=== PATIENT | female | born 1995 | race African-American/Black ===

== ENCOUNTER 2017-04-24 09:41 | Emergency (ER) | payer MEDICAID ==
[~2017-04-24] VITALS: Ht 175.3 cm; Wt 100.2 kg
[2017-04-24 10:46] LABS: Urine Bacteria FEW /hpf (None Seen); Urine Blood Negative /uL (Negative); Urine Mucus FEW (None Seen); Urine Specific Gravity 1.013 (1.001-1.035); Urine WBC 1 /hpf (0 - 5)
[2017-04-24 10:53] LABS: Basophils # (auto) 0 uL; Basophils % (auto) 0.4 % (0.0-2.0); Eosinophils # (auto) 0.1 uL; Eosinophils % (auto) 1.7 % (0.0-7.0); Hematocrit 38.9 % (36.0-46.0); Hemoglobin 13.4 g/dL (12.2-16.2); Lymphocytes # (auto) 2.2 uL; Lymphocytes % (auto) 30.5 % (10.0-50.0); Mean Corpuscular Hemoglobin 31.8 pg (28.0-32.0); Mean Corpuscular Hgb Conc. 34.4 g/dL (32.0-36.0); Mean Corpuscular Volume 92.5 fL (80.0-100.0); Monocytes # (auto) 0.3 uL; Monocytes % (auto) 4.1 % (0.0-12.0); Neutrophils # (auto) 4.7 uL; Neutrophils % (auto) 63.3 % (37.0-80.0); Platelet Count (auto) 249 10^3/uL (140-450); Red Blood Cells 4.21 10^6/uL (4.0-5.20); Red Cell Distribution Width 12.1 % (11.8-14.3); White Blood Cell 7.3 10^3/uL (4.4-10.8)
[2017-04-24 11:10] LABS: Albumin 3.7 g/dL (3.4-5.0); BUN/Creatinine Ratio 9.6; Calcium 8.9 mg/dL (8.5-10.1); Potassium 4.3 mmol/L (3.5-5.1)
[2017-04-24 11:13] LABS: Bilirubin, Total 0.3 mg/dL (0.2-1.0); Total Protein 7.6 g/dL (6.4-8.2)
[2017-04-24] MEDS ORDERED: METHYLDOPA 250 MG TAB PO ONE (11:45)
[2017-04-24] MEDS ORDERED: ACETAMINOPHEN 325 MG TAB PO ONE (11:45)
[2017-04-24 14:32] VITALS: BP 111/30
== END 2017-04-24 14:55 | disposition home or self-care (01) ==
LOC: ER 09:41
DX: O16.2 Unspecified maternal hypertension, second trimester (principal); O23.42 Unspecified infection of urinary tract in pregnancy, second trimester; Z3A.15 15 weeks gestation of pregnancy
CPT/HCPCS: 36415; 76805; 80053; 81001; 82962; 84702; 85025

== ENCOUNTER 2019-11-04 19:45 | Emergency (ER) | payer MEDICAID ==
[~2019-11-04] VITALS: Ht 172.7 cm; Wt 103.4 kg
[2019-11-04 19:55] VITALS: BP 152/109
[2019-11-04 21:36] LABS: Basophils # (auto) 0.1 10 ^3/uL (0-0.2); Basophils % (auto) 0.4 % (0.0-2.0); Eosinophils # (auto) 0.1 10 ^3/uL (0-0.8); Eosinophils % (auto) 0.4 % (0.0-7.0); Hematocrit 47.6 % (36.0-46.0); Hemoglobin 15.9 g/dL (12.2-16.2); Lymphocytes # (auto) 1.2 10 ^3/uL (0.4-5.4); Lymphocytes % (auto) 9.7 % (10.0-50.0); Mean Corpuscular Hemoglobin 32.2 pg (28.0-32.0); Mean Corpuscular Hgb Conc. 33.4 g/dL (32.0-36.0); Mean Corpuscular Volume 96.3 fL (80.0-100.0); Monocytes # (auto) 0.3 10 ^3/uL (0-1.3); Monocytes % (auto) 2.2 % (0.0-12.0); Neutrophils # (auto) 11.2 10 ^3/uL (1.6-8.6); Neutrophils % (auto) 87.3 % (37.0-80.0); Nucleated Red Blood Cells % 0.1 %; Platelet Count (auto) 258 10^3/uL (140-450); Red Blood Cells 4.94 10^6/uL (4.0-5.20); Red Cell Distribution Width 12.8 % (11.8-14.3); White Blood Cell 12.8 10^3/uL (4.4-10.8)
[2019-11-04 21:57] LABS: Albumin 4.7 g/dL (3.4-5.0); BUN/Creatinine Ratio 13.4; Calcium 9.4 mg/dL (8.5-10.1); Potassium 4.7 mmol/L (3.5-5.1)
[2019-11-04 22:00] LABS: Bilirubin, Total 0.7 mg/dL (0.2-1.0); Total Protein 8.4 g/dL (6.4-8.2)
== END 2019-11-04 22:26 | disposition left against medical advice (07) ==
LOC: ER 19:45
DX: R10.9 Unspecified abdominal pain (principal); Z53.21 Procedure and treatment not carried out due to patient leaving prior to being seen by health care provider
CPT/HCPCS: 36415; 80053; 83690; 84702; 85025

== ENCOUNTER 2023-10-30 11:19 | Inpatient (IN) | payer MEDICAID ==
[2023-10-30] VITALS (23 sets, daily range): BP systolic 122–195; BP diastolic 52–123; PULSE 101–115; RESP 9–44; TEMP 98.6–99; O2SAT 99–100
[~2023-10-30] VITALS: Ht 175.3 cm; Wt 102.6 kg
[2023-10-30] MEDS: ONDANSETRON HCL 4 MG/2 ML VIAL IV ONE ×2 (12:11→15:01)
[2023-10-30] MEDS: SODIUM CHLORIDE 0.9% 1,000 ML IV ONE (12:11)
[2023-10-30] MEDS: hydrALAZINE HCL 20 MG/ML VL IV ONE ×3 (12:11→12:52)
[2023-10-30 13:37] LABS: Basophils # (auto) 0 10 ^3/uL (0-0.2); Basophils % (auto) 0.2 % (0.0-2.0); Eosinophils # (auto) 0 10 ^3/uL (0-0.8); Eosinophils % (auto) 0.2 % (0.0-7.0); Hematocrit 32.6 % (36.0-46.0); Hemoglobin 11.8 g/dL (12.2-16.2); Lymphocytes # (auto) 1.1 10 ^3/uL (0.4-5.4); Lymphocytes % (auto) 11.2 % (10.0-50.0); Mean Corpuscular Hemoglobin 33.1 pg (28.0-32.0); Mean Corpuscular Hgb Conc. 36.1 g/dL (32.0-36.0); Mean Corpuscular Volume 91.6 fL (80.0-100.0); Monocytes # (auto) 0.2 10 ^3/uL (0-1.3); Monocytes % (auto) 1.9 % (0.0-12.0); Neutrophils # (auto) 8.7 10 ^3/uL (1.6-8.6); Neutrophils % (auto) 86.5 % (37.0-80.0); Nucleated Red Blood Cells % 0.1 %; Platelet Count (auto) 253 10^3/uL (140-450); Red Blood Cells 3.55 10^6/uL (4.0-5.20); Red Cell Distribution Width 12.4 % (11.8-14.3)
[2023-10-30 13:51] LABS: Partial Thromboplastin Time 26.5 SEC (24.5-34.5); Prothrombin Time 10.6 sec (9.3-11.8)
[2023-10-30 14:02] LABS: Alanine Aminotransferase 10 U/L (7-40); Albumin 4.2 g/dL (3.2-4.8); Alkaline Phosphatase 42 U/L (46-116); Anion Gap 13 (5-15); Aspartate Aminotransferase < 8 U/L (13-40); BUN/Creatinine Ratio 10.4 (10.0-20.0); Blood Urea Nitrogen 11 mg/dL (9-23); Calcium 9.6 mg/dL (8.7-10.4); Carbon Dioxide 17 mmol/L (20-30); Chloride 104 mmol/L (98-107); Glucose 256 mg/dL (74-106); Potassium 4.6 mmol/L (3.5-5.1); Sodium 134 mmol/L (136-145)
[2023-10-30 14:03] LABS: Bilirubin, Total 0.6 mg/dL (0.2-1.0); Total Protein 7.1 g/dL (5.7-8.2)
[2023-10-30] MEDS: LABETALOL HCL 20 MG/4 ML VL IV ONE (14:49)
[2023-10-30] MEDS: LABETALOL INJECTION 250 MG in SODIUM CHL 0.9% 200 ML IV ONE (16:57)
[2023-10-30] MEDS: METOCLOPRAMIDE HCL 5MG/ml INJ 2ml VIAL IV ONE (16:58)
[2023-10-30] MEDS ORDERED: DOCUSATE SOD 100 MG CAP PO PRN (17:15)
[2023-10-30] MEDS ORDERED: DEXTROSE (50%) 50ML SYRG IV PRN (17:15)
[2023-10-30 18:10] LABS: Urine Bacteria None Seen /hpf (None Seen)
[2023-10-30 18:31] LABS: Urine Blood TRACE /uL (Negative); Urine Clarity Clear (Clear); Urine Color Light-Yellow (Yellow); Urine Protein, UAD 3+ (Negative); Urine Specific Gravity 1.021 (1.001-1.035); Urine Urobilinogen Normal (Negative); Urine WBC 1 /hpf (0 - 5); Urine pH 6.5 (5.0-9.0)
[2023-10-30 18:35] LABS: Amphetamine Screen, Urine Neg (NEGATIVE); Barbiturate Scree,Urine Neg (NEGATIVE); Cannabinoid Screen, Urine Pos (NEGATIVE); Cocaine Screen, Urine Neg (NEGATIVE); Opiate Scree,Urine Neg (NEGATIVE); Phencyclidine Screen, Urine Neg (NEGATIVE)
[2023-10-30 18:36] LABS: Creatinine, Urine 59.85 mg/dL (30.0-125.0)
[2023-10-30 18:37] LABS: Benzodiazephine Screen, Urine Neg (NEGATIVE)
[2023-10-30 18:39] LABS: Urine Protein/Creatinine Ratio 8.62
[2023-10-30 19:33] LABS: COVID19 ANTIGEN SOFIA FIA NEGATIVE (NEGATIVE)
[2023-10-30] MEDS: SODIUM CHL 0.9% IV SCH (19:40)
[2023-10-30] MEDS: LABETALOL IV SCH (19:40)
[2023-10-30] MEDS: ONDANSETRON HCL 4 MG/2 ML VIAL IV PRN (21:01)
[2023-10-30] MEDS: SODIUM CHLOR 0.9% PF (SALINE LOCK) 10ML VIAL/SYR IV SCH (21:01)
[2023-10-30] MEDS: ACCU-CHEK COMFORT CURVE STRIP VI SCH (21:53)
[2023-10-30] MEDS: InsuLIN REG 1unit/0.01ml Soln (100units/ml) SC SCH (22:01)
[2023-10-30] MEDS: dilTIAZem 25 MG/5 ML VIAL IV ONE (22:51)
[2023-10-31] VITALS (95 sets, daily range): BP systolic 90–194; BP diastolic 42–112; PULSE 95–111; RESP 10–31; TEMP 97.9–98.8; O2SAT 94–100
[2023-10-31] MEDS: NIFEdipine 10 MG CAP PO ONE (00:30)
[2023-10-31] MEDS: NIFEdipine ER 30 MG TAB PO ONE ×2 (00:33→04:22)
[2023-10-31] MEDS ORDERED: NIFE1TAB31 PO (00:42)
[2023-10-31] MEDS ORDERED: PROMETHAZINE HCL 12.5 MG RECT SUPP PR ONE (02:30)
[2023-10-31] MEDS: PROMETHAZINE-DM 5 ML ORAL SYRUP ONE (02:59)
[2023-10-31] MEDS: PROMETHAZINE HCL 6.25 MG/5 ML ORAL SYRUP PO ONE ×2 (03:01→05:15)
[2023-10-31 04:00] LABS: Basophils # (auto) 0 10 ^3/uL (0-0.2); Basophils % (auto) 0.1 % (0.0-2.0); Eosinophils # (auto) 0 10 ^3/uL (0-0.8); Hematocrit 30.1 % (36.0-46.0); Hemoglobin 10.9 g/dL (12.2-16.2); Lymphocytes # (auto) 1.2 10 ^3/uL (0.4-5.4); Lymphocytes % (auto) 9.2 % (10.0-50.0); Mean Corpuscular Hemoglobin 33.6 pg (28.0-32.0); Mean Corpuscular Hgb Conc. 36.3 g/dL (32.0-36.0); Mean Corpuscular Volume 92.6 fL (80.0-100.0); Monocytes # (auto) 0.6 10 ^3/uL (0-1.3); Monocytes % (auto) 4.3 % (0.0-12.0); Neutrophils # (auto) 11.1 10 ^3/uL (1.6-8.6); Neutrophils % (auto) 86.4 % (37.0-80.0); Platelet Count (auto) 257 10^3/uL (140-450); Red Blood Cells 3.25 10^6/uL (4.0-5.20); Red Cell Distribution Width 12.5 % (11.8-14.3); White Blood Cell 12.8 10^3/uL (4.4-10.8)
[2023-10-31 04:27] LABS: Albumin 4.1 g/dL (3.2-4.8); Alkaline Phosphatase 42 U/L (46-116); Anion Gap 14 (5-15); Aspartate Aminotransferase < 8 U/L (13-40); BUN/Creatinine Ratio 9.6 (10.0-20.0); Blood Urea Nitrogen 12 mg/dL (9-23); Calcium 9.4 mg/dL (8.7-10.4); Carbon Dioxide 20 mmol/L (20-30); Chloride 103 mmol/L (98-107); Glucose 304 mg/dL (74-106); Potassium 3.5 mmol/L (3.5-5.1); Sodium 137 mmol/L (136-145)
[2023-10-31 04:28] LABS: Bilirubin, Total 0.4 mg/dL (0.2-1.0); Total Protein 6.9 g/dL (5.7-8.2)
[2023-10-31 04:31] LABS: Alanine Aminotransferase < 9 U/L (7-40)
[2023-10-31] MEDS: hydrALAZINE HCL 20 MG/ML VL ONE (05:14)
[2023-10-31] MEDS ORDERED: PROMETHAZINE-DM 5 ML ORAL SYRUP ONE (05:18)
[2023-10-31] MEDS: hydrALAZINE HCL 20 MG/ML VL IV ONE (05:40)
[2023-10-31] MEDS: MORPHINE SULFATE INJ 2 MG/ml SYRG IV ONE (05:42)
[2023-10-31] MEDS: hydrALAZINE HCL 20 MG/ML VL IV PRN (07:06)
[2023-10-31] MEDS ORDERED: PROMETHAZINE HCL 25 MG RECT SUPP PR ONE (09:15)
[2023-10-31] MEDS: MORPHINE SULFATE INJ 2 MG/ml SYRG ONE (10:23)
[2023-10-31] MEDS: ENOXAPARIN SOD 40 MG/0.4 ML SYRINGE SC SCH (11:04)
[2023-10-31] MEDS: MAGNESIUM SULFATE 1GM/100ML 100 ML IV SCH (13:28)
[2023-10-31] MEDS: POTASSIUM CHLORIDE 20 MEQ, LIDOCAINE 1% (LOCAL ANESTH.) 2 ML in SODIUM CHL 0.9% 100 ML IV ONE (13:59)
[2023-10-31] MEDS ORDERED: DEXTROSE (50%) 50ML SYRG IV PRN (15:30)
[2023-10-31] MEDS: SODIUM CHL 0.9% IV SCH (16:00)
[2023-10-31] MEDS: LABETALOL IV SCH (16:00)
[2023-10-31] MEDS: PANTOPRAZOLE 40 MG/10 ML VIAL INJ IV ONE (16:06)
[2023-10-31] MEDS: SOD CHL 0.45% 1,000 ML IV SCH (16:06)
[2023-10-31] MEDS: ACETAMINOPHEN IV 1000 MG/100ML (10MG/ML) IV ONE (18:36)
[2023-10-31] MEDS: ACCU-CHEK COMFORT CURVE STRIP VI SCH (18:38)
[2023-10-31] MEDS: InsuLIN REG 1unit/0.01ml Soln (100units/ml) SC SCH (18:38)
[2023-10-31] MEDS: SUCRALFATE 1 GM/10 ML ORAL SUSP PO SCH (22:05)
[2023-11-01] VITALS (75 sets, daily range): BP systolic 125–186; BP diastolic 59–109; PULSE 92–125; RESP 12–32; TEMP 97.8–99; O2SAT 95–100
[2023-11-01] MEDS: METOCLOPRAMIDE HCL 5MG/ml INJ 2ml VIAL IV ONE (01:39)
[2023-11-01] MEDS: hydrALAZINE HCL 20 MG/ML VL IV PRN (02:22)
[2023-11-01 04:21] LABS: Free T3 2.36 pg/mL (2.3-4.2); Free T4 (Free Thyroxine) 1.06 ng/dL (0.89-1.76)
[2023-11-01] MEDS: ACETAMINOPHEN 325 MG TAB PO PRN (05:20)
[2023-11-01] MEDS ORDERED: ACETAMINOPHEN 325 MG TAB PO PRN (08:30)
[2023-11-01 09:00] LABS: Basophils # (auto) 0 10 ^3/uL (0-0.2); Basophils % (auto) 0.3 % (0.0-2.0); Eosinophils # (auto) 0 10 ^3/uL (0-0.8); Eosinophils % (auto) 0.1 % (0.0-7.0); Hematocrit 30.5 % (36.0-46.0); Lymphocytes # (auto) 2.1 10 ^3/uL (0.4-5.4); Lymphocytes % (auto) 15.6 % (10.0-50.0); Mean Corpuscular Hgb Conc. 35.9 g/dL (32.0-36.0); Monocytes # (auto) 0.5 10 ^3/uL (0-1.3); Monocytes % (auto) 3.7 % (0.0-12.0); Neutrophils # (auto) 10.9 10 ^3/uL (1.6-8.6); Neutrophils % (auto) 80.3 % (37.0-80.0); Platelet Count (auto) 288 10^3/uL (140-450); Red Blood Cells 3.32 10^6/uL (4.0-5.20); Red Cell Distribution Width 12.4 % (11.8-14.3); White Blood Cell 13.6 10^3/uL (4.4-10.8)
[2023-11-01] MEDS ORDERED: CLINIMIX PER PHARMACY 0 ML IV SCH (09:15)
[2023-11-01 09:29] LABS: Alanine Aminotransferase 14 U/L (7-40); Albumin 3.7 g/dL (3.2-4.8); Alkaline Phosphatase 41 U/L (46-116); Anion Gap 11 (5-15); Aspartate Aminotransferase 9 U/L (13-40); BUN/Creatinine Ratio 10.9 (10.0-20.0); Blood Urea Nitrogen 14 mg/dL (9-23); Calcium 8.9 mg/dL (8.7-10.4); Carbon Dioxide 19 mmol/L (20-30); Chloride 103 mmol/L (98-107); Glucose 215 mg/dL (74-106); LDL Cholesterol 159 mg/dL (< 100); Magnesium 1.9 mg/dL (1.6-2.6); Sodium 133 mmol/L (136-145); Triglycerides 361 mg/dL (< 150)
[2023-11-01 09:30] LABS: Bilirubin, Direct 0.1 mg/dL (<0.3); Bilirubin, Total 0.5 mg/dL (0.2-1.0); Cholesterol 263 mg/dL (< 200); HDL Cholesterol 44 mg/dL (40-59); Total Protein 6.3 g/dL (5.7-8.2)
[2023-11-01] MEDS: PANTOPRAZOLE 40 MG/10 ML VIAL INJ IV SCH (10:10)
[2023-11-01] MEDS: ACETAMINOPHEN IV 1000 MG/100ML (10MG/ML) IV PRN (10:20)
[2023-11-01] MEDS ORDERED: DEXTROSE (50%) 50ML SYRG IV SCH (10:45)
[2023-11-01] MEDS: POTASSIUM CHLORIDE 40 MEQ, LIDOCAINE 1% (LOCAL ANESTH.) 4 ML in SODIUM CHL 0.9% 250 ML IV ONE (11:46)
[2023-11-01] MEDS: InsuLIN REG 1unit/0.01ml Soln (100units/ml) SC SCH (11:53)
[2023-11-01] MEDS: ACCU-CHEK COMFORT CURVE STRIP VI SCH (11:54)
[2023-11-01] MEDS: METOCLOPRAMIDE HCL 5MG/ml INJ 2ml VIAL IV PRN (12:43)
[2023-11-01] MEDS: MAGNESIUM SULFATE 1GM/100ML 100 ML IV ONE (13:02)
[2023-11-01] MEDS: POTASSIUM CHL 20MEQ/100ML 100 ML IV ONE (16:00)
[2023-11-01 20:33] LABS: Protein, Urine 530.6 mg/dL (0.0-11.9)
[2023-11-01 20:48] LABS: 24 Hr. Total Protein, Urine 6101.9 mg/24 Hr (<149.1)
[2023-11-01] MEDS: METOCLOPRAMIDE HCL 5MG/ml INJ 2ml VIAL ONE (21:37)
[2023-11-01 22:02] LABS: Alanine Aminotransferase 14 U/L (7-40); Albumin 3.5 g/dL (3.2-4.8); Alkaline Phosphatase 37 U/L (46-116); Anion Gap 7 (5-15); Aspartate Aminotransferase 12 U/L (13-40); BUN/Creatinine Ratio 10.9 (10.0-20.0); Bilirubin, Total 0.6 mg/dL (0.2-1.0); Blood Urea Nitrogen 13 mg/dL (9-23); Calcium 8.5 mg/dL (8.7-10.4); Carbon Dioxide 20 mmol/L (20-30); Chloride 107 mmol/L (98-107); Glucose 161 mg/dL (74-106); Magnesium 1.9 mg/dL (1.6-2.6); Potassium 3.6 mmol/L (3.5-5.1); Sodium 134 mmol/L (136-145)
[2023-11-01 22:03] LABS: Total Protein 5.8 g/dL (5.7-8.2)
[2023-11-01] MEDS: AMINO ACID INFUSION IN D10W 1,000 ML IV SCH (22:32)
[2023-11-02] VITALS (8 sets, daily range): BP systolic 150–179; BP diastolic 82–108; PULSE 92–104; RESP 14–26; O2SAT 97–100
[2023-11-02] MEDS ORDERED: LABETALOL IV SCH
[2023-11-02] MEDS ORDERED: SODIUM CHL 0.9% IV SCH
[2023-11-02] MEDS: hydrALAZINE HCL 20 MG/ML VL IV ONE (00:51)
[2023-11-02 08:07] LABS: Complement C3 138 mg/dL (82-167)
[2023-11-02 16:06] LABS: Anti-Centromere B Antibody <0.2 AI (0.0-0.9); Anti-Jo-1 Antibody <0.2 AI (0.0-0.9); Anti-dsDNA Antibody <1 IU/mL (0-9); Antichromatin Antibody <0.2 AI (0.0-0.9); Antiscleroderma-70 Antibody <0.2 AI (0.0-0.9); RNP Antibody <0.2 AI (0.0-0.9); Sjogren's Anti-SS-A Antibody <0.2 AI (0.0-0.9); Sjogren's Anti-SS-B Antibody <0.2 AI (0.0-0.9); Smith Antibody <0.2 AI (0.0-0.9)
[2023-11-03 17:06] LABS: Antiglomerular BM Antibody <0.2 units (0.0-0.9); Antimyeloperoxidase (MPO) Ab <0.2 units (0.0-0.9); Antiproteinase 3 (PR-3) Ab <0.2 units (0.0-0.9)
[2023-11-04 12:06] LABS: Cytoplasmic (C-ANCA) <1:20 titer (Neg:<1:20); Perinuclear (P-ANCA) <1:20 titer (Neg:<1:20)
[2023-11-04 17:06] LABS: Dilute Prothrombin Time(dPT) 32.5 sec (0.0-47.6); PTT-LA 38.5 sec (0.0-43.5); Thrombin Time 16.5 sec (0.0-23.0); dPT Confirm Ratio 1.19 Ratio (0.00-1.34); dRVVT 36.2 sec (0.0-47.0)
[2023-11-04 18:06] LABS: Lupus Interpretation Comment: (.)
[2023-11-06 10:06] LABS: Anticardiolipin IgG Antibody <9 GPL U/mL (0-14)
== END 2023-11-02 02:11 | disposition short-term general hospital (02) | DRG 566 ==
LOC: ER 11:19 → TELE 17:19 → ICU WEST 18:50
PROVIDERS: ADMIT Internal Medicine; ATTEND Internal Medicine
DX: O26.832 Pregnancy related renal disease, second trimester (principal); N17.0 Acute kidney failure with tubular necrosis; O11.2 Pre-existing hypertension with pre-eclampsia, second trimester; O99.282 Endocrine, nutritional and metabolic diseases complicating pregnancy, second trimester; O21.9 Vomiting of pregnancy, unspecified; O24.419 Gestational diabetes mellitus in pregnancy, unspecified control; O99.012 Anemia complicating pregnancy, second trimester; O99.212 Obesity complicating pregnancy, second trimester; O34.82 Maternal care for other abnormalities of pelvic organs, second trimester; I16.1 Hypertensive emergency; D64.9 Anemia, unspecified; Z3A.18 18 weeks gestation of pregnancy; Z20.822 Contact with and (suspected) exposure to COVID-19; N83.292 Other ovarian cyst, left side; E87.6 Hypokalemia; Z87.891 Personal history of nicotine dependence
CPT/HCPCS: 36415; 76805; 80053; 80061; 80076; 80307; 81001; 82384; 82570; 82962; 83036; 83516; 83520; 83735; 83835; 84100; 84156; 84439; 84443; 84481; 84550; 84585; 84702; 85025; 85610; 85613; 85670; 85705; 85730; 85732; 86160; 86225; 86235; 86256; 86703; 86901; 87081; 87426; 93306; 93976; 96365; 96375; 96376; 99291; 99292; G0378; J0131; J2001; J2405; J2470; J3480

== ENCOUNTER 2023-11-28 23:18 | Observation (INO) | payer MEDICAID ==
[~2023-11-28] VITALS: Ht 175.3 cm; Wt 99.8 kg
[~2023-11-28 23:18] MED LIST: NIFE1TAB31 PO
[2023-11-28] MEDS ORDERED: LIDOCAINE 2%HCL (LOCAL ANESTH.) INJ 20ML MDV IJ PRN (23:45)
[2023-11-28] MEDS ORDERED: WITCH HAZEL-GLYCERIN PAD TOP PRN (23:45)
[2023-11-28] MEDS ORDERED: LABETALOL HCL 200 MG TAB PO PRN (23:45)
[2023-11-28] MEDS ORDERED: SODIUM CHLORIDE 0.9% 1,000 ML IV SCH (23:45)
[2023-11-28] MEDS ORDERED: DERMOPLAST 60ML BOTTLE TOP PRN (23:45)
[2023-11-28] MEDS ORDERED: PHISODERM TOP SOLN 240ML BTL TOP PRN (23:45)
[2023-11-28] MEDS ORDERED: NIFEdipine 10 MG CAP PO PRN ×2 (23:45)
[2023-11-28] MEDS ORDERED: BUTORPHANOL TARTRATE 2 MG/1 ML VIAL IV PRN ×2 (23:45)
[2023-11-28] MEDS ORDERED: hydrALAZINE HCL 20 MG/ML VL IV PRN ×2 (23:45)
[2023-11-28] MEDS ORDERED: ONDANSETRON HCL 4 MG/2 ML VIAL ONE (23:56)
[2023-11-29] MEDS ORDERED: LABETALOL HCL 20 MG/4 ML VL IV ONE
[2023-11-29] MEDS ORDERED: ONDANSETRON HCL 4 MG/2 ML VIAL IV PRN (00:15)
[2023-11-29] MEDS: InsuLIN REG 1unit/0.01ml Soln (100units/ml) SC SCH (00:23)
[2023-11-29] MEDS: LABETALOL HCL 20 MG/4 ML VL IV ONE ×2 (00:28→01:27)
[2023-11-29 01:03] LABS: Basophils # (auto) 0 10 ^3/uL (0-0.2); Basophils % (auto) 0.1 % (0.0-2.0); Eosinophils # (auto) 0 10 ^3/uL (0-0.8); Hematocrit 33.2 % (36.0-46.0); Hemoglobin 11.2 g/dL (12.2-16.2); Lymphocytes # (auto) 1.4 10 ^3/uL (0.4-5.4); Lymphocytes % (auto) 10.9 % (10.0-50.0); Mean Corpuscular Hemoglobin 32.6 pg (28.0-32.0); Mean Corpuscular Hgb Conc. 33.9 g/dL (32.0-36.0); Mean Corpuscular Volume 96.4 fL (80.0-100.0); Monocytes # (auto) 0.5 10 ^3/uL (0-1.3); Neutrophils # (auto) 10.9 10 ^3/uL (1.6-8.6); Nucleated Red Blood Cells % 0.1 %; Platelet Count (auto) 293 10^3/uL (140-450); Red Blood Cells 3.44 10^6/uL (4.0-5.20); Red Cell Distribution Width 12.9 % (11.8-14.3); White Blood Cell 12.8 10^3/uL (4.4-10.8)
[2023-11-29 01:11] LABS: Albumin 4.4 g/dL (3.2-4.8); Alkaline Phosphatase 58 U/L (46-116); Anion Gap 19 (5-15); Aspartate Aminotransferase < 8 U/L (13-40); BUN/Creatinine Ratio 8.4 (10.0-20.0); Bilirubin, Total 0.6 mg/dL (0.2-1.0); Blood Urea Nitrogen 10 mg/dL (9-23); Calcium 10.1 mg/dL (8.7-10.4); Carbon Dioxide 15 mmol/L (20-31); Chloride 103 mmol/L (98-107); Glucose 241 mg/dL (74-106); Potassium 3.7 mmol/L (3.5-5.1); Sodium 137 mmol/L (136-145); Total Protein 7.5 g/dL (5.7-8.2)
[2023-11-29 01:16] LABS: INR 1.02 (0.9-1.15); Partial Thromboplastin Time 26.8 SEC (24.5-34.5); Prothrombin Time 10.8 sec (9.3-11.8)
[2023-11-29] MEDS: ONDANSETRON HCL 4 MG/2 ML VIAL IV PRN (01:17)
[2023-11-29 01:19] LABS: Alanine Aminotransferase < 9 U/L (7-40)
[2023-11-29] MEDS: LACTATED RINGER'S 1,000 ML IV SCH (01:22)
[2023-11-29] MEDS: ACCU-CHEK COMFORT CURVE STRIP VI SCH (01:25)
[2023-11-29] MEDS ORDERED: hydrALAZINE HCL 20 MG/ML VL IV PRN (01:45)
[2023-11-29] MEDS ORDERED: hydrALAZINE HCL 20 MG/ML VL IV ONE (01:45)
--- NOTE | 2023-11-29 03:12 | DVH ---
Examination: US CLINICAL INDICATION: contractions COMPARISON: None. TECHNIQUE: Transabdominal second trimester OB ultrasound was performed. FINDINGS: Real-time ultrasound examination of pelvis shows normal single intra-uterine . Placenta is fundal in location. No evidence of placental abruption. cardiac activity and movements are we ll appreciated. Fetus is in vertex position. The various parameters are as follows: BPD-5.2 cm corresponding to 21 weeks 6 days. HC-18.52 cm corresponding to 20 weeks 6 days. AC-14.81 cm corresponding to 20 weeks 1 day. FL-3.34 cm corresponding to 20 weeks 3 days. weight - 349g. STEFFI: 04/11/2024. heart rate: 153 b/min. ADONIS-13.5 cm. Average GA: 20 weeks 6 days one week 5 days. average growth percent: 13.7%. Internal os is closed. Cervical length is adequate and measures 3.3 cm. IMPRESSION: Single live intra-uterine . The approximate gestational age is around 20 weeks 6 days. Electronically Signed 11/29/2023 03:04 Zenia Wade
--- NOTE | 2023-11-29 14:08 | DVHDS2 ---
Physician Discharge Progress N Final Diagnosis: chronic htn uncontrolled,non compliancy,pre gest dm,morbid obesity,hx of iufd,previouc cs Operations or Procedures: Operations or Procedures nst,sono,labs Other Interventions Other Interventions due to high risk nature of this presentation after antihypertensive treatment didnt work decision was made to transfer pt to er to be further eval and be transferred to either icu or higher level of care Condition on Discharge: Higher Level of Care Disposition: Inpatient Rehab Facility Discharge Instructions: Diet: Consistent carbohydrate Activity: No Restrictions, As Tolerated Medications: na Follow Up Care: Specialist: to er Discharge Statement: "Patient was advised to return to the ER or call 911 if any headaches, dizziness, shortness of breath, chest pain, abdominal pain, bleeding, fevers, or worsening of medical condition. Patient was counseled about treatment plan, medications, possible side effects, patientverbalized understanding. All questions were answered to the best of my ability. This discharge took greater then 30 minutes in planning, reviewing documentation, counseling the patient, and discussing with other team members." ARMEN SERRA DO Nov 29, 2023 14:08
[2023-11-30 08:06] LABS: RPR Non Reactive (Non Reactive)
--- NOTE | 2023-12-14 10:09 | ECG ---
[facility] Test Date: 2023-11-28 Test Time: 23:23:06 Pat Name: AMARJIT FISHMAN Department: Room: Gender: F Education Administrative Assistant: BESSY : 1995 Requested By: ARMEN SERRA Order Number: [id number] Reading MD: Jolly Huang Measurements Intervals [place] Rate: 113 P: 43 MA: 138 QRS: 40 QRSD: 78 T: 80 QT: 362 QTc: 496 Interpretive Statements Sinus tachycardia Electronically Signed On 12-14-2023 16:19:05 PDT by Jolly Huang Please click the below link to view image of tracing.
== END 2023-11-29 00:37 | disposition home or self-care (01) ==
LOC: LDRP 23:18 → UNDOADMIN 23:27
PROVIDERS: ADMIT Obstetrics & Gynecology; ATTEND Obstetrics & Gynecology
DX: O13.2 Gestational [pregnancy-induced] hypertension without significant proteinuria, second trimester (principal); O24.419 Gestational diabetes mellitus in pregnancy, unspecified control; O99.212 Obesity complicating pregnancy, second trimester; E66.01 Morbid (severe) obesity due to excess calories; Z3A.22 22 weeks gestation of pregnancy; Z68.32 Body mass index [BMI] 32.0-32.9, adult; Z79.899 Other long term (current) drug therapy
CPT/HCPCS: 36415; 59025; 76805; 80053; 81002; 82962; 85025; 85610; 85730; 86592; 86803; 86850; 86900; 86901; 96372; 96374; G0378; J1815; J2405; 93005; 96366; 96375

== ENCOUNTER 2023-11-29 01:06 | Inpatient (IN) | payer MEDICAID ==
[~2023-11-29] VITALS: Ht 175.3 cm; Wt 100.0 kg
[2023-11-29 02:00] VITALS: PULSE 110; RESP 17; O2SAT 100
[2023-11-29] MEDS ORDERED: ESMOLOL HCL-NS 10MG/ML 250 ML IV SCH (02:00)
[2023-11-29] MEDS: LABETALOL HCL 20 MG/4 ML VL IV ONE (03:07)
[2023-11-29] MEDS: LABETALOL INJECTION 250 MG in SODIUM CHL 0.9% 200 ML IV ONE (03:08)
[2023-11-29] MEDS: LABETALOL HCL 5 MG/ML ML 20ML VIAL IV ONE ×2 (03:08)
[2023-11-29] MEDS: METOCLOPRAMIDE HCL 5MG/ml INJ 2ml VIAL IV PRN (07:07)
[2023-11-29] MEDS: hydrALAZINE HCL 20 MG/ML VL IV PRN (07:07)
[2023-11-29 07:25] VITALS: O2SAT 100
[2023-11-29 08:43] LABS: Basophils # (auto) 0 10 ^3/uL (0-0.2); Basophils % (auto) 0.4 % (0.0-2.0); Eosinophils # (auto) 0 10 ^3/uL (0-0.8); Eosinophils % (auto) 0.1 % (0.0-7.0); Hematocrit 30.3 % (36.0-46.0); Hemoglobin 10.7 g/dL (12.2-16.2); Lymphocytes # (auto) 1.4 10 ^3/uL (0.4-5.4); Lymphocytes % (auto) 11.6 % (10.0-50.0); Mean Corpuscular Hemoglobin 32.7 pg (28.0-32.0); Mean Corpuscular Hgb Conc. 35.4 g/dL (32.0-36.0); Mean Corpuscular Volume 92.4 fL (80.0-100.0); Monocytes # (auto) 0.6 10 ^3/uL (0-1.3); Monocytes % (auto) 4.6 % (0.0-12.0); Neutrophils # (auto) 10.1 10 ^3/uL (1.6-8.6); Neutrophils % (auto) 83.3 % (37.0-80.0); Platelet Count (auto) 277 10^3/uL (140-450); Red Blood Cells 3.28 10^6/uL (4.0-5.20); Red Cell Distribution Width 12.3 % (11.8-14.3); White Blood Cell 12.1 10^3/uL (4.4-10.8)
[2023-11-29] MEDS: NIFEdipine ER 30 MG TAB PO SCH (08:47)
[2023-11-29 09:02] LABS: Alkaline Phosphatase 51 U/L (46-116); Anion Gap 11 (5-15); Aspartate Aminotransferase 9 U/L (13-40); BUN/Creatinine Ratio 10.2 (10.0-20.0); Bilirubin, Total 0.4 mg/dL (0.2-1.0); Blood Alcohol < 3.0 mg/dL (<10); Blood Urea Nitrogen 13 mg/dL (9-23); Calcium 9.6 mg/dL (8.7-10.4); Carbon Dioxide 21 mmol/L (20-31); Chloride 106 mmol/L (98-107); Glucose 281 mg/dL (74-106); Potassium 3.7 mmol/L (3.5-5.1); Sodium 138 mmol/L (136-145); Total Protein 6.7 g/dL (5.7-8.2)
[2023-11-29 09:03] LABS: Albumin 3.9 g/dL (3.2-4.8)
[2023-11-29 09:07] LABS: Alanine Aminotransferase < 9 U/L (7-40)
[2023-11-29] MEDS: ONDANSETRON HCL 4 MG/2 ML VIAL IV ONE (09:53)
[2023-11-29] MEDS: hydrALAZINE HCL 20 MG/ML VL IV ONE (11:22)
[2023-11-29 11:48] VITALS: BP 173/89; PULSE 109; RESP 16; TEMP 98.9; O2SAT 99
== END 2023-11-29 11:56 | disposition short-term general hospital (02) | DRG 566 ==
LOC: ER 01:06 → TELE 05:13
PROVIDERS: ADMIT Emergency Medicine; ATTEND Internal Medicine
DX: O16.2 Unspecified maternal hypertension, second trimester (principal); I16.1 Hypertensive emergency; O24.419 Gestational diabetes mellitus in pregnancy, unspecified control; O99.212 Obesity complicating pregnancy, second trimester; O34.211 Maternal care for low transverse scar from previous cesarean delivery; Z91.199 Patient's noncompliance with other medical treatment and regimen due to unspecified reason; Z3A.21 21 weeks gestation of pregnancy
CPT/HCPCS: 36415; 80053; 80320; 83605; 83880; 84484; 85025; 96365; 96375; 99291; G0378; J2405

== ENCOUNTER 2024-05-18 15:30 | Inpatient (IN) | payer MEDICAID ==
[~2024-05-18] VITALS: Ht 177.8 cm; Wt 99.6 kg
[2024-05-18] MEDS: NITROGLYCERIN 0.4 MG SL TAB SL ONE (15:53)
--- NOTE | 2024-05-18 16:05 | ED.PDOC ---
HPI Comments 28-year-old female presents with a chief complaint of chest pain x onset this morning with associated nausea, vomiting, and SOB. Patient states that her chest pain is localized to her left chest wall, nonradiating, and rates her pain a 10/10. Patient mentions that she could not take her HTN or DM medications this morning due to the vomiting. Patient has high blood pressure in triage at 233/104 and 211/117. Patient endorses smoking marijuana with last session being last night. PMHx: HTN, DM, Asthma PSHx: SHx: Marijuana use, Alcohol use HPI: Poor Historian. REVIEW OF SYSTEMS: CONSTITUTIONAL: Denies acute: fever, diaphoresis, chills, generalized weakness. HEAD: Denies acute: headache, photophobia Eyes: Denies acute: Double vision, vision loss, eye pain, eye discharge. EARS: Denies acute: tinnitus, hearing loss, ear discharge, ear pain, THROAT: Denies acute: sore throat, swelling, difficulty swallowing , pain with swallowing, change in voice. NECK: Denies acute: neck pain, neck swelling, stiff neck. HEART: Denies acute : palpitations, LUNGS: Denies acute: SOB, wheezing, cough, hemoptysis ABDOMEN: Denies acute: abdominal pain, diarrhea, melena , hematemesis, hematochezia SKIN: Denies acute: rash, redness, lesions, itchiness. EXTREMITIES: Denies acute: calf pain, numbness, tingling, weakness, denies pain in extremity. Denies acute: Low back pain. Neuro: Denies acute: focal neurological deficit, motor or sensory focal neurological deficit, tremors, seizure like activity, confusion, dizziness, change in mental status, loss of bowel or bladder function, cauda equina like symptoms. : Denies acute: dysuria, hematuria, flank pain, increase in urinary frequency. PSYCH: Denies acute: hallucination, suicidal ideation, homicidal ideation. FEMALE: Denies acute: abnormal vaginal bleeding, foul odor, unusual discharge. PHYSICAL EXAM: General: Nfgs-[id number]-[id number] acute distress, awake and alert. Head: normocephalic, atraumatic. Neck: supple, trachea is midline, no swelling. Throat: Normal phonation. Eyes:, no erythema, no purulent discharge, no proptosis, no icterus. Heart: regular tachycardic, no significant murmur appreciated. Lungs: no apparent respiratory distress, Able to speak in full sentences. No wheezing, no rhonchi, no crackles. No stridors Clear to auscultation bilaterally. Abdomen: non tender to palpation, non distended, soft, no guarding, no rebound, + bowel sounds. Obese. Neuro: Awake, Alert, oriented to name, self, situation, follows commands GCS=15. Speech is normal. Skin: no petechia, no purpura, no cyanosis, non-pale, not jaundice. Lower extremities: --no - Pitting edema no deformity, no focal swelling, no calf TTP. Makes eye contact. moves all four extremities. Face: no apparent facial droop. Ambulating in the ED independently. ED COURSE: Chief Complaint: Chest Pain Time Seen by MD: 15:52 Primary Care Provider: ASHLEIGH Menard Notes: Nurses Notes, Medications, Allergies Allergies: Coded Allergies: NO KNOWN ALLERGIES (Unverified , 04/24/17) Home Meds Reported Medications Nifedipine (Nifedipine Er) 30 Mg Tab, 1 TAB PO DAILY for HTN, #30 TAB 3 Refills 10/31/23 Information Source: Patient Mode of Arrival: Ambulatory Severity: Moderate Past Medical History PAST MEDICAL HISTORY: Asthma, DM, HTN Surgical History: MIXOLOGIST History: Denies all MIXOLOGIST Hx Family History Family History: No family hx of DM, No family hx of Heart jefferson, No family hx of HTN Social History Smoker: Non-Smoker Alcohol: Denies ETOH Use Drugs: Marijuana Lives In: Home Was a procedure done? Was a procedure done?: No CP Differential Dx Differential Diagnosis: N/A Differential Diagnosis: Other (DDX include renal disease, thyroid disease, electrolyte abnormality, increased salt intake, medications non-compliance, undiagnosed HTN, Hypertensive crisis, hypertensive urgency., drug toxicity.) Differential Diagnosis: Other (Ddx include but not limitied to gastritis, musculoskeletal pain, radiculopathy, atypical chest pain, dissection, aneurysm, ACS, unstable angina, hiatal hernia, GERD, anxiety, costochondritis, PE, pneumothroax, neoplasm, cardiac ischemia, drug abuse, anemia.) X-Ray, Labs, Meds, VS Vital Signs Date Time Temp Pulse Resp B/P (MAP) Pulse Ox O2 Delivery O2 Flow Rate FiO2 05/18/24 23:45 130 10 172/82 (112) 96 05/18/24 23:30 130 20 170/93 (118) 98 05/18/24 23:15 126 21 158/88 (111) 98 05/18/24 23:00 128 16 99 05/18/24 23:00 129 158/88 05/18/24 22:45 125 14 160/87 (111) 99 05/18/24 22:30 122 16 201/108 (139) 97 05/18/24 22:00 120 15 154/79 (104) 98 05/18/24 21:45 120 13 154/79 (104) 98 05/18/24 21:30 123 16 165/64 (97) 98 05/18/24 21:15 122 16 147/67 (93) 98 05/18/24 21:00 120 14 134/73 (93) 98 05/18/24 20:45 122 14 141/78 (99) 98 05/18/24 20:30 121 16 192/101 (131) 98 05/18/24 20:15 120 21 149/74 (99) 98 05/18/24 20:00 119 05/18/24 20:00 118 16 164/84 (110) 100 05/18/24 19:45 117 13 154/77 (102) 99 05/18/24 19:30 111 14 99 Room Air* 0 21 05/18/24 19:30 98.0 111 14 175/95 (121) 99 98.0 05/18/24 18:38 108 05/18/24 18:20 100 222/135 05/18/24 18:16 93 222/135 05/18/24 18:15 98.1 99 12 222/135 (164) 96 98.1 05/18/24 17:35 90 232/127 05/18/24 17:24 232/127 05/18/24 17:20 98.2 90 16 232/127 (162) 98 98.2 05/18/24 17:20 90 16 98 Room Air* 0 21 05/18/24 16:34 80 05/18/24 15:53 211/117 05/18/24 15:38 88 05/18/24 15:32 97.0 98 16 211/117 (148) 100 97.0 Lab Test 05/18/24 23:37 05/18/24 23:00 05/18/24 22:53 05/18/24 21:00 Range/Units Blood Gas Specimen Type Arterial Blood Gas Sample Site Right radial Blood Gas Patient Temperature 37.0 Arterial Blood Date Drawn [id number] Arterial Blood pH 7.388 7.350-7.450 Arterial Blood Partial Pressure CO2 29.3 L 32.0-45.0 mmHg Arterial Blood Partial Pressure O2 94.7 83.0-108.0 mmHg Arterial Blood HCO3 17.3 L 21.0-28.0 mmol/L Arterial Blood Oxygen Saturation 96.9 94.0-98.0 % Arterial Blood Base Excess -6.3 L -2.0-3.0 mmol/L Arterial Blood Oxyhemoglobin 95.6 94.0-98.0 % Arterial Blood Carboxyhemoglobin 0.6 0.5-1.5 % Arterial Blood Methemoglobin 0.7 0.0-1.5 % Gaudencio Test Yes Blood Gas Total Hemoglobin 14.60 12.0-16.0 g/dL Blood Gas Modality Room air FiO2 % 21.0 Lactic Acid Level 2.6 *H 0.4-2.0 mmol/L POC Glucose 334 H 70-106 mg/dl Troponin I High Sensitivity 5 </=34 ng/L Beta HCG, Quantitative 0.8 L 1.5-4.2 mIU/mL Test 05/18/24 19:05 05/18/24 16:26 05/18/24 15:54 05/18/24 15:47 Range/Units Lactic Acid Level 2.6 *H 2.6 *H 0.4-2.0 mmol/L Troponin I High Sensitivity 4 3 L </=34 ng/L Urine Color Light-yellow Yellow Urine Clarity Clear Clear Urine pH 7.5 5.0-9.0 Urine Specific [place] 1.017 1.001-1.035 Urine Protein 3+ H Negative Urine Ketones 1+ H Negative Urine Blood 1+ H Negative /uL Urine Nitrite Negative Negative Urine Bilirubin Negative Negative Urine Urobilinogen Normal Negative mg/dL Urine Leukocyte Esterase Negative Negative /uL Urine RBC 4 0 - 4 /hpf Urine Microscopic WBC 2 0-5 /HPF Urine Squamous Epithelial Cells Few <5 /hpf Urine Bacteria None seen None Seen /hpf Urine Glucose 4+ H Normal mg/dL Urine Test Negative Negative Urine Opiates Screen Neg NEGATIVE Urine Fentanyl Screen Neg NEGATIVE Urine Barbiturates Screen Neg NEGATIVE Urine Phencyclidine Screen Neg NEGATIVE Urine Amphetamines Screen Neg NEGATIVE Urine Benzodiazepines Screen Neg NEGATIVE Urine Cocaine Screen Neg NEGATIVE Urine Cannabinoids Screen Pos NEGATIVE POC Glucose 312 H 70-106 mg/dl White Blood Count 8.7 4.4-10.8 10^3/uL Red Blood Count 4.69 4.0-5.20 10^6/uL Hemoglobin 14.8 12.2-16.2 g/dL Hematocrit 42.7 36.0-46.0 % Mean Corpuscular Volume 91.2 80.0-100.0 fL Mean Corpuscular Hemoglobin 31.6 28.0-32.0 pg Mean Corpuscular Hemoglobin Concent 34.6 32.0-36.0 g/dL Red Cell Distribution Width 12.8 11.8-14.3 % Platelet Count 295 140-450 10^3/uL Mean Platelet Volume 9.5 6.9-10.8 fL Neutrophils (%) (Auto) 79.7 37.0-80.0 % Lymphocytes (%) (Auto) 16.7 10.0-50.0 % Monocytes (%) (Auto) 2.7 0.0-12.0 % Eosinophils (%) (Auto) 0.4 0.0-7.0 % Basophils (%) (Auto) 0.5 0.0-2.0 % Neutrophils # (Auto) 6.9 1.6-8.6 10 ^3/uL Lymphocytes # (Auto) 1.5 0.4-5.4 10 ^3/uL Monocytes # (Auto) 0.2 0-1.3 10 ^3/uL Eosinophils # (Auto) 0 0-0.8 10 ^3/uL Basophils # (Auto) 0 0-0.2 10 ^3/uL Nucleated Red Blood Cells 0.0 % D-Dimer, Quantitative 0.56 H 0.0-0.49 mg/L FEU Sodium Level 137 136-145 mmol/L Potassium Level 5.1 3.5-5.1 mmol/L Chloride Level 104 98-107 mmol/L Carbon Dioxide Level 19 L 20-31 mmol/L Anion Gap 14 5-15 Blood Urea Nitrogen 17 9-23 mg/dL Creatinine 1.41 H 0.550-1.02 mg/dL Glomerular Filtration Rate Calc 52 >90 mL/min BUN/Creatinine Ratio 12.1 10.0-20.0 Serum Glucose 300 H 74-106 mg/dL Hemoglobin A1c 6.6 H <5.7 % A1C Calcium Level 9.8 8.7-10.4 mg/dL Magnesium Level 1.6 1.6-2.6 mg/dL Total Bilirubin 0.8 0.2-1.0 mg/dL Aspartate Amino Transferase (AST) 22 13-40 U/L Alanine Aminotransferase (ALT) 19 7-40 U/L Alkaline Phosphatase 90 46-116 U/L Total Protein 6.8 5.7-8.2 g/dL Albumin 4.1 3.2-4.8 g/dL Lipase 32 12-53 U/L Beta-Hydroxybutyric Acid 1.003 H < 0.4 mmol/L Plasma/Serum Blood Alcohol < 3.0 <10 mg/dL Current Medications Medications (Trade) Dose Ordered Sig/Lucie Route Start Time Stop Time Status Last Admin Diagnostic Test (Pha) (Accu-Chek Comfort Curve T) 1 strip ONCE ONCE 05/18/24 23:30 05/18/24 23:41 DC 05/18/24 23:50 PATIENT: WILVER FISHMANT: [id number]: [id number] : 1995 LOC: ER ROOM / BED: / AGE / SEX: 28 / F ADM STATUS: REG ER SERVICE 1542 ORDERING PHYSICIAN: LASHONDA VARGAS DO PROCEDURE(s): CXRP - CHEST PORTABLE REASON: cp/sob ORDER NUMBER(s): [id number], ACCESSION NUMBER(s): [id number] INDICATION: cp/sob TECHNIQUE: Frontal view of the chest. COMPARISON: None FINDINGS: . The heart and mediastinal contours are grossly unremarkable. There is no evidence of pleural disease. The lungs are clear. The bony structures of the chest are intact without fracture. IMPRESSION: 1. No evidence of acute disease. ATED BY: BRODY HUFF MD DICTATED DATE/TIME: 05/18/241856 SIGNED BY: BRODY HUFF MD SIGNED DATE/TIME: 05/18/241856 PATIENT: AMARJIT FISHMAN ACCT: [id number] UNIT: [id number] : 1995 LOC: ER ROOM / BED: / AGE / SEX: 28 / F ADM STATUS: REG ER SERVICE 33 ORDERING PHYSICIAN: LASHONDA VARGAS DO PROCEDURE(s): HWOCT - HEAD WITHOUT CONTRAST REASON: HTN ORDER NUMBER(s): [id number], ACCESSION NUMBER(s): [id number] CLINICAL HISTORY: HTN TECHNIQUE: Helical imaging carried out from skull base to vertex without intravenous contrast. This exam was performed according to our departmental dose optimization program. Up-to-date CT equipment and radiation dose reduction techniques are utilized as appropriate. CTDIVol: 69.01 mGy DLP: 1221.61 mGy-cm WID: COMPARISON: None FINDINGS: The ventricles and subarachnoid spaces are normal in size and configuration. There is no midline shift or mass effect. The holden white matter interfaces are maintained. The basal cisterns are patent. There is no evidence of acute intracranial hemorrhage or extra-axial fluid collection. The mastoid air cells and visualized paranasal sinuses are well-aerated. IMPRESSION: No acute intracranial abnormality. ATED BY: IZABELLA MAYS MD DICTATED DATE/TIME: 05/18/241911 SIGNED BY: IZABELLA MAYS MD SIGNED DATE/TIME: 05/18/241911 PATIENT: AMARJIT FISHMAN ACCT: [id number] UNIT: [id number] : 1995 LOC: ER ROOM / BED: / AGE / SEX: 28 / F ADM STATUS: REG ER SERVICE 33 ORDERING PHYSICIAN: LASHONDA VARGAS DO PROCEDURE(s): ABPL - CT AB PEL WO CON-NO ORAL OR IV REASON: n/v ORDER NUMBER(s): [id number], ACCESSION NUMBER(s): [id number] CLINICAL HISTORY: n/v TECHNIQUE: CT of the abdomen and pelvis was performed without intravenous contrast. This exam was performed according to our departmental dose optimization program. Up-to-date CT equipment and radiation dose reduction techniques are utilized as appropriate. CTDI: 21.82 DLP: 1222.31 WID: COMPARISON: None FINDINGS: Lower Thorax: Trace pericardial fluid. Otherwise unremarkable lower chest. Liver and Biliary system: Mild hepatomegaly measuring 18 cm craniocaudal. Otherwise unremarkable. Spleen: Mild splenomegaly. Adrenal Glands and Kidneys: Unremarkable. Pancreas and Retroperitoneum: Unremarkable. Aorta and Major Vessels: Aortoiliac vessels are normal in caliber with mild calcified atherosclerotic plaque. Bowel, Mesentery and Peritoneal space: Normal caliber small and large bowel. There is mild circumferential wall thickening throughout the large bowel. There is submucosal fatty deposition in the cecum and ascending and transverse colon. There is no free intraperitoneal air or loculated fluid collection. Pelvis: Small cystic lesions in both ovaries likely follicular cysts in a patie nt this age. The uterus and ovaries are otherwise grossly unremarkable. There is no pelvic lymphadenopathy. Urinary is mildly distended. Abdominal wall and Osseous Structures: No destructive osseous lesion. IMPRESSION: 1. Circumferential wall thickening throughout the large bowel which could be infectious or inflammatory colitis. 2. Submucosal fatty deposition in the proximal colon which may be incidental or related to prior inflammatory bowel disease. 3. Mild hepatosplenomegaly. 4. Mild calcified atherosclerotic plaque within the aortoiliac vessels which is greater than expected for patient age. ATED BY: IZABELLA MAYS MD DICTATED DATE/TIME: 05/18/241950 SIGNED BY: IZABELLA MAYS MD SIGNED DATE/TIME: 05/18/241950 [place] [address] Ph: [phone] DIAGNOSTIC IMAGING Diagnostic Imaging Report : [id number] Signed PATIENT: AMARJIT FISHMAN ACCT: [id number] UNIT: [id number] : 1995 LOC: ER ROOM / BED: / AGE / SEX: 28 / F ADM STATUS: REG ER SERVICE 47 ORDERING PHYSICIAN: LASHONDA VARGAS DO PROCEDURE(s): CTACH - CT ANGIO CHEST CONTRAST REASON: cp/sob/tachy ORDER NUMBER(s): [id number], ACCESSION NUMBER(s): [id number] Procedure: CT CT ANGIO CHEST CONTRAST Reason for study/Clinical History: cp/sob/tachy Comparison Study: None available at time of dictation. Exam Date: 05/18/2024 10:04 PM Radiation Dose Information: CT Dose: CTDI volume is 29.2 mGy. Dose-length product is 2107.27 mGy*cm Contrast: Type of contrast: Opaque 350 Contrast inject: 100 mL Contrast wasted:0 TECHNIQUE: After the uneventful administration of intravenous contrast intravenously, CT imaging was performed through the chest. Coronal and sagittal reformations were performed by the technologist. FINDINGS: Lower Neck: Visualized portions of the thyroid gland are unremarkable. Suboptimal opacification of the pulmonary artery to exclude pulmonary emboli. Opacification required is 266 Hounsfield units. Opacification achieved 175 Hounsfield units Aorta and Vasculature: Normal caliber of thoracic aorta. Lymph Nodes: No enlarged intrathoracic lymph nodes. Mediastinum: Heart size is normal. There is no pericardial effusion. The esophagus is unremarkable. Lungs: No focal consolidation, pleural effusion or significant pneumothorax. No suspicious pulmonary nodule or mass. Musculoskeletal: No acute osseous abnormality. Upper abdomen: Limited portions of the upper abdomen are unremarkable. IMPRESSION: 1. Inadequate opacification of pulmonary artery to exclude pulmonary emboli. 2. No infiltrates or effusions. 3. All CT scans at this medical facility are performed using dose modulation techniques as appropriate to a performed exam including the following: Automated exposure control was utilized; adjustment of the MA and/or KV according to patient size; and use of iterative reconstruction technique. HS:Y ATED BY: ERIK ROSEN Jr., DO DICTATED DATE/TIME: 05/18/242240 SIGNED BY: ERIK ROSEN Jr., SIGNED DATE/TIME: 05/18/242240 CC: Time of 1ST Reevaluation: 16:22 Reevaluation 1ST: Unchanged Time of 2ND Reevaluation: 20:48 Reevaluation 2ND: Improved Patient Education/Counseling: Diagnosis, Treatment Family Education/Counseling: No Family Present Comments Patient presented with the above HPI.---cardiac and GI---workup was initiated. patient was found with the above mentioned diagnosis. the following medications were ordered: please refer to order lists of meds and tests obtained by myself Dr. Vargas. Patient ED course and VS have been stabilized. Patient has been reassessed in the ED and remained in a stable condition. Pertinent incidental findings were discussed with the patient and/or family. Patient/family voices understanding and is agreeable with plan. Patient has been observed in the ED adequate length of time to insure improvement/stability. Escalation of care considered: Consideration of escalation to observation or admission Patient was ADMITTED to the medicine team for further evaluation and treatment of their presentation. EKG shows T-wave inversions in lead I and aVL. Patient was given multiple boluses of labetalol, nitroglycerin sublingual, Patient was started on nicardipine drip to improve her blood pressure. All the reports of any imaging studies that were ordered by myself were reviewed by myself. Given that the patient was tachycardic and has slight elevation of D-dimer and presented with chest pain and shortness of breath. CT angiogram of the chest was obtained as mentioned above in the chart. Patient had elevated blood sugar. Patient was given fluid boluses at least 2 L and insulin 5 units IV were ordered. CT scan of the abdomen and pelvis suggested colitis. Antibiotics initiated along with fluids. WBC was normal. Departure 1 Departure Time of Disposition: 18:03 Impression: Primary Impression: Hypertensive crisis Additional Impressions: Colitis Tachycardia Hepatosplenomegaly Uncontrolled diabetes mellitus Hyperglycemia Disposition: ADMITTED INPATIENT Admit to: ICU Condition: Critical Discharged With: Self Critical Care Note Critical Care Time?: Yes (55 min-critical care time only) Heart Score Heart Score: Heart Score Response (Comments) Value History Slightly Suspicious [address]-Deviation 2 Age <45 0 Risk Factors 1 or 2 risk factors 1 Troponin Normal limit 0 Total 3 I personally scribed for LASHONDA VARGAS DO ([email or web address]) on 05/18/24 at 16:05. Electronically submitted by Darrick Miller ([email or web address]). I personally scribed for LASHONDA VARGAS DO ([email or web address]) on 05/18/24 at 19:20. Electronically submitted by Darrick Miller ([email or web address]). I personally scribed for LASHONDA VARGAS DO ([email or web address]) on 05/18/24 at 19:22. Electronically submitted by Darrick Miller ([email or web address]). I personally scribed for LASHONDA VARGAS DO ([email or web address]) on 05/18/24 at 20:10. Electronically submitted by Darrick Miller ([email or web address]). LASHONDA VARGAS DO May 18, 2024 16:05
[2024-05-18 16:41] LABS: Basophils # (auto) 0 10 ^3/uL (0-0.2); Basophils % (auto) 0.5 % (0.0-2.0); Eosinophils # (auto) 0 10 ^3/uL (0-0.8); Eosinophils % (auto) 0.4 % (0.0-7.0); Hematocrit 42.7 % (36.0-46.0); Hemoglobin 14.8 g/dL (12.2-16.2); Lymphocytes # (auto) 1.5 10 ^3/uL (0.4-5.4); Lymphocytes % (auto) 16.7 % (10.0-50.0); Mean Corpuscular Hemoglobin 31.6 pg (28.0-32.0); Mean Corpuscular Hgb Conc. 34.6 g/dL (32.0-36.0); Mean Corpuscular Volume 91.2 fL (80.0-100.0); Monocytes # (auto) 0.2 10 ^3/uL (0-1.3); Monocytes % (auto) 2.7 % (0.0-12.0); Neutrophils # (auto) 6.9 10 ^3/uL (1.6-8.6); Neutrophils % (auto) 79.7 % (37.0-80.0); Platelet Count (auto) 295 10^3/uL (140-450); Red Blood Cells 4.69 10^6/uL (4.0-5.20); Red Cell Distribution Width 12.8 % (11.8-14.3); White Blood Cell 8.7 10^3/uL (4.4-10.8)
[2024-05-18 16:50] LABS: Urine Bacteria None Seen /hpf (None Seen)
[2024-05-18] MEDS: ONDANSETRON HCL 4 MG/2 ML VIAL IV ONE (17:00)
[2024-05-18 17:04] LABS: Lactic Acid w/Reflex 2.6 mmol/L (0.4-2.0)
[2024-05-18 17:11] LABS: Urine Blood 1+ /uL (Negative); Urine Clarity Clear (Clear); Urine Color Light-Yellow (Yellow); Urine Protein, UAD 3+ (Negative); Urine Specific Gravity 1.017 (1.001-1.035); Urine Squamous Epithelial Cell FEW /hpf (<5); Urine Urobilinogen Normal (Negative); Urine WBC 2 /HPF (0-5); Urine pH 7.5 (5.0-9.0)
[2024-05-18 17:13] LABS: Amphetamine Screen, Urine Neg (NEGATIVE); Barbiturate Scree,Urine Neg (NEGATIVE); Benzodiazephine Screen, Urine Neg (NEGATIVE); Cannabinoid Screen, Urine Pos (NEGATIVE); Cocaine Screen, Urine Neg (NEGATIVE); Opiate Scree,Urine Neg (NEGATIVE); Phencyclidine Screen, Urine Neg (NEGATIVE)
[2024-05-18 17:20] VITALS: PULSE 90; RESP 16; O2SAT 98
[2024-05-18 17:28] LABS: Alanine Aminotransferase 19 U/L (7-40); Albumin 4.1 g/dL (3.2-4.8); Alkaline Phosphatase 90 U/L (46-116); Anion Gap 14 (5-15); Aspartate Aminotransferase 22 U/L (13-40); BUN/Creatinine Ratio 12.1 (10.0-20.0); Blood Urea Nitrogen 17 mg/dL (9-23); Calcium 9.8 mg/dL (8.7-10.4); Chloride 104 mmol/L (98-107); Potassium 5.1 mmol/L (3.5-5.1); Sodium 137 mmol/L (136-145); Total Protein 6.8 g/dL (5.7-8.2)
[2024-05-18 17:29] LABS: Bilirubin, Total 0.8 mg/dL (0.2-1.0)
[2024-05-18] MEDS: ASPirin-EC 325mg tab PO ONE (17:34)
[2024-05-18 17:35] LABS: Carbon Dioxide 19 mmol/L (20-31); Glucose 300 mg/dL (74-106)
[2024-05-18] MEDS: LABETALOL HCL 20 MG/4 ML VL IV ONE (17:35)
[2024-05-18] MEDS: SODIUM CHLORIDE 0.9% 1,000 ML IV ONE ×2 (17:35→21:53)
[2024-05-18 17:46] LABS: Lipase 32 U/L (12-53)
--- NOTE | 2024-05-18 19:00 | DVH ---
INDICATION: cp/sob TECHNIQUE: Frontal view of the chest. COMPARISON: None FINDINGS: . The heart and mediastinal contours are grossly unremarkable. There is no evidence of pleural disea se. The lungs are clear. The bony structures of the chest are intact without fracture. IMPRESSION: 1. No evidence of acute disease.
--- NOTE | 2024-05-18 19:15 | DVH ---
CLINICAL HISTORY: HTN TECHNIQUE: Helical imaging carried out from skull base to vertex without intravenous contrast. This e xam was performed according to our departmental dose optimization program. Up-to-date CT equipment an d radiation dose reduction techniques are utilized as appropriate. CTDIVol: 69.01 mGy DLP: 1221.61 mGy-cm WID: COMPARISON: None FINDINGS: The ventricles and subarachnoid spaces are normal in size and configuration. There is no midline yeison ft or mass effect. The holden white matter interfaces are maintained. The basal cisterns are patent. Th ere is no evidence of acute intracranial hemorrhage or extra-axial fluid collection. The mastoid air cells and visualized paranasal sinuses are well-aerated. IMPRESSION: No acute intracranial abnormality.
[2024-05-18 19:30] VITALS: PULSE 111; RESP 14; O2SAT 99
--- NOTE | 2024-05-18 19:36 | ECG ---
[facility] Test Date: 2024-05-18 Test Time: 18:38:35 Pat Name: AMARJIT FISHMAN Department: ED Room: Gender: F Ultrasound Applications Specialist: MARY : 1995 Requested By: LUDMILA HUBER Order Number: [id number] Reading MD: Measurements Intervals [place] Rate: 108 P: 42 WI: 157 QRS: 88 QRSD: 86 T: -12 QT: 367 QTc: 492 Interpretive Statements Sinus tachycardia Borderline T abnormalities, inferior leads Borderline prolonged QT interval Please click the below link to view image of tracing.
--- NOTE | 2024-05-18 19:36 | ECG ---
[facility] Test Date: 2024-05-18 Test Time: 16:34:44 Pat Name: AMARJIT FISHMAN Department: ED Room: Gender: F Health Insurance Specialist: MARY : 1995 Requested By: LUDMILA HUBER Order Number: [id number] Reading MD: Measurements Intervals [place] Rate: 80 P: 38 DC: 142 QRS: 34 QRSD: 89 T: 117 QT: 444 QTc: 513 Interpretive Statements Sinus arrhythmia Abnormal T, consider ischemia, lateral leads Prolonged QT interval Please click the below link to view image of tracing.
--- NOTE | 2024-05-18 19:53 | DVH ---
CLINICAL HISTORY: n/v TECHNIQUE: CT of the abdomen and pelvis was performed without intravenous contrast. This exam was per formed according to our departmental dose optimization program. Up-to-date CT equipment and radiation dose reduction techniques are utilized as appropriate. CTDI: 21.82 DLP: 1222.31 WID: COMPARISON: None FINDINGS: Lower Thorax: Trace pericardial fluid. Otherwise unremarkable lower chest. Liver and Biliary system: Mild hepatomegaly measuring 18 cm craniocaudal. Otherwise unremarkable. Spleen: Mild splenomegaly. Adrenal Glands and Kidneys: Unremarkable. Pancreas and Retroperitoneum: Unremarkable. Aorta and Major Vessels: Aortoiliac vessels are normal in caliber with mild calcified atherosclerotic plaque. Bowel, Mesentery and Peritoneal space: Normal caliber small and large bowel. There is mild circumfere ntial wall thickening throughout the large bowel. There is submucosal fatty deposition in the cecum a nd ascending and transverse colon. There is no free intraperitoneal air or loculated fluid collection . Pelvis: Small cystic lesions in both ovaries likely follicular cysts in a patient this age. The uteru s and ovaries are otherwise grossly unremarkable. There is no pelvic lymphadenopathy. Urinary is mild ly distended. Abdominal wall and Osseous Structures: No destructive osseous lesion. IMPRESSION: 1. Circumferential wall thickening throughout the large bowel which could be infectious or inflammato ry colitis. 2. Submucosal fatty deposition in the proximal colon which may be incidental or related to prior infl ammatory bowel disease. 3. Mild hepatosplenomegaly. 4. Mild calcified atherosclerotic plaque within the aortoiliac vessels which is greater than expected for patient age.
[2024-05-18] MEDS: IOHEXOL 350 MG/ML 100ML IJ ONE (21:04)
[2024-05-18] MEDS: CIPROFLOXACIN 400MG/200ML 200 ML IV ONE (21:35)
--- NOTE | 2024-05-18 22:44 | DVH ---
Procedure: CT CT ANGIO CHEST CONTRAST Reason for study/Clinical History: cp/sob/tachy Comparison Study: None available at time of dictation. Exam Date: 05/18/2024 10:04 PM Radiation Dose Information: CT Dose: CTDI volume is 29.2 mGy. Dose-length product is 2107.27 mGy*cm Contrast: Type of contrast: Opaque 350 Contrast inject: 100 mL Contrast wasted:0 TECHNIQUE: After the uneventful administration of intravenous contrast intravenously, CT imaging was performed through the chest. Coronal and sagittal reformations were performed by the technologist. FINDINGS: Lower Neck: Visualized portions of the thyroid gland are unremarkable. Suboptimal opacification of th e pulmonary artery to exclude pulmonary emboli. Opacification required is 266 Hounsfield units. Opaci fication achieved 175 Hounsfield units Aorta and Vasculature: Normal caliber of thoracic aorta. Lymph Nodes: No enlarged intrathoracic lymph nodes. Mediastinum: Heart size is normal. There is no pericardial effusion. The esophagus is unremarkable. Lungs: No focal consolidation, pleural effusion or significant pneumothorax. No suspicious pulmonary nodule or mass. Musculoskeletal: No acute osseous abnormality. Upper abdomen: Limited portions of the upper abdomen are unremarkable. IMPRESSION: 1. Inadequate opacification of pulmonary artery to exclude pulmonary emboli. 2. No infiltrates or effusions. 3. All CT scans at this medical facility are performed using dose modulation techniques as appropriate to a performed exam including the following: Automated exposure control was utilized; adjustment of t he MA and/or KV according to patient size; and use of iterative reconstruction technique. HS:Y
[2024-05-18] MEDS: InsuLIN REG 1unit/0.01ml Soln (100units/ml) IV ONE (23:08)
--- NOTE | 2024-05-18 23:36 | DVHHPRES ---
History of Present Illness Resident Creating Document: AMA VILLANUEVA RESIDENT Reason for Visit: Nausea and vomiting since morning History of Present Illness Patient is a 28-year-old female who recently had a baby about in February 10, 2024. Per patient patient's boyfriend patient had preeclampsia during . Patient has been fine until this morning when she started complaining of chest pain associated nausea, vomiting, and SOB. Chest pain was central with no radiation and rated 10/10 thus prompting her visit. In the ED, Her blood pressure measured 233/104 and 211/117. Patient was unable to take her medications this morning because of the persistent nausea and vomiting. Also patient did mentioned that she smokes marijuana regularly. Her last smoke was the night prior. At the time of my visit with the patient, she was not in any pain patient said chest pain is resolved and no nausea no vomiting. PMHx: HTN, DM, Asthma PSHx: Obstetric history: Recurrence History of IUGR and IUFD SHx: Marijuana use, Alcohol use Family history: Noncontributory Medical education: Nifedipine Review of Systems Allergies: Coded Allergies: NO KNOWN ALLERGIES (Unverified , 04/24/17) Medications Current Medications Medications Dose Ordered Sig/Lucie Route Start Time Stop Time Status Last Admin Dose Admin Nicardipine HCl 250 ml @ 50 mls/hr Q5H IV 05/18/24 18:15 05/18/24 23:00 150 MLS/HR Exam Vital Signs Vital Signs Date Time Temp Pulse Resp B/P (MAP) Pulse Ox O2 Delivery O2 Flow Rate FiO2 05/18/24 23:00 128 16 99 05/18/24 19:30 Room Air* 0 21 05/18/24 19:30 98.0 98.0 Exam General Appearance: Alert, Oriented X3, Cooperative, No acute distress, face looks swollen, eyes look puffy HEENT: Atraumatic, PERRLA, EOMI, Mucous membrane moist/pink Respiratory: Clear to auscultation, Normal air movement Cardiovascular: Regular rate, Normal S1, Normal S2, No murmurs, no chest wall tenderness Abdominal: distention, no tenderness, bowel sounds present, Extremities: No clubbing, No cyanosis, No edema, Normal pulses, No tenderness/swelling Skin: No rashes, No breakdown, No significant lesion Neuro: Normal gait, Normal speech, Strength at 5/5 X4 ext, Normal tone, Sensation intact, Cranial nerves 3-12 NL, Reflexes 2+ Psych/Mental Status: Mental status NL, Mood NL Labs/Xrays Labs Test 05/18/24 23:00 05/18/24 22:53 05/18/24 21:00 05/18/24 16:26 Range/Units POC Glucose 334 H 70-106 mg/dl Troponin I High Sensitivity 5 </=34 ng/L Urine Color Light-yellow Yellow Urine Clarity Clear Clear Urine pH 7.5 5.0-9.0 Urine Specific [place] 1.017 1.001-1.035 Urine Protein 3+ H Negative Urine Ketones 1+ H Negative Urine Blood 1+ H Negative /uL Urine Nitrite Negative Negative Urine Bilirubin Negative Negative Urine Urobilinogen Normal Negative mg/dL Urine Leukocyte Esterase Negative Negative /uL Urine RBC 4 0 - 4 /hpf Urine Microscopic WBC 2 0-5 /HPF Urine Squamous Epithelial Cells Few <5 /hpf Urine Bacteria None seen None Seen /hpf Urine Glucose 4+ H Normal mg/dL Urine Test Negative Negative Urine Opiates Screen Neg NEGATIVE Urine Fentanyl Screen Neg NEGATIVE Urine Barbiturates Screen Neg NEGATIVE Urine Phencyclidine Screen Neg NEGATIVE Urine Amphetamines Screen Neg NEGATIVE Urine Benzodiazepines Screen Neg NEGATIVE Urine Cocaine Screen Neg NEGATIVE Urine Cannabinoids Screen Pos NEGATIVE Test 05/18/24 15:47 Range/Units White Blood Count 8.7 4.4-10.8 10^3/uL Red Blood Count 4.69 4.0-5.20 10^6/uL Hemoglobin 14.8 12.2-16.2 g/dL Hematocrit 42.7 36.0-46.0 % Mean Corpuscular Volume 91.2 80.0-100.0 fL Mean Corpuscular Hemoglobin 31.6 28.0-32.0 pg Mean Corpuscular Hemoglobin Concent 34.6 32.0-36.0 g/dL Red Cell Distribution Width 12.8 11.8-14.3 % Platelet Count 295 140-450 10^3/uL Mean Platelet Volume 9.5 6.9-10.8 fL Neutrophils (%) (Auto) 79.7 37.0-80.0 % Lymphocytes (%) (Auto) 16.7 10.0-50.0 % Monocytes (%) (Auto) 2.7 0.0-12.0 % Eosinophils (%) (Auto) 0.4 0.0-7.0 % Basophils (%) (Auto) 0.5 0.0-2.0 % Neutrophils # (Auto) 6.9 1.6-8.6 10 ^3/uL Lymphocytes # (Auto) 1.5 0.4-5.4 10 ^3/uL Monocytes # (Auto) 0.2 0-1.3 10 ^3/uL Eosinophils # (Auto) 0 0-0.8 10 ^3/uL Basophils # (Auto) 0 0-0.2 10 ^3/uL Nucleated Red Blood Cells 0.0 % D-Dimer, Quantitative 0.56 H 0.0-0.49 mg/L FEU Sodium Level 137 136-145 mmol/L Potassium Level 5.1 3.5-5.1 mmol/L Chloride Level 104 98-107 mmol/L Carbon Dioxide Level 19 L 20-31 mmol/L Anion Gap 14 5-15 Blood Urea Nitrogen 17 9-23 mg/dL Creatinine 1.41 H 0.550-1.02 mg/dL Glomerular Filtration Rate Calc 52 >90 mL/min BUN/Creatinine Ratio 12.1 10.0-20.0 Serum Glucose 300 H 74-106 mg/dL Calcium Level 9.8 8.7-10.4 mg/dL Total Bilirubin 0.8 0.2-1.0 mg/dL Aspartate Amino Transferase (AST) 22 13-40 U/L Alanine Aminotransferase (ALT) 19 7-40 U/L Alkaline Phosphatase 90 46-116 U/L Total Protein 6.8 5.7-8.2 g/dL Albumin 4.1 3.2-4.8 g/dL Lipase 32 12-53 U/L Beta-Hydroxybutyric Acid 1.003 H < 0.4 mmol/L Assessment/Plan Assessment/Plan ASSESSMENT Marijuana hyperemesis syndrome Hypertensive emergency Uncontrolled diabetes Obesity grade 1, BMI : 31.5 SIENNA due VMN CKD Leukocytosis History of IUGR and IUFD due to noncompliance with her other pregnancies. SHORT CERVIX- Consider Vaginal progesterone for CX length 20-25 mm for risk reduction of . Adnexal Cyst: Left. 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 Can Plan discussed with: Patient, Spouse My Orders Orders - AMA VILLANUEVA RESIDENT Procedure Category Date Status Time Admit ADMIT 05/18/24 Verified 23:28 Code Status CODE 05/18/24 Verified 23:28 Vital Signs ADELIA 05/18/24 Verified 23:28 Review Orders With [facility] 05/18/24 Verified Adm. 23:28 Npo (Nothing By DIET 05/19/24 Verified Mouth) Diet Breakfast Notify Md Of Changes [facility] 05/18/24 Verified From Base 23:28 Advance Directive ADELIA 05/18/24 Verified 23:28 Patient Condition ORDERS 05/18/24 Verified 23:28 Allergies ADELIA 05/18/24 Verified 23:28 Ondansetron Hcl PHA 05/18/24 Verified (Zofran) 23:30 Drug Screen LAB 05/18/24 Verified 23:28 Hemoglobin A1c LAB 05/18/24 Verified 23:28 Notify Md Of Changes [facility] 05/18/24 Verified From Base 23:28 Beta Hcg, Quantitative LAB 05/18/24 Verified 23:28 Glucose Blood PHA 05/18/24 Verified (Accu-Chek Comfort 23:30 Mild Insulin Ss Achs PHA 05/18/24 Verified 23:30 Dextrose 50% Syringe PHA 05/18/24 Verified 23:30 Date of Service: May 18, 2024 Billing Provider: RUTH CAN MD Common Visit Codes: [id number] INP/OBS CARE (HIGH) AMA VILLANUEVA RESIDENT May 18, 2024 23:36 RUTH CAN MD May 20, 2024 09:05
[2024-05-18] MEDS: InsuLIN REG 1unit/0.01ml Soln (100units/ml) SC ONE (23:49)
[2024-05-18 23:50] LABS: Base Excess -6.3 mmol/L (-2.0-3.0)
[2024-05-18] MEDS: ACCU-CHEK COMFORT CURVE STRIP VI ONE (23:50)
[2024-05-18] MEDS: DEXTROSE (50%) 50ML SYRG IV ONE (23:50)
[2024-05-18 23:51] LABS: Lactic Acid w/Reflex 2.6 mmol/L (0.4-2.0)
[2024-05-18 23:52] LABS: Blood Alcohol < 3.0 mg/dL (<10); Magnesium 1.6 mg/dL (1.6-2.6)
[2024-05-19] VITALS (13 sets, daily range): BP systolic 140–171; BP diastolic 56–85; PULSE 111–136; RESP 16–20; TEMP 98–98.2; O2SAT 96–98
[2024-05-19] MEDS ORDERED: DEXTROSE (50%) 50ML SYRG IV PRN
[2024-05-19] MEDS: ACCU-CHEK COMFORT CURVE STRIP VI SCH
[2024-05-19] MEDS: InsuLIN REG 1unit/0.01ml Soln (100units/ml) SC SCH
[2024-05-19] MEDS: metroNIDAZOLE 500MG/100ML 100 ML IV ONE
[2024-05-19] MEDS: ONDANSETRON HCL 4 MG/2 ML VIAL IV PRN (00:02)
[2024-05-19] MEDS: cefTRIAXone 1GM/50ML D5W 50 ML IV ONE (00:58)
[2024-05-19] MEDS: PANTOPRAZOLE 40 MG/10 ML VIAL INJ IV ONE (00:59)
[2024-05-19] MEDS: LACTATED RINGER'S 1,000 ML IV SCH ×2 (04:51→10:03)
[2024-05-19 05:25] LABS: Basophils # (auto) 0.1 10 ^3/uL (0-0.2); Basophils % (auto) 0.8 % (0.0-2.0); Eosinophils # (auto) 0 10 ^3/uL (0-0.8); Hematocrit 40.3 % (36.0-46.0); Hemoglobin 13.7 g/dL (12.2-16.2); Lymphocytes # (auto) 1.5 10 ^3/uL (0.4-5.4); Lymphocytes % (auto) 11.7 % (10.0-50.0); Mean Corpuscular Hemoglobin 31.2 pg (28.0-32.0); Mean Corpuscular Hgb Conc. 33.9 g/dL (32.0-36.0); Mean Corpuscular Volume 92.1 fL (80.0-100.0); Monocytes # (auto) 0.6 10 ^3/uL (0-1.3); Monocytes % (auto) 4.7 % (0.0-12.0); Neutrophils # (auto) 10.6 10 ^3/uL (1.6-8.6); Neutrophils % (auto) 82.8 % (37.0-80.0); Platelet Count (auto) 281 10^3/uL (140-450); Red Blood Cells 4.38 10^6/uL (4.0-5.20); Red Cell Distribution Width 13.4 % (11.8-14.3); White Blood Cell 12.8 10^3/uL (4.4-10.8)
[2024-05-19] MEDS: metroNIDAZOLE 500MG/100ML 100 ML IV SCH (05:41)
[2024-05-19 05:42] LABS: Alanine Aminotransferase 14 U/L (7-40); Albumin 3.9 g/dL (3.2-4.8); Alkaline Phosphatase 77 U/L (46-116); Anion Gap 9 (5-15); BUN/Creatinine Ratio 10.6 (10.0-20.0); Bilirubin, Total 0.6 mg/dL (0.2-1.0); Blood Urea Nitrogen 18 mg/dL (9-23); Carbon Dioxide 21 mmol/L (20-31); Chloride 104 mmol/L (98-107); Potassium 4.2 mmol/L (3.5-5.1); Total Protein 6.3 g/dL (5.7-8.2)
[2024-05-19 05:54] LABS: Aspartate Aminotransferase 11 U/L (13-40); Calcium 8.5 mg/dL (8.7-10.4); Glucose 370 mg/dL (74-106); Sodium 134 mmol/L (136-145)
[2024-05-19] MEDS: LACTATED RINGER'S 500 ML IV ONE ×2 (06:15)
[2024-05-19] MEDS ORDERED: VANCOMYCIN PER PHARMACY 0 MG IV SCH (06:15)
[2024-05-19] MEDS: MAGNESIUM SULFATE 1GM/100ML 100 ML IV ONE (06:52)
[2024-05-19] MEDS: INSULIN LANTUS (GLARGINE) 1 /0.01ml (100units/ml) SC SCH (06:53)
[2024-05-19] MEDS: LABETALOL HCL 200 MG TAB PO SCH (07:39)
[2024-05-19] MEDS: cefTRIAXone 1GM/50ML D5W 50 ML IV SCH (09:28)
--- NOTE | 2024-05-19 09:39 | DVH ---
Procedure: US PELVIC 05/19/2024 08:34 AM Indication: possible sepsis Comparison: None Technique: Real-time grayscale and color images were obtained utilizing transabdominal probe. FINDINGS: UTERUS: Anteverted, measuring 9 cm in length. Homogeneous myometrium without a discrete lesion. ENDOMETRIAL STRIPE: 0.3 cm in thickness. Homogenous echotexture. No fluid in the endometrial canal. CERVIX: Few subcentimeter simple Nabothian cysts are seen. RIGH OVARY: Not identified. LEFT OVARY: Not identified. CUL-DE-SAC: No significant fluid noted. OTHER: None. IMPRESSION: 1. No sonographic evidence for an acute intrapelvic process.
[2024-05-19] MEDS: VANCOMYCIN 1GM/250mL NS or D5W KIT IV SCH (10:03)
[2024-05-19] MEDS: MULTIPLE VITAMINS W/ MINERALS TAB PO SCH (10:08)
[2024-05-19] MEDS: PANTOPRAZOLE 40 MG/10 ML VIAL INJ IV SCH (10:08)
[2024-05-19] MEDS: ASPirin 81 mg TAB PO SCH (10:09)
[2024-05-19] MEDS: NIFEdipine ER 30 MG TAB PO SCH (10:18)
[2024-05-19] MEDS ORDERED: LABETALOL HCL 20 MG/4 ML VL IV PRN (10:30)
[2024-05-19 11:15] LABS: COVID19 ANTIGEN SOFIA FIA NEGATIVE (NEGATIVE); Rapid Influenza A Negative (Negative); Rapid Influenza B Negative (Negative)
--- NOTE | 2024-05-19 15:40 | DVHDSRES ---
Discharge Summary Date of Admission Resident Creating Document: ESTEE SMITH RESIDENT May 18, 2024 at 23:49 Date of Discharge: May 19, 2024 Admitting Diagnosis hypertensive emergency Labs/Diagnostic Data: Laboratory Results Test 05/19/24 12:10 05/19/24 10:05 05/19/24 05:03 05/19/24 01:06 POC Glucose 178 mg/dl (70-106) Influenza Type A Antigen Negative (Negative) Influenza Type B Antigen Negative (Negative) SARS-CoV-2 Antigen (Rapid) Negative (NEGATIVE) White Blood Count 12.8 10^3/uL (4.4-10.8) Red Blood Count 4.38 10^6/uL (4.0-5.20) Hemoglobin 13.7 g/dL (12.2-16.2) Hematocrit 40.3 % (36.0-46.0) Mean Corpuscular Volume 92.1 fL (80.0-100.0) Mean Corpuscular Hemoglobin 31.2 pg (28.0-32.0) Mean Corpuscular Hemoglobin Concent 33.9 g/dL (32.0-36.0) Red Cell Distribution Width 13.4 % (11.8-14.3) Platelet Count 281 10^3/uL (140-450) Mean Platelet Volume 9.0 fL (6.9-10.8) Neutrophils (%) (Auto) 82.8 % (37.0-80.0) Lymphocytes (%) (Auto) 11.7 % (10.0-50.0) Monocytes (%) (Auto) 4.7 % (0.0-12.0) Eosinophils (%) (Auto) 0.0 % (0.0-7.0) Basophils (%) (Auto) 0.8 % (0.0-2.0) Neutrophils # (Auto) 10.6 10 ^3/uL (1.6-8.6) Lymphocytes # (Auto) 1.5 10 ^3/uL (0.4-5.4) Monocytes # (Auto) 0.6 10 ^3/uL (0-1.3) Eosinophils # (Auto) 0 10 ^3/uL (0-0.8) Basophils # (Auto) 0.1 10 ^3/uL (0-0.2) Nucleated Red Blood Cells 0.0 % Sodium Level 134 mmol/L (136-145) Potassium Level 4.2 mmol/L (3.5-5.1) Chloride Level 104 mmol/L (98-107) Carbon Dioxide Level 21 mmol/L (20-31) Anion Gap 9 (5-15) Blood Urea Nitrogen 18 mg/dL (9-23) Creatinine 1.70 mg/dL (0.550-1.02) Glomerular Filtration Rate Calc 42 mL/min (>90) BUN/Creatinine Ratio 10.6 (10.0-20.0) Serum Glucose 370 mg/dL (74-106) Calcium Level 8.5 mg/dL (8.7-10.4) Total Bilirubin 0.6 mg/dL (0.2-1.0) Aspartate Amino Transferase (AST) 11 U/L (13-40) Alanine Aminotransferase (ALT) 14 U/L (7-40) Alkaline Phosphatase 77 U/L (46-116) Total Protein 6.3 g/dL (5.7-8.2) Albumin 3.9 g/dL (3.2-4.8) Lactic Acid Level 2.8 mmol/L (0.4-2.0) Test 05/18/24 23:37 05/18/24 21:00 05/18/24 16:26 05/18/24 15:47 Blood Gas Specimen Type Arterial Blood Gas Sample Site Right radial Blood Gas Patient Temperature 37.0 Arterial Blood Date Drawn [id number] Arterial Blood pH 7.388 (7.350-7.450) Arterial Blood Partial Pressure CO2 29.3 mmHg (32.0-45.0) Arterial Blood Partial Pressure O2 94.7 mmHg (83.0-108.0) Arterial Blood HCO3 17.3 mmol/L (21.0-28.0) Arterial Blood Oxygen Saturation 96.9 % (94.0-98.0) Arterial Blood Base Excess -6.3 mmol/L (-2.0-3.0) Arterial Blood Oxyhemoglobin 95.6 % (94.0-98.0) Arterial Blood Carboxyhemoglobin 0.6 % (0.5-1.5) Arterial Blood Methemoglobin 0.7 % (0.0-1.5) Gaudencio Test Yes Blood Gas Total Hemoglobin 14.60 g/dL (12.0-16.0) Blood Gas Modality Room air FiO2 % 21.0 Troponin I High Sensitivity 5 ng/L (</=34) Beta HCG, Quantitative 0.8 mIU/mL (1.5-4.2) Urine Color Light-yellow (Yellow) Urine Clarity Clear (Clear) Urine pH 7.5 (5.0-9.0) Urine Specific [place] 1.017 (1.001-1.035) Urine Protein 3+ (Negative) Urine Ketones 1+ (Negative) Urine Blood 1+ /uL (Negative) Urine Nitrite Negative (Negative) Urine Bilirubin Negative (Negative) Urine Urobilinogen Normal mg/dL (Negative) Urine Leukocyte Esterase Negative /uL (Negative) Urine RBC 4 /hpf (0 - 4) Urine Microscopic WBC 2 /HPF (0-5) Urine Squamous Epithelial Cells Few /hpf (<5) Urine Bacteria None seen /hpf (None Seen) Urine Glucose 4+ mg/dL (Normal) Urine Test Negative (Negative) Urine Opiates Screen Neg (NEGATIVE) Urine Fentanyl Screen Neg (NEGATIVE) Urine Barbiturates Screen Neg (NEGATIVE) Urine Phencyclidine Screen Neg (NEGATIVE) Urine Amphetamines Screen Neg (NEGATIVE) Urine Benzodiazepines Screen Neg (NEGATIVE) Urine Cocaine Screen Neg (NEGATIVE) Urine Cannabinoids Screen Pos (NEGATIVE) D-Dimer, Quantitative 0.56 mg/L FEU (0.0-0.49) Hemoglobin A1c 6.6 % A1C (<5.7) Magnesium Level 1.6 mg/dL (1.6-2.6) Lipase 32 U/L (12-53) Beta-Hydroxybutyric Acid 1.003 mmol/L (< 0.4) Plasma/Serum Blood Alcohol < 3.0 mg/dL (<10) Other Laboratory Tests 05/19/24 05:03 Brief Hx & Hospital Course: The patient is a 28-year-old female with PMHx of HTN, DM, and asthma, also patient stated recent in jan 2024 who presented with severe nausea, vomiting, and chest pain radiating to her abdomen, rated 10/10. Initial BP in the ED was 233/104 and 211/117. Labs were significant for hyperglycemia (POC Glu 370), SIENNA (Cr 1.70), leukocytosis, and lactic acidosis (2.62.8). Imaging showed mild hepatosplenomegaly and circumferential colonic wall thickening, possibly infectious or inflammatory colitis. She was started on a Nicardipine drip for blood pressure control and later transitioned to oral labetalol and nifedipine. Ceftriaxone, vancomycin and metronidazole was started for leukocytosis. Workup for sepsis was initiated but not completed. Patient left against medical advice (AMA) on 05/19/24. Counseling was provided regarding medical risks, including complications from uncontrolled hypertension, sepsis, and diabetes. The patient was alert, oriented, and demonstrated decision-making capacity. She acknowledged the risks but chose to leave. General Appearance: Alert, Oriented X3, Cooperative, No acute distress, face looks swollen, eyes look puffy HEENT: Atraumatic, PERRLA, EOMI, Mucous membrane moist/pink Respiratory: Clear to auscultation, Normal air movement Cardiovascular: Regular rate, Normal S1, Normal S2, No murmurs, no chest wall tenderness Abdominal: distention, no tenderness, bowel sounds present, Extremities: No clubbing, No cyanosis, No edema, Normal pulses, No tenderness/swelling Skin: No rashes, No breakdown, No significant lesion Neuro: Normal gait, Normal speech, Strength at 5/5 X4 ext, Normal tone, Sensation intact, Cranial nerves 3-12 NL, Reflexes 2+ Psych/Mental Status: Mental status NL, Mood NL Case discussed with Dr Ferrari Operations or Procedures CLINICAL HISTORY: n/v TECHNIQUE: CT of the abdomen and pelvis was performed without intravenous contrast. This exam was performed according to our departmental dose optimization program. Up-to-date CT equipment and radiation dose reduction techniques are utilized as appropriate. CTDI: 21.82 DLP: 1222.31 WID: COMPARISON: None FINDINGS: Lower Thorax: Trace pericardial fluid. Otherwise unremarkable lower chest. Liver and Biliary system: Mild hepatomegaly measuring 18 cm craniocaudal. Otherwise unremarkable. Spleen: Mild splenomegaly. Adrenal Glands and Kidneys: Unremarkable. Pancreas and Retroperitoneum: Unremarkable. Aorta and Major Vessels: Aortoiliac vessels are normal in caliber with mild calcified atherosclerotic plaque. Bowel, Mesentery and Peritoneal space: Normal caliber small and large bowel. There is mild circumferential wall thickening throughout the large bowel. There is submucosal fatty deposition in the cecum and ascending and transverse colon. There is no free intraperitoneal air or loculated fluid collection. Pelvis: Small cystic lesions in both ovaries likely follicular cysts in a patient this age. The uterus and ovaries are otherwise grossly unremarkable. There is no pelvic lymphadenopathy. Urinary is mildly distended. Abdominal wall and Osseous Structures: No destructive osseous lesion. IMPRESSION: 1. Circumferential wall thickening throughout the large bowel which could be infectious or inflammatory colitis. 2. Submucosal fatty deposition in the proximal colon which may be incidental or related to prior inflammatory bowel disease. 3. Mild hepatosplenomegaly. 4. Mild calcified atherosclerotic plaque within the aortoiliac vessels which is greater than expected for patient age. CLINICAL HISTORY: HTN TECHNIQUE: Helical imaging carried out from skull base to vertex without intravenous contrast. This exam was performed according to our departmental dose optimization program. Up-to-date CT equipment and radiation dose reduction techniques are utilized as appropriate. CTDIVol: 69.01 mGy DLP: 1221.61 mGy-cm WID: COMPARISON: None FINDINGS: The ventricles and subarachnoid spaces are normal in size and configuration. There is no midline shift or mass effect. The holden white matter interfaces are maintained. The basal cisterns are patent. There is no evidence of acute intracranial hemorrhage or extra-axial fluid collection. The mastoid air cells and visualized paranasal sinuses are well-aerated. IMPRESSION: No acute intracranial abnormality Procedure: CT CT ANGIO CHEST CONTRAST Reason for study/Clinical History: cp/sob/tachy Comparison Study: None available at time of dictation. Exam Date: 05/18/2024 10:04 PM Radiation Dose Information: CT Dose: CTDI volume is 29.2 mGy. Dose-length product is 2107.27 mGy*cm Contrast: Type of contrast: Opaque 350 Contrast inject: 100 mL Contrast wasted:0 TECHNIQUE: After the uneventful administration of intravenous contrast intravenously, CT imaging was performed through the chest. Coronal and sagittal reformations were performed by the technologist. FINDINGS: Lower Neck: Visualized portions of the thyroid gland are unremarkable. Suboptimal opacification of the pulmonary artery to exclude pulmonary emboli. Opacification required is 266 Hounsfield units. Opacification achieved 175 Hounsfield units Aorta and Vasculature: Normal caliber of thoracic aorta. Lymph Nodes: No enlarged intrathoracic lymph nodes. Mediastinum: Heart size is normal. There is no pericardial effusion. The esophagus is unremarkable. Lungs: No focal consolidation, pleural effusion or significant pneumothorax. No suspicious pulmonary nodule or mass. Musculoskeletal: No acute osseous abnormality. Upper abdomen: Limited portions of the upper abdomen are unremarkable. IMPRESSION: 1. Inadequate opacification of pulmonary artery to exclude pulmonary emboli. 2. No infiltrates or effusions. Procedure: US PELVIC 05/19/2024 08:34 AM Indication: possible sepsis Comparison: None Technique: Real-time grayscale and color images were obtained utilizing transabdominal probe. FINDINGS: UTERUS: Anteverted, measuring 9 cm in length. Homogeneous myometrium without a discrete lesion. ENDOMETRIAL STRIPE: 0.3 cm in thickness. Homogenous echotexture. No fluid in the endometrial canal. CERVIX: Few subcentimeter simple Nabothian cysts are seen. RIGH OVARY: Not identified. LEFT OVARY: Not identified. CUL-DE-SAC: No significant fluid noted. OTHER: None. IMPRESSION: 1. No sonographic evidence for an acute intrapelvic process. Condition at Discharge: Poor Final Diagnosis/Problems List Possible sepsis due to colitis Marijuana hyperemesis syndrome Hypertensive emergency Uncontrolled diabetes Obesity grade 1, BMI : 31.5 SIENNA due VMN CKD Leukocytosis History of IUGR and IUFD due to noncompliance with her other pregnancies. SHORT CERVIX- Consider Vaginal progesterone for CX length 20-25 mm for risk reduction of . Adnexal Cyst: Left. 5cm simple adnexal cyst (-suspected persistent corpus luteal cyst.) Discharge Disposition: AMA Discharge Statement: "Patient was advised to return to the ER or call 911 if any headaches, dizziness, shortness of breath, chest pain, abdominal pain, bleeding, fevers, or worsening of medical condition. Patient was counseled about treatment plan, medications, possible side effects, patientverbalized understanding. All questions were answered to the best of my ability. This discharge took greater then 30 minutes in planning, reviewing documentation, counseling the patient, and discussing with other team members." ASSESSMENT ASSESSMENT Assessment Date of Service: May 19, 2024 Billing Provider: SARAH FERRARI MD Common Visit Codes: [id number] DISCH DAY >30min ESTEE SMITH RESIDENT May 19, 2024 15:40 SARAH FERRARI MD May 19, 2024 22:39
--- NOTE | 2024-05-21 11:07 | ECG ---
[facility] Test Date: 2024-05-18 Test Time: 15:38:40 Pat Name: AMARJIT FISHMAN Department: ER Room: [address] [place] [id number] Gender: F Ham Clerk: LOUIE : 1995 Requested By: LUDMILA HUBER Order Number: [id number] Reading MD: Measurements Intervals Matthews Rate: 88 P: 39 SD: 147 QRS: 59 QRSD: 91 T: 85 QT: 418 QTc: 506 Interpretive Statements Sinus rhythm Probable left atrial enlargement Borderline T wave abnormalities Prolonged QT interval Please click the below link to view image of tracing.
== END 2024-05-19 14:55 | disposition left against medical advice (07) | DRG 720 ==
LOC: ER 15:30 → UNDOADMIN 23:28 → OVERFLOW 23:28
PROVIDERS: ATTEND Emergency Medicine
DX: A41.9 Sepsis, unspecified organism (principal); N17.0 Acute kidney failure with tubular necrosis; E11.22 Type 2 diabetes mellitus with diabetic chronic kidney disease; J45.909 Unspecified asthma, uncomplicated; I16.1 Hypertensive emergency; Z53.29 Procedure and treatment not carried out because of patient's decision for other reasons; Z20.822 Contact with and (suspected) exposure to COVID-19; R16.2 Hepatomegaly with splenomegaly, not elsewhere classified; E66.811 Obesity, class 1; I12.9 Hypertensive chronic kidney disease with stage 1 through stage 4 chronic kidney disease, or unspecified chronic kidney disease; N18.9 Chronic kidney disease, unspecified; F12.90 Cannabis use, unspecified, uncomplicated; Z98.891 History of uterine scar from previous surgery; Z68.31 Body mass index [BMI] 31.0-31.9, adult; A09 Infectious gastroenteritis and colitis, unspecified
CPT/HCPCS: 36415; 36600; 70450; 71045; 71275; 74176; 76856; 80053; 80307; 80320; 81001; 81025; 82010; 82805; 82962; 83036; 83605; 83690; 83735; 84484; 84702; 85025; 85379; 87040; 87426; 87804; 93005; 96361; 96365; 99291; G0378; J1815; J2405; J2470; J3490

== ENCOUNTER 2024-07-03 16:23 | Inpatient (IN) | payer MEDICAID ==
[~2024-07-03] VITALS: Ht 175.3 cm; Wt 96.3 kg
--- NOTE | 2024-07-03 16:51 | ED.PDOC ---
GI ASSESSMENT HPI Comments 29 y/o F, BIBA, with PMHx of HTN and DM presents to the ED for CC of nausea/vomiting. EMS reports, patient is coming from [facility], where she complains of nausea/vomiting with associated RUQ abdominal pain onset, today (07/03/24). Upon arrival to scene, EMS relays that patient was diaphoretic, lethargic, and hypertensive. In route to the ED, patient's blood sugar read at 336 on glucometer and blood pressure read at 172/117mmHg; patient was given 4mg Zofran ODT. Patient comments, that she is unsure if she is currently . Patient denies fever, melena, or diarrhea. No other symptoms or modifying factors present at this time. Time Seen by MD: 16:40 Primary Care Provider: JOSH Menard Notes: Nurses Notes, Lodge Officer Notes, Medications, Allergies Allergies: Coded Allergies: NO KNOWN ALLERGIES (Unverified , 04/24/17) Home Meds Reported Medications Nifedipine (Nifedipine Er) 30 Mg Tab, 1 TAB PO DAILY for HTN, #30 TAB 3 Refills 10/31/23 Information Source: Patient, Emergency Med Personnel Mode of Arrival: EMS Timing: Days Duration: Since onset Prehospital treatment: Other (ZOFRAN) Quality: None Vomitus: Watery Stool: Normal Severity: Moderate Recent: None Recent Hx of: Diabetes Pain Location: RUQ Modifying Factors: Nothing Associated sign and symptoms: Nausea, Vomiting, Abdominal Pain Past Medical History PAST MEDICAL HISTORY: Asthma, DM, HTN Surgical History: DIRECTOR CONSTRUCTION SERVICES History: Denies all DIRECTOR CONSTRUCTION SERVICES Hx Family History Family History: No family hx of DM, No family hx of Heart jefferson, No family hx of HTN Social History Smoker: Non-Smoker Alcohol: Denies ETOH Use Drugs: Marijuana Lives In: Home Constitutional: denies: chills, diaphoresis, fatigue, fever, malaise, sweats, weakness, others EENTM: denies: blurred vision, double vision, ear bleeding, ear discharge, ear drainage, ear pain, ear ringing, eye pain, eye redness, hearing loss, mouth pain, mouth swelling, nasal discharge, nose bleeding, nose congestion, nose pain, photophobia, tearing, throat pain, throat swelling, voice changes, others Respiratory: denies: cough, hemoptysis, orthopnea, SOB at rest, shortness of breath, SOB with excertion, stridor, wheezing, others Cardiovascular: denies: chest pain, dizzy spells, diaphoresis, Dyspnea on exertion, edema, irregular heart beat, left arm pain, lightheadedness, pal pitations, PND, syncope, others Gastrointestinal: reports: abdominal pain, nausea, vomiting; denies: abdomen distended, blood streaked bowels, constipated, diarrhea, dysphagia, difficulty swallowing, hematemesis, melena, poor appetite, poor fluid intake, rectal bleeding, rectal pain, others Genitourinary: denies: abnormal vagina bleeding, burning, dyspareunia, dysuria, flank pain, frequency, hematuria, incontinence, pain, , vagina discharge, urgency, others Neurological: denies: dizziness, fainting, headache, left sided numbness, left sided weakness, numbness, paresthesia, pre-existing deficit, right sided numbness, right sided weakness, seizure, speech problems, tingling, tremors, weakness, others Musculoskeletal: denies: back pain, gout, joint pain, joint swelling, muscle pain, muscle stiffness, neck pain, others Integumetry: denies: bruises, change in color, change in hair/nails, dryness, laceration, lesions, lumps, rash, wounds, others Allergic/Immunocompromised: denies: Difficulty Healing, Frequent Infections, Hives, Itching, others Hematologic/Lymphatic: denies: anemia, blood clots, easy bleeding, easy bruising, swollen glands, others Endocrine: denies: excessive hunger, excessive sweating, excessive thirst, excessive urination, flushing, intolerance to cold, intolerance to heat, unexplained weight gain, unexplained weight loss, others Psychiatric: denies: anxiety, bipolar disorder, depression, hopeless, panic disorder, schizophrenia, sleepless, suicidal, others All Other Systems: Reviewed and Negative Physical Exam General Appearance: Moderate Distress HEENT: Pale Conjuntivae (L), Pale Conjuntivae (R), Pharynx Normal, TMs Normal Neck: Full Range of Motion, Non-Tender, Normal, Normal Inspection Respiratory: Chest Non-Tender, Lungs Clear, No Accessory Muscle Use, No Respiratory Distress, Normal Breath Sounds Cardiovascular: No Edema, No JVD, No Murmur, No Gallop, Normal Peripheral Pulses, Regular Rate/Rhythm Breast Exam: Deferred Gastrointestinal: No Organomegaly, Non Tender, No Pulsatile Mass, Normal Bowel Sounds, Soft Genitalia: Deferred Pelvic: Deferred Rectal: Deferred Extremities: No calf tenderness, Normal capillary refill, No pedal edema Musculoskeletal : Apperance: Normal Neurologic: motion picture projectionist II-XII nml as Tested, Motor Weakness, Normal Affect, Normal Mood, No Sensory Deficits Cerebellar Function: Normal Reflexes: Normal Skin: Dry, Normal Color, Warm Lymphatic: No Adenopathy Was a procedure done? Was a procedure done?: No GI differential Dx Differential Diagnosis: Cholangitis, Cholecystitis, Drug toxicity, X-Ray, Labs, Meds, VS Vital Signs Date Time Temp Pulse Resp B/P (MAP) Pulse Ox O2 Delivery O2 Flow Rate FiO2 07/03/24 16:45 98.3 101 22 177/102 (127) 100 98.3 Lab Test 07/03/24 17:11 Range/Units White Blood Count 8.7 4.4-10.8 10^3/uL Red Blood Count 4.71 4.0-5.20 10^6/uL Hemoglobin 14.9 12.2-16.2 g/dL Hematocrit 43.4 36.0-46.0 % Mean Corpuscular Volume 92.2 80.0-100.0 fL Mean Corpuscular Hemoglobin 31.7 28.0-32.0 pg Mean Corpuscular Hemoglobin Concent 34.4 32.0-36.0 g/dL Red Cell Distribution Width 12.8 11.8-14.3 % Platelet Count 330 140-450 10^3/uL Mean Platelet Volume 8.9 6.9-10.8 fL Neutrophils (%) (Auto) 85.7 H 37.0-80.0 % Lymphocytes (%) (Auto) 11.8 10.0-50.0 % Monocytes (%) (Auto) 1.5 0.0-12.0 % Eosinophils (%) (Auto) 0.5 0.0-7.0 % Basophils (%) (Auto) 0.5 0.0-2.0 % Neutrophils # (Auto) 7.5 1.6-8.6 10 ^3/uL Lymphocytes # (Auto) 1.0 0.4-5.4 10 ^3/uL Monocytes # (Auto) 0.1 0-1.3 10 ^3/uL Eosinophils # (Auto) 0 0-0.8 10 ^3/uL Basophils # (Auto) 0 0-0.2 10 ^3/uL Nucleated Red Blood Cells 0.1 % Sodium Level 136 136-145 mmol/L Potassium Level 4.4 3.5-5.1 mmol/L Chloride Level 106 98-107 mmol/L Carbon Dioxide Level 19 L 20-31 mmol/L Anion Gap 11 5-15 Blood Urea Nitrogen 14 9-23 mg/dL Creatinine 1.42 H 0.550-1.02 mg/dL Glomerular Filtration Rate Calc 52 >90 mL/min BUN/Creatinine Ratio 9.9 L 10.0-20.0 Serum Glucose 307 H 74-106 mg/dL Calcium Level 9.3 8.7-10.4 mg/dL Beta-Hydroxybutyric Acid 0.940 H < 0.4 mmol/L The CBC and chemistry panel are within normal limits except for hyperglycemia at 307 The creatinine is 1.42 The beta hydroxybutyric acid is also elevated At this time, the patient will be admitted The patient has not put out any urine at this time Images Reviewed?: Images reviewed and evaluated by me Time of 1ST Reevaluation: 17:20 Reevaluation 1ST: Unchanged Patient Education/Counseling: Diagnosis, Treatment, Prognosis Family Education/Counseling: No Family Present Departure 1 Departure Time of Disposition: 20:19 Impression: Primary Impression: Acute vomiting Additional Impression: Uncontrolled diabetes mellitus Qualified Codes: E13.65 - Other specified diabetes mellitus with hyperglycemia Disposition: ADMITTED INPATIENT Admit to: Med Surg Condition: Fair Critical Care Note Critical Care Time?: No Stability Stability form required: Yes Unstable for transfer: ED Physician Assesment (Clinical assesment) Heart Score Heart Score: Heart Score Response (Comments) Value History N/A 0 EKG N/A 0 Age N/A 0 Risk Factors N/A 0 Troponin N/A 0 Total 0 I personally scribed for RAMAKRISHNA ABBOTT MD ([email or web address]) on 07/03/24 at 16:51. Electronically submitted by Violeta Morales ([email or web address]). RAMAKRISHNA ABBOTT MD July 03, 2024 16:51
[2024-07-03 17:29] LABS: Basophils # (auto) 0 10 ^3/uL (0-0.2); Basophils % (auto) 0.5 % (0.0-2.0); Eosinophils # (auto) 0 10 ^3/uL (0-0.8); Eosinophils % (auto) 0.5 % (0.0-7.0); Hematocrit 43.4 % (36.0-46.0); Hemoglobin 14.9 g/dL (12.2-16.2); Lymphocytes % (auto) 11.8 % (10.0-50.0); Mean Corpuscular Hemoglobin 31.7 pg (28.0-32.0); Mean Corpuscular Hgb Conc. 34.4 g/dL (32.0-36.0); Mean Corpuscular Volume 92.2 fL (80.0-100.0); Monocytes # (auto) 0.1 10 ^3/uL (0-1.3); Monocytes % (auto) 1.5 % (0.0-12.0); Neutrophils # (auto) 7.5 10 ^3/uL (1.6-8.6); Neutrophils % (auto) 85.7 % (37.0-80.0); Nucleated Red Blood Cells % 0.1 %; Platelet Count (auto) 330 10^3/uL (140-450); Red Blood Cells 4.71 10^6/uL (4.0-5.20); Red Cell Distribution Width 12.8 % (11.8-14.3); White Blood Cell 8.7 10^3/uL (4.4-10.8)
[2024-07-03 17:34] LABS: Chloride 106 mmol/L (98-107); Potassium 4.4 mmol/L (3.5-5.1)
[2024-07-03 17:35] LABS: Anion Gap 11 (5-15); Calcium 9.3 mg/dL (8.7-10.4)
[2024-07-03 17:40] LABS: BUN/Creatinine Ratio 9.9 (10.0-20.0); Blood Urea Nitrogen 14 mg/dL (9-23)
[2024-07-03 17:57] LABS: Carbon Dioxide 19 mmol/L (20-31); Glucose 307 mg/dL (74-106); Sodium 136 mmol/L (136-145)
--- NOTE | 2024-07-03 21:43 | DVHHP2 ---
History of Present Illness History of Present Illness Patient is 29 years old female with past medical history of hypertension, diabetes mellitus type 2 came with a complaint of intractable nausea and vomiting. As per patient she has been having intractable nausea and vomiting since morning so many times, watery, food content no blood. Patient also endorsed right upper abdominal pain, gradual onset, burning in nature, 7/10, intermittent, no radiation. Patient also endorsed feeling diaphoretic and lethargy. Patient also endorsed she was feeling some short of breath in the morning and occasionally. Arrival blood pressure was 172/117 blood sugar 336.. Patient denied any fever, acute burning pain dysuria, acute chest pain or dysarthria acute joint pain or swelling or rash or sick contact. Lab workup revealed serum creatinine 1.43, GFR 52, beta hydroxybutyrate 0.940. USG- Cholelithiasis/sludge without other sonographic evidence to suggest cholecystitis at this time. Past Medical History hypertension, diabetes mellitus type 2 ,History of IUGR and IUFD due to noncompliance with her other pregnancies. SHORT CERVIX- Consider Vaginal progesterone for CX length 20-25 mm for risk reduction of . Adnexal Cyst: Left. 5cm simple adnexal cyst (-suspected persistent corpus luteal cyst.) Past Surgical History x2 Family History Mom has hypertension Past Social History Lives with mom, denies smoking or alcoholism, use marijuana Review of Systems Review of Systems Allergy- NKDA Patient was seen today at the bedside Cardiovascular- deny acute chest pain or shortness of breath or cough or palpitation Respiratory denies cough or wheezing Musculoskeletal-denies acute joint swelling or tenderness or redness Neurological- denies acute dysarthria, dysphagia, change in vision Psychiatry- denies depression or SI or HI Skin- denies acute rash or purpura Allergies: Coded Allergies: NO KNOWN ALLERGIES (Unverified , 04/24/17) Exam Vital Signs Vital Signs Date Time Temp Pulse Resp B/P (MAP) Pulse Ox O2 Delivery O2 Flow Rate FiO2 07/03/24 16:45 98.3 101 22 177/102 (127) 100 98.3 Exam General examination- , alert, convert HEENT- PEERLA, no acute nasal discharge Cardiovascular- S1-S2 audible, rate and rhythm regular, no murmur Respiratory- CTAB, no wheeze or rhonchi Gastrointestinal-upper abdominal tenderness++, bowel sound+. Nondistended Musculoskeletal-no acute joint swelling or tenderness or redness Lower extremity- no leg edema Neurological- cranial nerves intact, no acute dysarthria or dysphagia Psychiatry- denies depression or SI or HI Skin- no acute rash or purpura Labs/Xrays Labs Test 07/03/24 17:11 Range/Units White Blood Count 8.7 4.4-10.8 10^3/uL Red Blood Count 4.71 4.0-5.20 10^6/uL Hemoglobin 14.9 12.2-16.2 g/dL Hematocrit 43.4 36.0-46.0 % Mean Corpuscular Volume 92.2 80.0-100.0 fL Mean Corpuscular Hemoglobin 31.7 28.0-32.0 pg Mean Corpuscular Hemoglobin Concent 34.4 32.0-36.0 g/dL Red Cell Distribution Width 12.8 11.8-14.3 % Platelet Count 330 140-450 10^3/uL Mean Platelet Volume 8.9 6.9-10.8 fL Neutrophils (%) (Auto) 85.7 H 37.0-80.0 % Lymphocytes (%) (Auto) 11.8 10.0-50.0 % Monocytes (%) (Auto) 1.5 0.0-12.0 % Eosinophils (%) (Auto) 0.5 0.0-7.0 % Basophils (%) (Auto) 0.5 0.0-2.0 % Neutrophils # (Auto) 7.5 1.6-8.6 10 ^3/uL Lymphocytes # (Auto) 1.0 0.4-5.4 10 ^3/uL Monocytes # (Auto) 0.1 0-1.3 10 ^3/uL Eosinophils # (Auto) 0 0-0.8 10 ^3/uL Basophils # (Auto) 0 0-0.2 10 ^3/uL Nucleated Red Blood Cells 0.1 % Sodium Level 136 136-145 mmol/L Potassium Level 4.4 3.5-5.1 mmol/L Chloride Level 106 98-107 mmol/L Carbon Dioxide Level 19 L 20-31 mmol/L Anion Gap 11 5-15 Blood Urea Nitrogen 14 9-23 mg/dL Creatinine 1.42 H 0.550-1.02 mg/dL Glomerular Filtration Rate Calc 52 >90 mL/min BUN/Creatinine Ratio 9.9 L 10.0-20.0 Serum Glucose 307 H 74-106 mg/dL Calcium Level 9.3 8.7-10.4 mg/dL Beta-Hydroxybutyric Acid 0.940 H < 0.4 mmol/L Assessment/Plan Assessment/Plan Assessment and plan Intractable nausea and vomiting likely due to acute gastroenteritis Rule out acute cholecystitis/acute pancreatitis/gastritis Suspected acute cholecystitis Uncontrolled diabetes mellitus type 2 Hypertensive emergency SIENNA likely due to VMN Suspected CKD stage 3 Obesity Substance abuse marijuana History of IUGR and IUFD due to noncompliance with her other pregnancies. SHORT CERVIX- Consider Vaginal progesterone for CX length 20-25 mm for risk reduction of . Adnexal Cyst: Left. 5cm simple adnexal cyst (-suspected persistent corpus luteal cyst.) serum creatinine 1.43, GFR 52, beta hydroxybutyrate 0.940. USG- Cholelithiasis/ sludge without other sonographic evidence to suggest cholecystitis at this time. Plan Ordered IV fluid Patient was given labetalol and hydralazine Ordered ceftriaxone Ordered Pantoprazole Pending UDS Pending urine analysis Pending urine test Ordered surgery consult for suspected cholecystitis Goals of care, Code status ; discussed with >15 minutes PUD prophylaxis: Pantoprazole DVT prophylaxis: Lovenox Plan discussed with Dr. Ayala , nursing staff, Total time spent on patient evaluation, chart review, assessment and plan, discussion discussion >35 minutes Plan discussed with: Patient, Other (mother , RN) My Orders Orders - SARA RUIZ RESIDENT Procedure Category Date Status Time Admit ADMIT 07/03/24 Transmitted 21:37 Code Status CODE 07/03/24 Transmitted 21:37 Sodium Chloride Lock PHA 07/03/24 Transmitted (Saline Lock Ns) 22:00 0.9% Ns 1000 Ml PHA 07/03/24 Transmitted 21:45 Ondansetron Hcl PHA 07/03/24 Transmitted (Zofran) 21:45 Enoxaparin Sodium PHA 07/04/24 Transmitted (Lovenox) 10:00 Complete Blood Count LAB 07/04/24 Verified 04:00 Comprehensive LAB 07/04/24 Verified Metabolic Panel 04:00 Clear Liq Diet DIET 07/04/24 Transmitted Breakfast Nitroglycerin PHA 07/03/24 Transmitted Sublingual (Ntrostat 21:45 Morphine Sulfate PHA 07/03/24 Transmitted Injection 21:45 Oxygen By Nasal RT 07/03/24 Transmitted Cannula 21:37 Stat Ekg For Chest [facility] 07/03/24 Transmitted Pain 21:37 Notify Md Of Changes [facility] 07/03/24 Transmitted From Base 21:37 [employer] For [facility] 07/03/24 Transmitted 24 Hours 21:37 Emergency Dysrhythmia [facility] 07/03/24 Transmitted Protocol 21:37 Rhythm Strips Once [facility] 07/03/24 Transmitted Every Shift 21:37 Date of Service: July 03, 2024 Billing Provider: RUTH AYALA MD Common Visit Codes: 74431-SQSSPGJ INP/OBS CARE (HIGH) Secondary Visit Codes: 26769-[id number] CARE PLAN 30 MINUTES SARA RUIZ RESIDENT July 03, 2024 21:43
[2024-07-03] MEDS ORDERED: NITROGLYCERIN 0.4 MG SL TAB SL PRN (21:45)
[2024-07-03] MEDS ORDERED: MORPHINE SULFATE INJ 2 MG/ml SYRG IV PRN (21:45)
[2024-07-03] MEDS: cefTRIAXone 1GM/50ML D5W 50 ML IV ONE (22:00)
[2024-07-03] MEDS: ACCU-CHEK COMFORT CURVE STRIP VI SCH (22:00)
[2024-07-03] MEDS ORDERED: DEXTROSE (50%) 50ML SYRG IV PRN (22:00)
[2024-07-03] MEDS: InsuLIN REG 1unit/0.01ml Soln (100units/ml) IV ONE (22:32)
[2024-07-03] MEDS: PANTOPRAZOLE 40 MG/10 ML VIAL INJ IV ONE ×2 (22:32→22:45)
[2024-07-03] MEDS: SODIUM CHLORIDE 0.9% 1,000 ML IV SCH (22:33)
[2024-07-03] MEDS: SODIUM CHLOR 0.9% PF (SALINE LOCK) 10ML VIAL/SYR IV SCH (22:33)
[2024-07-03] MEDS: cefTRIAXone 2GM/50ML D5W 50 ML IV ONE (22:34)
[2024-07-03] MEDS: SODIUM CHLORIDE 0.9% 1,000 ML IV ONE (22:44)
[2024-07-03] MEDS: PROCHLORPERAZINE EDISYLATE 5 MG/ML 2ML VIAL IV ONE (22:45)
[2024-07-03] MEDS: InsuLIN REG 1unit/0.01ml Soln (100units/ml) SC SCH (22:47)
[2024-07-03 23:04] LABS: Alanine Aminotransferase 17 U/L (7-40); Albumin 4.5 g/dL (3.2-4.8); Alkaline Phosphatase 104 U/L (46-116); Anion Gap 10 (5-15); Aspartate Aminotransferase 14 U/L (13-40); BUN/Creatinine Ratio 10.9 (10.0-20.0); Blood Urea Nitrogen 16 mg/dL (9-23); Calcium 10.1 mg/dL (8.7-10.4); Carbon Dioxide 24 mmol/L (20-31); Chloride 103 mmol/L (98-107); Magnesium 1.7 mg/dL (1.6-2.6); Potassium 4.5 mmol/L (3.5-5.1); Sodium 137 mmol/L (136-145); Total Protein 7.6 g/dL (5.7-8.2)
[2024-07-03 23:05] LABS: Bilirubin, Total 0.7 mg/dL (0.2-1.0)
[2024-07-03 23:09] LABS: Glucose 293 mg/dL (74-106)
[2024-07-03 23:10] LABS: Blood Alcohol < 3.0 mg/dL (<10)
[2024-07-04] VITALS (75 sets, daily range): BP systolic 105–247; BP diastolic 56–148; PULSE 86–118; RESP 6–31; TEMP 97.4–98.9; O2SAT 95–100
--- NOTE | 2024-07-04 00:11 | DVH ---
RIGHT UPPER QUADRANT ABDOMINAL ULTRASOUND CLINICAL HISTORY: abdominal pain COMPARISON: None TECHNIQUE: Grayscale and color Doppler ultrasound imaging of the right upper quadrant is performed. FINDINGS: Pancreas: Visualized portions appear grossly unremarkable. Liver: No discrete hepatic lesions as visualized. The portal vein appears patent. Gallbladder: Dependent gallstones and sludge. No gallbladder wall thickening. No sonographic deluna's sign elicited. Common bile duct: Nondilated. Right Kidney: Measures 11.2 cm in length. No hydronephrosis. Right upper quadrant Inferior vena cava: Visualized portions are grossly patent. IMPRESSION: Cholelithiasis/sludge without other sonographic evidence to suggest cholecystitis at this time. If t here is persistent clinical concern, HIDA scan may be considered to further evaluate.
[2024-07-04 01:58] LABS: Rapid Influenza A Negative (Negative); Rapid Influenza B Negative (Negative)
[2024-07-04 01:59] LABS: COVID19 ANTIGEN SOFIA FIA NEGATIVE (NEGATIVE)
[2024-07-04] MEDS: hydrALAZINE HCL 20 MG/ML VL IV ONE (02:17)
[2024-07-04] MEDS: LABETALOL HCL 20 MG/4 ML VL IV ONE ×6 (02:19→11:15)
[2024-07-04] MEDS: InsuLIN REG 1unit/0.01ml Soln (100units/ml) SC SCH (05:59)
[2024-07-04] MEDS: ONDANSETRON HCL 4 MG/2 ML VIAL IV PRN (08:19)
[2024-07-04 09:21] LABS: Basophils # (auto) 0 10 ^3/uL (0-0.2); Basophils % (auto) 0.2 % (0.0-2.0); Eosinophils # (auto) 0 10 ^3/uL (0-0.8); Eosinophils % (auto) 0.1 % (0.0-7.0); Hematocrit 42.9 % (36.0-46.0); Hemoglobin 14.9 g/dL (12.2-16.2); Lymphocytes # (auto) 1.5 10 ^3/uL (0.4-5.4); Lymphocytes % (auto) 16.1 % (10.0-50.0); Mean Corpuscular Hemoglobin 32.4 pg (28.0-32.0); Mean Corpuscular Hgb Conc. 34.8 g/dL (32.0-36.0); Mean Corpuscular Volume 92.9 fL (80.0-100.0); Monocytes # (auto) 0.6 10 ^3/uL (0-1.3); Monocytes % (auto) 6.6 % (0.0-12.0); Neutrophils # (auto) 7.1 10 ^3/uL (1.6-8.6); Nucleated Red Blood Cells % 0.1 %; Platelet Count (auto) 344 10^3/uL (140-450); Red Blood Cells 4.61 10^6/uL (4.0-5.20); Red Cell Distribution Width 12.9 % (11.8-14.3); White Blood Cell 9.3 10^3/uL (4.4-10.8)
[2024-07-04 09:27] LABS: Alanine Aminotransferase 16 U/L (7-40); Albumin 4.1 g/dL (3.2-4.8); Alkaline Phosphatase 97 U/L (46-116); Anion Gap 10 (5-15); BUN/Creatinine Ratio 11.3 (10.0-20.0); Blood Urea Nitrogen 18 mg/dL (9-23); Calcium 9.9 mg/dL (8.7-10.4); Carbon Dioxide 23 mmol/L (20-31); Chloride 105 mmol/L (98-107); Magnesium 1.8 mg/dL (1.6-2.6); Potassium 3.9 mmol/L (3.5-5.1); Sodium 138 mmol/L (136-145)
[2024-07-04 09:28] LABS: Bilirubin, Total 0.7 mg/dL (0.2-1.0)
[2024-07-04 09:33] LABS: Glucose 211 mg/dL (74-106)
[2024-07-04 09:34] LABS: Aspartate Aminotransferase 11 U/L (13-40)
[2024-07-04] MEDS: PANTOPRAZOLE 40 MG/10 ML VIAL INJ IV SCH (10:13)
[2024-07-04] MEDS: NIFEdipine ER 30 MG TAB PO ONE ×2 (10:13→13:46)
[2024-07-04] MEDS: ENOXAPARIN SOD 40 MG/0.4 ML SYRINGE SC SCH (10:13)
[2024-07-04] MEDS: NICARDIPINE HCL IN SODIUM CHLO 200 ML IV SCH (11:24)
[2024-07-04 12:34] LABS: Prothrombin Time 10.6 sec (9.3-11.8)
[2024-07-04] MEDS: hydroCHLOROthiazide 25 MG TAB PO ONE (13:47)
[2024-07-04] MEDS: VALSARTAN 80 MG TAB PO ONE (13:47)
--- NOTE | 2024-07-04 14:33 | DVHCONRES ---
Date Seen: July 04, 2024 Resident Creating Document: LASHONDA CAMACHO RESIDENT History of Present Illness Ms Rosas is a 29-year-old female with PMHx hypertension, type 2 diabetes mellitus since 2018 short cervix and left ovarian cyst, preeclampsia, marijuana use dependence who presented to the ER with a chief complaint of intractable nausea and vomiting for a day. Patient reports that she has been experiencing intractable nausea and vomiting for the past 1 day after she took her morning medications including antihypertensives, unable to keep any liquid or solid food down,. On arrival to the ER, patient was tachycardic and hypotensive, blood pressure reaching up to 240/142 mmHg patient was given IV labetalol pushes which did not decrease her blood pressure and she was started on nicardipine drip. Patient has a admitted to ICU. Reports compliance to antihypertensive regimen, she takes nifedipine, lisinopril, labetalol at home. Renal duplex 10/31/2023 showed right kidney unremarkable. Left kidney duplex was not performed as the patient refused. Nephrology consulted for renal clearance for PICC line consult PMH:hypertension, type 2 diabetes mellitus since 2018 short cervix and left ovarian cyst, preeclampsia, marijuana use dependence PSH: section Home medications: Nifedipine, lisinopril, labetalol, metformin Social history: Lives with family, denies smoking but uses marijuana. Patient seen and examined in the ICU. BP 150/90 mmHg on nicardipine drip. Family History: Patient reports no known family medical history. Allergies: Coded Allergies: NO KNOWN ALLERGIES (Unverified , 04/24/17) Home Meds Reported Medications Nifedipine (Nifedipine Er) 30 Mg Tab, 1 TAB PO DAILY for HTN, #30 TAB 3 Refills 10/31/23 Current Medications Current Medications Medications (Trade) Dose Ordered Sig/Lucie Route PRN Reason Start Time Stop Time Status Last Admin Sodium Chloride (Saline Lock Ns) 10 ml Q8HR IV 07/03/24 22:00 07/04/24 14:02 Sodium Chloride 1,000 ml @ 120 mls/hr Q8H20M IV 07/03/24 21:45 07/04/24 09:12 DC Ondansetron HCl (Zofran) 4 mg Q4HP PRN IV NAUSEA / VOMITING 07/03/24 21:45 07/04/24 08:19 Enoxaparin Sodium (Lovenox) 40 mg DAILY SC 07/04/24 10:00 07/04/24 10:13 Nitroglycerin (Ntrostat Sublingual) 0.4 mg Q5MINP PRN SL FOR CHEST PAIN 07/03/24 21:45 Morphine Sulfate 2 mg Q30M PRN IV FOR CHEST PAIN 07/03/24 21:45 Pantoprazole Sodium (Protonix) 40 mg DAILY IV 07/04/24 10:00 07/04/24 10:13 Diagnostic Test (Pha) (Accu-Chek Comfort Curve T) 1 strip ACHS 07/03/24 22:00 07/04/24 11:24 Insulin Human Regular (InsuLIN R) HS SC 07/03/24 22:00 07/03/24 22:47 Insulin Human Regular (InsuLIN R) AC SC 07/04/24 07:00 07/04/24 11:27 Dextrose 50 ml UD PRN IV Blood Sugar LESS THAN 60 07/03/24 22:00 Nicardipine/ Sodium Chloride 200 ml @ 50 mls/hr Q4H IV 07/04/24 10:30 07/04/24 11:24 Valsartan (Diovan) 80 mg DAILY PO 07/05/24 10:00 Nifedipine (Procardia Xl (Time-Release)) 90 mg DAILY PO 07/05/24 10:00 Hydrochlorothiazide (hydroCHLOROthiazide TABLET) 25 mg DAILY PO 07/05/24 10:00 Review of Systems Eyes: No Pain, No Vision change, No Conjunctivae inflammation, No Eyelid inflammation, No Other, No Redness ENT: No Ear pain, No Ear discharge, No Nose pain, No Nose discharge, No Nose congestion, No Mouth pain, No Mouth swelling, No Throat pain, No Throat swelling, No Other Cardiovascular: No Chest Pain, No Palpitations, No Orthopnea, No PND, No Edema, No Lt Headedness, No Other Respiratory: No Cough, No Dry, No Shortness of breath, No SOB with exertion, No Wheezing, No Hemoptysis, No Pleuritic Pain, No Sputum, No Other Gastrointestinal: Reports nausea and vomiting,, No Abdominal Pain, No Diarrhea, No Constipation, No Melena, No Hematochezia, No Other Genitourinary: No Dysuria, No Frequency, No Incontinence, No Hematuria, No Ret ention, No Other Musculoskeletal: No other, No neck pain, No shoulder pain, No arm pain, No back pain, No hand pain, No leg pain, No foot pain Skin: No Rash, No Lesions, No Jaundice, No Bruising, No Other Vital Signs Vital Signs Date Time Temp Pulse Resp B/P (MAP) Pulse Ox O2 Delivery O2 Flow Rate FiO2 07/04/24 13:47 157/88 07/04/24 13:15 110 22 99 07/04/24 12:00 Room Air* 0 21 07/04/24 12:00 98.9 98.9 Physical Exam Patient lying comfortably in ICU, no acute distress General: Obese,, afebrile, palor, mucosae are moist Cardiovascular: Regular S1 and S2. No murmurs, gallops or rubs. No JVD elevation. Mild 1+ pedal edema Respiratory: Normal B/L air entry on room air. Clear lung sounds on auscultation Abdomen: Soft, nontender, nondistended, normoactive bowel sounds, no rebound tenderness, no organomegaly, no masses Genitourinary: Deferred MSK/skin: Mobilizes 4 limbs. Skin is dry and warm Neurological: No motor, no sensitive deficits, normal speech. Pupils are isocoric and reactive. Psych/Mental Status: A/Ox3 Labs/Diagnostic Data Labs Test 07/04/24 11:25 07/04/24 08:29 07/04/24 01:16 07/03/24 21:54 Range/Units POC Glucose 195 H 70-106 mg/dl White Blood Count 9.3 4.4-10.8 10^3/uL Red Blood Count 4.61 4.0-5.20 10^6/uL Hemoglobin 14.9 12.2-16.2 g/dL Hematocrit 42.9 36.0-46.0 % Mean Corpuscular Volume 92.9 80.0-100.0 fL Mean Corpuscular Hemoglobin 32.4 H 28.0-32.0 pg Mean Corpuscular Hemoglobin Concent 34.8 32.0-36.0 g/dL Red Cell Distribution Width 12.9 11.8-14.3 % Platelet Count 344 140-450 10^3/uL Mean Platelet Volume 9.1 6.9-10.8 fL Neutrophils (%) (Auto) 77.0 37.0-80.0 % Lymphocytes (%) (Auto) 16.1 10.0-50.0 % Monocytes (%) (Auto) 6.6 0.0-12.0 % Eosinophils (%) (Auto) 0.1 0.0-7.0 % Basophils (%) (Auto) 0.2 0.0-2.0 % Neutrophils # (Auto) 7.1 1.6-8.6 10 ^3/uL Lymphocytes # (Auto) 1.5 0.4-5.4 10 ^3/uL Monocytes # (Auto) 0.6 0-1.3 10 ^3/uL Eosinophils # (Auto) 0 0-0.8 10 ^3/uL Basophils # (Auto) 0 0-0.2 10 ^3/uL Nucleated Red Blood Cells 0.1 % Prothrombin Time 10.6 9.3-11.8 sec Prothrombin Time INR 1.00 0.9-1.15 Sodium Level 138 136-145 mmol/L Potassium Level 3.9 3.5-5.1 mmol/L Chloride Level 105 98-107 mmol/L Carbon Dioxide Level 23 20-31 mmol/L Anion Gap 10 5-15 Blood Urea Nitrogen 18 9-23 mg/dL Creatinine 1.60 H 0.550-1.02 mg/dL Glomerular Filtration Rate Calc 45 >90 mL/min BUN/Creatinine Ratio 11.3 10.0-20.0 Serum Glucose 211 H 74-106 mg/dL Hemoglobin A1c 5.6 <5.7 % A1C Calcium Level 9.9 8.7-10.4 mg/dL Magnesium Level 1.8 1.6-2.6 mg/dL Total Bilirubin 0.7 0.2-1.0 mg/dL Aspartate Amino Transferase (AST) 11 L 13-40 U/L Alanine Aminotransferase (ALT) 16 7-40 U/L Alkaline Phosphatase 97 46-116 U/L Total Protein 7.0 5.7-8.2 g/dL Albumin 4.1 3.2-4.8 g/dL Beta HCG, Quantitative 0.6 L 1.5-4.2 mIU/mL Influenza Type A Antigen Negative Negative Influenza Type B Antigen Negative Negative SARS-CoV-2 Antigen (Rapid) Negative NEGATIVE Lactic Acid Level 1.9 0.4-2.0 mmol/L Plasma/Serum Blood Alcohol < 3.0 <10 mg/dL Test 07/03/24 17:11 Range/Units Beta-Hydroxybutyric Acid 0.940 H < 0.4 mmol/L Assessment Acute kidney injury secondary to hypertensive emergency superimposed on CKD CKD stage 3 Hypertensive emergency Diabetes mellitus type 2 since 2018 Intractable nausea and vomiting Cholelithiasis but no acute cholecystitis Plan: Given the blood pressure now 150 mmHg systolic, no acute need for PICC line at this time. Continue with workup for secondary causes of hypertension Consider discontinuing nicardipine drip 5 milligrams/hour and continuing p.o. antihypertensive medications Started valsartan 80 mg daily, nifedipine 90 mg daily, hydrochlorothiazide 25 mg daily Clonidine 0.2 mg q.6 p.r.n. for systolic blood pressure more than 160 mmHg Follow up with a UA and urine electrolytes Plan discussed with patient, mother at bedside in which all questions have been answered Case discussed with Dr. Rouse Addendum Patient seen and examined, plan discussed with resident. Agree with above, we will follow closely Duplex ultrasound showing elevated right renal artery velocity---recommend vascular surgery consult Close monitoring of renal function after BP med initiation Secondary causes of hypertension workup ordered BP appears to be well controlled for the past few hours she does not need a PICC line and IV drips Discussed with hospitalist RN, patient and her bedside and resident, Plan discussed with: Patient, Other (mom) LASHONDA CAMACHO RESIDENT July 04, 2024 14:33 EVON ROUSE MD July 04, 2024 18:28
--- NOTE | 2024-07-04 17:01 | DVH ---
Procedure: LA NM HIDA SCAN Exam Date: 07/04/2024 02:43 PM Clinical History: RUQ Pain , Cholelithiasis Comparison Study: Ultrasound abdomen from today Nuclear Medicine Hepatobiliary Scan. Technique: Following the intravenous administration of 5.5 mCi of technetium 99m labeled Choletec multiple plana r abdominal planar images were obtained in anterior projection in 1 minute intervals for 40 minutes . Right lateral images were obtained at 50 minutes after injection. Findings: The liver appears grossly normal in size. There is no abnormal persistence of the cardiac or blood po ol activity. Gallbladder is visualized at approximately 32 minutes. Small bowel is visualized almost immediately. Impression: 1. Patent cystic duct.
--- NOTE | 2024-07-04 17:30 | DVH ---
INDICATION: HTN TECHNIQUE: Multiple real-time sonographic images of the kidneys and bladder were obtained. Duplex Doppler evaluation including color Doppler and spectral/pulsed waveform analysis of the bilate ral renal arteries was performed. COMPARISON: US RENAL ARTERY LMTD on DOS: 10/31/23 FINDINGS: The right kidney measures 11.3 cm in length. Increased echogenicity. The left kidney measures 11.4 cm in length. Increased echogenicity. Aorta peak systolic velocity, 103 cm/s Right renal artery peak systolic velocity, 268 cm/s (< 180 cm/s = normal). Left renal artery peak systolic velocity 161 cm/s (< 180 cm/s = normal). Right RAR : 2.6 (< 3.5, normal) Left RAR 1.6 (< 3.5, normal) Right RI: 0.82 (< 0.75, normal) Left RI: 0.78 (< 0.75, normal) IMPRESSION: Increased echogenicity of bilateral kidneys may represent chronic medical renal disease. Elevated velocities in the right renal artery may represent underlying right renal artery stenosis. *Jo Ann Gan Techniques in Noninvasive Vascular Diagnosis 2002
--- NOTE | 2024-07-04 18:07 | DVH ---
CHEST RADIOGRAPH Indication: htn Technique: Single frontal view of the chest was obtained Comparison: XY CHEST PORTABLE on DOS: 05/18/24 FINDINGS: Lines and Tubes: None Lungs: No focal consolidation. Pleura: No effusion. No pneumothorax. Cardiomediastinal contours: Unremarkable Bones: No acute osseous abnormality. IMPRESSION: 1. No acute cardiopulmonary disease.
--- NOTE | 2024-07-04 20:28 | DVHPNRES ---
Progress Note Date Seen: July 04, 2024 Resident Creating Document: BERNADINEJacqueNALDOFRANCISCOEZEQUIEL RESIDENT Medical Necessity Reason Pt with a Central, PICC or Fol: No Subjective Review of Systems Patient is a 29-year-old female with a past medical history of hypertension, type 2 diabetes mellitus presented to the ED with a chief complaint of nausea and vomiting since the morning of the day of presentation. Patient reported she was apparently well until 1 day prior to presentation and in the morning started to have nausea and multiple episodes of vomiting and was unable to keep anything down. Patient reported no blood in the vomitus. Patient then also started to have epigastric and right upper abdominal pain which was gradually worsening and intermittent, nonradiating. Patient then came to the hospital for further evaluation. Patient had elevated blood pressure on arrival to the hospital at 172/117 mmHg. Past medical history: Hypertension, type 2 diabetes mellitus Past surgical history: x2 Gynecological history: A2, 1 live child, last in 2023 with delivery in January 2024 but the child in 4 days, 1 intrauterine demise at 21 weeks in 2021, short cervix, preeclampsia Social history: Patient drinks alcohol occasionally and smokes marijuana, denies smoking tobacco and any other drug use Family history: Mother has hypertension Home medications: Nifedipine 30 mg, labetalol 300 mg, lisinopril 10 mg daily Review of systems Patient seen and examined at the bedside In the morning after sign-out from the night team patient had elevated blood pressure ranging above 230/120 mmHg following which patient was given labetalol a total of 160 mg with the patient's blood pressure was still elevated following which she was shifted to the ICU and started on a nicardipine drip. After blood pressure control patient's nausea vomiting improved Patient will be in the ICU for further care Objective vital signs Vital Sign Date Time Temp Pulse Resp B/P (MAP) Pulse Ox O2 Delivery O2 Flow Rate FiO2 07/04/24 18:30 109 16 128/77 (94) 98 07/04/24 18:00 Room Air* 0 21 07/04/24 16:05 98.2 98.2 Total Intake and Output 07/03/24 07/03/24 07/04/24 15:00 23:00 07:00 Intake Total 100 ml Balance 100 ml medications Current Medications Medications Dose Ordered Sig/Lucie Route Start Time Stop Time Status Last Admin Dose Admin Sodium Chloride 10 ml Q8HR IV 07/03/24 22:00 07/04/24 14:02 10 ML Ondansetron HCl 4 mg Q4HP PRN IV 07/03/24 21:45 07/04/24 08:19 4 MG Enoxaparin Sodium 40 mg DAILY SC 07/04/24 10:00 07/04/24 10:13 40 MG Nitroglycerin 0.4 mg Q5MINP PRN SL 07/03/24 21:45 Morphine Sulfate 2 mg Q30M PRN IV 07/03/24 21:45 Pantoprazole Sodium 40 mg DAILY IV 07/04/24 10:00 07/04/24 10:13 40 MG Diagnostic Test (Pha) 1 strip ACHS 07/03/24 22:00 07/04/24 17:17 1 STRIP Insulin Human Regular HS SC 07/03/24 22:00 07/03/24 22:47 6 UNITS Insulin Human Regular AC SC 07/04/24 07:00 07/04/24 11:27 3 UNITS Dextrose 50 ml UD PRN IV 07/03/24 22:00 Nicardipine/ Sodium Chloride 200 ml @ 50 mls/hr Q4H IV 07/04/24 10:30 07/04/24 11:24 50 MLS/HR Valsartan 80 mg DAILY PO 07/05/24 10:00 Nifedipine 90 mg DAILY PO 07/05/24 10:00 Hydrochlorothiazide 25 mg DAILY PO 07/05/24 10:00 Clonidine HCl 0.2 mg Q6H PRN PO 07/04/24 15:45 Examination Constitutional: Patient is alert and oriented to time, place and person Gen - no pallor, no icterus, no cyanosis, no clubbing, no LAD, no edema . Skin - Patients skin is warm and dry. HEENT - normocephalic, atraumatic, dry mucous membranes. Neck - full ROM, no LAD, no JVD Pulmonary - B/L equal breath sounds. no crackles , no wheezing, no stridor. cardiovascular - regular S1,S2 heard. no murmurs heard. peripheral pulses normal radial 2+, pedal 2+. capillary refill normal <2 secs. GI - soft, nontender abdomen. no hepatospleenomegaly. Bowel sounds normoactive Neurological - Patient is A/O X 3 . Bilateral upper extremity strength 5/5, bilateral lower extremity strength 5/5, no facial droop, normal speech, no tremor, no sensory deficiets. laboratory and microbiology Laboratory Tests 07/04/24 08:29 Test 07/04/24 08:29 Range/Units Serum Glucose 211 H 74-106 mg/dL Problem List/Assessment/Plan Problem List/Assessment/Plan Hypertensive emergency Resistant hypertension likely secondary to ?Renal artery stenosis - elevated velocities in the right renal artery on the renal artery Doppler - plasma renin and aldosterone pending - a.m. cortisol and thyroid hormone levels pending - echocardiogram pending - on nicardipine drip - valsartan 80 mg, nifedipine 90 mg, hydrochlorothiazide 25 mg SIENNA on CKD likely due to hypertensive emergency Dehydration - blood pressure control - given IV fluids Type 2 diabetes mellitus with hyperglycemia - moderate insulin sliding scale a.c. HS Intractable nausea and vomiting Abdominal pain Cholelithiasis but no cholecystitis - gallbladder ultrasound shows cholelithiasis/sludge without sonographic evidence of cholecystitis - NM HIDA scan shows patent cystic duct PUD prophylaxis: Protonix DVT prophylaxis: Enoxaparin Goals of care discussed with the patient for over 27 minutes. . Full code Critical care time excluding procedures: 81 minutes Plan discussed with Dr. Tai Plan discussed with: Patient, Other (RN ( Chan )) My Orders My Orders Orders - BLAISE DILLON RESIDENT Procedure Category Date Status Time Transfer Orders XFER 07/04/24 Transmitted 10:03 Nicardipine Hcl In PHA 07/04/24 In Process Sodium Chlo (Cardene 10:30 *Dr. [facility] CONS 07/04/24 Transmitted -[place] 11:13 * Picc Line Consult CONS 07/04/24 Transmitted 11:13 Renin Activity And LAB 07/04/24 In Process Aldosterone 14:13 Cortisol Am LAB 07/05/24 Verified 07:00 Thyroid Stimulating LAB 07/05/24 Verified Hormone 04:00 Parathyroid Hormone LAB 07/05/24 Verified Intact 04:00 Renal Artery Lmtd US 07/04/24 Resulted 14:13 Cardiac DIET 07/05/24 Transmitted Diet-2gna,Lofat,Lochol Breakfast Lactated Ringer's PHA 07/04/24 In Process 19:00 Date of Service: July 04, 2024 Billing Provider: PIPPA TAI MD Common Visit Codes: [id number] INP/OBS CARE(HIGH) BLAISE DILLON RESIDENT July 04, 2024 20:28 PIPPA TAI MD July 10, 2024 09:05
[2024-07-04] MEDS ORDERED: ENALAPRILAT 1.25 MG/ML-1ML VIAL IV PRN (20:30)
[2024-07-04] MEDS: LACTATED RINGER'S 1,000 ML IV ONE (20:32)
[2024-07-05] VITALS (50 sets, daily range): BP systolic 126–161; BP diastolic 73–104; PULSE 80–114; RESP 10–28; TEMP 98.2–98.7; O2SAT 94–99
[2024-07-05 03:46] LABS: Anion Gap 10 (5-15); Carbon Dioxide 23 mmol/L (20-31); Chloride 105 mmol/L (98-107); Sodium 138 mmol/L (136-145)
[2024-07-05 03:48] LABS: Basophils # (auto) 0 10 ^3/uL (0-0.2); Basophils % (auto) 0.6 % (0.0-2.0); Eosinophils # (auto) 0.1 10 ^3/uL (0-0.8); Eosinophils % (auto) 1.7 % (0.0-7.0); Hematocrit 36.4 % (36.0-46.0); Hemoglobin 12.9 g/dL (12.2-16.2); Lymphocytes # (auto) 3.2 10 ^3/uL (0.4-5.4); Lymphocytes % (auto) 38.8 % (10.0-50.0); Mean Corpuscular Hemoglobin 32.8 pg (28.0-32.0); Mean Corpuscular Hgb Conc. 35.5 g/dL (32.0-36.0); Mean Corpuscular Volume 92.4 fL (80.0-100.0); Monocytes # (auto) 0.5 10 ^3/uL (0-1.3); Monocytes % (auto) 6.3 % (0.0-12.0); Neutrophils # (auto) 4.3 10 ^3/uL (1.6-8.6); Neutrophils % (auto) 52.6 % (37.0-80.0); Nucleated Red Blood Cells % 0.1 %; Platelet Count (auto) 271 10^3/uL (140-450); Red Blood Cells 3.94 10^6/uL (4.0-5.20); Red Cell Distribution Width 12.7 % (11.8-14.3); White Blood Cell 8.1 10^3/uL (4.4-10.8)
[2024-07-05 03:52] LABS: BUN/Creatinine Ratio 10.6 (10.0-20.0); Blood Urea Nitrogen 21 mg/dL (9-23)
[2024-07-05 04:17] LABS: Cholesterol 308 mg/dL (< 200); Glucose 172 mg/dL (74-106); HDL Cholesterol 38 mg/dL (40-59); LDL Cholesterol 210 mg/dL (< 100); Potassium 3.4 mmol/L (3.5-5.1); Triglycerides 296 mg/dL (< 150)
[2024-07-05] MEDS: POTASSIUM CHL 20MEQ/50ML 100 ML IV ONE (05:45)
[2024-07-05] MEDS: cloNIDine HCL 0.1 MG TAB PO PRN ×2 (07:02→14:00)
[2024-07-05 07:05] LABS: Urine Bacteria FEW /hpf (None Seen); Urine Blood 1+ /uL (Negative); Urine Clarity Turbid (Clear); Urine Color Light-Orange (Yellow); Urine Protein, UAD 3+ (Negative); Urine Specific Gravity 1.022 (1.001-1.035); Urine Squamous Epithelial Cell FEW /hpf (<5); Urine Urobilinogen Normal (Negative); Urine WBC 4 /HPF (0-5)
[2024-07-05] MEDS: POTASSIUM CHL 20 Meq TABLET PO ONE (08:51)
[2024-07-05] MEDS: LACTATED RINGER'S 500 ML IV ONE (09:06)
[2024-07-05 09:37] LABS: Amphetamine Screen, Urine Neg (NEGATIVE); Barbiturate Scree,Urine Neg (NEGATIVE); Benzodiazephine Screen, Urine Neg (NEGATIVE); Cannabinoid Screen, Urine Pos (NEGATIVE); Cocaine Screen, Urine Neg (NEGATIVE); Opiate Scree,Urine Neg (NEGATIVE); Phencyclidine Screen, Urine Neg (NEGATIVE)
[2024-07-05] MEDS ORDERED: hydroCHLOROthiazide 25 MG TAB PO SCH (10:00)
[2024-07-05] MEDS: VALSARTAN 80 MG TAB PO SCH (10:10)
[2024-07-05] MEDS: hydroCHLOROthiazide 25 MG TAB PO SCH (10:11)
[2024-07-05] MEDS: NIFEdipine ER 30 MG TAB PO SCH (10:12)
[2024-07-05 14:48] LABS: Creatinine, Urine 174.97 mg/dL (30.0-125.0); Protein, Urine 1125.1 mg/dL (1-14)
--- NOTE | 2024-07-05 16:02 | DVHINCON2 ---
Date of service: July 05, 2024 Family History: Patient reports no known family medical history. Allergies: Coded Allergies: NO KNOWN ALLERGIES (Unverified , 04/24/17) Home Meds Reported Medications Nifedipine (Nifedipine Er) 30 Mg Tab, 1 TAB PO DAILY for HTN, #30 TAB 3 Refills 10/31/23 Current Medications Current Medications Medications (Trade) Dose Ordered Sig/Lucie Route PRN Reason Start Time Stop Time Status Last Admin Valsartan (Diovan) 80 mg DAILY PO 07/05/24 10:00 07/05/24 10:10 Nifedipine (Procardia Xl (Time-Release)) 90 mg DAILY PO 07/05/24 10:00 07/05/24 10:12 Hydrochlorothiazide (hydroCHLOROthiazide TABLET) 25 mg DAILY PO 07/05/24 10:00 07/05/24 08:45 DC Enalaprilat (Vasotec Injection) 2.5 mg Q6HP PRN IV SBP>170 07/04/24 20:30 Hydrochlorothiazide (hydroCHLOROthiazide TABLET) 12.5 mg DAILY PO 07/05/24 10:00 07/05/24 10:11 Clonidine HCl (Catapres Tablet) 0.1 mg Q6H PRN PO systolic bp > 160 07/05/24 09:00 07/05/24 14:00 Vital Signs Vital Signs Date Time Temp Pulse Resp B/P (MAP) Pulse Ox O2 Delivery O2 Flow Rate FiO2 07/05/24 14:00 89 20 160/91 (114) 98 07/05/24 14:00 Room Air* 0 21 07/05/24 12:00 98.2 98.2 Labs/Diagnostic Data Labs Test 07/05/24 12:02 07/05/24 09:20 07/05/24 07:52 07/05/24 06:45 Range/Units POC Glucose 179 H 70-106 mg/dl Urine Opiates Screen Neg NEGATIVE Urine Fentanyl Screen Neg NEGATIVE Urine Barbiturates Screen Neg NEGATIVE Urine Phencyclidine Screen Neg NEGATIVE Urine Amphetamines Screen Neg NEGATIVE Urine Benzodiazepines Screen Neg NEGATIVE Urine Cocaine Screen Neg NEGATIVE Urine Cannabinoids Screen Pos NEGATIVE Cortisol AM Sample 12.24 5.27-22.45 ug/dL Urine Color Light-orange Yellow Urine Clarity Turbid H Clear Urine pH 6.0 5.0-9.0 Urine Specific [place] 1.022 1.001-1.035 Urine Protein 3+ H Negative Urine Ketones Negative Negative Urine Blood 1+ H Negative /uL Urine Nitrite Negative Negative Urine Bilirubin Negative Negative Urine Urobilinogen Normal Negative mg/dL Urine Leukocyte Esterase Negative Negative /uL Urine RBC 2 0 - 4 /hpf Urine Microscopic WBC 4 0-5 /HPF Urine Squamous Epithelial Cells Few <5 /hpf Urine Bacteria Few H None Seen /hpf Urine Creatinine 174.97 H 30.0-125.0 mg/dL Urine Sodium 87 40-220 mmol/L Urine Potassium 44 12-62 mmol/L Urine Glucose 1+ H Normal mg/dL Urine Total Protein 1125.1 H 1-14 mg/dL Urine Test Negative Negative Test 07/05/24 03:09 07/04/24 16:55 07/04/24 16:54 07/04/24 08:29 Range/Units White Blood Count 8.1 4.4-10.8 10^3/uL Red Blood Count 3.94 L 4.0-5.20 10^6/uL Hemoglobin 12.9 12.2-16.2 g/dL Hematocrit 36.4 # 36.0-46.0 % Mean Corpuscular Volume 92.4 80.0-100.0 fL Mean Corpuscular Hemoglobin 32.8 H 28.0-32.0 pg Mean Corpuscular Hemoglobin Concent 35.5 32.0-36.0 g/dL Red Cell Distribution Width 12.7 11.8-14.3 % Platelet Count 271 140-450 10^3/uL Mean Platelet Volume 8.6 6.9-10.8 fL Neutrophils (%) (Auto) 52.6 37.0-80.0 % Lymphocytes (%) (Auto) 38.8 10.0-50.0 % Monocytes (%) (Auto) 6.3 0.0-12.0 % Eosinophils (%) (Auto) 1.7 0.0-7.0 % Basophils (%) (Auto) 0.6 0.0-2.0 % Neutrophils # (Auto) 4.3 1.6-8.6 10 ^3/uL Lymphocytes # (Auto) 3.2 0.4-5.4 10 ^3/uL Monocytes # (Auto) 0.5 0-1.3 10 ^3/uL Eosinophils # (Auto) 0.1 0-0.8 10 ^3/uL Basophils # (Auto) 0 0-0.2 10 ^3/uL Nucleated Red Blood Cells 0.1 % Sodium Level 138 136-145 mmol/L Potassium Level 3.4 L 3.5-5.1 mmol/L Chloride Level 105 98-107 mmol/L Carbon Dioxide Level 23 20-31 mmol/L Anion Gap 10 5-15 Blood Urea Nitrogen 21 9-23 mg/dL Creatinine 1.98 H 0.550-1.02 mg/dL Glomerular Filtration Rate Calc 35 >90 mL/min BUN/Creatinine Ratio 10.6 10.0-20.0 Serum Glucose 172 H 74-106 mg/dL Calcium Level 9.0 8.7-10.4 mg/dL Triglycerides Level 296 H < 150 mg/dL Cholesterol Level 308 H < 200 mg/dL LDL Cholesterol 210 H < 100 mg/dL HDL Cholesterol 38 L 40-59 mg/dL Thyroid Stimulating Hormone (TSH) 0.93 0.55-4.78 uIU/mL Parathyroid Hormone (Intact) 146.2 H 18.4-80.1 pg/mL Prothrombin Time 10.6 9.3-11.8 sec Prothrombin Time INR 1.00 0.9-1.15 Hemoglobin A1c 5.6 <5.7 % A1C Magnesium Level 1.8 1.6-2.6 mg/dL Total Bilirubin 0.7 0.2-1.0 mg/dL Aspartate Amino Transferase (AST) 11 L 13-40 U/L Alanine Aminotransferase (ALT) 16 7-40 U/L Alkaline Phosphatase 97 46-116 U/L Total Protein 7.0 5.7-8.2 g/dL Albumin 4.1 3.2-4.8 g/dL Beta HCG, Quantitative 0.6 L 1.5-4.2 mIU/mL Test 07/04/24 01:16 07/03/24 21:54 07/03/24 17:11 Range/Units Influenza Type A Antigen Negative Negative Influenza Type B Antigen Negative Negative SARS-CoV-2 Antigen (Rapid) Negative NEGATIVE Lactic Acid Level 1.9 0.4-2.0 mmol/L Plasma/Serum Blood Alcohol < 3.0 <10 mg/dL Beta-Hydroxybutyric Acid 0.940 H < 0.4 mmol/L Assessment [id number] RESOLVING BILIARY COLIC AFEBRILE VSS ABD SOFT NON TENDER CONSIDER ELECTIVE GB SURGERY BASED ON ONGOING EVAL Plan discussed with: Patient SHARON FLOOD MD July 05, 2024 16:02
--- NOTE | 2024-07-05 17:33 | DVHPN2 ---
Progress Note Date Seen: July 05, 2024 Resident Creating Document: LASHONDA CAMACHO RESIDENT Medical Necessity Reason Pt with a Central, PICC or Fol: No Subjective Review of Systems Ms Rosas is a 29-year-old female with PMHx hypertension, type 2 diabetes mellitus since 2017 short cervix and left ovarian cyst, preeclampsia, marijuana use dependence who presented to the ER with a chief complaint of intractable nausea and vomiting for a day. Patient reports that she has been experiencing intractable nausea and vomiting for the past 1 day after she took her morning medications including antihypertensives, unable to keep any liquid or solid food down,. On arrival to the ER, patient was tachycardic and hypotensive, blood pressure reaching up to 240/142 mmHg patient was given IV labetalol pushes which did not decrease her blood pressure and she was started on nicardipine drip. Patient has a admitted to ICU. Reports compliance to antihypertensive regimen, she takes nifedipine, lisinopril, labetalol at home. Renal duplex 10/31/2023 showed right kidney unremarkable. Left kidney duplex was not performed as the patient refused. Nephrology consulted for renal clearance for PICC line consult PMH:hypertension, type 2 diabetes mellitus since 2018 short cervix and left ovarian cyst, preeclampsia, marijuana use dependence PSH: section Home medications: Nifedipine, lisinopril, labetalol, metformin Social history: Lives with family, denies smoking but uses marijuana. 07/04-Patient seen and examined in the ICU. BP 150/90 mmHg on nicardipine drip. 07/05-patient seen and examined at bedside. Blood pressure 130 x 80 mmHg, nicardipine drip discontinued. Urine output 400 cc overnight. BUN/creatinine trending down. Renal Duplex shows increased echogenicity and increased velocity. Vascular surgeon consulted. Metanephrines and renin/aldosterone pending Overnight patient received 1 L LR given the patient has diarrhea Objective vital signs Vital Sign Date Time Temp Pulse Resp B/P (MAP) Pulse Ox O2 Delivery O2 Flow Rate FiO2 07/05/24 16:00 94 07/05/24 16:00 19 98 Room Air* 0 21 07/05/24 16:00 98.2 141/95 (110) 98.2 Total Intake and Output 07/04/24 07/04/24 07/05/24 15:00 23:00 07:00 Intake Total 75 ml 1020 ml 1148 ml Output Total 400 ml Balance 75 ml 1020 ml 748 ml medications Current Medications Medications Dose Ordered Sig/Lucie Route Start Time Stop Time Status Last Admin Dose Admin Sodium Chloride 10 ml Q8HR IV 07/03/24 22:00 07/05/24 13:59 10 ML Ondansetron HCl 4 mg Q4HP PRN IV 07/03/24 21:45 07/04/24 08:19 4 MG Enoxaparin Sodium 40 mg DAILY SC 07/04/24 10:00 07/05/24 10:12 40 MG Pantoprazole Sodium 40 mg DAILY IV 07/04/24 10:00 07/05/24 10:09 40 MG Diagnostic Test (Pha) 1 strip ACHS 07/03/24 22:00 07/05/24 12:01 1 STRIP Insulin Human Regular HS SC 07/03/24 22:00 07/03/24 22:47 6 UNITS Insulin Human Regular AC SC 07/04/24 07:00 07/05/24 12:05 3 UNITS Dextrose 50 ml UD PRN IV 07/03/24 22:00 Nicardipine/ Sodium Chloride 200 ml @ 50 mls/hr Q4H IV 07/04/24 10:30 07/04/24 11:24 50 MLS/HR Valsartan 80 mg DAILY PO 07/05/24 10:00 07/05/24 10:10 80 MG Nifedipine 90 mg DAILY PO 07/05/24 10:00 07/05/24 10:12 90 MG Enalaprilat 2.5 mg Q6HP PRN IV 07/04/24 20:30 Hydrochlorothiazide 12.5 mg DAILY PO 07/05/24 10:00 07/05/24 10:11 12.5 MG Clonidine HCl 0.1 mg Q6H PRN PO 07/05/24 09:00 07/05/24 14:00 0.1 MG Examination Patient lying comfortably in ICU, no acute distress General: Obese,, afebrile, palor, mucosae are moist Cardiovascular: Regular S1 and S2. No murmurs, gallops or rubs. No JVD elevation. Mild 1+ pedal edema Respiratory: Normal B/L air entry on room air. Clear lung sounds on auscultation Abdomen: Soft, nontender, nondistended, normoactive bowel sounds, no rebound tenderness, no organomegaly, no masses Genitourinary: Deferred MSK/skin: Mobilizes 4 limbs. Skin is dry and warm Neurological: No motor, no sensitive deficits, normal speech. Pupils are isocoric and reactive. Psych/Mental Status: A/Ox3 laboratory and microbiology Laboratory Tests 07/05/24 03:09 Test 07/05/24 03:09 Range/Units Serum Glucose 172 H 74-106 mg/dL Labs and/or images reviewed: Labs reviewed by me, Image(s) reviewed by me Problem List/Assessment/Plan Problem List/Assessment/Plan Acute kidney injury secondary to hypertensive emergency superimposed on CKD CKD stage 3 Hypertensive emergency Diabetes mellitus type 2 since 2018 Intractable nausea and vomiting Cholelithiasis but no acute cholecystitis Hypokalemia Hyperlipidemia Secondary hyperparathyroidism Cannabis dependence Plan: BUN/creatinine worse , blood pressure now controlled, discontinued nicardipine drip. continue p.o. antihypertensive regimen. Vascular surgeon consultation pending given renal duplex showing increased velocities in the right Consider discontinuing nicardipine drip 5 milligrams/hour and continuing p.o. antihypertensive medications Started valsartan 80 mg daily, nifedipine 90 mg daily, hydrochlorothiazide 12.5 mg daily Clonidine 0.1mg q.6 p.r.n. for systolic blood pressure more than 160 mmHg Follow up with metanephrines and renin/aldosterone levels, echocardiogram pending, cortisol WNL Plan discussed with patient, mother at bedside in which all questions have been answered Case discussed with Dr. Rouse Addendum Patient seen and examined, plan discussed with resident. Agree with above, we will follow closely Plan discussed with: Patient My Orders My Orders Orders - LASHONDA CAMACHO RESIDENT Procedure Category Date Status Time Vitamin D, 25-Hydroxy LAB 07/06/24 Verified 04:00 Dietary Evaluation Review Comments: 1) CCHO 60gm + renal specific 70gm protein + cardiac diet 2) Refer to [facility] on discharge 3. Continue current in POC Expected Outcomes/Goals: labs & blood glucose values to improve Fu 3-5 days LASHONDA CAMACHO July 05, 2024 17:33 EVON ROUSE MD July 05, 2024 20:17
--- NOTE | 2024-07-05 18:41 | DVHPNRES ---
Progress Note Date Seen: July 05, 2024 Resident Creating Document: SANTANAFRANCISCOEZEQUIEL RESIDENT Medical Necessity Reason Pt with a Central, PICC or Fol: No Subjective Review of Systems Patient is a 29-year-old female with a past medical history of hypertension, type 2 diabetes mellitus presented to the ED with a chief complaint of nausea and vomiting since the morning of the day of presentation. Patient reported she was apparently well until 1 day prior to presentation and in the morning started to have nausea and multiple episodes of vomiting and was unable to keep anything down. Patient reported no blood in the vomitus. Patient then also started to have epigastric and right upper abdominal pain which was gradually worsening and intermittent, nonradiating. Patient then came to the hospital for further evaluation. Patient had elevated blood pressure on arrival to the hospital at 172/117 mmHg. Past medical history: Hypertension, type 2 diabetes mellitus Past surgical history: x2 Gynecological history: A2, 1 live child, last in 2023 with delivery in January 2024 but the child in 4 days, 1 intrauterine demise at 21 weeks in 2021, short cervix, preeclampsia Social history: Patient drinks alcohol occasionally and smokes marijuana, denies smoking tobacco and any other drug use Family history: Mother has hypertension Home medications: Nifedipine 30 mg, labetalol 300 mg, lisinopril 10 mg daily Review of systems Patient seen and examined at the bedside Blood pressure within normal limits Patient denied of any nausea or vomiting, tolerating diet well No abdominal pain, chest pain, shortness of breath, headache, blurred vision , weakness of any limbs Objective vital signs Vital Sign Date Time Temp Pulse Resp B/P (MAP) Pulse Ox O2 Delivery O2 Flow Rate FiO2 07/05/24 18:00 96 07/05/24 18:00 18 126/88 (101) 98 07/05/24 18:00 Room Air* 0 21 07/05/24 16:00 98.2 98.2 Total Intake and Output 07/04/24 07/04/24 07/05/24 15:00 23:00 07:00 Intake Total 75 ml 1020 ml 1148 ml Output Total 400 ml Balance 75 ml 1020 ml 748 ml medications Current Medications Medications Dose Ordered Sig/Lucie Route Start Time Stop Time Status Last Admin Dose Admin Sodium Chloride 10 ml Q8HR IV 07/03/24 22:00 07/05/24 13:59 10 ML Ondansetron HCl 4 mg Q4HP PRN IV 07/03/24 21:45 07/04/24 08:19 4 MG Enoxaparin Sodium 40 mg DAILY SC 07/04/24 10:00 07/05/24 10:12 40 MG Pantoprazole Sodium 40 mg DAILY IV 07/04/24 10:00 07/05/24 10:09 40 MG Diagnostic Test (Pha) 1 strip ACHS 07/03/24 22:00 07/05/24 17:29 1 STRIP Insulin Human Regular HS SC 07/03/24 22:00 07/03/24 22:47 6 UNITS Insulin Human Regular AC SC 07/04/24 07:00 07/05/24 17:29 3 UNITS Dextrose 50 ml UD PRN IV 07/03/24 22:00 Nicardipine/ Sodium Chloride 200 ml @ 50 mls/hr Q4H IV 07/04/24 10:30 07/04/24 11:24 50 MLS/HR Valsartan 80 mg DAILY PO 07/05/24 10:00 07/05/24 10:10 80 MG Nifedipine 90 mg DAILY PO 07/05/24 10:00 07/05/24 10:12 90 MG Enalaprilat 2.5 mg Q6HP PRN IV 07/04/24 20:30 Hydrochlorothiazide 12.5 mg DAILY PO 07/05/24 10:00 07/05/24 10:11 12.5 MG Clonidine HCl 0.1 mg Q6H PRN PO 07/05/24 09:00 07/05/24 14:00 0.1 MG Examination Constitutional: Patient is alert and oriented to time, place and person Gen - no pallor, no icterus, no cyanosis, no clubbing, no LAD, no edema . Skin - Patients skin is warm and dry. HEENT - normocephalic, atraumatic, dry mucous membranes. Neck - full ROM, no LAD, no JVD Pulmonary - B/L equal breath sounds. no crackles , no wheezing, no stridor. cardiovascular - regular S1,S2 heard. no murmurs heard. peripheral pulses normal radial 2+, pedal 2+. capillary refill normal <2 secs. GI - soft, nontender abdomen. no hepatospleenomegaly. Bowel sounds normoactive Neurological - Patient is A/O X 3 . Bilateral upper extremity strength 5/5, bilateral lower extremity strength 5/5, no facial droop, normal speech, no tremor, no sensory deficiets. laboratory and microbiology Laboratory Tests 07/05/24 03:09 Test 07/05/24 03:09 Range/Units Serum Glucose 172 H 74-106 mg/dL Problem List/Assessment/Plan Problem List/Assessment/Plan Hypertensive emergency Resistant hypertension likely secondary to ?Renal artery stenosis - elevated velocities in the right renal artery on the renal artery Doppler - plasma renin and aldosterone pending - a.m. cortisol normal and TSH normal - echocardiogram pending - plasma metanephrines pending - urine 24 hour metanephrine pending - valsartan 80 mg, nifedipine 90 mg, hydrochlorothiazide 25 mg SIENNA on CKD likely due to hypertensive emergency CKD with stage III Secondary hyperparathyroidism likely due to CKD Dehydration - blood pressure control - nephrology on board Type 2 diabetes mellitus with hyperglycemia - moderate insulin sliding scale a.c. HS Intractable nausea and vomiting Abdominal pain Cholelithiasis but no cholecystitis - gallbladder ultrasound shows cholelithiasis/sludge without sonographic evidence of cholecystitis - NM HIDA scan shows patent cystic duct PUD prophylaxis: Protonix DVT prophylaxis: Enoxaparin Goals of care discussed with the patient for over 23 minutes. . Full code Time spent: 49 minutes Plan discussed with Dr. Tai Plan discussed with: Patient, Other (RN (IDA)) My Orders My Orders Orders - BLAISE DILLON RESIDENT Procedure Category Date Status Time Cardiac DIET 07/05/24 Transmitted Diet-2gna,Lofat,Lochol Breakfast Enalaprilat Injection PHA 07/04/24 In Process (Vasotec Injection 20:30 Bladder Scan ORDERS 07/04/24 Transmitted 20:17 Transfer Orders XFER 07/05/24 Transmitted 08:24 Metanephrines Frac Qn LAB 07/05/24 Logged 24hr Ur 10:22 Dietary Evaluation Review Comments: 1) CCHO 60gm + renal specific 70gm protein + cardiac diet 2) Refer to Prosthetics Lab Technician on discharge 3. Continue current in POC Expected Outcomes/Goals: labs & blood glucose values to improve Fu 3-5 days Date of Service: July 05, 2024 Billing Provider: PIPPA TAI MD Common Visit Codes: [id number] CARE 30-74 MIN BLAISE DILLON RESIDENT July 05, 2024 18:41 PIPPA TAI MD July 10, 2024 09:15
--- NOTE | 2024-07-05 22:52 | DVHINCON2 ---
DATE OF CONSULTATION: 07/05/2024 HISTORY OF PRESENT ILLNESS: This patient is 29 years old, coming in with right upper quadrant pain, now feeling resolved. She is on a diet, tolerating it well. She has a history of hypertension, diabetes. She had nausea and vomiting. No fever or chills. PAST MEDICAL HISTORY: Hypertension, diabetes. PAST SURGICAL HISTORY: Adnexal cyst, x 2. PHYSICAL EXAMINATION: VITAL SIGNS: Afebrile, stable signs. HEENT: With no evidence of pallor, cyanosis or jaundice. NECK: Supple, nontender. No thyromegaly. No lymphadenopathy. CHEST AND LUNGS: Clear. HEART: Within normal limits. ABDOMEN: Soft, nontender. No rebound. EXTREMITIES: Unremarkable. NEUROLOGIC: Intact. CLINICAL IMPRESSION: Resolving biliary colic. At this point, does not have acute cholecystitis. HIDA scan is negative. PLAN: Resolve her medical issues and consider surgery as indicated based upon ongoing evaluation as an outpatient. Magnus Carrillo MD RG/HEM TID: [id number] RECEIPT: [id number] cc: Conchis Greer MD
[2024-07-06] VITALS (25 sets, daily range): BP systolic 122–163; BP diastolic 72–112; PULSE 84–100; RESP 12–27; TEMP 97.5–99.2; O2SAT 95–100
--- NOTE | 2024-07-06 00:03 | DVHSR ---
APPROVED REPORT EXAM: Two-dimensional and M-mode echocardiogram with Doppler and color Doppler. Blood Pressure: 161/104 mmHg INDICATION Hypertension RISK FACTORS Height: 5'9", Weight: 212 DIMENSIONS LVDd4.1 (3.8-5.7cm)LA (2D)4.3 (1.9-4.0cm)Aortic Root2.7 (2.0-3.7cm) LVDs2.6 (2.5-4.0cm)LA (MM) (1.9-4.0cm)Aortic Cusp Exc2.1 (1.5-2.0cm) EF (%) 65.0 (55-70%)Rt. Atrium3.9 (1.9-4.0cm)Asc. Aorta3.0 cm IVSd1.7 (0.7-1.1cm)RV (D)2.8 (1.8-2.4cm) PWd1.9 (0.7-1.1cm) Mitral Valve MitralMitral Stenosis E wave0.76m/sMV Mean GR.mmHg A wave0.96m/sMV Peak GR.mmHg E/A ratio0.82D MVAcm2 DECEL [id number] 1/2 Timems Aortic Valve Aortic ValveAortic Stenosis V10.94m/Margo Mean GR.4mmHg V21.32m/Margo Peak GR.7mmHg LVOT Diameter2.1 (1.8-2.4cm)Doppler AVA2.47cm2 Pulmonic Valve V21.01m/s Conclusion There is severe concentric left ventricular hypertrophy Left ventricular systolic function is preserved Ejection fraction is estimated at 60% Transmitral inflow velocity pattern is consistent with impaired LV relaxation suggesting diastolic dy sfunction There is no significant valvular pathology There is no pericardial effusion
[2024-07-06 03:35] LABS: Hematocrit 36.3 % (36.0-46.0); Hemoglobin 12.6 g/dL (12.2-16.2); Mean Corpuscular Hemoglobin 32.1 pg (28.0-32.0); Mean Corpuscular Hgb Conc. 34.6 g/dL (32.0-36.0); Mean Corpuscular Volume 92.9 fL (80.0-100.0); Platelet Count (auto) 263 10^3/uL (140-450); Red Blood Cells 3.91 10^6/uL (4.0-5.20); Red Cell Distribution Width 12.5 % (11.8-14.3); White Blood Cell 6.1 10^3/uL (4.4-10.8)
[2024-07-06 03:50] LABS: Band Neutrophils % (manual) 0; Basophils % (manual) 0 (0.0-2.0); Blast Cells 0; Metamyelocytes % 0; Myelocytes % 0; Promyelocytes % 0; Reactive Lymphocytes 0
[2024-07-06 03:57] LABS: Albumin 3.4 g/dL (3.2-4.8); Alkaline Phosphatase 71 U/L (46-116); Anion Gap 8 (5-15); BUN/Creatinine Ratio 10.6 (10.0-20.0); Blood Urea Nitrogen 20 mg/dL (9-23); Carbon Dioxide 24 mmol/L (20-31); Chloride 105 mmol/L (98-107); Potassium 3.8 mmol/L (3.5-5.1); Sodium 137 mmol/L (136-145)
[2024-07-06 03:58] LABS: Bilirubin, Total 0.7 mg/dL (0.2-1.0)
[2024-07-06 04:19] LABS: Alanine Aminotransferase < 9 U/L (7-40); Aspartate Aminotransferase < 8 U/L (13-40); Calcium 8.2 mg/dL (8.7-10.4); Glucose 135 mg/dL (74-106); Total Protein 5.6 g/dL (5.7-8.2)
[2024-07-06 04:52] LABS: Eosinophils % (manual) 2 (0-7); Lymphocytes % (manual) 72 (10.0-50.0); Monocytes % (manual) 6 (0-12); Platelet Estimate Adequate; Tear Drop Cells FEW
[2024-07-06] MEDS ORDERED: ATOR40TA52 PO (13:44)
[2024-07-06] MEDS ORDERED: VALS1TAB57 PO ×2 (13:44→14:04)
[2024-07-06] MEDS ORDERED: NIFE1TAB31 PO (13:44)
[2024-07-06] MEDS ORDERED: ERGO1CAP23 PO (13:44)
[2024-07-06] MEDS ORDERED: HYDR25TA5 PO ×2 (13:44→14:04)
[2024-07-06] MEDS ORDERED: CLON0.1T PO (13:44)
--- NOTE | 2024-07-06 16:09 | DVHPN2 ---
Progress Note Date Seen: July 06, 2024 Resident Creating Document: LASHONDA CAMACHO RESIDENT Medical Necessity Reason Pt with a Central, PICC or Fol: No Subjective Review of Systems Ms Rosas is a 29-year-old female with PMHx hypertension, type 2 diabetes mellitus since 2017 short cervix and left ovarian cyst, preeclampsia, marijuana use dependence who presented to the ER with a chief complaint of intractable nausea and vomiting for a day. Patient reports that she has been experiencing intractable nausea and vomiting for the past 1 day after she took her morning medications including antihypertensives, unable to keep any liquid or solid food down,. On arrival to the ER, patient was tachycardic and hypotensive, blood pressure reaching up to 240/142 mmHg patient was given IV labetalol pushes which did not decrease her blood pressure and she was started on nicardipine drip. Patient has a admitted to ICU. Reports compliance to antihypertensive regimen, she takes nifedipine, lisinopril, labetalol at home. Renal duplex 10/31/2023 showed right kidney unremarkable. Left kidney duplex was not performed as the patient refused. Nephrology consulted for renal clearance for PICC line consult PMH:hypertension, type 2 diabetes mellitus since 2018 short cervix and left ovarian cyst, preeclampsia, marijuana use dependence PSH: section Home medications: Nifedipine, lisinopril, labetalol, metformin Social history: Lives with family, denies smoking but uses marijuana. 07/04-Patient seen and examined in the ICU. BP 150/90 mmHg on nicardipine drip. 07/05-patient seen and examined at bedside. Blood pressure 130 x 80 mmHg, nicardipine drip discontinued. Urine output 400 cc overnight. BUN/creatinine trending down. Renal Duplex shows increased echogenicity and increased velocity. Vascular surgeon consulted. Metanephrines and renin/aldosterone pending Overnight patient received 1 L LR given the patient has diarrhea 07/06 patient seen and examined at the bedside. Reports no acute complaint. Urine output 11 50 cc. BUN/creatinine trending down. Objective vital signs Vital Sign Date Time Temp Pulse Resp B/P (MAP) Pulse Ox O2 Delivery O2 Flow Rate FiO2 07/06/24 14:00 18 Room Air* 0 21 07/06/24 12:04 97.5 84 163/109 (127) 100 97.5 Total Intake and Output 07/05/24 07/05/24 07/06/24 15:00 23:00 07:00 Intake Total 720 ml 350 ml Output Total 500 ml 650 ml Balance 220 ml -300 ml Examination Patient lying comfortably in ICU, no acute distress General: Obese,, afebrile, palor, mucosae are moist Cardiovascular: Regular S1 and S2. No murmurs, gallops or rubs. No JVD elevation. Mild 1+ pedal edema Respiratory: Normal B/L air entry on room air. Clear lung sounds on auscultation Abdomen: Soft, nontender, nondistended, normoactive bowel sounds, no rebound tenderness, no organomegaly, no masses Genitourinary: Deferred MSK/skin: Mobilizes 4 limbs. Skin is dry and warm Neurological: No motor, no sensitive deficits, normal speech. Pupils are isocoric and reactive. Psych/Mental Status: A/Ox3 laboratory and microbiology Laboratory Tests 07/06/24 03:00 Test 07/06/24 03:00 Range/Units Serum Glucose 135 H 74-106 mg/dL Labs and/or images reviewed: Labs reviewed by me, Image(s) reviewed by me Problem List/Assessment/Plan Problem List/Assessment/Plan Acute kidney injury secondary to hypertensive emergency superimposed on CKD CKD stage 3 Hypertensive emergency Diabetes mellitus type 2 since 2018 Intractable nausea and vomiting Cholelithiasis but no acute cholecystitis Hypokalemia Hyperlipidemia Secondary hyperparathyroidism Cannabis dependence Plan: BUN/creatinine trending down, blood pressure now controlled, no acute nephrological indication at this time. Discontinued nicardipine drip. continue p.o. antihypertensive regimen. Vascular surgeon consultation pending given renal duplex showing increased velocities in the right Started valsartan 80 mg daily, nifedipine 90 mg daily, hydrochlorothiazide 25 mg daily Clonidine 0.2 mg q.6 p.r.n. for systolic blood pressure more than 160 mmHg Follow up with metanephrines and renin/aldosterone levels, echocardiogram pending, cortisol WNL Consider supplementing vitamin-D and starting lipid lowering therapy Plan discussed with patient, mother at bedside in which all questions have been answered Case discussed with Dr. Rouse Addendum Patient seen and examined, plan discussed with resident. Agree with above, Plan discussed with: Patient Dietary Evaluation Review Comments: 1) CCHO 60gm + renal specific 70gm protein + cardiac diet 2) Refer to Manufacturing Automation Engineer on discharge 3. Continue current in POC Expected Outcomes/Goals: labs & blood glucose values to improve Fu 3-5 days LASHONDA CAMACHO July 06, 2024 16:09 EVON ROUSE MD July 06, 2024 21:05
--- NOTE | 2024-07-06 18:09 | DVHDSRES ---
Discharge Summary Date of Admission Resident Creating Document: BLAISE DILLON RESIDENT July 03, 2024 at 21:37 Date of Discharge: July 06, 2024 Admitting Diagnosis Intractable nausea and vomiting likely due to acute gastroenteritis Rule out acute cholecystitis/acute pancreatitis/gastritis Suspected acute cholecystitis Uncontrolled diabetes mellitus type 2 Hypertensive emergency SIENNA likely due to VMN Suspected CKD stage 3 Obesity Substance abuse marijuana History of IUGR and IUFD due to noncompliance with her other pregnancies. SHORT CERVIX- Consider Vaginal progesterone for CX length 20-25 mm for risk reduction of . Adnexal Cyst: Left. 5cm simple adnexal cyst (-suspected persistent corpus luteal cyst.) Wounds: none Labs/Diagnostic Data: Laboratory Results Test 07/06/24 11:27 07/06/24 03:00 07/05/24 09:20 07/05/24 07:52 POC Glucose 118 mg/dl (70-106) White Blood Count 6.1 10^3/uL (4.4-10.8) Red Blood Count 3.91 10^6/uL (4.0-5.20) Hemoglobin 12.6 g/dL (12.2-16.2) Hematocrit 36.3 % (36.0-46.0) Mean Corpuscular Volume 92.9 fL (80.0-100.0) Mean Corpuscular Hemoglobin 32.1 pg (28.0-32.0) Mean Corpuscular Hemoglobin Concent 34.6 g/dL (32.0-36.0) Red Cell Distribution Width 12.5 % (11.8-14.3) Platelet Count 263 10^3/uL (140-450) Mean Platelet Volume 8.6 fL (6.9-10.8) Neutrophils (%) (Auto) % (37.0-80.0) Lymphocytes (%) (Auto) % (10.0-50.0) Monocytes (%) (Auto) % (0.0-12.0) Basophils (%) (Auto) % (0.0-2.0) Neutrophils # (Auto) 10 ^3/uL (1.6-8.6) Lymphocytes # (Auto) 10 ^3/uL (0.4-5.4) Monocytes # (Auto) 10 ^3/uL (0-1.3) Differential Total Cells Counted 100.0 (100) Neutrophils % (Manual) 20 (37.0-80.0) Band Neutrophils % (Manual) 0 Lymphocytes % (Manual) 72 (10.0-50.0) Monocytes % (Manual) 6 (0-12) Eosinophils % (Manual) 2 (0-7) Basophils % (Manual) 0 (0.0-2.0) Metamyelocytes % (manual) 0 Myelocytes % (Manual) 0 Promyelocytes % (Manual) 0 Blast Cells % (Manual) 0 Reactive Lymphocytes 0 Platelet Estimate Adequate Tear Drop Cells Few Sodium Level 137 mmol/L (136-145) Potassium Level 3.8 mmol/L (3.5-5.1) Chloride Level 105 mmol/L (98-107) Carbon Dioxide Level 24 mmol/L (20-31) Anion Gap 8 (5-15) Blood Urea Nitrogen 20 mg/dL (9-23) Creatinine 1.88 mg/dL (0.550-1.02) Glomerular Filtration Rate Calc 37 mL/min (>90) BUN/Creatinine Ratio 10.6 (10.0-20.0) Serum Glucose 135 mg/dL (74-106) Calcium Level 8.2 mg/dL (8.7-10.4) Total Bilirubin 0.7 mg/dL (0.2-1.0) Aspartate Amino Transferase (AST) < 8 U/L (13-40) Alanine Aminotransferase (ALT) < 9 U/L (7-40) Alkaline Phosphatase 71 U/L (46-116) Total Protein 5.6 g/dL (5.7-8.2) Albumin 3.4 g/dL (3.2-4.8) Vitamin D 25-Hydroxy 10.4 ng/mL (30.0-100) Urine Opiates Screen Neg (NEGATIVE) Urine Fentanyl Screen Neg (NEGATIVE) Urine Barbiturates Screen Neg (NEGATIVE) Urine Phencyclidine Screen Neg (NEGATIVE) Urine Amphetamines Screen Neg (NEGATIVE) Urine Benzodiazepines Screen Neg (NEGATIVE) Urine Cocaine Screen Neg (NEGATIVE) Urine Cannabinoids Screen Pos (NEGATIVE) Cortisol AM Sample 12.24 ug/dL (5.27-22.45) Test 07/05/24 06:45 07/05/24 03:09 07/04/24 16:55 07/04/24 16:54 Urine Color Light-orange (Yellow) Urine Clarity Turbid (Clear) Urine pH 6.0 (5.0-9.0) Urine Specific [place] 1.022 (1.001-1.035) Urine Protein 3+ (Negative) Urine Ketones Negative (Negative) Urine Blood 1+ /uL (Negative) Urine Nitrite Negative (Negative) Urine Bilirubin Negative (Negative) Urine Urobilinogen Normal mg/dL (Negative) Urine Leukocyte Esterase Negative /uL (Negative) Urine RBC 2 /hpf (0 - 4) Urine Microscopic WBC 4 /HPF (0-5) Urine Squamous Epithelial Cells Few /hpf (<5) Urine Bacteria Few /hpf (None Seen) Urine Creatinine 174.97 mg/dL (30.0-125.0) Urine Sodium 87 mmol/L (40-220) Urine Potassium 44 mmol/L (12-62) Urine Glucose 1+ mg/dL (Normal) Urine Total Protein 1125.1 mg/dL (1-14) Urine Test Negative (Negative) Eosinophils (%) (Auto) 1.7 % (0.0-7.0) Eosinophils # (Auto) 0.1 10 ^3/uL (0-0.8) Basophils # (Auto) 0 10 ^3/uL (0-0.2) Nucleated Red Blood Cells 0.1 % Triglycerides Level 296 mg/dL (< 150) Cholesterol Level 308 mg/dL (< 200) LDL Cholesterol 210 mg/dL (< 100) HDL Cholesterol 38 mg/dL (40-59) Thyroid Stimulating Hormone (TSH) 0.93 uIU/mL (0.55-4.78) Parathyroid Hormone (Intact) 146.2 pg/mL (18.4-80.1) Test 07/04/24 08:29 07/04/24 01:16 07/03/24 21:54 07/03/24 17:11 Prothrombin Time 10.6 sec (9.3-11.8) Prothrombin Time INR 1.00 (0.9-1.15) Hemoglobin A1c 5.6 % A1C (<5.7) Magnesium Level 1.8 mg/dL (1.6-2.6) Beta HCG, Quantitative 0.6 mIU/mL (1.5-4.2) Influenza Type A Antigen Negative (Negative) Influenza Type B Antigen Negative (Negative) SARS-CoV-2 Antigen (Rapid) Negative (NEGATIVE) Lactic Acid Level 1.9 mmol/L (0.4-2.0) Plasma/Serum Blood Alcohol < 3.0 mg/dL (<10) Beta-Hydroxybutyric Acid 0.940 mmol/L (< 0.4) Other Laboratory Tests 07/06/24 03:00 Brief Hx & Hospital Course: HPI Patient is a 29-year-old female with a past medical history of hypertension, type 2 diabetes mellitus presented to the ED with a chief complaint of nausea and vomiting since the morning of the day of presentation. Patient reported she was apparently well until 1 day prior to presentation and in the morning started to have nausea and multiple episodes of vomiting and was unable to keep anything down. Patient reported no blood in the vomitus. Patient then also started to have epigastric and right upper abdominal pain which was gradually worsening and intermittent, nonradiating. Patient then came to the hospital for further evaluation. Patient had elevated blood pressure on arrival to the hospital at 172/117 mmHg. Past medical history: Hypertension, type 2 diabetes mellitus Past surgical history: x2 Gynecological history: A2, 1 live child, last in 2023 with delivery in January 2024 but the child in 4 days, 1 intrauterine demise at 21 weeks in 2021, short cervix, preeclampsia Social history: Patient drinks alcohol occasionally and smokes marijuana, denies smoking tobacco and any other drug use Family history: Mother has hypertension Home medications: Nifedipine 30 mg, labetalol 300 mg, lisinopril 10 mg daily Hospital course Patient admitted to the hospital with a chief complaint of upper abdominal pain and multiple episodes of intractable nausea and vomiting due to which she was not able to keep anything down. On admission patient was seen to have elevated blood pressure following which she was given medication but in the morning after the admission with the patient was on the floor was elevated above 230/130 mmHg and she was given multiple pushes of labetalol with a total of 160 mg given but her blood pressures did not come down following which she was shifted to the ICU and started on a nicardipine drip. Patient's blood pressure was controlled. Renal artery duplex was done which showed velocities in the right renal artery which may represent underlying right renal artery stenosis. Serum TSH was normal. Patient had elevated total cholesterol, elevated triglycerides, LDL, elevated total protein in the urine and had SIENNA on CKD likely due to uncontrolled hypertension. Serum PTH was elevated likely secondary to the CKD. Renin to aldosterone ratio is pending and plasma metanephrine are pending. Patient in the hospital was started on valsartan, nifedipine and hydrochlorothiazide with the adequate control of blood pressure. Patient was sent home in stable condition Discharge plan - Follow up in the discharge clinic on the schedule appointment on 07/10/2024 - advised to monitor blood pressure 3 times in a day and record and bring the recordings on the follow up visit - medications: Valsartan 80 mg daily, nifedipine 90 mg daily, hydrochlorothiazide 25 mg daily, atorvastatin 40 mg at night, clonidine 0.1 mg PRN if SBP greater than 160 - patient will need further follow up in the Nephrology outpatient clinic for workup and management of CKD Consults/Reason for consult Nephrology consultation Operations or Procedures Renal artery duplex FINDINGS: The right kidney measures 11.3 cm in length. Increased echogenicity. The left kidney measures 11.4 cm in length. Increased echogenicity. Aorta peak systolic velocity, 103 cm/s Right renal artery peak systolic velocity, 268 cm/s (< 180 cm/s = normal). Left renal artery peak systolic velocity 161 cm/s (< 180 cm/s = normal). Right RAR : 2.6 (< 3.5, normal) Left RAR 1.6 (< 3.5, normal) Right RI: 0.82 (< 0.75, normal) Left RI: 0.78 (< 0.75, normal) IMPRESSION: Increased echogenicity of bilateral kidneys may represent chronic medical renal disease. Elevated velocities in the right renal artery may represent underlying right renal artery stenosis. Condition at Discharge: Good Final Diagnosis/Problems List Hypertensive emergency Resistant hypertension likely secondary to Renal artery stenosis SIENNA on CKD likely due to VMN ( hypertensive emergency ) CKD with stage III Secondary hyperparathyroidism likely due to CKD Dehydration Type 2 diabetes mellitus with hyperglycemia Intractable nausea and vomiting likely due to acute gastroenteritis Abdominal pain, acute pancreatitis/gastritis ruled out Cholelithiasis but no cholecystitis Hypertensive emergency Resistant hypertension likely secondary to Renal artery stenosis SIENNA on CKD likely due to hypertensive emergency CKD with stage III Secondary hyperparathyroidism likely due to CKD Dehydration Type 2 diabetes mellitus with hyperglycemia Intractable nausea and vomiting Abdominal pain Cholelithiasis but no cholecystitis Discharge Disposition: Home Discharge Instruct/Medications Diet: Cardiac 2g Na,low cholest Activity: No Restrictions, As Tolerated Follow Up/Referral: Follow up in the discharge clinic in one week Follow up with the PCP in one week Medications: as per EMR Discharge Statement: "Patient was advised to return to the ER or call 911 if any headaches, dizziness, shortness of breath, chest pain, abdominal pain, bleeding, fevers, or worsening of medical condition. Patient was counseled about treatment plan, medications, possible side effects, patientverbalized understanding. All questions were answered to the best of my ability. This discharge took greater then 30 minutes in planning, reviewing documentation, counseling the patient, and discussing with other team members." ASSESSMENT ASSESSMENT Assessment Hypertensive emergency Resistant hypertension likely secondary to Renal artery stenosis SIENNA on CKD likely due to hypertensive emergency CKD with stage III Secondary hyperparathyroidism likely due to CKD Dehydration Type 2 diabetes mellitus with hyperglycemia Intractable nausea and vomiting Abdominal pain Cholelithiasis but no cholecystitis Date of Service: July 06, 2024 Billing Provider: PIPPA TAI MD Common Visit Codes: [id number] DISCH DAY >30min BLAISE DILLON RESIDENT July 06, 2024 18:09 PIPPA TAI MD July 10, 2024 12:40
[2024-07-10 20:07] LABS: Renin Activity 1.4 ng/mL/hr (.)
== END 2024-07-06 14:17 | disposition home or self-care (01) | DRG 249 ==
LOC: ER 16:23 → EDBD 16:23 → OVERFLOW 21:37 → ICU WEST 21:39 → TELE-CENTR 23:37 → ICU WEST 07-04 10:56
PROVIDERS: ADMIT Student in an Organized Health Care Education/Training Program; ATTEND Student in an Organized Health Care Education/Training Program
DX: K52.9 Noninfective gastroenteritis and colitis, unspecified (principal); N17.0 Acute kidney failure with tubular necrosis; E11.22 Type 2 diabetes mellitus with diabetic chronic kidney disease; K80.20 Calculus of gallbladder without cholecystitis without obstruction; E11.65 Type 2 diabetes mellitus with hyperglycemia; I16.1 Hypertensive emergency; F12.10 Cannabis abuse, uncomplicated; E66.9 Obesity, unspecified; Z20.822 Contact with and (suspected) exposure to COVID-19; I10 Essential (primary) hypertension; Z68.31 Body mass index [BMI] 31.0-31.9, adult; I1A.0 Resistant hypertension; J45.909 Unspecified asthma, uncomplicated; E86.0 Dehydration; I12.9 Hypertensive chronic kidney disease with stage 1 through stage 4 chronic kidney disease, or unspecified chronic kidney disease; N18.9 Chronic kidney disease, unspecified; Z91.199 Patient's noncompliance with other medical treatment and regimen due to unspecified reason
CPT/HCPCS: 36415; 71045; 76705; 78226; 80048; 80053; 80061; 80307; 80320; 81001; 81025; 82010; 82088; 82306; 82533; 82570; 82962; 83036; 83605; 83735; 83835; 83970; 84133; 84156; 84244; 84300; 84443; 84702; 85007; 85025; 85027; 85610; 87081; 87426; 87804; 93306; 93976; 96361; 96374; 96375; G0378; J1815; J2405; J2470

== ENCOUNTER 2024-08-30 14:46 | Inpatient (IN) | payer MEDICAID ==
[~2024-08-30] VITALS: Ht 177.8 cm; Wt 94.0 kg
[~2024-08-30 14:46] MED LIST changes: +ATOR40TA52 PO; +CLON0.1T PO; +ERGO1CAP23 PO; +HYDR25TA5 PO; +VALS1TAB57 PO
--- NOTE | 2024-08-30 14:59 | ED.PDOC ---
GI ASSESSMENT HPI Comments HPI: This is a 29 year old female ROSAA presenting to the ED with chief complaint of abdominal pain. Patient reports that she has been experiencing diffuse 6/10 abdominal pain since yesterday with associated nausea and vomiting. Patient relays that she had been started on Ozempic yesterday and after her injection, she started to experience her symptoms. Patient states she vomited about 4 times and has been unable to take her BP medication today due to this. Patient denies any diarrhea, chest pain, SOB, dizziness, fever, or chills. Patient states she is not sure if she is . Initial Vitals BP: 201/141 HR: 140 RR: 16 O2 Sat: 100% Temp: 98.5F Past Medical history: HTN, DM, HLD, Asthma, Renal Artery Stenosis, CKD stage 3, Hyperparathyroidism Past Surgical history: Medications: Clonidine, Nifedipine, Hydrochlorothiazide, Valsartan, Atorvastatin Social History: Denies smoking, ETOH, and drug use. Allergies: NKDA REVIEW OF SYSTEMS: CONSTITUTIONAL: Denies acute: fever, diaphoresis, chills, generalized weakness. HEAD: Denies acute: headache, photophobia Eyes: Denies acute: Double vision, vision loss, eye pain, eye discharge. EARS: Denies acute: tinnitus, hearing loss, ear discharge, ear pain, THROAT: Denies acute: sore throat, swelling, difficulty swallowing , pain with swallowing, change in voice. NECK: Denies acute: neck pain, neck swelling, stiff neck. HEART: Denies acute : chest pain, palpitations, LUNGS: Denies acute: SOB, wheezing, cough, hemoptysis ABDOMEN: Denies acute: diarrhea, melena , hematemesis, hematochezia SKIN: Denies acute: rash, redness, lesions, itchiness. EXTREMITIES: Denies acute: calf pain, numbness, tingling, weakness, denies pain in extremity. Denies acute: Low back pain. Neuro: Denies acute: focal neurological deficit, motor or sensory focal neurological deficit, tremors, seizure like activity, confusion, dizziness, change in mental status, loss of bowel or bladder function, cauda equina like symptoms. : Denies acute: dysuria, hematuria, flank pain, increase in urinary frequency. PSYCH: Denies acute: hallucination, suicidal ideation, homicidal ideation. FEMALE: Denies acute: abnormal vaginal bleeding, foul odor, unusual discharge. PHYSICAL EXAM: General: -----mild---acute distress, awake and alert. Head: normocephalic, atraumatic. Neck: supple, trachea is midline, no swelling. Throat: Normal phonation. Eyes:, no erythema, no purulent discharge, no proptosis, no icterus. Heart: regular rate, regular rhythm, no significant murmur appreciated. Lungs: no apparent respiratory distress, Able to speak in full sentences. No wheezing, no rhonchi, no crackles. No stridors Clear to auscultation bilaterally. Abdomen: Nonspecific generalized tender to palpation, non distended, soft, no guarding, no rebound, + bowel sounds. Neuro: Awake, Alert, oriented to name, self, situation, follows commands GCS=15. Speech is normal. Skin: no petechia, no purpura, no cyanosis, non-pale, not jaundice. Lower extremities: --no - Pitting edema no deformity, no focal swelling, no calf TTP. Makes eye contact. moves all four extremities. Face: no apparent facial droop. ED COURSE: DISCLAIMER: This medical document was created using an electronic medical record system with voice recognition software and computerized dictation system. Although this document has been carefully reviewed, there might still be some phonetic and typographical errors. Occasional wrong-word or "sound-alike" substitutions may have occurred due to the inherent limitations of voice recognition software. These areas are purely typographical due to imperfections of the software programs and do not reflect any compromise in the patient's medical care. Please read the chart carefully and recognize, using context, where these substitutions have occurred. Time Seen by MD: 14:53 Primary Care Provider: ANGIE Reviewed Notes: Medications, Allergies Allergies: Coded Allergies: NO KNOWN ALLERGIES (Unverified , 04/24/17) Home Meds Active Scripts Valsartan (Valsartan) 80 Mg Tab, 80 MG PO DAILY for 28 Days, #28 TAB Prov:BLAISE DILLON RESIDENT 07/06/24 Hctz (Hydrochlorothiazide) 25 Mg Tab, 25 MG PO DAILY for 28 Days, #28 TAB [facility] Ergocalciferol (VITAMIN D 06064 UNIT) 50,000 [place], [address] UNIT PO QWEEKLY for 56 Days, #8 CAP 0 Refills Prov:BLAISE BOWDEN [facility] 07/06/24 Atorvastatin Calcium (ATORVASTATIN CALCIUM) 40 Mg Tab, 40 MG PO HS for 28 Days, #28 TAB 0 [facility]24 Nifedipine (Nifedipine Er) 30 Mg Tab, 90 MG PO DAILY for 28 Days, #84 TAB [facility]24 Clonidine Hydrochloride (Clonidine Hcl) 0.1 Mg Tab, 0.1 MG PO Q8HP PRN for 10 Days, #30 TAB For SBP more than 160 mmhg [facility]24 Information Source: Patient, Emergency Med Personnel Mode of Arrival: EMS Was a procedure done? Was a procedure done?: No X-Ray, Labs, Meds, VS Vital Signs Date Time Temp Pulse Resp B/P (MAP) Pulse Ox O2 Delivery O2 Flow Rate FiO2 08/30/24 20:35 137/65 08/30/24 20:30 145/104 08/30/24 20:29 119 193/119 08/30/24 20:25 161/104 08/30/24 20:20 185/122 08/30/24 20:15 195/126 08/30/24 19:42 98.1 112 18 188/106 (133) 97 98.1 08/30/24 19:42 112 18 97 Room Air* 0 21 08/30/24 19:33 124 221/129 08/30/24 18:14 203/118 08/30/24 17:53 98.8 142 18 203/118 (146) 100 98.8 08/30/24 17:53 142 18 100 Room Air* 0 21 08/30/24 15:49 98.5 140 16 201/141 (161) 100 98.5 Lab Test 08/30/24 20:43 08/30/24 18:56 08/30/24 17:15 08/30/24 15:24 Range/Units Troponin I High Sensitivity 41 *H 37 *H 27 </=34 ng/L Plasma/Serum Blood Alcohol < 3.0 <10 mg/dL Lactic Acid Level 1.7 2.4 *H 0.4-2.0 mmol/L Thyroid Stimulating Hormone (TSH) 1.22 0.55-4.78 uIU/mL Urine Color Yellow Yellow Urine Clarity Turbid H Clear Urine pH 6.0 5.0-9.0 Urine Specific [place] 1.031 1.001-1.035 Urine Protein 3+ H Negative Urine Ketones 1+ H Negative Urine Blood 2+ H Negative /uL Urine Nitrite Negative Negative Urine Bilirubin Negative Negative Urine Urobilinogen Normal Negative mg/dL Urine Leukocyte Esterase Negative Negative /uL Urine RBC 1 0 - 4 /hpf Urine Microscopic WBC 6 H 0-5 /HPF Urine Squamous Epithelial Cells Few <5 /hpf Urine Bacteria None seen None Seen /hpf Urine Hyaline Casts Mod 0 - 2 /lpf Urine Granular Casts Few 0 /lpf Urine Mucus Few None Seen Urine Creatinine 262.91 H 30.0-125.0 mg/dL Urine Protein/Creatinine Ratio 6.80 Urine Sodium 35 L 40-220 mmol/L Urine Glucose 1+ H Normal mg/dL Urine Total Protein 1786.6 H 1-14 mg/dL Urine Test Negative Negative Urine Opiates Screen Neg NEGATIVE Urine Fentanyl Screen Neg NEGATIVE Urine Barbiturates Screen Neg NEGATIVE Urine Phencyclidine Screen Neg NEGATIVE Urine Amphetamines Screen Neg NEGATIVE Urine Benzodiazepines Screen Neg NEGATIVE Urine Cocaine Screen Neg NEGATIVE Urine Cannabinoids Screen Pos NEGATIVE White Blood Count 15.2 H 4.4-10.8 10^3/uL Red Blood Count 5.01 4.0-5.20 10^6/uL Hemoglobin 15.9 12.2-16.2 g/dL Hematocrit 45.6 36.0-46.0 % Mean Corpuscular Volume 91.0 80.0-100.0 fL Mean Corpuscular Hemoglobin 31.7 28.0-32.0 pg Mean Corpuscular Hemoglobin Concent 34.9 32.0-36.0 g/dL Red Cell Distribution Width 12.8 11.8-14.3 % Platelet Count 334 140-450 10^3/uL Mean Platelet Volume 9.0 6.9-10.8 fL Neutrophils (%) (Auto) 82.1 H 37.0-80.0 % Lymphocytes (%) (Auto) 12.8 10.0-50.0 % Monocytes (%) (Auto) 4.4 0.0-12.0 % Eosinophils (%) (Auto) 0.1 0.0-7.0 % Basophils (%) (Auto) 0.6 0.0-2.0 % Neutrophils # (Auto) 12.5 H 1.6-8.6 10 ^3/uL Lymphocytes # (Auto) 1.9 0.4-5.4 10 ^3/uL Monocytes # (Auto) 0.7 0-1.3 10 ^3/uL Eosinophils # (Auto) 0 0-0.8 10 ^3/uL Basophils # (Auto) 0.1 0-0.2 10 ^3/uL Nucleated Red Blood Cells 0.1 % Sodium Level 142 136-145 mmol/L Potassium Level 3.8 3.5-5.1 mmol/L Chloride Level 105 98-107 mmol/L Carbon Dioxide Level 19 L 20-31 mmol/L Anion Gap 18 H 5-15 Blood Urea Nitrogen 33 H 9-23 mg/dL Creatinine 2.18 H 0.550-1.02 mg/dL Glomerular Filtration Rate Calc 31 >90 mL/min BUN/Creatinine Ratio 15.1 10.0-20.0 Serum Glucose 212 H 74-106 mg/dL Calcium Level 9.7 8.7-10.4 mg/dL Magnesium Level Pending Total Bilirubin 0.9 0.2-1.0 mg/dL Aspartate Amino Transferase (AST) 17 13-40 U/L Alanine Aminotransferase (ALT) 16 7-40 U/L Alkaline Phosphatase 111 46-116 U/L B-Type Natriuretic Peptide 138.34 0-100 pg/mL Total Protein 7.4 5.7-8.2 g/dL Albumin 4.6 3.2-4.8 g/dL Lipase 50 12-53 U/L Beta HCG, Quantitative Pending Parathyroid Hormone (Intact) 196.2 H 18.4-80.1 pg/mL Current Medications Medications (Trade) Dose Ordered Sig/Lucie Route Start Time Stop Time Status Last Admin Sodium Chloride 1,000 ml @ 1,000 mls/hr Q1H ONCE IV 08/30/24 15:00 08/30/24 15:59 DC 08/30/24 18:01 Hydralazine HCl (Apresoline Injection) 5 mg ONCE ONCE IV 08/30/24 17:30 08/30/24 18:05 DC 08/30/24 18:14 Piperacillin Sod/ Tazobactam Sod 100 ml @ 100 mls/hr ONCE ONCE IV 08/30/24 17:30 08/30/24 18:29 DC 08/30/24 18:14 Ondansetron HCl (Zofran) 8 mg ONCE ONCE IV 08/30/24 18:00 08/30/24 18:01 DC 08/30/24 18:00 Sodium Chloride 1,000 ml @ 1,000 mls/hr Q1H ONCE IV 08/30/24 19:15 08/30/24 20:14 DC 08/30/24 19:15 Labetalol HCl (Labetalol HCl) 5 mg ONCE ONCE IV 08/30/24 19:15 08/30/24 19:16 DC 08/30/24 19:33 Nicardipine/ Sodium Chloride 200 ml @ 50 mls/hr Q4H IV 08/30/24 20:15 08/30/24 20:15 Labetalol HCl (Labetalol HCl) 5 mg ONCE ONCE IV 08/30/24 20:00 08/30/24 20:01 DC 08/30/24 20:29 Time of 1ST Reevaluation: 15:53 Reevaluation 1ST: Unchanged Time of 2ND Reevaluation: 16:25 Reevaluation 2ND: Improved (Patient no longer complaining of abdominal pain at this time, self-resolved. Patient has yet to provide urine sample and CT is pending due to urine preg pending.) Patient Education/Counseling: Diagnosis, Treatment Family Education/Counseling: No Family Present Departure 1 Departure Time of Disposition: 19:19 Impression: Primary Impression: Abdominal pain Additional Impressions: Nausea and vomiting Hypertensive crisis Elevated troponin Chronic kidney disease Adverse effects of medication Disposition: ADMITTED INPATIENT Admit to: Tele Condition: Guarded Discharged With: Self Critical Care Note Critical Care Time?: No I personally scribed for LASHONDA VARGAS DO ([email or web address]) on 08/30/24 at 14:59. Electronically submitted by David Siddiqui ([email or web address]). I personally scribed for LASHONDA VARGAS DO ([email or web address]) on 08/30/24 at 17:37. Electronically submitted by David Siddiqui ([email or web address]). I personally scribed for LASHONDA VARGAS DO ([email or web address]) on 08/30/24 at 17:38. Electronically submitted by David Siddiqui ([email or web address]). I personally scribed for LASHONDA VARGAS DO ([email or web address]) on 08/30/24 at 19:21. Electronically submitted by David Siddiqui ([email or web address]). LASHONDA VARGAS DO Aug 30, 2024 14:59
[2024-08-30 15:32] LABS: Hematocrit 45.6 % (36.0-46.0); Hemoglobin 15.9 g/dL (12.2-16.2); Mean Corpuscular Hemoglobin 31.7 pg (28.0-32.0); Mean Corpuscular Volume 91.0 fL (80.0-100.0); Nucleated Red Blood Cells % 0.1 %
[2024-08-30 15:50] LABS: Alanine Aminotransferase 16 U/L (7-40); Albumin 4.6 g/dL (3.2-4.8); Alkaline Phosphatase 111 U/L (46-116); Anion Gap 18 (5-15); BUN/Creatinine Ratio 15.1 (10.0-20.0); Calcium 9.7 mg/dL (8.7-10.4); Chloride 105 mmol/L (98-107); Lipase 50 U/L (12-53); Potassium 3.8 mmol/L (3.5-5.1); Sodium 142 mmol/L (136-145); Total Protein 7.4 g/dL (5.7-8.2)
[2024-08-30 15:51] LABS: Bilirubin, Total 0.9 mg/dL (0.2-1.0); Blood Urea Nitrogen 33 mg/dL (9-23); Carbon Dioxide 19 mmol/L (20-31); Glucose 212 mg/dL (74-106)
[2024-08-30 15:56] LABS: Lactic Acid w/Reflex 2.4 mmol/L (0.4-2.0)
[2024-08-30 17:51] LABS: Urine Protein, UAD 3+ (Negative)
[2024-08-30 17:53] VITALS: PULSE 142; RESP 18; O2SAT 100
[2024-08-30] MEDS: ONDANSETRON HCL 4 MG/2 ML VIAL IV ONE (18:00)
[2024-08-30] MEDS: SODIUM CHLORIDE 0.9% 1,000 ML IV ONE ×2 (18:01→19:15)
[2024-08-30] MEDS: PIPERACILLIN-TAZOB 3.375GM 100 ML IV ONE (18:14)
[2024-08-30] MEDS: hydrALAZINE HCL 20 MG/ML VL IV ONE (18:14)
--- NOTE | 2024-08-30 18:43 | DVH ---
CHEST RADIOGRAPH Indication: HTN Technique: Single frontal view of the chest was obtained Comparison: XY CHEST XRAY 1 VIEW on DOS: 07/04/24, XY CHEST PORTABLE on DOS: 05/18/24 FINDINGS: Lines and Tubes: None Lungs: Poor inspiratory effort Pleura: No effusion. No pneumothorax. Cardiomediastinal contours: Unremarkable Bones: No acute osseous abnormality. IMPRESSION: 1. Poor inspiratory effort.
--- NOTE | 2024-08-30 19:07 | DVH ---
Exam: CT CT AB PEL WO CON-NO ORAL OR IV History: ABD PAIN N/V Comparison Study: CT CT AB PEL WO CON-NO ORAL OR IV on DOS: 05/18/24 TECHNIQUE: Multidetector CT of the abdomen and pelvis was performed from lung bases to pubic symphysi s. Imaging was performed without IV contrast. Axial, coronal, and sagittal multiplanar reformats were obtained from the axial data set by the technologist. RADIATION DOSE: DLP 1248.52 mGy.cm; CTDI vol 22.15 mGy. Findings: Lungs: The lung bases are clear. Heart: No cardiomegaly or pericardial effusion. Liver: Unremarkable. Gallbladder: Unremarkable. Spleen: Unremarkable Pancreas: Unremarkable Adrenals: Unremarkable Kidneys: Unremarkable GI tract: Submucosal fat deposition of the colon. : Unremarkable. Vasculature: Mild aortoiliac atherosclerosis. Lymphadenopathy: Absent Peritoneum: No ascites Musculoskeletal: Unremarkable Soft tissues: Unremarkable Impression: 1. No acute abdominopelvic abnormalities. 2. Submucosal fat deposition of the colon. Correlate for inflammatory bowel disease.
[2024-08-30] MEDS: LABETALOL HCL 20 MG/4 ML VL IV ONE ×2 (19:33→20:29)
[2024-08-30 19:42] VITALS: PULSE 112; RESP 18; O2SAT 97
[2024-08-30] MEDS: NICARDIPINE HCL IN SODIUM CHLO 200 ML IV SCH (20:15)
--- NOTE | 2024-08-30 21:40 | DVHHP2 ---
History of Present Illness History of Present Illness Patient is 29 years old female with past medical history of hypertension, diabetes mellitus type 2, hyperlipidemia, asthma, renal artery stenosis, CKD stage 3, secondary hyperparathyroidism came with a complaint of abdominal pain. patient started having abdominal pain yesterday, gradual onset, 9/10, crampy in nature, intermittent, no aggravating or relieving factor. Pain was associated with nausea and vomiting x4, no blood. Patient reported she started Ozempic yesterday and after that he started having this abdominal pain and nausea and vomiting. Patient smokes marijuana and as per patient last marijuana she smoked was 2 days before. Patient denied any diarrhea, fever, acute joint redness or swelling, chest pain no shortness a breath. Initial lab workup revealed WBC 15.2, neutrophil 82.1%, serum creatinine 2.18, BUN 33, anion gap 18, GFR 31, lactic acid 0.4, troponin I 37, BNP 138, lipase 50, urinalysis negative for UTI, Urine test negative, urinary creatinine 262, urinary sodium 35, urinary protein creatinine ratio 6.80. CT abdomen and pelvis revealed- Submucosal fat deposition of the colon. Correlate for inflammatory bowel disease. Patient was recently discharged from [facility] in June, after she came with the same complaint likely due to acute gastroenteritis and acute cholecystitis or pancreatitis was ruled out. patient was also treated for acute hypertensive emergency with labetalol followed by nicardipine. Patient was found to have right renal artery stenosis. Past Medical History hypertension, diabetes mellitus type 2, hyperlipidemia, asthma, renal artery stenosis, CKD stage 3, secondary hyperparathyroidism Gynecological history: A2, 1 live child, last in 2023 with delivery in January 2024 but the child in 4 days, 1 intrauterine demise at 21 weeks in 2021, short cervix, preeclampsia Past Surgical History Family History Mom has hypertension Past Social History Social history: Patient drinks alcohol occasionally and smokes marijuana, denies smoking tobacco and any other drug use Review of Systems Review of Systems Allergy- NKDA- Patient was seen today at the bedside. Cardiovascular- deny acute chest pain or shortness of breath or cough or palpitation Respiratory denies cough or short of breath or wheezing Gastrointestinal- denies any rectal bleeding, Musculoskeletal-denies acute joint swelling or tenderness or redness Neurological- denies acute dysarthria, dysphagia, change in vision Psychiatry- denies depression or SI or HI Skin- denies acute rash or purpura Allergies: Coded Allergies: NO KNOWN ALLERGIES (Unverified , 04/24/17) Medications Current Medications Medications Dose Ordered Sig/Lucie Route Start Time Stop Time Status Last Admin Dose Admin Nicardipine/ Sodium Chloride 200 ml @ 50 mls/hr Q4H IV 08/30/24 20:15 08/30/24 20:15 50 MLS/HR Sodium Chloride 10 ml Q8HR IV 08/30/24 22:00 UNV Enoxaparin Sodium 40 mg DAILY SC 08/31/24 10:00 UNV Nitroglycerin 0.4 mg Q5MINP PRN SL 08/30/24 21:45 UNV Exam Vital Signs Vital Signs Date Time Temp Pulse Resp B/P (MAP) Pulse Ox O2 Delivery O2 Flow Rate FiO2 08/30/24 20:29 119 193/119 08/30/24 19:42 98.1 18 97 98.1 08/30/24 19:42 Room Air* 0 21 Exam General examination- alert, oriented, conversant HEENT- PEERLA, no acute nasal discharge Cardiovascular- S1-S2 audible, rate and rhythm regular, no murmur Respiratory- CTAB, no wheeze or rhonchi Gastrointestinal-mild mid abdominal tenderness+, bowel sound+. Nondistended Musculoskeletal-no acute joint swelling or tenderness or redness Lower extremity- no leg edema Neurological- cranial nerves intact, no acute dysarthria or dysphagia Psychiatry- denies depression or SI or HI Skin- no acute rash or purpura Labs/Xrays Labs Test 08/30/24 20:43 08/30/24 18:56 08/30/24 17:15 08/30/24 15:24 Range/Units Lactic Acid Level 1.7 0.4-2.0 mmol/L Urine Color Yellow Yellow Urine Clarity Turbid H Clear Urine pH 6.0 5.0-9.0 Urine Specific [place] 1.031 1.001-1.035 Urine Protein 3+ H Negative Urine Ketones 1+ H Negative Urine Blood 2+ H Negative /uL Urine Nitrite Negative Negative Urine Bilirubin Negative Negative Urine Urobilinogen Normal Negative mg/dL Urine Leukocyte Esterase Negative Negative /uL Urine RBC 1 0 - 4 /hpf Urine Microscopic WBC 6 H 0-5 /HPF Urine Squamous Epithelial Cells Few <5 /hpf Urine Bacteria None seen None Seen /hpf Urine Hyaline Casts Mod 0 - 2 /lpf Urine Granular Casts Few 0 /lpf Urine Mucus Few None Seen Urine Glucose 1+ H Normal mg/dL Urine Test Negative Negative White Blood Count 15.2 H 4.4-10.8 10^3/uL Red Blood Count 5.01 4.0-5.20 10^6/uL Hemoglobin 15.9 12.2-16.2 g/dL Hematocrit 45.6 36.0-46.0 % Mean Corpuscular Volume 91.0 80.0-100.0 fL Mean Corpuscular Hemoglobin 31.7 28.0-32.0 pg Mean Corpuscular Hemoglobin Concent 34.9 32.0-36.0 g/dL Red Cell Distribution Width 12.8 11.8-14.3 % Platelet Count 334 140-450 10^3/uL Mean Platelet Volume 9.0 6.9-10.8 fL Neutrophils (%) (Auto) 82.1 H 37.0-80.0 % Lymphocytes (%) (Auto) 12.8 10.0-50.0 % Monocytes (%) (Auto) 4.4 0.0-12.0 % Eosinophils (%) (Auto) 0.1 0.0-7.0 % Basophils (%) (Auto) 0.6 0.0-2.0 % Neutrophils # (Auto) 12.5 H 1.6-8.6 10 ^3/uL Lymphocytes # (Auto) 1.9 0.4-5.4 10 ^3/uL Monocytes # (Auto) 0.7 0-1.3 10 ^3/uL Eosinophils # (Auto) 0 0-0.8 10 ^3/uL Basophils # (Auto) 0.1 0-0.2 10 ^3/uL Nucleated Red Blood Cells 0.1 % Sodium Level 142 136-145 mmol/L Potassium Level 3.8 3.5-5.1 mmol/L Chloride Level 105 98-107 mmol/L Carbon Dioxide Level 19 L 20-31 mmol/L Anion Gap 18 H 5-15 Blood Urea Nitrogen 33 H 9-23 mg/dL Creatinine 2.18 H 0.550-1.02 mg/dL Glomerular Filtration Rate Calc 31 >90 mL/min BUN/Creatinine Ratio 15.1 10.0-20.0 Serum Glucose 212 H 74-106 mg/dL Calcium Level 9.7 8.7-10.4 mg/dL Total Bilirubin 0.9 0.2-1.0 mg/dL Aspartate Amino Transferase (AST) 17 13-40 U/L Alanine Aminotransferase (ALT) 16 7-40 U/L Alkaline Phosphatase 111 46-116 U/L Total Protein 7.4 5.7-8.2 g/dL Albumin 4.6 3.2-4.8 g/dL Lipase 50 12-53 U/L SEPSIS Sepsis Screen Date sepsis recognized/suspect: Aug 30, 2024 Time Sepsis recognized/suspect: 1945 Recent Procedure: No On Antibiotic Therapy: No Respiratory Rate >20: No Heart Rate >90: Yes Temp<36 C (96.8 F) or >38.3 C: No SBP <90 or MAP <65 mmHG: Yes New Acute Mental Status Change: No Is the patient on CPAP, BIPAP,: No Physician Orders [employer] (08/30/24 ) Chest Portable (08/30/24 14:51) Electrocardigram (08/30/24 14:51) Ct Ab Pel Wo Con-No Oral Or Iv (08/30/24 14:51) Troponin-I Hs (08/30/24 18:34) Nicardipine Hcl In Sodium Chlo (Cardene (08/30/24 20:15) Admit (08/30/24 21:34) Code Status (08/30/24 21:34) Sodium Chloride Lock (Saline Lock Ns) (08/30/24 22:00) Enoxaparin Sodium (Lovenox) (08/31/24 10:00) Complete Blood Count (08/31/24 04:00) Comprehensive Metabolic Panel (08/31/24 04:00) Clear Liq Diet (08/31/24 Breakfast) Nitroglycerin Sublingual (Ntrostat Subli (08/30/24 21:45) Notify Of Changes From Base (08/30/24 21:34) Docking Pilot For 24 Hours (08/30/24 21:34) B-Type Natriuretic Peptide (08/30/24 21:36) Thyroid Stimulating Hormone (08/30/24 21:36) Parathyroid Hormone Intact (08/30/24 21:36) Drug Screen (08/30/24 21:36) Vital Signs Date Time Temp Pulse Resp B/P (MAP) Pulse Ox O2 Delivery O2 Flow Rate FiO2 08/30/24 20:29 119 193/119 08/30/24 20:25 161/104 08/30/24 20:20 185/122 08/30/24 20:15 195/126 08/30/24 19:42 98.1 112 18 188/106 (133) 97 98.1 08/30/24 19:42 112 18 97 Room Air* 0 21 08/30/24 19:33 124 221/129 08/30/24 18:14 203/118 08/30/24 17:53 98.8 142 18 203/118 (146) 100 98.8 08/30/24 17:53 142 18 100 Room Air* 0 21 08/30/24 15:49 98.5 140 16 201/141 (161) 100 98.5 Laboratory Tests Test 08/30/24 15:24 08/30/24 18:56 Lactic Acid Level 2.4 mmol/L (0.4-2.0) *H 1.7 mmol/L (0.4-2.0) White Blood Count 15.2 10^3/uL (4.4-10.8) H Medications Medications Dose Ordered Sig/Lucie Route Start Time Stop Time Status Last Admin Dose Admin Hydralazine HCl 5 mg ONCE ONCE IV 08/30/24 17:30 08/30/24 18:05 DC 08/30/24 18:14 5 MG Labetalol HCl 5 mg ONCE ONCE IV 08/30/24 19:15 08/30/24 19:16 DC 08/30/24 19:33 5 MG Labetalol HCl 5 mg ONCE ONCE IV 08/30/24 20:00 08/30/24 20:01 DC 08/30/24 20:29 5 MG Nicardipine/ Sodium Chloride 200 ml @ 50 mls/hr Q4H IV 08/30/24 20:15 08/30/24 20:15 50 MLS/HR Ondansetron HCl 8 mg ONCE ONCE IV 08/30/24 18:00 08/30/24 18:01 DC 08/30/24 18:00 8 MG Piperacillin Sod/ Tazobactam Sod 100 ml @ 100 mls/hr ONCE ONCE IV 08/30/24 17:30 08/30/24 18:29 DC 08/30/24 18:14 100 MLS/HR Sodium Chloride 1,000 ml @ 1,000 mls/hr Q1H ONCE IV 08/30/24 15:00 08/30/24 15:59 DC 08/30/24 18:01 1,000 MLS/HR Sodium Chloride 1,000 ml @ 1,000 mls/hr Q1H ONCE IV 08/30/24 19:15 08/30/24 20:14 DC 08/30/24 19:15 1,000 MLS/HR Assessment/Plan Assessment/Plan Assessment and plan # intractable abdominal pain and nausea vomiting likely due to acute gastroenteritis/rule out acute inflammatory bowel disease -lipase WNL -CT abdomen and pelvis revealed-Submucosal fat deposition of the colon. Correlate for inflammatory bowel disease. --continue ceftriaxone 1 g IV daily -continue metronidazole 500 mg IV q.8h -continue IV normal saline 125 mL/hour # suspected acute gastroenteritis/inflammatory bowel disease --lipase WNL -CT abdomen and pelvis revealed-Submucosal fat deposition of the colon. Correlate for inflammatory bowel disease. --continue ceftriaxone 1 g IV daily -continue metronidazole 500 mg IV q.8h -continue IV normal saline 125 mL/hour -pending GI consult # hypertensive emergency -status post IV labetalol and IV nicardipine -resumed home medication nifedipine 90 mg p.o. daily - hydrochlorothiazide 25 mg p.o. daily -valsartan 80 mg p.o. daily -monitor blood pressure # SIENNA likely due to VMN -serum creatinine 2.18 -FeNa- .6% -avoid dehydration and nephrotoxic drugs -continue IV normal saline as prescribed -monitor renal function test #NSTEMI likely demand lead ischemia -Echo 2D on 07/05/2024 LVEF 60%, LVH -monitor vitals -continue current conservative management # metabolic acidosis likely due to CKD stage 3 -continue IV normal saline as prescribed # Lactic acidosis -lactic acid 2.4 -continue IV normal saline as prescribed # Diabetes mellitus type 2 with hyperglycemia -insulin sliding scale PRN -monitor blood sugar level # Right renal artery stenosis -monitor blood pressure, renal function # secondary hyperparathyroidism -follow up outpatient with primary care physician # substance abuse -UDS positive for marijuana -patient was counseled about the effect of substance abuse on health Diet - clear liquid diet Goals of care, Code status Full code ; discussed with >15 minutes PUD prophylaxis: Pantoprazole DVT prophylaxis: Patient ambulating Plan discussed with Dr. Ayala , nursing staff, Total time spent on patient evaluation, chart review, assessment and plan, discu ssion discussion >35 minutes Plan discussed with: Patient, Other (RN) My Orders Orders - SARA RUIZ Procedure Category Date Status Time Admit ADMIT 08/30/24 Transmitted 21:34 Code Status CODE 08/30/24 Transmitted 21:34 Sodium Chloride Lock PHA 08/30/24 Logged (Saline Lock Ns) 22:00 Enoxaparin Sodium PHA 08/31/24 Logged (Lovenox) 10:00 Complete Blood Count LAB 08/31/24 Verified 04:00 Comprehensive LAB 08/31/24 Verified Metabolic Panel 04:00 Clear Liq Diet DIET 08/31/24 Transmitted Breakfast Nitroglycerin PHA 08/30/24 Logged Sublingual (Ntrostat 21:45 Notify Of Changes [facility] 08/30/24 In Process From Base 21:34 Docking Pilot For [facility] 08/30/24 In Process 24 Hours 21:34 B-Type Natriuretic LAB 08/30/24 Logged Peptide 21:36 Thyroid Stimulating LAB 08/30/24 Logged Hormone 21:36 Parathyroid Hormone LAB 08/30/24 Logged Intact 21:36 Drug Screen LAB 08/30/24 Logged 21:36 Date of Service: Aug 30, 2024 Billing Provider: RUTH AYALA MD Common Visit Codes: [id number] INP/OBS CARE (HIGH) Secondary Visit Codes: [id number] CARE PLAN 30 MINUTES SARA RUIZ Aug 30, 2024 21:40
[2024-08-30] MEDS ORDERED: ERGOCALCIFEROL 50,000 UNIT(1.25MG) CAP PO SCH (21:45)
[2024-08-30] MEDS ORDERED: NITROGLYCERIN 0.4 MG SL TAB SL PRN (21:45)
[2024-08-30] MEDS ORDERED: ONDANSETRON HCL 4 MG/2 ML VIAL IV PRN (21:45)
[2024-08-30] MEDS: PANTOPRAZOLE 40 MG/10 ML VIAL INJ IV ONE (22:00)
[2024-08-30] MEDS: SODIUM CHLOR 0.9% PF (SALINE LOCK) 10ML VIAL/SYR IV SCH (22:00)
[2024-08-30] MEDS: ATORVASTATIN 20 MG TAB PO SCH (22:01)
[2024-08-30 22:09] LABS: Amphetamine Screen, Urine Neg (NEGATIVE); Barbiturate Scree,Urine Neg (NEGATIVE); Benzodiazephine Screen, Urine Neg (NEGATIVE); Cannabinoid Screen, Urine Pos (NEGATIVE); Cocaine Screen, Urine Neg (NEGATIVE); Opiate Scree,Urine Neg (NEGATIVE); Phencyclidine Screen, Urine Neg (NEGATIVE)
[2024-08-30 22:16] LABS: Protein, Urine 1786.6 mg/dL (1-14)
[2024-08-30] MEDS: LORazepam 2MG/ML-1ML VIAL IV ONE (22:25)
[2024-08-30] MEDS: cefTRIAXone 1GM/50ML D5W 50 ML IV ONE (23:15)
[2024-08-30] MEDS: SODIUM CHLORIDE 0.9% 1,000 ML IV SCH (23:15)
[2024-08-30] MEDS: MAGNESIUM SULFATE 1GM/100ML 100 ML IV ONE (23:15)
--- NOTE | 2024-08-31 04:23 | ECG ---
[facility] Test Date: 2024-08-30 Test Time: 17:35:24 Pat Name: AMARJIT FISHMAN Department: ED Room: [address] [place] [address] Gender: F [employer]st: idalia : 1995 Requested By: LASHONDA VARGAS Order Number: [id number] Reading MD: Clay Clinton Measurements Intervals [place] Rate: 164 P: 225 TX: 56 QRS: 67 QRSD: 82 T: 72 QT: 330 QTc: 545 Interpretive Statements Sinus or ectopic atrial tachycardia Minimal ST depression, lateral leads Prolonged QT interval Electronically Signed On 09-03-2024 18:31:38 PDT by Clay Clinton Please click the below link to view image of tracing.
[2024-08-31 07:32] LABS: Hematocrit 39.6 % (36.0-46.0); Hemoglobin 13.5 g/dL (12.2-16.2); Mean Corpuscular Hemoglobin 31.6 pg (28.0-32.0); Mean Corpuscular Volume 92.7 fL (80.0-100.0); Nucleated Red Blood Cells % 0.1 %
[2024-08-31 07:34] LABS: Alanine Aminotransferase 10 U/L (7-40); Albumin 3.9 g/dL (3.2-4.8); Alkaline Phosphatase 87 U/L (46-116); Anion Gap 12 (5-15); BUN/Creatinine Ratio 10.7 (10.0-20.0); Bilirubin, Total 0.5 mg/dL (0.2-1.0); Carbon Dioxide 24 mmol/L (20-31); Chloride 104 mmol/L (98-107); Magnesium 2.1 mg/dL (1.6-2.6); Sodium 140 mmol/L (136-145); Total Protein 6.5 g/dL (5.7-8.2)
[2024-08-31 07:36] LABS: Blood Urea Nitrogen 29 mg/dL (9-23); Calcium 8.6 mg/dL (8.7-10.4); Glucose 161 mg/dL (74-106); Potassium 3.4 mmol/L (3.5-5.1)
[2024-08-31 08:47] VITALS: PULSE 120; RESP 15; O2SAT 100
[2024-08-31] MEDS: PANTOPRAZOLE 40 MG/10 ML VIAL INJ IV SCH (09:10)
[2024-08-31] MEDS: hydroCHLOROthiazide 25 MG TAB PO SCH (09:10)
[2024-08-31] MEDS: ENOXAPARIN SOD 40 MG/0.4 ML SYRINGE SC SCH (09:11)
[2024-08-31] MEDS: cefTRIAXone 1GM/50ML D5W 50 ML IV SCH (09:12)
[2024-08-31] MEDS: POTASSIUM CHL 20 Meq TABLET PO ONE (09:24)
[2024-08-31] MEDS: METOPROLOL TARTRATE 25 MG TAB PO SCH (09:25)
--- NOTE | 2024-08-31 09:49 | DVHPNRES ---
Progress Note Date Seen: Aug 31, 2024 Resident Creating Document: ESTEE SINGH RESIDENT Medical Necessity Reason Pt with a Central, PICC or Fol: No Subjective Review of Systems Patient is 29 years old female with past medical history of hypertension, diabetes mellitus type 2, hyperlipidemia, asthma, renal artery stenosis, CKD stage 3, secondary hyperparathyroidism came with a complaint of abdominal pain. patient started having abdominal pain yesterday, gradual onset, 9/10, crampy in nature, intermittent, no aggravating or relieving factor. Pain was associated with nausea and vomiting x4, no blood. Patient reported she started Ozempic yesterday and after that he started having this abdominal pain and nausea and vomiting. Patient smokes marijuana and as per patient last marijuana she smoked was 2 days before. Patient denied any diarrhea, fever, acute joint redness or swelling, chest pain no shortness a breath. Initial lab workup revealed WBC 15.2, neutrophil 82.1%, serum creatinine 2.18, BUN 33, anion gap 18, GFR 31, lactic acid 0.4, troponin I 37, BNP 138, lipase 50, urinalysis negative for UTI, Urine test negative, urinary creatinine 262, urinary sodium 35, urinary protein creatinine ratio 6.80. CT abdomen and pelvis revealed- Submucosal fat deposition of the colon. Correlate for inflammatory bowel disease. Patient was recently discharged from [facility] in June, after she came with the same complaint likely due to acute gastroenteritis and acute cholecystitis or pancreatitis was ruled out. patient was also treated for acute hypertensive emergency with labetalol followed by nicardipine. Patient was found to have right renal artery stenosis. Past Medical History hypertension, diabetes mellitus type 2, hyperlipidemia, asthma, renal artery stenosis, CKD stage 3, secondary hyperparathyroidism Gynecological history: A2, 1 live child, last in 2023 with delivery in January 2024 but the child in 4 days, 1 intrauterine demise at 21 weeks in 2021, short cervix, preeclampsia Past Surgical History Family History Mom has hypertension Past Social History Social history: She lives with mother. Patient drinks alcohol occasionally and smokes marijuana, denies smoking tobacco and any other drug use. Review of systems: The patient was seen and examined at the bedside. Overnight events were reviewed. Mild improvement in her abdominal pain. No new complaints reported. The patient denies any chest pain, shortness of breath, fever or any other complaints today. Rest of the ROS is negative Patient reports: Feels better Objective vital signs Vital Sign Date Time Temp Pulse Resp B/P (MAP) Pulse Ox O2 Delivery O2 Flow Rate FiO2 08/31/24 09:25 120 151/95 08/31/24 08:47 15 100 Room Air* 0 21 08/31/24 08:47 99.0 99.0 medications Current Medications Medications Dose Ordered Sig/Lucie Route Start Time Stop Time Status Last Admin Dose Admin Sodium Chloride 10 ml Q8HR IV 08/30/24 22:00 08/31/24 06:02 10 ML Enoxaparin Sodium 40 mg DAILY SC 08/31/24 10:00 08/31/24 09:11 40 MG Nitroglycerin 0.4 mg Q5MINP PRN SL 08/30/24 21:45 Ondansetron HCl 4 mg Q6HPRN PRN IV 08/30/24 21:45 Pantoprazole Sodium 40 mg DAILY IV 08/31/24 10:00 08/31/24 09:10 40 MG Ergocalciferol 50,000 unit QWEEKLY PO 08/30/24 21:45 Hold Atorvastatin Calcium 40 mg HS PO 08/30/24 22:00 08/30/24 22:01 40 MG Ceftriaxone Sodium 50 ml @ 100 mls/hr DAILY@09 IV 08/31/24 09:00 08/31/24 09:12 100 MLS/HR Metronidazole 100 ml @ 100 mls/hr Q8HR IV 08/31/24 06:00 08/31/24 06:25 100 MLS/HR Sodium Chloride 1,000 ml @ 125 mls/hr Q8H IV 08/30/24 23:15 08/31/24 09:12 125 MLS/HR Hydrochlorothiazide 25 mg DAILY PO 08/31/24 10:00 08/31/24 09:10 25 MG Nifedipine 90 mg DAILY PO 08/31/24 10:00 08/31/24 09:11 90 MG Metoprolol Tartrate 25 mg BID PO 08/31/24 10:00 08/31/24 09:25 25 MG Examination Pt is lying on bed General Appearance: Alert, Oriented X3, Cooperative, Mild distress HEENT: Atraumatic, Mucous membranes moist/pink Respiratory: Clear to auscultation, Normal air movement, No added sounds Cardiovascular: Rate regular and tachycardic, Normal S1, Normal S2, No murmurs Abdominal/ : Active bowel sounds, Soft, no distention, no tenderness Extremities: No edema, Normal pulses, No tenderness/swelling Skin: No Significant rash, except past surgical scars Neuro: Normal speech, sensorimotor deficits none Psych/Mental Status: Mental status NL, Mood NL Nurse was there as business information manager during examination laboratory and microbiology Laboratory Tests 08/31/24 06:52 Test 08/31/24 06:52 Range/Units Serum Glucose 161 H 74-106 mg/dL Labs and/or images reviewed: Labs reviewed by me, Image(s) reviewed by me Problem List/Assessment/Plan Problem List/Assessment/Plan # Intractable abdominal pain, nausea & vomiting likely due to Ozempic induced/ cannabinoid hyperemesis # rule out acute pancreatitis # R/o acute gastroenteritis/inflammatory bowel disease # ? sepsis/SIRS likely from above # Lactic acidosis likely from above - lipase mildly elevated - CT abdomen and pelvis revealed-Submucosal fat deposition of the colon. Correlate for inflammatory bowel disease. - Empiric antibiotics ceftriaxone 1 g IV daily and metronidazole 500 mg IV q.8h - continue IV normal saline 125 mL/hour - pending GI consult - IVF # Hypertensive emergency # uncontrolled HTN # Nstemi Type 2 likely due to above # Chronic Hypertensive heart disease likely HFpEF not in exacerbation -status post IV labetalol and IV nicardipine in ED but discontinued -resumed home medication nifedipine 90 mg p.o. daily -hydrochlorothiazide 25 mg p.o. daily -valsartan 80 mg p.o. daily -monitor blood pressure -Echo 2D on 07/05/2024 LVEF 60%, LVH -started on IV labetalol 10 mg p.r.n. and metoprolol tartrate 25 mg p.o. b.i.d. # SIENNA likely due to VMN on CKD stage 3 likely due to above # Hx of Right renal artery stenosis -monitor lab -FeNa- .6% -avoid dehydration and nephrotoxic drugs -continue IV normal saline as prescribed -She follows up regularly with # Hypokalemia - Repleting - Monitor lab # Diabetes mellitus type 2 with hyperglycemia with HbA1c 6.2 -insulin sliding scale PRN -monitor blood sugar level # Secondary hyperparathyroidism likely from CKD -follow up outpatient with primary care physician # Marijuana abuse disorder/ dependence -UDS positive for marijuana -patient was counseled about the effect of substance abuse on health for 17 minutes Diet - clear liquid diet PUD prophylaxis: Pantoprazole DVT prophylaxis: Patient ambulating Goals of care, Code status Full code ; discussed with 27 minutes Case discussed with Dr. Handley, patient and nurse Plan discussed with: Patient, Other (RN) ESTEE SINGH RESIDENT Aug 31, 2024 09:49 TALA EDMONDS Aug 31, 2024 14:54 PATRICIA HANDLEY MD Sep 01, 2024 14:04
[2024-08-31] MEDS ORDERED: VALSARTAN 80 MG TAB PO SCH (10:00)
[2024-08-31 12:26] VITALS: TEMP 98.1
--- NOTE | 2024-08-31 13:35 | DVHINCON2 ---
GI Consult Consult Note GI consult note Date of Consultation: 08/31/2024 Chief Complaint: IBD Referring Physician: Dr. Greer H&P: 29-year-old with past medical history of hypertension, diabetes, hyperlipidemia, asthma, renal artery stenosis, CKD, secondary hyperparathyroidism admitted for abdominal pain. Patient is seen in ER bed nine. Complaining of abdominal pain which started yesterday, intermittent and cramping in nature. Patient has nausea and vomiting, denies hematemesis. Patient 1st dosage of Ozempic was yesterday and that is seemed to trigger her symptoms. Although patient's admits to having similar symptoms on and off for the past six months. Last bowel movement yesterday, denies melena or red blood in stool. No EGD or colonoscopy in past Past Medical History: hypertension, diabetes mellitus type 2, hyperlipidemia, asthma, renal artery stenosis, CKD stage 3, secondary hyperparathyroidism Gynecological history: A2, 1 live child, last in 2023 with delivery in January 2024 but the child in 4 days, 1 intrauterine demise at 21 weeks in 2021, short cervix, preeclampsia Past Surgical History: Social History: drinks alcohol occasionally and smokes marijuana, denies smoking tobacco and any other drug use Family History: Noncontributory Review of Systems: Constitutional: no fever, chill, weight loss HEENT: no eye pain, no hearing loss, no oral lesion, no scleral icterus Heart: no chest pain, no chest pressure Lung: no cough, no dyspnea with exertion Abdomen: see HPI Physical exam: General: NAD, AAOX3 Chest: lung sims clear to auscultation Heart: RRR, no murmur Abdomen: non-distended, mild upper abdominal tenderness to palpation, +BS Labs: Labs Test 08/31/24 06:52 08/30/24 23:40 08/30/24 20:43 08/30/24 18:56 Range/Units White Blood Count 12.0 H 4.4-10.8 10^3/uL Red Blood Count 4.28 4.0-5.20 10^6/uL Hemoglobin 13.5 # 12.2-16.2 g/dL Hematocrit 39.6 # 36.0-46.0 % Mean Corpuscular Volume 92.7 80.0-100.0 fL Mean Corpuscular Hemoglobin 31.6 28.0-32.0 pg Mean Corpuscular Hemoglobin Concent 34.1 32.0-36.0 g/dL Red Cell Distribution Width 12.8 11.8-14.3 % Platelet Count 293 140-450 10^3/uL Mean Platelet Volume 9.1 6.9-10.8 fL Neutrophils (%) (Auto) 65.0 37.0-80.0 % Lymphocytes (%) (Auto) 25.7 10.0-50.0 % Monocytes (%) (Auto) 7.9 0.0-12.0 % Eosinophils (%) (Auto) 0.8 0.0-7.0 % Basophils (%) (Auto) 0.6 0.0-2.0 % Neutrophils # (Auto) 7.8 1.6-8.6 10 ^3/uL Lymphocytes # (Auto) 3.1 0.4-5.4 10 ^3/uL Monocytes # (Auto) 1.0 0-1.3 10 ^3/uL Eosinophils # (Auto) 0.1 0-0.8 10 ^3/uL Basophils # (Auto) 0.1 0-0.2 10 ^3/uL Nucleated Red Blood Cells 0.1 % Sodium Level 140 136-145 mmol/L Potassium Level 3.4 L 3.5-5.1 mmol/L Chloride Level 104 98-107 mmol/L Carbon Dioxide Level 24 20-31 mmol/L Anion Gap 12 5-15 Blood Urea Nitrogen 29 H 9-23 mg/dL Creatinine 2.70 H 0.550-1.02 mg/dL Glomerular Filtration Rate Calc 24 >90 mL/min BUN/Creatinine Ratio 10.7 10.0-20.0 Serum Glucose 161 H 74-106 mg/dL Hemoglobin A1c 6.2 H <5.7 % A1C Calcium Level 8.6 L 8.7-10.4 mg/dL Magnesium Level 2.1 1.6-2.6 mg/dL Total Bilirubin 0.5 0.2-1.0 mg/dL Aspartate Amino Transferase (AST) 13 13-40 U/L Alanine Aminotransferase (ALT) 10 7-40 U/L Alkaline Phosphatase 87 46-116 U/L Total Protein 6.5 5.7-8.2 g/dL Albumin 3.9 3.2-4.8 g/dL Lipase 76 H 12-53 U/L Erythrocyte Sedimentation Rate 11 0-20 mm/hr Troponin I High Sensitivity 41 *H </=34 ng/L C-Reactive Protein High Sensitivity 0.34 <1.0 mg/dL Plasma/Serum Blood Alcohol < 3.0 <10 mg/dL Lactic Acid Level 1.7 0.4-2.0 mmol/L Thyroid Stimulating Hormone (TSH) 1.22 0.55-4.78 uIU/mL Test 08/30/24 17:15 08/30/24 15:24 Range/Units Urine Color Yellow Yellow Urine Clarity Turbid H Clear Urine pH 6.0 5.0-9.0 Urine Specific [place] 1.031 1.001-1.035 Urine Protein 3+ H Negative Urine Ketones 1+ H Negative Urine Blood 2+ H Negative /uL Urine Nitrite Negative Negative Urine Bilirubin Negative Negative Urine Urobilinogen Normal Negative mg/dL Urine Leukocyte Esterase Negative Negative /uL Urine RBC 1 0 - 4 /hpf Urine Microscopic WBC 6 H 0-5 /HPF Urine Squamous Epithelial Cells Few <5 /hpf Urine Bacteria None seen None Seen /hpf Urine Hyaline Casts Mod 0 - 2 /lpf Urine Granular Casts Few 0 /lpf Urine Mucus Few None Seen Urine Creatinine 262.91 H 30.0-125.0 mg/dL Urine Protein/Creatinine Ratio 6.80 Urine Sodium 35 L 40-220 mmol/L Urine Glucose 1+ H Normal mg/dL Urine Total Protein 1786.6 H 1-14 mg/dL Urine Test Negative Negative Urine Opiates Screen Neg NEGATIVE Urine Fentanyl Screen Neg NEGATIVE Urine Barbiturates Screen Neg NEGATIVE Urine Phencyclidine Screen Neg NEGATIVE Urine Amphetamines Screen Neg NEGATIVE Urine Benzodiazepines Screen Neg NEGATIVE Urine Cocaine Screen Neg NEGATIVE Urine Cannabinoids Screen Pos NEGATIVE B-Type Natriuretic Peptide 138.34 0-100 pg/mL Beta HCG, Quantitative 1.0 L 1.5-4.2 mIU/mL Parathyroid Hormone (Intact) 196.2 H 18.4-80.1 pg/mL Imaging: CT abdomen pelvis Impression: 1. No acute abdominopelvic abnormalities. 2. Submucosal fat deposition of the colon. Correlate for inflammatory bowel disease. Assessment: Abdominal pain Possible IBD Marijuana use NSTEMI Plan: Discussed with Dr. Carrillo IBD panel pending Monitor labs Protonix and Zofran Outpatient GI follow-up recommended for possible plan for elective colonoscopy We will continue to follow patient Thank you for this consult Date of Service: Aug 31, 2024 Billing Provider: CHRIS MEYER Common Visit Codes: CONSULT ONLY Consultation Codes: [id number] CONSULT <60MIN CHRIS MEYER Aug 31, 2024 13:35
[2024-08-31] MEDS: LABETALOL HCL 20 MG/4 ML VL IV PRN (13:56)
[2024-08-31 16:00] VITALS: BP 157/95; PULSE 99; RESP 12; O2SAT 99
--- NOTE | 2024-08-31 17:16 | DVHDSRES ---
Discharge Summary Date of Admission Resident Creating Document: ESTEE SINGH Aug 30, 2024 at 21:34 Date of Discharge: Aug 31, 2024 Admitting Diagnosis Hypertensive emergency Cannabinoid hyperemesis Ozempic side effect Labs/Diagnostic Data: Laboratory Results Test 08/31/24 06:52 08/30/24 23:40 08/30/24 20:43 08/30/24 18:56 White Blood Count 12.0 10^3/uL (4.4-10.8) Red Blood Count 4.28 10^6/uL (4.0-5.20) Hemoglobin 13.5 g/dL (12.2-16.2) Hematocrit 39.6 % (36.0-46.0) Mean Corpuscular Volume 92.7 fL (80.0-100.0) Mean Corpuscular Hemoglobin 31.6 pg (28.0-32.0) Mean Corpuscular Hemoglobin Concent 34.1 g/dL (32.0-36.0) Red Cell Distribution Width 12.8 % (11.8-14.3) Platelet Count 293 10^3/uL (140-450) Mean Platelet Volume 9.1 fL (6.9-10.8) Neutrophils (%) (Auto) 65.0 % (37.0-80.0) Lymphocytes (%) (Auto) 25.7 % (10.0-50.0) Monocytes (%) (Auto) 7.9 % (0.0-12.0) Eosinophils (%) (Auto) 0.8 % (0.0-7.0) Basophils (%) (Auto) 0.6 % (0.0-2.0) Neutrophils # (Auto) 7.8 10 ^3/uL (1.6-8.6) Lymphocytes # (Auto) 3.1 10 ^3/uL (0.4-5.4) Monocytes # (Auto) 1.0 10 ^3/uL (0-1.3) Eosinophils # (Auto) 0.1 10 ^3/uL (0-0.8) Basophils # (Auto) 0.1 10 ^3/uL (0-0.2) Nucleated Red Blood Cells 0.1 % Sodium Level 140 mmol/L (136-145) Potassium Level 3.4 mmol/L (3.5-5.1) Chloride Level 104 mmol/L (98-107) Carbon Dioxide Level 24 mmol/L (20-31) Anion Gap 12 (5-15) Blood Urea Nitrogen 29 mg/dL (9-23) Creatinine 2.70 mg/dL (0.550-1.02) Glomerular Filtration Rate Calc 24 mL/min (>90) BUN/Creatinine Ratio 10.7 (10.0-20.0) Serum Glucose 161 mg/dL (74-106) Hemoglobin A1c 6.2 % A1C (<5.7) Calcium Level 8.6 mg/dL (8.7-10.4) Magnesium Level 2.1 mg/dL (1.6-2.6) Total Bilirubin 0.5 mg/dL (0.2-1.0) Aspartate Amino Transferase (AST) 13 U/L (13-40) Alanine Aminotransferase (ALT) 10 U/L (7-40) Alkaline Phosphatase 87 U/L (46-116) Total Protein 6.5 g/dL (5.7-8.2) Albumin 3.9 g/dL (3.2-4.8) Lipase 76 U/L (12-53) Erythrocyte Sedimentation Rate 11 mm/hr (0-20) Troponin I High Sensitivity 41 ng/L (</=34) C-Reactive Protein High Sensitivity 0.34 mg/dL (<1.0) Plasma/Serum Blood Alcohol < 3.0 mg/dL (<10) Lactic Acid Level 1.7 mmol/L (0.4-2.0) Thyroid Stimulating Hormone (TSH) 1.22 uIU/mL (0.55-4.78) Test 08/30/24 17:15 08/30/24 15:24 Urine Color Yellow (Yellow) Urine Clarity Turbid (Clear) Urine pH 6.0 (5.0-9.0) Urine Specific [place] 1.031 (1.001-1.035) Urine Protein 3+ (Negative) Urine Ketones 1+ (Negative) Urine Blood 2+ /uL (Negative) Urine Nitrite Negative (Negative) Urine Bilirubin Negative (Negative) Urine Urobilinogen Normal mg/dL (Negative) Urine Leukocyte Esterase Negative /uL (Negative) Urine RBC 1 /hpf (0 - 4) Urine Microscopic WBC 6 /HPF (0-5) Urine Squamous Epithelial Cells Few /hpf (<5) Urine Bacteria None seen /hpf (None Seen) Urine Hyaline Casts Mod /lpf (0 - 2) Urine Granular Casts Few /lpf (0) Urine Mucus Few (None Seen) Urine Creatinine 262.91 mg/dL (30.0-125.0) Urine Protein/Creatinine Ratio 6.80 Urine Sodium 35 mmol/L (40-220) Urine Glucose 1+ mg/dL (Normal) Urine Total Protein 1786.6 mg/dL (1-14) Urine Test Negative (Negative) Urine Opiates Screen Neg (NEGATIVE) Urine Fentanyl Screen Neg (NEGATIVE) Urine Barbiturates Screen Neg (NEGATIVE) Urine Phencyclidine Screen Neg (NEGATIVE) Urine Amphetamines Screen Neg (NEGATIVE) Urine Benzodiazepines Screen Neg (NEGATIVE) Urine Cocaine Screen Neg (NEGATIVE) Urine Cannabinoids Screen Pos (NEGATIVE) B-Type Natriuretic Peptide 138.34 pg/mL (0-100) Beta HCG, Quantitative 1.0 mIU/mL (1.5-4.2) Parathyroid Hormone (Intact) 196.2 pg/mL (18.4-80.1) Other Laboratory Tests 08/31/24 06:52 Brief Hx & Hospital Course: Patient is 29 years old female with past medical history of hypertension, diabetes mellitus type 2, hyperlipidemia, asthma, renal artery stenosis, CKD stage 3, secondary hyperparathyroidism came with a complaint of abdominal pain. patient started having abdominal pain yesterday, gradual onset, 9/10, crampy in nature, intermittent, no aggravating or relieving factor. Pain was associated with nausea and vomiting x4, no blood. Patient reported she started Ozempic yesterday and after that he started having this abdominal pain and nausea and vomiting. Patient smokes marijuana and as per patient last marijuana she smoked was 2 days before. Patient denied any diarrhea, fever, acute joint redness or swelling, chest pain no shortness a breath. Initial lab workup revealed WBC 15.2, neutrophil 82.1%, serum creatinine 2.18, BUN 33, anion gap 18, GFR 31, lactic acid 0.4, troponin I 37, BNP 138, lipase 50, urinalysis negative for UTI, Urine test negative, urinary creatinine 262, urinary sodium 35, urinary protein creatinine ratio 6.80. CT abdomen and pelvis revealed- Submucosal fat deposition of the colon. Correlate for inflammatory bowel disease. Patient was recently discharged from [facility] in June, after she came with the same complaint likely due to acute gastroenteritis and acute cholecystitis or pancreatitis was ruled out. patient was also treated for acute hypertensive emergency with labetalol followed by nicardipine. Patient was found to have right renal artery stenosis. Past Medical History hypertension, diabetes mellitus type 2, hyperlipidemia, asthma, renal artery stenosis, CKD stage 3, secondary hyperparathyroidism Gynecological history: A2, 1 live child, last in 2023 with delivery in January 2024 but the child in 4 days, 1 intrauterine demise at 21 weeks in 2021, short cervix, preeclampsia Past Surgical History Family History Mom has hypertension Past Social History Social history: She lives with mother. Patient drinks alcohol occasionally and smokes marijuana, denies smoking tobacco and any other drug use. The patient was treated with ceftriaxone 1 g IV daily and metronidazole 500 mg IV Q 8 hours, IV fluid normal saline was continued 125 mL/hour. For her hypertensive emergency she was treated with IV labetalol and IV nicardipine. Her home medication hydrochlorothiazide, valsartan was resumed. We started nifedipine 90 mg per oral daily as. She was monitored in telemetry. We continued IV normal saline to treat her SIENNA likely due BUN on CKD stage 3. Because of her marijuana use disorder/dependence she was counseled about the effective abuse on her health. We are still managing blood pressure, however, the patient left against medical advice after explaining the risks of leaving against medical advice. She understood the consequences and wanted to leave anyway. Physical exam was not done because the patient left AMA. Operations or Procedures CXR: 1. Poor inspiratory effort. CT scan of the abdomen and pelvis 1. No acute abdominopelvic abnormalities. 2. Submucosal fat deposition of the colon. Correlate for inflammatory bowel disease. Condition at Discharge: Undetermined Final Diagnosis/Problems List # Intractable abdominal pain, nausea & vomiting likely due to Ozempic induced/ cannabinoid hyperemesis # rule out acute pancreatitis # R/o acute gastroenteritis/inflammatory bowel disease # ? sepsis/SIRS likely from above# Hypertensive emergency# SIENNA likely due to VMN on CKD stage 3 likely due to above # Hx of Right renal artery stenosis # Hypokalemia # uncontrolled HTN # Nstemi Type 2 likely due to above # Chronic Hypertensive heart disease likely HFpEF not in exacerbation # Lactic acidosis likely from above Discharge Disposition: AMA Discharge Instruct/Medications Diet: Consistent carbohydrate, Cardiac 2g Na,low cholest Scheduled Atorvastatin Calcium (Atorvastatin Calcium), 40 MG PO HS Ergocalciferol (Vitamin D 23810 Unit), 50,000 UNIT PO QWEEKLY Hctz (Hydrochlorothiazide), 25 MG PO DAILY Nifedipine (Nifedipine Er), 90 MG PO DAILY Valsartan (Valsartan), 80 MG PO DAILY Scheduled PRN Clonidine Hydrochloride (Clonidine Hcl), 0.1 MG PO Q8HP PRN Discharge Statement: "Patient was advised to return to the ER or call 911 if any headaches, dizziness, shortness of breath, chest pain, abdominal pain, bleeding, fevers, or worsening of medical condition. Patient was counseled about treatment plan, medications, possible side effects, patientverbalized understanding. All questions were answered to the best of my ability. This discharge took greater then 30 minutes in planning, reviewing documentation, counseling the patient, and discussing with other team members." ASSESSMENT ASSESSMENT Assessment Date of Service: Aug 31, 2024 Billing Provider: PATRICIA GARCÍA MD Common Visit Codes: [id number] DISCH DAY >30min ESTEE SINGH Aug 31, 2024 17:16 PATRICIA GARCÍA MD Sep 01, 2024 14:05
== END 2024-08-31 16:45 | disposition left against medical advice (07) | DRG 720 ==
LOC: EDBD 14:46 → ER 14:46 → OVERFLOW 21:34
PROVIDERS: ADMIT Internal Medicine; ATTEND Internal Medicine
DX: A41.9 Sepsis, unspecified organism (principal); N17.0 Acute kidney failure with tubular necrosis; I21.A1 Myocardial infarction type 2; K85.90 Acute pancreatitis without necrosis or infection, unspecified; I13.0 Hypertensive heart and chronic kidney disease with heart failure and stage 1 through stage 4 chronic kidney disease, or unspecified chronic kidney disease; N25.81 Secondary hyperparathyroidism of renal origin; E87.20 Acidosis, unspecified; E11.22 Type 2 diabetes mellitus with diabetic chronic kidney disease; K52.9 Noninfective gastroenteritis and colitis, unspecified; I50.32 Chronic diastolic (congestive) heart failure; N18.30 Chronic kidney disease, stage 3 unspecified; E11.65 Type 2 diabetes mellitus with hyperglycemia; I16.1 Hypertensive emergency; E78.5 Hyperlipidemia, unspecified; I70.1 Atherosclerosis of renal artery; J45.909 Unspecified asthma, uncomplicated; E87.6 Hypokalemia; Z79.899 Other long term (current) drug therapy; Z82.49 Family history of ischemic heart disease and other diseases of the circulatory system; Z87.891 Personal history of nicotine dependence; Z98.891 History of uterine scar from previous surgery; Z53.29 Procedure and treatment not carried out because of patient's decision for other reasons
CPT/HCPCS: 36415; 71045; 74176; 80053; 80307; 80320; 81001; 81025; 82570; 83036; 83605; 83690; 83735; 83880; 83970; 84156; 84300; 84443; 84484; 84702; 85025; 85652; 86141; 86256; 86671; 93005; 96365; 96375; 99291; G0378; J2405; J2470; J2543; J3490

== ENCOUNTER 2024-10-09 10:55 | Inpatient (IN) | payer MEDICAID ==
[~2024-10-09] VITALS: Ht 177.8 cm; Wt 95.2 kg
[2024-10-09 03:25] VITALS: PULSE 125; RESP 22; O2SAT 93
--- NOTE | 2024-10-09 11:59 | ED.PDOC ---
History of Present Illness HPI Comments 29-year-old female brought by paramedics because of nausea vomiting chest pain started 3 hours ago. Patient does use marijuana on a daily basis. Heart rate 113 on arrival. History of hypertension. Denies any other symptoms. Chief Complaint: Chest Pain Time Seen by MD: 11:03 Primary Care Provider: kar Menard Notes: Nurses Notes, Medications, Allergies Allergies: Coded Allergies: NO KNOWN ALLERGIES (Unverified , 04/24/17) Home Meds Active Scripts Valsartan (Valsartan) 80 Mg Tab, 80 MG PO DAILY for 28 Days, #28 TAB Prov:BLAISE BOWDEN [facility] 07/06/24 Hctz (Hydrochlorothiazide) 25 Mg Tab, 25 MG PO DAILY for 28 Days, #28 TAB Prov:BLAISE BOWDEN [facility] 07/06/24 Ergocalciferol (VITAMIN D 73274 UNIT) 50,000 [place], [address] UNIT PO QWEEKLY for 56 Days, #8 CAP 0 Refills Prov:BLAISE BOWDEN [facility] 07/06/24 Atorvastatin Calcium (ATORVASTATIN CALCIUM) 40 Mg Tab, 40 MG PO HS for 28 Days, #28 TAB 0 [facility] Nifedipine (Nifedipine Er) 30 Mg Tab, 90 MG PO DAILY for 28 Days, #84 TAB Prov:BLAISE BOWDEN [facility] 07/06/24 Clonidine Hydrochloride (Clonidine Hcl) 0.1 Mg Tab, 0.1 MG PO Q8HP PRN for 10 Days, #30 TAB For SBP more than 160 mmhg [facility] 07/06/24 Information Source: Patient, Emergency Med Personnel Mode of Arrival: EMS Severity: Moderate Timing: Days Duration: Since onset Past Medical History PAST MEDICAL HISTORY: Asthma, DM, HTN Surgical History: RESIDENT CARE MANAGER History: Denies all RESIDENT CARE MANAGER Hx Family History Family History: No family hx of DM, No family hx of Heart jeffesron, No family hx of HTN Social History Smoker: Non-Smoker Alcohol: Denies ETOH Use Drugs: Marijuana Lives In: Home Constitutional: denies: chills, diaphoresis, fatigue, fever, malaise, sweats, w eakness, others EENTM: denies: blurred vision, double vision, ear bleeding, ear discharge, ear drainage, ear pain, ear ringing, eye pain, eye redness, hearing loss, mouth pain, mouth swelling, nasal discharge, nose bleeding, nose congestion, nose pain, photophobia, tearing, throat pain, throat swelling, voice changes, others Respiratory: denies: cough, hemoptysis, orthopnea, SOB at rest, shortness of breath, SOB with excertion, stridor, wheezing, others Cardiovascular: reports: chest pain; denies: dizzy spells, diaphoresis, Dyspnea on exertion, edema, irregular heart beat, left arm pain, lightheadedness, palpitations, PND, syncope, others Gastrointestinal: reports: nausea, vomiting; denies: abdomen distended, abdominal pain, blood streaked bowels, constipated, diarrhea, dysphagia, difficulty swallowing, hematemesis, melena, poor appetite, poor fluid intake, rectal bleeding, rectal pain, others Genitourinary: denies: abnormal vagina bleeding, burning, dyspareunia, dysuria, flank pain, frequency, hematuria, incontinence, pain, , vagina discharge, urgency, others Neurological: denies: dizziness, fainting, headache, left sided numbness, left sided weakness, numbness, paresthesia, pre-existing deficit, right sided numbness, right sided weakness, seizure, speech problems, tingling, tremors, weakness, others Musculoskeletal: denies: back pain, gout, joint pain, joint swelling, muscle pain, muscle stiffness, neck pain, others Integumetry: denies: bruises, change in color, change in hair/nails, dryness, laceration, lesions, lumps, rash, wounds, others Allergic/Immunocompromised: denies: Difficulty Healing, Frequent Infections, Hives, Itching, others Hematologic/Lymphatic: denies: anemia, blood clots, easy bleeding, easy bruising, swollen glands, others Endocrine: denies: excessive hunger, excessive sweating, excessive thirst, excessive urination, flushing, intolerance to cold, intolerance to heat, unexplained weight gain, unexplained weight loss, others Psychiatric: denies: anxiety, bipolar disorder, depression, hopeless, panic disorder, schizophrenia, sleepless, suicidal, others Physical Exam General Appearance: Moderate Distress HEENT: Normal ENT Inspection, Pharynx Normal, TMs Normal Neck: Full Range of Motion, Non-Tender, Normal, Normal Inspection Respiratory: Chest Non-Tender, Lungs Clear, No Accessory Muscle Use, No Respiratory Distress, Normal Breath Sounds Cardiovascular: No Edema, No JVD, No Murmur, No Gallop, Normal Peripheral Pulses, Regular Rate/Rhythm (Clinical assessment) Breast Exam: Deferred Gastrointestinal: No Organomegaly, Non Tender, No Pulsatile Mass, Normal Bowel Sounds, Soft Genitalia: Deferred Pelvic: Deferred Rectal: Deferred Extremities: No calf tenderness, Normal capillary refill, Normal inspection, Normal range of motion, Non-tender, No pedal edema Musculoskeletal : Apperance: Normal Neurologic: Alert, school counsellor II-XII nml as Tested, No Motor Deficits, Normal Affect, Normal Mood, No Sensory Deficits Cerebellar Function: Normal Reflexes: Normal Skin: Dry, Normal Color, Warm Peripheral Pulses: 3+ Radial (R), 3+ Radial (L) Lymphatic: No Adenopathy Was a procedure done? Was a procedure done?: No EKG EKG : Pulse Rate (adult): 113 Cardiac Rhythm: ST Differential Dx Considerations may include: Marijuana use Electrolyte imbalance X-Ray, Labs, Meds, VS Vital Signs Date Time Temp Pulse Resp B/P (MAP) Pulse Ox O2 Delivery O2 Flow Rate FiO2 10/09/24 10:59 113 10/09/24 10:56 98.0 108 24 204/130 99 98.0 Lab Test 10/09/24 11:09 Range/Units Troponin I High Sensitivity 4 </=34 ng/L Patient alert. Complaining of chest pain. Vitals stable. Answering all questions. Heart rate within normal limits on clinical examination. Saturation pristine. Blood pressure elevated. Continues to smoke marijuana. Was given labetalol. Was given Ativan. Counseled patient on effects of use of marijuana. Explained to the patient. Continue monitoring. Time of 1ST Reevaluation: 11:57 Reevaluation 1ST: Unchanged Patient Education/Counseling: Diagnosis, Treatment, Prognosis, Need For Follow Up Family Education/Counseling: No Family Present SEPSIS Sepsis Screen Date sepsis recognized/suspect: Oct 09, 2024 Time Sepsis recognized/suspect: 105 Recent Procedure: No On Antibiotic Therapy: No Respiratory Rate >20: No Heart Rate >90: No Temp<36 C (96.8 F) or >38.3 C: No SBP <90 or MAP <65 mmHG: No New Acute Mental Status Change: No Is the patient on CPAP, BIPAP,: No Physician Orders Electrocardigram (10/09/24 10:57) Electrocardigram (10/09/24 11:57) Electrocardigram (10/09/24 13:57) Troponin-I Hs (10/09/24 11:57) Troponin-I Hs (10/09/24 13:57) Complete Blood Count (10/09/24 11:59) Urinalysis (10/09/24 11:59) Basic Metabolic Panel (10/09/24 11:59) 1 Liter Bolus Of 0.9% Ns (10/09/24 12:00) 0.9% Ns 30mls/Kg (10/09/24 12:00) Labetalol Hcl (Labetalol Hcl) (10/09/24 12:00) Lorazepam 2mg/Ml Inj (Ativan Inj) (10/09/24 12:00) Vital Signs Date Time Temp Pulse Resp B/P (MAP) Pulse Ox O2 Delivery O2 Flow Rate FiO2 10/09/24 10:59 113 10/09/24 10:56 98.0 108 24 204/130 99 98.0 Departure 1 Departure Time of Disposition: 11:58 Impression: Primary Impression: Hypertensive emergency Additional Impression: Chest pain of unknown etiology Disposition: ADMITTED INPATIENT Admit to: Med Surg Condition: Guarded Critical Care Note Critical Care Time?: Yes (90 min-critical care time only) Stability Stability form required: No Heart Score Heart Score: Heart Score Response (Comments) Value History Slightly Suspicious 0 EKG Normal 0 Age <45 0 Risk Factors >3 or Hx ASHD 2 Troponin Normal limit 0 Total 2 MICAELA DONAHUE MD Oct 09, 2024 11:59
[2024-10-09] MEDS: SODIUM CHLORIDE 0.9% 1,000 ML IV ONE ×2 (12:00)
[2024-10-09] MEDS: LABETALOL HCL 20 MG/4 ML VL IV ONE (12:00)
[2024-10-09 12:09] LABS: Hematocrit 37.7 % (36.0-46.0); Hemoglobin 13.1 g/dL (12.2-16.2); Mean Corpuscular Hemoglobin 32.0 pg (28.0-32.0); Mean Corpuscular Volume 92.2 fL (80.0-100.0); Nucleated Red Blood Cells % 0.1 %
[2024-10-09 12:18] LABS: Chloride 106 mmol/L (98-107); Potassium 4.9 mmol/L (3.5-5.1); Sodium 140 mmol/L (136-145)
[2024-10-09 12:19] LABS: Anion Gap 14 (5-15); Calcium 9.7 mg/dL (8.7-10.4)
[2024-10-09 12:20] LABS: Carbon Dioxide 20 mmol/L (20-31)
[2024-10-09 12:24] LABS: BUN/Creatinine Ratio 10.1 (10.0-20.0); Blood Urea Nitrogen 18 mg/dL (9-23); Glucose 262 mg/dL (74-106)
[2024-10-09] MEDS: LORazepam 2MG/ML-1ML VIAL IV ONE (12:58)
[2024-10-09] MEDS ORDERED: DEXTROSE (50%) 50ML SYRG IV PRN (15:45)
[2024-10-09] MEDS ORDERED: ACETAMINOPHEN 325 MG TAB PO PRN (15:45)
[2024-10-09] MEDS ORDERED: HYDROcodone-ACET 5/325MG TAB PO PRN (15:45)
[2024-10-09] MEDS ORDERED: DOCUSATE SOD 100 MG CAP PO PRN (15:45)
--- NOTE | 2024-10-09 16:21 | DVHHP2 ---
History of Present Illness Reason for Visit: Chest pain of unknown etiology History of Present Illness The patient is a 29-year-old female with past medical history of asthma, DM, hypertension, hyperlipidemia chronic kidney disease stage III presented to [facility] ED with complaint of chest pain. Patient reports she has been experiencing left-sided chest pain, rating 7/10 numeric scale, intermittent, nonradiating, associated with abdominal pain, nausea, vomiting, generalized weakness, getting worse that prompted this visit. Patient was seen and evaluated in the ED, laboratory data shows WBC 6.9, platelets 357, sodium 140, potassium 4.9, BUN 18, creatinine 1.78, GFR 39, glucose 262, anion gap 14, calcium 9.7, troponin 4, blood pressure 204/130 trending down to 118/80, heart rate 113 trending down to 92, temperature 98.0 F, O2 saturation 98% on room air. Chest x-ray/abdomen/pelvis CT results pending. Patient was given labetalol 10 mg IV x1, please see medication orders section in the computer. On my assessment, patient denies chest pain at this moment, no headache, no dizziness, no diaphoresis, no shortness of breaths, no abdominal pain, nausea or vomiting at this moment, no fever, no chills. Patient was admitted for further evaluation and medical management. Past Medical History hypertension, diabetes mellitus type 2, hyperlipidemia, asthma, renal artery stenosis, CKD stage 3, secondary hyperparathyroidism Gynecological history: A2, 1 live child, last in 2023 with siddiqui in January 2024 but the child in 4 days, 1 intrauterine demise at 21 weeks in 2021, short cervix, preeclampsia Past Surgical History section Family History Mom has hypertension Past Social History Social history: Patient drinks alcohol occasionally and smokes marijuana, denies smoking tobacco and any other drug use Review of Systems Constitutional: Yes: Weakness; No: Fever, Chills, Sweats, Malaise, Other Eyes: No: Pain, Vision change, Conjunctivae inflammation, Eyelid inflammation, Other, Redness ENT: No: Ear pain, Ear discharge, Nose pain, Nose discharge, Nose congestion, Mouth pain, Mouth swelling, Throat pain, Throat swelling, Other Respiratory: No: Cough, Dry, Shortness of breath, SOB with excertion, Wheezing, Hemoptysis, Pleuritic Pain, Sputum, Wheezing, Other Cardiovascular: Chest Pain; No: Palpitations, Orthopnea, Paroxysmal Noc. Dyspnea, Edema, Lt Headedness, Other Gastrointestinal: Nausea, Vomiting, Abdominal Pain; No: Diarrhea, Constipation, Melena, Hematochezia, Other Genitourinary: No Dysuria, No Frequency, No Incontinence, No Hematuria, No Retention, No Other Musculoskeletal: No: other, neck pain, shoulder pain, arm pain, back pain, hand pain, leg pain, foot pain Skin: No: Rash, Lesions, Jaundice, Bruising, Other Neurological: No: Weakness, Numbness, Incoordination, Change in speech, Confusion, Seizures, Other Allergies: Coded Allergies: NO KNOWN ALLERGIES (Unverified , 04/24/17) Medications Current Medications Medications Dose Ordered Sig/Lucie Route Start Time Stop Time Status Last Admin Dose Admin Atorvastatin Calcium 40 mg HS PO 10/09/24 22:00 UNV Clonidine HCl 0.1 mg Q4HP PRN PO 10/09/24 15:45 UNV Lorazepam 0.5 mg Q8HP PRN IV 10/09/24 15:45 UNV Hydrochlorothiazide 25 mg DAILY PO 10/10/24 10:00 UNV Metoprolol Tartrate 12.5 mg BID PO 10/09/24 22:00 UNV Diagnostic Test (Pha) 1 strip IQ4HR 10/09/24 16:00 UNV Insulin Human Regular IQ4HR SC 10/09/24 16:00 UNV Dextrose 50 ml UD PRN IV 10/09/24 15:45 UNV Sodium Chloride 10 ml Q8HR IV 10/09/24 22:00 UNV Acetaminophen/ Hydrocodone Bitart 1 tab Q4HP PRN PO 10/09/24 15:45 UNV Ondansetron HCl 4 mg Q4HP PRN IV 10/09/24 15:45 UNV Docusate Sodium 100 mg BIDPRN PRN PO 10/09/24 15:45 UNV Acetaminophen 650 mg Q6HP PRN PO 10/09/24 15:45 UNV Exam Vital Signs Vital Signs Date Time Temp Pulse Resp B/P (MAP) Pulse Ox O2 Delivery O2 Flow Rate FiO2 10/09/24 12:46 91 18 98 Room Air 10/09/24 12:46 117/80 (92) 10/09/24 10:56 98.0 98.0 General Appearance: Alert, Cooperative, No acute distress HEENT: Atraumatic, PERRLA, EOMI, Mucous membr. moist/pink Respiratory: Normal air movement Cardiovascular: Regular rate, Normal S1, Normal S2, No murmurs Abdominal: Normal bowel sounds, Soft, No tenderness, No hepatospenomegaly, No masses Extremities: No clubbing, No cyanosis, No edema, Normal pulses, No tenderness/swelling Skin: No rashes, No breakdown, No significant lesion Neuro: Normal speech, Normal tone, Sensation intact, Cranial nerves 3-12 NL, Reflexes 2+, Other (Generalized weakness) Psych/Mental Status: Mental status NL, Mood NL Labs/Xrays Labs Test 10/09/24 12:12 10/09/24 11:09 Range/Units Troponin I High Sensitivity 4 </=34 ng/L White Blood Count 6.9 4.4-10.8 10^3/uL Red Blood Count 4.09 4.0-5.20 10^6/uL Hemoglobin 13.1 12.2-16.2 g/dL Hematocrit 37.7 36.0-46.0 % Mean Corpuscular Volume 92.2 80.0-100.0 fL Mean Corpuscular Hemoglobin 32.0 28.0-32.0 pg Mean Corpuscular Hemoglobin Concent 34.7 32.0-36.0 g/dL Red Cell Distribution Width 13.0 11.8-14.3 % Platelet Count 357 140-450 10^3/uL Mean Platelet Volume 8.8 6.9-10.8 fL Neutrophils (%) (Auto) 64.6 37.0-80.0 % Lymphocytes (%) (Auto) 29.3 10.0-50.0 % Monocytes (%) (Auto) 4.3 0.0-12.0 % Eosinophils (%) (Auto) 1.2 0.0-7.0 % Basophils (%) (Auto) 0.6 0.0-2.0 % Neutrophils # (Auto) 4.4 1.6-8.6 10 ^3/uL Lymphocytes # (Auto) 2.0 0.4-5.4 10 ^3/uL Monocytes # (Auto) 0.3 0-1.3 10 ^3/uL Eosinophils # (Auto) 0.1 0-0.8 10 ^3/uL Basophils # (Auto) 0 0-0.2 10 ^3/uL Nucleated Red Blood Cells 0.1 % Sodium Level 140 136-145 mmol/L Potassium Level 4.9 3.5-5.1 mmol/L Chloride Level 106 98-107 mmol/L Carbon Dioxide Level 20 20-31 mmol/L Anion Gap 14 5-15 Blood Urea Nitrogen 18 9-23 mg/dL Creatinine 1.78 H 0.550-1.02 mg/dL Glomerular Filtration Rate Calc 39 >90 mL/min BUN/Creatinine Ratio 10.1 10.0-20.0 Serum Glucose 262 H 74-106 mg/dL Calcium Level 9.7 8.7-10.4 mg/dL SEPSIS Sepsis Screen Date sepsis recognized/suspect: Oct 09, 2024 Time Sepsis recognized/suspect: 1055 Recent Procedure: No On Antibiotic Therapy: No Respiratory Rate >20: No Heart Rate >90: No Temp<36 C (96.8 F) or >38.3 C: No SBP <90 or MAP <65 mmHG: No New Acute Mental Status Change: No Is the patient on CPAP, BIPAP,: No Physician Orders Electrocardigram (10/09/24 10:57) Electrocardigram (10/09/24 11:57) Electrocardigram (10/09/24 13:57) Urinalysis (10/09/24 11:59) Sodium Chloride 0.9% (10/09/24 12:00) Consistent Carb(Ccho)Diabetes (10/09/24 Dinner) Atorvastatin (Lipitor) (10/09/24 22:00) Clonidine Hcl Tablet (Catapres Tablet) (10/09/24 15:45) Lorazepam 2mg/Ml Inj (Ativan Inj) (10/09/24 15:45) Hydrochlorothiazide Tablet (Hydrochlorot (10/10/24 10:00) Metoprolol Tartrate Tablet (Lopressor Ta (10/09/24 22:00) Glucose Blood (Accu-Chek Comfort Curve T (10/09/24 16:00) Insulin R (Human) (Insulin R) (10/09/24 16:00) Dextrose 50% Syringe (10/09/24 15:45) Allergies (10/09/24 15:41) Code Status (10/09/24 15:41) Sodium Chloride Lock (Saline Lock Ns) (10/09/24 22:00) Oxygen Per Hour (10/09/24 15:41) Hydrocodone-Acet 5/325mg Tab (Moffat 5/32 (10/09/24 15:45) Ondansetron Hcl (Zofran) (10/09/24 15:45) Docusate Sodium Capsule (Colace Capsule) (10/09/24 15:45) Complete Blood Count (10/10/24 04:00) Comprehensive Metabolic Panel (10/10/24 04:00) Condition: Serious (10/09/24 15:41) Acetaminophen Tablet (Tylenol Tablet) (10/09/24 15:45) Bedrest With Bathroom Privileg (10/09/24 15:41) Sequential Compression Device (10/09/24 ) Admit (10/09/24 16:16) Nitroglycerin Sublingual (Ntrostat Subli (10/09/24 16:30) Morphine Sulfate Injection (10/09/24 16:30) Stat Ekg For Chest Pain (10/09/24 16:16) Notify Md Of Changes From Base (10/09/24 16:16) Litigation Support Analyst For 24 Hours (10/09/24 16:16) Emergency Dysrhythmia Protocol (10/09/24 16:16) Rhythm Strips Once Every Shift (10/09/24 16:16) Oxygen By Nasal Cannula (10/09/24 16:16) Vital Signs Date Time Temp Pulse Resp B/P (MAP) Pulse Ox O2 Delivery O2 Flow Rate FiO2 10/09/24 12:46 91 18 98 Room Air 10/09/24 12:46 91 18 117/80 (92) 98 10/09/24 12:00 113 10/09/24 10:59 113 10/09/24 10:56 98.0 108 24 204/130 99 98.0 Laboratory Tests Test 10/09/24 11:09 White Blood Count 6.9 10^3/uL (4.4-10.8) Medications Medications Dose Ordered Sig/Lucie Route Start Time Stop Time Status Last Admin Dose Admin Lorazepam 1 mg ONCE ONCE IV 10/09/24 12:00 10/09/24 12:01 DC 10/09/24 12:58 1 MG Sodium Chloride 1,000 ml @ 1,000 mls/hr Q1H ONCE IV 10/09/24 12:00 10/09/24 12:59 DC 10/09/24 12:00 1,000 MLS/HR Assessment/Plan Assessment/Plan Chest pain of unknown etiology Hypertensive emergency Acute on chronic renal failure Abdominal pain Intractable nausea and vomiting Generalized weakness Diabetes mellitus with hyperglycemia Plan 1. Admit to telemetry unit 2. Breathing treatment 3. Pain control management 4. Management of fluids and electrolytes 5. Consultation for hospitalist 6. Diagnostic tests abdomen/pelvis CT 7. DVT prophylaxis on SCDs 8. Repeat labs CBC, CMP in a.m. 9. Continue with current medical management 10. Treatment plan discussed with patient and RN. Patient verbalized understanding. Plan discussed with: Patient, Other (RN) My Orders Orders - RUBEN DOCKERY DNP Procedure Category Date Status Time Consistent DIET 10/09/24 Transmitted Carb(Ccho)Diabetes Dinner Atorvastatin (Lipitor) PHA 10/09/24 Logged 22:00 Clonidine Hcl Tablet PHA 10/09/24 Logged (Catapres Tablet) 15:45 Lorazepam 2mg/Ml Inj PHA 10/09/24 Logged (Ativan Inj) 15:45 Hydrochlorothiazide PHA 10/10/24 Logged Tablet (Hydrochlorot 10:00 Metoprolol Tartrate PHA 10/09/24 Logged Tablet (Lopressor Ta 22:00 Glucose Blood PHA 10/09/24 Logged (Accu-Chek Comfort 16:00 Insulin R (Human) PHA 10/09/24 Logged (Insulin R) 16:00 Dextrose 50% Syringe PHA 10/09/24 Logged 15:45 Allergies ADELIA 10/09/24 In Process 15:41 Code Status CODE 10/09/24 Transmitted 15:41 Sodium Chloride Lock PHA 10/09/24 Logged (Saline Lock Ns) 22:00 Oxygen Per Hour RT 10/09/24 Transmitted 15:41 Hydrocodone-Acet PHA 10/09/24 Logged 5/325mg Tab (Moffat 15:45 Ondansetron Hcl PHA 10/09/24 Logged (Zofran) 15:45 Docusate Sodium PHA 10/09/24 Logged Capsule (Colace 15:45 Complete Blood Count LAB 10/10/24 Verified 04:00 Comprehensive LAB 10/10/24 Verified Metabolic Panel 04:00 Condition: Serious ADELIA 10/09/24 In Process 15:41 Acetaminophen Tablet PHA 10/09/24 Logged (Tylenol Tablet) 15:45 Bedrest With Bathroom [facility] 10/09/24 In Process Privileg 15:41 Sequential [facility] 10/09/24 In Process Compression Device Admit ADMIT 10/09/24 Transmitted 16:16 Nitroglycerin [facility] 10/09/24 Transmitted Sublingual (Ntrostat 16:30 Morphine Sulfate [facility] 10/09/24 Transmitted Injection 16:30 Stat Ekg For Chest [facility] 10/09/24 Transmitted Pain 16:16 Notify Md Of Changes [facility] 10/09/24 Transmitted From Base 16:16 Litigation Support Analyst For [facility] 10/09/24 Transmitted 24 Hours 16:16 Emergency Dysrhythmia [facility] 10/09/24 Transmitted Protocol 16:16 Rhythm Strips Once [facility] 10/09/24 Transmitted Every Shift 16:16 Oxygen By Nasal 10/09/24 Transmitted Cannula 16:16 Problem List: (1) Chest pain of unknown etiology (2) Hypertensive emergency (3) Acute on chronic renal failure (4) Abdominal pain (5) Intractable nausea and vomiting (6) Generalized weakness (7) Diabetes mellitus with hyperglycemia Date of Service: Oct 09, 2024 Billing Provider: RUBEN DOCKERY DNP Common Visit Codes: [id number] INP/OBS CARE (HIGH) RUBEN DOCKERY DNP Oct 09, 2024 16:21
[2024-10-09] MEDS ORDERED: NITROGLYCERIN 0.4 MG SL TAB SL PRN (16:30)
[2024-10-09 17:04] VITALS: BP 174/113; PULSE 125; RESP 22; TEMP 98.7; O2SAT 93
[2024-10-09 17:36] VITALS: BP 204/119; PULSE 75; TEMP 97.8; O2SAT 100
[2024-10-09] MEDS: ACCU-CHEK COMFORT CURVE STRIP VI SCH (17:56)
[2024-10-09] MEDS: InsuLIN REG 1unit/0.01ml Soln (100units/ml) SC SCH (17:56)
--- NOTE | 2024-10-09 18:04 | DVH ---
CHEST RADIOGRAPH Indication: Chest pain Technique: XY CHEST TWO VIEWS ROUTINE Comparison: None FINDINGS: The cardiac silhouette is unremarkable. The lungs demonstrate perihilar airspace opacities, right-gre [id number]. The pulmonary vasculature is prominent. There is no pleural effusion. There is no pne umothorax. IMPRESSION: As above
--- NOTE | 2024-10-09 18:40 | DVH ---
Exam: CT CT AB PEL WO CON-NO ORAL OR IV History: Acute abdominal pain Comparison Study: CT CT AB PEL WO CON-NO ORAL OR IV on DOS: 08/30/24, US ABDOMEN LIMITED on DOS: , US PELVIC on DOS: 05/19/24 TECHNIQUE: Multidetector CT of the abdomen and pelvis without IV contrast. Axial, coronal and sagitta l multiplanar reformats were obtained from the axial data set by the technologist. Radiation Dose Information: CT Dose: CTDI volume is 12.96 mGy. Dose-length product is 3.92 mGy*cm FINDINGS: The lung bases are clear. Partially visualized heart is unremarkable. Liver, spleen, gallbladder, pancreas and right adrenal gland are unremarkable. 1.1 cm left adrenal no dule measuring up to 19 Hounsfield units ; unchanged from 05/18/2024 Kidneys, ureters and urinary bladder unremarkable. Uterus and adnexa unremarkable. Small hiatal stomach is lining appended and fluid-filled. Small bowel loops unremarkable. Appendix i s unremarkable. Wall thickening of the ascending colon with minimal wall thickening of the transverse colon, descending colon and sigmoid. No evidence of intraperitoneal free air or free fluid. No evidence of aortic aneurysm. [id number] atherosclerotic calcification of the aorta and bila teral iliacs. Subcentimeter para-aortic lymph nodes are noted. The soft tissues are unremarkable. No evidence of acute osseous abnormalities. IMPRESSION: Mild pancolitis.
--- NOTE | 2024-10-09 18:59 | ECG ---
[facility] Test Date: 2024-10-09 Test Time: 10:59:23 Pat Name: AMARJIT FISHMAN Department: [facility] ED Patient ID: [facility]-[id number] Room: [address] [place] [address] A Gender: F Fitness Plan Coordinator: LOUIE : 1995 Requested By: MICAELA DONAHUE Order Number: [id number] Reading MD: Clay Clinton Measurements Intervals [place] Rate: 113 P: 58 NH: 147 QRS: 74 QRSD: 88 T: 71 QT: 372 QTc: 510 Interpretive Statements Sinus tachycardia Borderline low voltage, extremity leads Abnormal Q suggests anterior infarct Prolonged QT interval Baseline wander in lead(s) V1,V2 Electronically Signed On 10-09-2024 23:00:30 PDT by Clay Clinton Please click the below link to view image of tracing.
[2024-10-09 21:33] VITALS: BP 230/134; PULSE 124; RESP 20; TEMP 98.2
[2024-10-09] MEDS: METOPROLOL TARTRATE 25 MG TAB PO SCH (21:46)
[2024-10-09] MEDS: ATORVASTATIN 20 MG TAB PO SCH (21:47)
[2024-10-09] MEDS: SODIUM CHLOR 0.9% PF (SALINE LOCK) 10ML VIAL/SYR IV SCH (22:25)
[2024-10-09] MEDS: LORazepam 2MG/ML-1ML VIAL IV PRN (22:26)
[2024-10-10] VITALS (51 sets, daily range): BP systolic 120–225; BP diastolic 66–135; PULSE 101–132; RESP 11–46; TEMP 98.4–99; O2SAT 93–100
[2024-10-10] MEDS: dilTIAZem 25 MG/5 ML VIAL IV ONE ×2 (00:06→01:57)
[2024-10-10] MEDS: MORPHINE SULFATE INJ 2 MG/ml SYRG IV PRN (00:40)
[2024-10-10] MEDS: ONDANSETRON HCL 4 MG/2 ML VIAL IV PRN (00:48)
[2024-10-10] MEDS ORDERED: SEMA4INJ SC (03:51)
[2024-10-10] MEDS: METOPROLOL TARTRATE 1MG/1ML-5ML VIAL IV ONE (04:55)
[2024-10-10 05:09] LABS: Hematocrit 38.9 % (36.0-46.0); Hemoglobin 13.8 g/dL (12.2-16.2); Mean Corpuscular Hemoglobin 32.3 pg (28.0-32.0); Mean Corpuscular Volume 90.6 fL (80.0-100.0); Nucleated Red Blood Cells % 0.0 %
[2024-10-10 05:25] LABS: Alanine Aminotransferase 13 U/L (7-40); Albumin 4.7 g/dL (3.2-4.8); Alkaline Phosphatase 102 U/L (46-116); Anion Gap 11 (5-15); BUN/Creatinine Ratio 8.9 (10.0-20.0); Blood Urea Nitrogen 17 mg/dL (9-23); Calcium 9.4 mg/dL (8.7-10.4); Carbon Dioxide 25 mmol/L (20-31); Chloride 106 mmol/L (98-107); Glucose 102 mg/dL (74-106); Potassium 4.0 mmol/L (3.5-5.1); Sodium 142 mmol/L (136-145); Total Protein 7.7 g/dL (5.7-8.2)
[2024-10-10 05:26] LABS: Bilirubin, Total 0.6 mg/dL (0.2-1.0)
[2024-10-10] MEDS: hydroCHLOROthiazide 25 MG TAB PO SCH (08:11)
--- NOTE | 2024-10-10 13:20 | DVHPN2 ---
Subjective Denies any symptoms Reviewed: Care Plan, H&P, Labs, Medications Changes from previous H/P or p: No Changes General: Per HPI Eyes: No Pain, No Vision change, No Conjunctivae inflammation, No Eyelid inflammation, No Other, No Redness ENT: No Ear pain, No Ear discharge, No Nose pain, No Nose discharge, No Nose congestion, No Mouth pain, No Mouth swelling, No Throat pain, No Throat swelling, No Other Cardiovascular: Chest Pain; No Palpitations, No Orthopnea, No Paroxysmal Noc. Dyspnea, No Edema, No Lt Headedness, No Other Respiratory: No Cough, No Dry, No Shortness of breath, No SOB with excertion, No Wheezing, No Hemoptysis, No Pleuritic Pain, No Sputum, No Other Gastrointestinal: Nausea, Vomiting, Abdominal Pain; No Diarrhea, No Constipation, No Melena, No Hematochezia, No Other Genitourinary: No Dysuria, No Frequency, No Incontinence, No Hematuria, No Retention, No Other Musculoskeletal: No other, No neck pain, No shoulder pain, No arm pain, No back pain, No hand pain, No leg pain, No foot pain Skin: No Rash, No Lesions, No Jaundice, No Bruising, No Other Objective Vitals Vital Signs Date Time Temp Pulse Resp B/P (MAP) Pulse Ox O2 Delivery O2 Flow Rate FiO2 10/10/24 13:00 108 21 142/67 (92) 99 10/10/24 11:35 Room Air* 0 21 10/10/24 08:00 99.0 99.0 Intake/Output Intake and Output 10/10/24 07:00 Intake Total 152.666 ml Output Total 120 ml Balance 32.666 ml Intake Oral 80 ml IV Total 72.666 ml Output Urine Total 120 ml General Appearance: Alert, Oriented X3, Cooperative, No acute distress HEENT: Atraumatic, PERRLA Lungs: Clear to auscultation, Normal air movement Cardiovascular: Normal S1, Normal S2 Abdomen: Normal bowel sounds, Soft, No tenderness, No hepatospenomegaly Back: Flank Tenderness, Midline Tenderness Skin: Cyanosis, Intact Psych/Mental Status: Mental status NL, Mood NL Medications Current Medications Medications Dose Ordered Sig/Lucie Route Start Time Stop Time Status Last Admin Dose Admin Atorvastatin Calcium 40 mg HS PO 10/09/24 22:00 10/09/24 21:47 40 MG Clonidine HCl 0.1 mg Q4HP PRN PO 10/09/24 15:45 10/10/24 09:51 0.1 MG Lorazepam 0.5 mg Q8HP PRN IV 10/09/24 15:45 10/10/24 06:51 0.5 MG Hydrochlorothiazide 25 mg DAILY PO 10/10/24 10:00 10/10/24 08:11 25 MG Diagnostic Test (Pha) 1 strip IQ4HR 10/09/24 16:00 10/10/24 12:23 1 STRIP Insulin Human Regular IQ4HR SC 10/09/24 16:00 10/10/24 08:19 3 UNITS Dextrose 50 ml UD PRN IV 10/09/24 15:45 Sodium Chloride 10 ml Q8HR IV 10/09/24 22:00 10/10/24 13:10 10 ML Acetaminophen/ Hydrocodone Bitart 1 tab Q4HP PRN PO 10/09/24 15:45 Ondansetron HCl 4 mg Q4HP PRN IV 10/09/24 15:45 10/10/24 00:48 4 MG Docusate Sodium 100 mg BIDPRN PRN PO 10/09/24 15:45 Acetaminophen 650 mg Q6HP PRN PO 10/09/24 15:45 Nitroglycerin 0.4 mg Q5MINP PRN SL 10/09/24 16:30 Morphine Sulfate 2 mg Q30M PRN IV 10/09/24 16:30 10/10/24 00:40 2 MG Metoprolol Tartrate 25 mg BID PO 10/10/24 22:00 Laboratory Results Laboratory Tests 10/10/24 04:49 Chemistry Test 10/10/24 04:49 Albumin 4.7 g/dL (3.2-4.8) Calcium Level 9.4 mg/dL (8.7-10.4) Total Protein 7.7 g/dL (5.7-8.2) LFT Test 10/10/24 04:49 Alanine Aminotransferase (ALT) 13 U/L (7-40) Alkaline Phosphatase 102 U/L (46-116) Aspartate Amino Transferase (AST) 16 U/L (13-40) Total Bilirubin 0.6 mg/dL (0.2-1.0) Microbiology Microbiology Date/Time Source Procedure Growth Status 10/10/24 03:37 Nose MRSA Screen - Final Complete Labs and/or images reviewed: Labs reviewed by me, Image(s) reviewed by me Assessment/Plan Assessment/Plan Impression: -Hypertensive Crisis -Obesity -Pancytopenia -CKD stage 3b -Obesity -Pancolitis Plan: -Renal artery ultrasound -Check Renin, angiotensin -Increase Metoprolol Tartrate -Transfer to Telemetry Plan discussed with: Patient, Other (RN) My Orders Orders - RADHA PROCTOR NP Procedure Category Date Status Time Metoprolol Tartrate PHA 10/10/24 In Process Tablet (Lopressor Ta 22:00 Drug Screen LAB 10/10/24 Logged 11:52 Transfer Orders XFER 10/10/24 Transmitted 11:52 Renin Activity And LAB 10/10/24 Logged Aldosterone 11:54 Renal Artery Lmtd US 10/10/24 Logged 11:54 Date of Service: Oct 10, 2024 Billing Provider: RADHA PROCTOR NP Common Visit Codes: [id number] INP/OBS CARE(HIGH) RADHA PROCTOR NP Oct 10, 2024 13:20
[2024-10-10] MEDS ORDERED: DEXTROSE (50%) 50ML SYRG IV PRN (14:30)
--- NOTE | 2024-10-10 15:31 | DVH ---
ULTRASOUND RENAL CLINICAL INDICATION: HTN TECHNIQUE: Real-time sonographic, duplex, and color Doppler images of the kidneys were obtained. FINDINGS: Resistive indices are within normal limits velocities within normal limits. Right kidney m easures 12 cm. Left kidney measures 11 cm. Echogenic bilateral kidneys IMPRESSION: Bilateral medical renal disease
[2024-10-10] MEDS: ACCU-CHEK COMFORT CURVE STRIP VI SCH (17:00)
[2024-10-10] MEDS: InsuLIN REG 1unit/0.01ml Soln (100units/ml) SC SCH (17:00)
[2024-10-10 18:04] LABS: Urine Protein, UAD 3+ (Negative)
[2024-10-10 18:13] LABS: Cannabinoid Screen, Urine Pos (NEGATIVE); Opiate Scree,Urine Neg (NEGATIVE)
[2024-10-10 18:14] LABS: Barbiturate Scree,Urine Neg (NEGATIVE)
[2024-10-10 18:15] LABS: Amphetamine Screen, Urine Neg (NEGATIVE); Benzodiazephine Screen, Urine Neg (NEGATIVE); Cocaine Screen, Urine Neg (NEGATIVE); Phencyclidine Screen, Urine Neg (NEGATIVE)
[2024-10-10 18:55] LABS: Protein, Urine 627.1 mg/dL (1-14)
[2024-10-10] MEDS: METOPROLOL TARTRATE 25 MG TAB PO SCH (21:59)
[2024-10-11] VITALS (8 sets, daily range): BP systolic 130–175; BP diastolic 89–119; PULSE 91–98; RESP 15–20; TEMP 97.6–98.6; O2SAT 98–100
--- NOTE | 2024-10-11 10:01 | DVHINCON2 ---
Date of service: Oct 11, 2024 Reason for Consultation SIENNA History of Present Illness 29-year-old female past medical history of chronic hypertension, obesity, history of stillbirth who has had multiple hospitalizations over the last year for uncontrolled high blood pressure. Patient has a questionable history of preeclampsia during her last . She presents to the hospital now complaining of nausea and vomiting was found to have a systolic blood pressure that was greater than 200 initially transferred to the ICU for IV drip and convert to p.o.. Per patient during a prior hospitalization in June she had a renal artery ultrasound which showed elevated velocities in the right renal artery with a possible questionable concern of stenosis. She has not followed up for this. Past Surgical History Allergies: Coded Allergies: NO KNOWN ALLERGIES (Unverified , 04/24/17) Home Meds Active Scripts Valsartan (Valsartan) 80 Mg Tab, 80 MG PO DAILY for 28 Days, #28 TAB Prov:BLAISE DILLON 07/06/24 Hctz (Hydrochlorothiazide) 25 Mg Tab, 25 MG PO DAILY for 28 Days, #28 TAB Prov:BLAISE DILLON 07/06/24 Ergocalciferol (VITAMIN D 52551 UNIT) 50,000 [place], [address] UNIT PO QWEEKLY for 56 Days, #8 CAP 0 Refills Prov:BLAISE DILLON 07/06/24 Atorvastatin Calcium (ATORVASTATIN CALCIUM) 40 Mg Tab, 40 MG PO HS for 28 Days, #28 TAB 0 Refills Prov:BLAISE DILLON 07/06/24 Nifedipine (Nifedipine Er) 30 Mg Tab, 90 MG PO DAILY for 28 Days, #84 TAB Prov:BLAISE DILLON 07/06/24 Clonidine Hydrochloride (Clonidine Hcl) 0.1 Mg Tab, 0.1 MG PO Q8HP PRN for 10 Days, #30 TAB For SBP more than 160 mmhg Prov:BLAISE DILLON 07/06/24 Reported Medications Semaglutide (Ozempic) 4 Mg/3 Ml Inj, 1 MG SC QWEEKLY 10/10/24 Current Medications Current Medications Medications (Trade) Dose Ordered Sig/Lucie Route PRN Reason Start Time Stop Time Status Last Admin Metoprolol Tartrate (Lopressor Tablet) 25 mg BID PO 10/10/24 22:00 10/11/24 15:25 DC 10/11/24 08:42 Amlodipine Besylate (Norvasc Tablet) 10 mg DAILY PO 10/11/24 14:30 10/11/24 15:37 Metoprolol Tartrate (Lopressor Tablet) 50 mg BID PO 10/11/24 22:00 Hydralazine HCl (Apresoline Injection) 10 mg Q6HP PRN IV SBP>150 10/11/24 16:00 Family History: Diabetes mellitus (DM) G8 BROTHER FH: HTN (hypertension) G8 MOTHER Social History marijuana Review of Systems Weakness and uncontrolled blood pressure H&P Exam Vital Signs/I&O Vital Sign Date Time Temp Pulse Resp B/P (MAP) Pulse Ox O2 Delivery O2 Flow Rate FiO2 10/11/24 18:13 152/117 10/11/24 17:00 97.6 98 15 98 97.6 10/11/24 08:00 Room Air* 0 21 Intake and Output 10/10/24 10/11/24 19:00 07:00 Intake Total 815 ml 300 ml Output Total 600 ml Balance 215 ml 300 ml Intake Oral 800 ml 300 ml IV Total 15 ml Output Urine Total 600 ml Physical Exam Young female Not in overt distress Irritable and frustrated Regular rate and rhythm No abdominal bruits Abdomen is soft No pitting edema Labs/Diagnostic Data Labs/Diagnostic Data Laboratory Tests Test 10/11/24 16:30 10/11/24 15:22 10/11/24 11:03 10/11/24 06:38 Range/Units POC Glucose 149 H 105 137 H 70-106 mg/dl Test 10/10/24 22:02 10/10/24 17:51 10/10/24 17:44 10/10/24 13:23 Range/Units POC Glucose 119 H 119 H 70-106 mg/dl Urine Color Light-yellow Yellow Urine Clarity Clear Clear Urine pH 6.0 5.0-9.0 Urine Specific [place] 1.018 1.001-1.035 Urine Protein 3+ H Negative Urine Ketones Negative Negative Urine Blood 1+ H Negative /uL Urine Nitrite Negative Negative Urine Bilirubin Negative Negative Urine Urobilinogen Normal Negative mg/dL Urine Leukocyte Esterase Negative Negative /uL Urine RBC 2 0 - 4 /hpf Urine Microscopic WBC 3 0-5 /HPF Urine Squamous Epithelial Cells Few <5 /hpf Urine Bacteria Few H None Seen /hpf Urine Creatinine 164.52 H 30.0-125.0 mg/dL Urine Protein/Creatinine Ratio 3.81 Urine Glucose Trace Normal mg/dL Urine Total Protein 627.1 H 1-14 mg/dL Urine Opiates Screen Neg NEGATIVE Urine Fentanyl Screen Neg NEGATIVE Urine Barbiturates Screen Neg NEGATIVE Urine Phencyclidine Screen Neg NEGATIVE Urine Amphetamines Screen Neg NEGATIVE Urine Benzodiazepines Screen Neg NEGATIVE Urine Cocaine Screen Neg NEGATIVE Urine Cannabinoids Screen Pos NEGATIVE Test 10/10/24 12:04 10/10/24 08:13 10/10/24 04:49 10/10/24 03:49 Range/Units POC Glucose 172 H 182 H 112 H 70-106 mg/dl White Blood Count 12.9 #H 4.4-10.8 10^3/uL Red Blood Count 4.29 4.0-5.20 10^6/uL Hemoglobin 13.8 12.2-16.2 g/dL Hematocrit 38.9 36.0-46.0 % Mean Corpuscular Volume 90.6 80.0-100.0 fL Mean Corpuscular Hemoglobin 32.3 H 28.0-32.0 pg Mean Corpuscular Hemoglobin Concent 35.6 32.0-36.0 g/dL Red Cell Distribution Width 13.0 11.8-14.3 % Platelet Count 326 140-450 10^3/uL Mean Platelet Volume 8.3 6.9-10.8 fL Neutrophils (%) (Auto) 75.6 37.0-80.0 % Lymphocytes (%) (Auto) 16.2 10.0-50.0 % Monocytes (%) (Auto) 7.9 0.0-12.0 % Eosinophils (%) (Auto) 0.1 0.0-7.0 % Basophils (%) (Auto) 0.2 0.0-2.0 % Neutrophils # (Auto) 9.7 H 1.6-8.6 10 ^3/uL Lymphocytes # (Auto) 2.1 0.4-5.4 10 ^3/uL Monocytes # (Auto) 1.0 0-1.3 10 ^3/uL Eosinophils # (Auto) 0 0-0.8 10 ^3/uL Basophils # (Auto) 0 0-0.2 10 ^3/uL Nucleated Red Blood Cells 0.0 % Sodium Level 142 136-145 mmol/L Potassium Level 4.0 3.5-5.1 mmol/L Chloride Level 106 98-107 mmol/L Carbon Dioxide Level 25 20-31 mmol/L Anion Gap 11 5-15 Blood Urea Nitrogen 17 9-23 mg/dL Creatinine 1.90 H 0.550-1.02 mg/dL Glomerular Filtration Rate Calc 36 >90 mL/min BUN/Creatinine Ratio 8.9 L 10.0-20.0 Serum Glucose 102 74-106 mg/dL Calcium Level 9.4 8.7-10.4 mg/dL Total Bilirubin 0.6 0.2-1.0 mg/dL Aspartate Amino Transferase (AST) 16 13-40 U/L Alanine Aminotransferase (ALT) 13 7-40 U/L Alkaline Phosphatase 102 46-116 U/L Total Protein 7.7 5.7-8.2 g/dL Albumin 4.7 3.2-4.8 g/dL Test 10/09/24 22:33 10/09/24 17:50 10/09/24 12:12 10/09/24 11:09 Range/Units POC Glucose 211 H 235 H 70-106 mg/dl Troponin I High Sensitivity 4 4 </=34 ng/L White Blood Count 6.9 4.4-10.8 10^3/uL Red Blood Count 4.09 4.0-5.20 10^6/uL Hemoglobin 13.1 12.2-16.2 g/dL Hematocrit 37.7 36.0-46.0 % Mean Corpuscular Volume 92.2 80.0-100.0 fL Mean Corpuscular Hemoglobin 32.0 28.0-32.0 pg Mean Corpuscular Hemoglobin Concent 34.7 32.0-36.0 g/dL Red Cell Distribution Width 13.0 11.8-14.3 % Platelet Count 357 140-450 10^3/uL Mean Platelet Volume 8.8 6.9-10.8 fL Neutrophils (%) (Auto) 64.6 37.0-80.0 % Lymphocytes (%) (Auto) 29.3 10.0-50.0 % Monocytes (%) (Auto) 4.3 0.0-12.0 % Eosinophils (%) (Auto) 1.2 0.0-7.0 % Basophils (%) (Auto) 0.6 0.0-2.0 % Neutrophils # (Auto) 4.4 1.6-8.6 10 ^3/uL Lymphocytes # (Auto) 2.0 0.4-5.4 10 ^3/uL Monocytes # (Auto) 0.3 0-1.3 10 ^3/uL Eosinophils # (Auto) 0.1 0-0.8 10 ^3/uL Basophils # (Auto) 0 0-0.2 10 ^3/uL Nucleated Red Blood Cells 0.1 % Sodium Level 140 136-145 mmol/L Potassium Level 4.9 3.5-5.1 mmol/L Chloride Level 106 98-107 mmol/L Carbon Dioxide Level 20 20-31 mmol/L Anion Gap 14 5-15 Blood Urea Nitrogen 18 9-23 mg/dL Creatinine 1.78 H 0.550-1.02 mg/dL Glomerular Filtration Rate Calc 39 >90 mL/min BUN/Creatinine Ratio 10.1 10.0-20.0 Serum Glucose 262 H 74-106 mg/dL Calcium Level 9.7 8.7-10.4 mg/dL Microbiology Date/Time Source Procedure Growth Status 10/10/24 03:37 Nose MRSA Screen - Final Complete Assessment 29 year old female history of chronic hypertension uncontrolled with a poor medication compliance who presents with hypertensive emergency SIENNA hemodynamic renal HTN Ckd 3a hypertensive emergency severe LVH with diastolic dysfunction 1.1cm left adrenal nodule GFR is worst this hospitalization when compared to MAY increase metoprolol add norvasc clonidine ADD HCTZ send renin, bruno, metanephrines, Cortisol in am, ACTH previous renal doppler US showed possible stenosis of right renal artery but is not hemodynamically significant when comparing aorta to renal artery ratio. (07/04/24) current renal artery doppler makes no mention of similar findings at this time. I recommend Radiology review and vascular evaluation of imaging in june and this admission. If flow does not show hemodynamic compromise then angioplasty will not provide benefit . Also recommend US b/l carotid arteries as fibromuscular disease has increased risk of showing in carotids. CTA at this time is high risk for contrast induced nephropathy due to decreased GFR WIll consider vascular to review low salt diet no dialysis indication at this time patient and family are very frustrated I had to come back to answer questions on several occasions. She has a renal clinic appointment with me in October but was hospitalized prior to visit care time 70mins Plan discussed with: Patient, Other (mother and boyfriend) GILMAR BUTLER MD Oct 11, 2024 10:01
[2024-10-11] MEDS ORDERED: hydrALAZINE HCL 20 MG/ML VL IV PRN (16:00)
--- NOTE | 2024-10-11 16:26 | DVHPN2 ---
Subjective Denies any symptoms Reviewed: Care Plan, H&P, Labs, Medications Changes from previous H/P or p: No Changes General: Per HPI Eyes: No Pain, No Vision change, No Conjunctivae inflammation, No Eyelid inflammation, No Other, No Redness ENT: No Ear pain, No Ear discharge, No Nose pain, No Nose discharge, No Nose congestion, No Mouth pain, No Mouth swelling, No Throat pain, No Throat swelling, No Other Cardiovascular: Chest Pain; No Palpitations, No Orthopnea, No Paroxysmal Noc. Dyspnea, No Edema, No Lt Headedness, No Other Respiratory: No Cough, No Dry, No Shortness of breath, No SOB with excertion, No Wheezing, No Hemoptysis, No Pleuritic Pain, No Sputum, No Other Gastrointestinal: Nausea, Vomiting, Abdominal Pain; No Diarrhea, No Constipation, No Melena, No Hematochezia, No Other Genitourinary: No Dysuria, No Frequency, No Incontinence, No Hematuria, No Retention, No Other Musculoskeletal: No other, No neck pain, No shoulder pain, No arm pain, No back pain, No hand pain, No leg pain, No foot pain Skin: No Rash, No Lesions, No Jaundice, No Bruising, No Other Objective Vitals Vital Signs Date Time Temp Pulse Resp B/P (MAP) Pulse Ox O2 Delivery O2 Flow Rate FiO2 10/11/24 15:37 173/113 10/11/24 15:02 94 10/11/24 13:00 98.3 16 100 98.3 10/11/24 08:00 Room Air* 0 21 Intake/Output Intake and Output 10/11/24 07:00 Intake Total 1115 ml Output Total 600 ml Balance 515 ml Intake Oral 1100 ml IV Total 15 ml Output Urine Total 600 ml General Appearance: Alert, Oriented X3, Cooperative, No acute distress HEENT: Atraumatic, PERRLA Lungs: Clear to auscultation, Normal air movement Cardiovascular: Normal S1, Normal S2 Abdomen: Normal bowel sounds, Soft, No tenderness, No hepatospenomegaly Back: Flank Tenderness, Midline Tenderness Skin: Cyanosis, Intact Psych/Mental Status: Mental status NL, Mood NL Medications Current Medications Medications Dose Ordered Sig/Lucie Route Start Time Stop Time Status Last Admin Dose Admin Atorvastatin Calcium 40 mg HS PO 10/09/24 22:00 10/10/24 22:00 40 MG Clonidine HCl 0.1 mg Q4HP PRN PO 10/09/24 15:45 10/11/24 13:08 0.1 MG Lorazepam 0.5 mg Q8HP PRN IV 10/09/24 15:45 10/10/24 06:51 0.5 MG Hydrochlorothiazide 25 mg DAILY PO 10/10/24 10:00 10/11/24 08:42 25 MG Sodium Chloride 10 ml Q8HR IV 10/09/24 22:00 10/11/24 14:57 10 ML Acetaminophen/ Hydrocodone Bitart 1 tab Q4HP PRN PO 10/09/24 15:45 Ondansetron HCl 4 mg Q4HP PRN IV 10/09/24 15:45 10/10/24 00:48 4 MG Docusate Sodium 100 mg BIDPRN PRN PO 10/09/24 15:45 Acetaminophen 650 mg Q6HP PRN PO 10/09/24 15:45 Nitroglycerin 0.4 mg Q5MINP PRN SL 10/09/24 16:30 Morphine Sulfate 2 mg Q30M PRN IV 10/09/24 16:30 10/10/24 00:40 2 MG Diagnostic Test (Pha) 1 strip ACHS 10/10/24 17:00 10/11/24 11:16 1 STRIP Insulin Human Regular ACHS SC 10/10/24 17:00 10/11/24 06:43 2 UNITS Dextrose 50 ml UD PRN IV 10/10/24 14:30 Amlodipine Besylate 10 mg DAILY PO 10/11/24 14:30 10/11/24 15:37 10 MG Metoprolol Tartrate 50 mg BID PO 10/11/24 22:00 Hydralazine HCl 10 mg Q6HP PRN IV 10/11/24 16:00 UNV Laboratory Results Laboratory Tests 10/10/24 04:49 Urinalysis Test 10/10/24 17:51 Urine Color Light-yellow (Yellow) Urine Clarity Clear (Clear) Urine pH 6.0 (5.0-9.0) Urine Specific [place] 1.018 (1.001-1.035) Urine Protein 3+ (Negative) H Urine Ketones Negative (Negative) Urine Blood 1+ /uL (Negative) H Urine Nitrite Negative (Negative) Urine Bilirubin Negative (Negative) Urine Urobilinogen Normal mg/dL (Negative) Urine Leukocyte Esterase Negative /uL (Negative) Urine RBC 2 /hpf (0 - 4) Urine Microscopic WBC 3 /HPF (0-5) Urine Squamous Epithelial Cells Few /hpf (<5) Urine Bacteria Few /hpf (None Seen) H Urine Creatinine 164.52 mg/dL (30.0-125.0) H Urine Protein/Creatinine Ratio 3.81 Urine Glucose Trace mg/dL (Normal) Urine Total Protein 627.1 mg/dL (1-14) H Microbiology Microbiology Date/Time Source Procedure Growth Status 10/10/24 03:37 Nose MRSA Screen - Final Complete Labs and/or images reviewed: Labs reviewed by me, Image(s) reviewed by me Assessment/Plan Assessment/Plan Impression: -Hypertensive Crisis -Obesity -Pancytopenia -CKD stage 3b -Obesity -Pancolitis Plan: -Renal artery ultrasound: Reviewed. No notation of renal artery stenosis -Check Renin, angiotensin, pending serum metanephrines also pending -Increase Metoprolol Tartrate, continue amlodipine, hydrochlorothiazide -nephrology consultation -long discussion made with the patient's stay regarding plan of care. Patient is contemplating leaving against medical advice out of frustration. Dr. Calderón, neurology has spoke to the patient on multiple occasions stay regarding plan of care. -if patient does not leave against medical advice this afternoon, we will plan for carotid ultrasound to rule out fibromuscular dysplasia as well as having interventional radiologist compare both renal artery scans. Total time spent with patient discussing and formulating plan of care: 35 minutes. Total time spent with patient and family regarding advance care plannin minutes. This medical document was created using an electronic medical record system with RUN dictation system. Although this document has been carefully reviewed, there may still be some phonetic and typographical errors. These areas are purely typographical due to imperfections of the software programs, and do not reflect any compromise in the patient's medical care. Plan discussed with: Patient, Other (RN) My Orders Orders - RADHA PROCTOR NP Procedure Category Date Status Time Metoprolol Tartrate PHA 10/11/24 In Process Tablet (Lopressor Ta 22:00 Hydralazine Injection PHA 10/11/24 Logged (Apresoline Inject 16:00 Date of Service: Oct 11, 2024 Billing Provider: RADHA PROCTOR NP Common Visit Codes: 57615-[id number] INP/OBS CARE(HIGH) RADHA PROCTOR NP Oct 11, 2024 16:26
[2024-10-11] MEDS: METOPROLOL TARTRATE 25 MG TAB PO SCH (21:53)
[2024-10-12] VITALS (7 sets, daily range): BP systolic 126–151; BP diastolic 87–99; PULSE 70–93; RESP 16–20; TEMP 97.8–98.1; O2SAT 96–100
[2024-10-12 07:40] LABS: Hematocrit 36.3 % (36.0-46.0); Hemoglobin 12.9 g/dL (12.2-16.2); Mean Corpuscular Hemoglobin 32.2 pg (28.0-32.0); Mean Corpuscular Volume 90.8 fL (80.0-100.0); Nucleated Red Blood Cells % 0.1 %
[2024-10-12 07:55] LABS: Chloride 102 mmol/L (98-107); Potassium 3.7 mmol/L (3.5-5.1); Sodium 136 mmol/L (136-145)
[2024-10-12 07:56] LABS: Anion Gap 11 (5-15); Calcium 8.8 mg/dL (8.7-10.4); Carbon Dioxide 23 mmol/L (20-31)
[2024-10-12 08:01] LABS: BUN/Creatinine Ratio 12.4 (10.0-20.0); Blood Urea Nitrogen 24 mg/dL (9-23); Glucose 127 mg/dL (74-106)
[2024-10-12] MEDS ORDERED: CARVEDILOL 12.5 MG TAB PO SCH ×2 (10:00→22:00)
--- NOTE | 2024-10-12 10:06 | DVH ---
CLINICAL HISTORY: rule out fibromuscular dysplasia TECHNIQUE: Mora-scale, color and duplex doppler imaging of the bilateral carotid systems was performe d. COMPARISON: None Findings: Right carotid system: There is no plaque present in the right carotid system. Left carotid system: There is no plaque present in the left carotid system. The following flow velocities were obtained (Cm/sec). Right carotid System: ICA PSV: 96 Cm/sec ICA PDV: 57 Cm/sec ICA/CCA Ratio: 1.5 Left carotid System: ICA PSV: 73 Cm/sec ICA PDV: 40 Cm/sec ICA/CCA Ratio: 1.1 The right and left common carotid and external carotid arteries are patent. There is antegrade flow i n both vertebral arteries and external carotid arteries. IMPRESSION: NORMAL RIGHT CAROTID SYSTEM. NORMAL LEFT CAROTID SYSTEM. If more accurate assessment for fibromuscular dysplasia is warranted, CTA of the neck is recommended. Estimation of carotid stenosis is based on velocity parameters that correlate the residual internal c arotid Diameter with that of the more distal vessel in accordance with the [place] symptomatic Carotid Endarterectomy trial (NASCET).
--- NOTE | 2024-10-12 11:13 | DVHPN2 ---
Progress Note Date Seen: Oct 12, 2024 Medical Necessity Reason Pt with a Central, PICC or Fol: No Subjective Patient reports: No new complaints Other Systems: Patient seen and examined by myself today in follow-up Objective vital signs Vital Sign Date Time Temp Pulse Resp B/P (MAP) Pulse Ox O2 Delivery O2 Flow Rate FiO2 10/12/24 09:18 138/91 10/12/24 09:17 93 10/12/24 08:44 97.8 16 100 97.8 10/12/24 08:06 Room Air* 0 21 Total Intake and Output 10/11/24 10/11/24 10/12/24 15:00 23:00 07:00 Intake Total 900 ml 500 ml Balance 900 ml 500 ml medications Current Medications Medications Dose Ordered Sig/Lucie Route Start Time Stop Time Status Last Admin Dose Admin Atorvastatin Calcium 40 mg HS PO 10/09/24 22:00 10/11/24 21:53 40 MG Clonidine HCl 0.1 mg Q4HP PRN PO 10/09/24 15:45 10/11/24 18:13 0.1 MG Lorazepam 0.5 mg Q8HP PRN IV 10/09/24 15:45 10/10/24 06:51 0.5 MG Hydrochlorothiazide 25 mg DAILY PO 10/10/24 10:00 10/12/24 09:18 25 MG Sodium Chloride 10 ml Q8HR IV 10/09/24 22:00 10/12/24 06:00 10 ML Acetaminophen/ Hydrocodone Bitart 1 tab Q4HP PRN PO 10/09/24 15:45 Ondansetron HCl 4 mg Q4HP PRN IV 10/09/24 15:45 10/10/24 00:48 4 MG Docusate Sodium 100 mg BIDPRN PRN PO 10/09/24 15:45 Acetaminophen 650 mg Q6HP PRN PO 10/09/24 15:45 Nitroglycerin 0.4 mg Q5MINP PRN SL 10/09/24 16:30 Morphine Sulfate 2 mg Q30M PRN IV 10/09/24 16:30 10/10/24 00:40 2 MG Diagnostic Test (Pha) 1 strip ACHS 10/10/24 17:00 10/11/24 16:42 1 STRIP Insulin Human Regular ACHS SC 10/10/24 17:00 10/11/24 16:44 2 UNITS Dextrose 50 ml UD PRN IV 10/10/24 14:30 Amlodipine Besylate 10 mg DAILY PO 10/11/24 14:30 10/12/24 09:18 10 MG Hydralazine HCl 10 mg Q6HP PRN IV 10/11/24 16:00 Carvedilol 25 mg Q12HR PO 10/12/24 22:00 Examination: LUNGS:Normal, CVS:Normal, MSK:Normal laboratory and microbiology Laboratory Tests 10/12/24 06:34 Test 10/12/24 06:34 Range/Units Serum Glucose 127 H 74-106 mg/dL Microbiology Date/Time Source Procedure Growth Status 10/10/24 03:37 Nose MRSA Screen - Final Complete Problem List/Assessment/Plan Problem List/Assessment/Plan Acute kidney injury superimposed Chronic Kidney Disease stage 3 secondary hemodynamic mediated hypertensive emergency Chronic diastolic Congestive heart failure 1.1 cm left adrenal nodule Pancolitis Nephrotic range proteinuria Recommendations Kidney function slightly worsened today Strict I&Os Blood pressure control Renin Ino is pending Doppler renal ultrasound is negative for renal artery stenosis GI consult We will continue to follow Plan discussed with: Patient CHARLEEN MORENO MD Oct 12, 2024 11:13
[2024-10-12] MEDS ORDERED: CARV-217 PO (13:17)
[2024-10-12] MEDS ORDERED: AML5T PO (13:17)
--- NOTE | 2024-10-12 14:17 | DVHDS2 ---
Discharge Summary Date of Admission Oct 09, 2024 at 16:16 Date of Discharge: Oct 12, 2024 Admitting Diagnosis Chest pain of unknown etiology Labs/Diagnostic Data: Laboratory Results Test 10/12/24 06:34 10/11/24 21:03 10/11/24 16:30 10/11/24 15:22 White Blood Count 5.4 10^3/uL (4.4-10.8) Red Blood Count 4.00 10^6/uL (4.0-5.20) Hemoglobin 12.9 g/dL (12.2-16.2) Hematocrit 36.3 % (36.0-46.0) Mean Corpuscular Volume 90.8 fL (80.0-100.0) Mean Corpuscular Hemoglobin 32.2 pg (28.0-32.0) Mean Corpuscular Hemoglobin Concent 35.4 g/dL (32.0-36.0) Red Cell Distribution Width 12.7 % (11.8-14.3) Platelet Count 281 10^3/uL (140-450) Mean Platelet Volume 8.4 fL (6.9-10.8) Neutrophils (%) (Auto) 37.0 % (37.0-80.0) Lymphocytes (%) (Auto) 53.1 % (10.0-50.0) Monocytes (%) (Auto) 7.0 % (0.0-12.0) Eosinophils (%) (Auto) 2.1 % (0.0-7.0) Basophils (%) (Auto) 0.8 % (0.0-2.0) Neutrophils # (Auto) 2.0 10 ^3/uL (1.6-8.6) Lymphocytes # (Auto) 2.9 10 ^3/uL (0.4-5.4) Monocytes # (Auto) 0.4 10 ^3/uL (0-1.3) Eosinophils # (Auto) 0.1 10 ^3/uL (0-0.8) Basophils # (Auto) 0 10 ^3/uL (0-0.2) Nucleated Red Blood Cells 0.1 % Sodium Level 136 mmol/L (136-145) Potassium Level 3.7 mmol/L (3.5-5.1) Chloride Level 102 mmol/L (98-107) Carbon Dioxide Level 23 mmol/L (20-31) Anion Gap 11 (5-15) Blood Urea Nitrogen 24 mg/dL (9-23) Creatinine 1.93 mg/dL (0.550-1.02) Glomerular Filtration Rate Calc 36 mL/min (>90) BUN/Creatinine Ratio 12.4 (10.0-20.0) Serum Glucose 127 mg/dL (74-106) Calcium Level 8.8 mg/dL (8.7-10.4) POC Glucose 149 mg/dl (70-106) Test 10/10/24 17:51 10/10/24 04:49 10/09/24 12:12 Urine Color Light-yellow (Yellow) Urine Clarity Clear (Clear) Urine pH 6.0 (5.0-9.0) Urine Specific [place] 1.018 (1.001-1.035) Urine Protein 3+ (Negative) Urine Ketones Negative (Negative) Urine Blood 1+ /uL (Negative) Urine Nitrite Negative (Negative) Urine Bilirubin Negative (Negative) Urine Urobilinogen Normal mg/dL (Negative) Urine Leukocyte Esterase Negative /uL (Negative) Urine RBC 2 /hpf (0 - 4) Urine Microscopic WBC 3 /HPF (0-5) Urine Squamous Epithelial Cells Few /hpf (<5) Urine Bacteria Few /hpf (None Seen) Urine Creatinine 164.52 mg/dL (30.0-125.0) Urine Protein/Creatinine Ratio 3.81 Urine Glucose Trace mg/dL (Normal) Urine Total Protein 627.1 mg/dL (1-14) Urine Opiates Screen Neg (NEGATIVE) Urine Fentanyl Screen Neg (NEGATIVE) Urine Barbiturates Screen Neg (NEGATIVE) Urine Phencyclidine Screen Neg (NEGATIVE) Urine Amphetamines Screen Neg (NEGATIVE) Urine Benzodiazepines Screen Neg (NEGATIVE) Urine Cocaine Screen Neg (NEGATIVE) Urine Cannabinoids Screen Pos (NEGATIVE) Total Bilirubin 0.6 mg/dL (0.2-1.0) Aspartate Amino Transferase (AST) 16 U/L (13-40) Alanine Aminotransferase (ALT) 13 U/L (7-40) Alkaline Phosphatase 102 U/L (46-116) Total Protein 7.7 g/dL (5.7-8.2) Albumin 4.7 g/dL (3.2-4.8) Troponin I High Sensitivity 4 ng/L (</=34) Other Laboratory Tests 10/12/24 06:34 Brief Hx & Hospital Course: History of Present Illness The patient is a 29-year-old female with past medical history of asthma, DM, hypertension, hyperlipidemia chronic kidney disease stage III presented to [facility] ED with complaint of chest pain. Patient reports she has been experiencing left-sided chest pain, rating 7/10 numeric scale, intermittent, nonradiating, associated with abdominal pain, nausea, vomiting, generalized weakness, getting worse that prompted this visit. Patient was seen and evaluated in the ED, laboratory data shows WBC 6.9, platelets 357, sodium 140, potassium 4.9, BUN 18, creatinine 1.78, GFR 39, glucose 262, anion gap 14, calcium 9.7, troponin 4, blood pressure 204/130 trending down to 118/80, heart rate 113 trending down to 92, temperature 98.0 F, O2 saturation 98% on room air. Chest x-ray/abdomen/pelvis CT results pending. Patient was given labetalol 10 mg IV x1, please see medication orders section in the computer. On my assessment, patient denies chest pain at this moment, no headache, no dizziness, no diaphoresis, no shortness of breaths, no abdominal pain, nausea or vomiting at this moment, no fever, no chills. Patient was admitted for further evaluation and medical management. Course of hospitalization: Patient had titration of oral medications which to treat appropriate blood pressure control. Long discussion was made with the patient by myself as well as with project inspector, Dr. Calderón. Patient has had multiple admissions for chest pain, abdominal pain, as well as accelerated hypertension. Patient had renal artery Doppler study which did not reveal any stenosis. Patient was told in the past that she did have renal artery stenosis and is scheduled for evaluation for possible renal artery denervation versus stent. Patient was noted to be in chronic renal failure. Plasma metanephrines and renin and angiotensin levels are currently pending. Patient did have carotid artery Doppler study to rule out fibromuscular dysplasia. Carotid artery Doppler study was negative. Patient will be discharged and is instructed to follow up with Nephrology, PCP, as well as discharge Clinic within the next 1-2 weeks. Patient will be continued on current antihypertensive regimen including hydrochlorothiazide, Coreg, amlodipine, as well as continuing with valsartan. She is agreeable with discharge plan. All questions answered Physical examination General: Alert and Oriented x3. No acute distress. Well-nourished. Obese Eyes: EOMI. Anicteric. HENT: Moist mucous membranes. Lungs: Clear to auscultation bilaterally. No accessory muscle use. Cardiovascular: Regular rate and rhythm. No murmur. No JVD. Abdomen: Soft, non-tender and non-distended. No palpable masses. Extremities: No edema. Non-tender. Skin: No rashes or lesions. Warm. Neurologic: No focal neurological deficits. CN II-XII grossly intact, but not individually tested. Psychiatric: Cooperative. Appropriate mood and affect. Total time spent with patient discussing and formulating plan of care: 35 minutes. This medical document was created using an electronic medical record system with [employer] dictation system. Although this document has been carefully reviewed, there may still be some phonetic and typographical errors. These areas are purely typographical due to imperfections of the software programs, and do not reflect any compromise in the patient's medical care. Consults/Reason for consult Nephrology: Chronic kidney disease, accelerated hypertension Condition at Discharge: Guarded Final Diagnosis/Problems List CHEST PAIN SECONDARY TO HYPERTENSIVE CRISIS. Secondary diagnosis: -Hypertensive Crisis -Obesity -Pancytopenia -CKD stage 3b -Obesity -Pancolitis Discharge Disposition: Home Discharge Instruct/Medications Diet: Cardiac 2g Na,low cholest Activity: No Restrictions, As Tolerated Follow Up/Referral: DC clinic in [address] Carbone in 1-[address] Calderón in 1-2 weeks Medications: Coreg 25mg po BID Amlodipine 10mg po daily HCTZ 50mg po daily Valsaartan 80mg po daily Scheduled Amlodipine Besylate (Norvasc Tablet), 2 TAB PO DAILY Atorvastatin Calcium (Atorvastatin Calcium), 40 MG PO HS Carvedilol (Coreg), 1 TAB PO BID Ergocalciferol (Vitamin D 72204 Unit), 50,000 UNIT PO QWEEKLY Hctz (Hydrochlorothiazide), 25 MG PO DAILY Semaglutide (Ozempic), 1 MG SC QWEEKLY, (Reported) Valsartan (Valsartan), 80 MG PO DAILY Discontinued Medications Clonidine Hydrochloride (Clonidine Hcl), 0.1 MG PO Q8HP PRN Nifedipine (Nifedipine Er), 90 MG PO DAILY 36 Discharge Statement: "Patient was advised to return to the ER or call 911 if any headaches, dizziness, shortness of breath, chest pain, abdominal pain, bleeding, fevers, or worsening of medical condition. Patient was counseled about treatment plan, medications, possible side effects, patientverbalized understanding. All questions were answered to the best of my ability. This discharge took greater then 30 minutes in planning, reviewing documentation, counseling the patient, and discussing with other team members." ASSESSMENT ASSESSMENT Assessment CHEST PAIN SECONDARY TO HYPERTENSIVE CRISIS. Date of Service: Oct 12, 2024 Billing Provider: RADHA PROCTOR NP Common Visit Codes: 56399-LVC/OBS DISCH DAY >30min RADHA PROCTOR NP Oct 12, 2024 14:17
== END 2024-10-12 14:32 | disposition home or self-care (01) | DRG 199 ==
LOC: ER 10:55 → EDBD 10:55 → OVERFLOW 16:16 → ICU CENTRL 10-10 03:34 → TELE-WESTW 10-10 18:10
PROVIDERS: ADMIT Nurse Practitioner Acute Care; ATTEND Nurse Practitioner Acute Care
DX: I16.1 Hypertensive emergency (principal); N17.9 Acute kidney failure, unspecified; D61.818 Other pancytopenia; E27.8 Other specified disorders of adrenal gland; E11.22 Type 2 diabetes mellitus with diabetic chronic kidney disease; I50.32 Chronic diastolic (congestive) heart failure; Z68.30 Body mass index [BMI] 30.0-30.9, adult; I13.0 Hypertensive heart and chronic kidney disease with heart failure and stage 1 through stage 4 chronic kidney disease, or unspecified chronic kidney disease; E66.9 Obesity, unspecified; N18.32 Chronic kidney disease, stage 3b; J45.909 Unspecified asthma, uncomplicated; E11.65 Type 2 diabetes mellitus with hyperglycemia; K52.9 Noninfective gastroenteritis and colitis, unspecified; F12.90 Cannabis use, unspecified, uncomplicated; E78.5 Hyperlipidemia, unspecified; Z91.148 Patient's other noncompliance with medication regimen for other reason; Z87.59 Personal history of other complications of pregnancy, childbirth and the puerperium; Z83.3 Family history of diabetes mellitus; Z82.49 Family history of ischemic heart disease and other diseases of the circulatory system
CPT/HCPCS: 36415; 71046; 74176; 80048; 80053; 80307; 81001; 82024; 82088; 82570; 82962; 83835; 84156; 84244; 84484; 85025; 87081; 93005; 93886; 93976; 96360; 99291; 99292; G0378; J1815; J2405

== ENCOUNTER 2024-12-03 13:56 | Emergency (ER) | payer MEDICAID ==
[~2024-12-03] VITALS: Ht 170.2 cm; Wt 97.6 kg
[~2024-12-03 13:56] MED LIST changes: +AML5T PO; +CARV-217 PO; -NIFE1TAB31 PO; +NIFE90TA75 PO; +SEMA4INJ SC; +VALS1TAB59 PO
[2024-12-03 14:06] VITALS: BP 199/144; RESP 26; TEMP 97.7; O2SAT 100
--- NOTE | 2024-12-03 14:27 | ED.PDOC ---
GI ASSESSMENT HPI Comments 29y F who presents to the ED via EMS for chief complaint of nausea and vomiting. EMS states pt woke up this AM and started to have nausea with dizziness and started to vomiting episode with green/ trujillo vomitus. Pt continued to have 3x more vomiting episodes and called EMS. EMS arrived on scene and pt was not given Zofran after noting pt had EKG which showed prolonged QT. Pt had IV established and was brought to the ED. EMS notes pt had elevated blood pressure of 190/130 with noted accu check of 257. Pt now in the ED, states she has not been able to take her HTN medications. Pt otherwise now in the ED, states she is having R sided abdominal pain, hot and cold chills. Pt otherwise denies any other symptoms at this time. Chief Complaint: Nausea/Vomiting Time Seen by MD: 14:25 Primary Care Provider: kar Menard Notes: Trade Facilitator Notes, Medications, Allergies Allergies: Coded Allergies: NO KNOWN ALLERGIES (Unverified , 04/24/17) Home Meds Active Scripts Pantoprazole Sodium Sesquihydr (Protonix) 40 Mg Tab, 40 MG PO DAILY, #30 TAB Prov:RAMAKRISHNA ABBOTT MD 12/03/24 Ondansetron Odt 4MG Tab (ZOFRAN PO) 4 Mg Tb, 4 MG PO Q8HP PRN for 6 Days, #18 TAB ODT TAB-DISSOLVE IN MOUTH, THEN SWALLOW Prov:RAMAKRISHNA ABBOTT MD 12/03/24 Amlodipine Besylate (NORVASC TABLET) 5 Mg Tb, 2 TAB PO DAILY, #30 TAB 5 Refills Prov:RADHA PROCTOR NP 10/12/24 Carvedilol (Coreg) 25 Mg Tab, 1 TAB PO BID, #60 TAB 5 Refills Prov:RADHA PROCTOR NP 10/12/24 Valsartan (Valsartan) 80 Mg Tab, 80 MG PO DAILY for 28 Days, #28 TAB Prov:BLAISE DILLON 07/06/24 Hctz (Hydrochlorothiazide) 25 Mg Tab, 25 MG PO DAILY for 28 Days, #28 TAB Prov:BLAISE DILLON 07/06/24 Ergocalciferol (VITAMIN D 73799 UNIT) 50,000 [place], [address] UNIT PO QWEEKLY for 56 Days, #8 CAP 0 Refills Prov:BLAISE DILLON RESIDENT 07/06/24 Atorvastatin Calcium (ATORVASTATIN CALCIUM) 40 Mg Tab, 40 MG PO HS for 28 Days, #28 TAB 0 Refills Prov:BLAISE DILLON RESIDENT 07/06/24 Reported Medications Semaglutide (Ozempic) 4 Mg/3 Ml Inj, 1 MG SC QWEEKLY 10/10/24 Information Source: Patient, Emergency Med Personnel Mode of Arrival: EMS Brought in by: EMS Timing: Hours Duration: Since onset Prehospital treatment: None Vomitus: Bilious, Food Particles Stool: Normal Severity: Moderate Recent: None Recent Hx of: Diabetes Pain Location: RUQ, RLQ Modifying Factors: Food Associated sign and symptoms: Nausea, Vomiting, Other (chills, dizziness) Past Medical History PAST MEDICAL HISTORY: Asthma, DM, HTN 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 all 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 MAKING MACHINE OPERATOR Hx Family History Family History: No family hx of DM, No family hx of Heart jefferson, No family hx of HTN Social History Smoker: Non-Smoker Alcohol: Denies ETOH Use Drugs: Marijuana Lives In: Home Constitutional: reports: chills; denies: diaphoresis, fatigue, fever, malaise, sweats, weakness, others EENTM: denies: blurred vision, double vision, ear bleeding, ear discharge, ear drainage, ear pain, ear ringing, eye pain, eye redness, hearing loss, mouth pain, mouth swelling, nasal discharge, nose bleeding, nose congestion, nose pain, photophobia, tearing, throat pain, throat swelling, voice changes, others Respiratory: denies: cough, hemoptysis, orthopnea, SOB at rest, shortness of breath, SOB with excertion, stridor, wheezing, others Cardiovascular: denies: chest pain, dizzy spells, diaphoresis, Dyspnea on exertion, edema, irregular heart beat, left arm pain, lightheadedness, palpitations, PND, syncope, others Gastrointestinal: reports: nausea, vomiting; denies: abdomen distended, abdominal pain, blood streaked bowels, constipated, diarrhea, dysphagia, difficulty swallowing, hematemesis, melena, poor appetite, poor fluid intake, rectal bleeding, rectal pain, others Genitourinary: denies: abnormal vagina bleeding, burning, dyspareunia, dysuria, flank pain, frequency, hematuria, incontinence, pain, , vagina discharge, urgency, others Neurological: reports: dizziness; denies: fainting, headache, left sided numbness, left sided weakness, numbness, paresthesia, pre-existing deficit, right sided numbness, right sided weakness, seizure, speech problems, tingling, tremors, weakness, others Musculoskeletal: denies: back pain, gout, joint pain, joint swelling, muscle pain, muscle stiffness, neck pain, others Integumetry: denies: bruises, change in color, change in hair/nails, dryness, laceration, lesions, lumps, rash, wounds, others Allergic/Immunocompromised: denies: Difficulty Healing, Frequent Infections, Hives, Itching, others Hematologic/Lymphatic: denies: anemia, blood clots, easy bleeding, easy bruising, swollen glands, others Endocrine: denies: excessive hunger, excessive sweating, excessive thirst, excessive urination, flushing, intolerance to cold, intolerance to heat, unexplained weight gain, unexplained weight loss, others Psychiatric: denies: anxiety, bipolar disorder, depression, hopeless, panic disorder, schizophrenia, sleepless, suicidal, others All Other Systems: Reviewed and Negative Physical Exam General Appearance: Mild Distress HEENT: Normal ENT Inspection, Pharynx Normal, TMs Normal Neck: Full Range of Motion, Non-Tender, Normal, Normal Inspection Respiratory: Chest Non-Tender, Lungs Clear, No Accessory Muscle Use, No Respiratory Distress, Normal Breath Sounds Cardiovascular: No Edema, No JVD, No Murmur, No Gallop, Normal Peripheral Pulses, Regular Rate/Rhythm Breast Exam: Deferred Gastrointestinal: No Organomegaly, Non Tender, No Pulsatile Mass, Normal Bowel Sounds, Soft Genitalia: Deferred Pelvic: Deferred Rectal: Deferred Extremities: No calf tenderness, Normal capillary refill, Normal inspection, Normal range of motion, Non-tender, No pedal edema Musculoskeletal : Apperance: Normal Neurologic: Alert, mold carrier II-XII nml as Tested, Motor Weakness, Normal Affect, Normal Mood, No Sensory Deficits Cerebellar Function: Normal Reflexes: Normal Skin: Dry, Normal Color, Warm Lymphatic: No Adenopathy EKG EKG : Pulse Rate (adult): 101 [place]: Normal Cardiac Rhythm: ST Comments prolonged QT interval Was a procedure done? Was a procedure done?: No GI differential Dx Differential Diagnosis: Gastritis/PUD, Gastroenteritis, Pancreatitis, UTI, Dehydration, Diabetes/ DKA, Electrolyte Imbalance, Food Poisoning, Bacterial, Viral Other Differential Diagnosis uncontrolled DM, HTN urgency, hyperemesis cannabinoid syndrome X-Ray, Labs, Meds, VS Vital Signs Date Time Temp Pulse Resp B/P (MAP) Pulse Ox O2 Delivery O2 Flow Rate FiO2 12/03/24 14:40 101 12/03/24 14:06 97.7 105 26 199/144 100 97.7 Lab Test 12/03/24 14:29 Range/Units White Blood Count 7.9 4.4-10.8 10^3/uL Red Blood Count 4.09 4.0-5.20 10^6/uL Hemoglobin 12.9 12.2-16.2 g/dL Hematocrit 37.8 36.0-46.0 % Mean Corpuscular Volume 92.3 80.0-100.0 fL Mean Corpuscular Hemoglobin 31.5 28.0-32.0 pg Mean Corpuscular Hemoglobin Concent 34.1 32.0-36.0 g/dL Red Cell Distribution Width 12.3 11.8-14.3 % Platelet Count 330 140-450 10^3/uL Mean Platelet Volume 8.4 6.9-10.8 fL Neutrophils (%) (Auto) 84.4 H 37.0-80.0 % Lymphocytes (%) (Auto) 13.0 10.0-50.0 % Monocytes (%) (Auto) 2.0 0.0-12.0 % Eosinophils (%) (Auto) 0.2 0.0-7.0 % Basophils (%) (Auto) 0.4 0.0-2.0 % Neutrophils # (Auto) 6.7 1.6-8.6 10 ^3/uL Lymphocytes # (Auto) 1.0 0.4-5.4 10 ^3/uL Monocytes # (Auto) 0.2 0-1.3 10 ^3/uL Eosinophils # (Auto) 0 0-0.8 10 ^3/uL Basophils # (Auto) 0 0-0.2 10 ^3/uL Nucleated Red Blood Cells 0.1 % Sodium Level 139 136-145 mmol/L Potassium Level 4.7 3.5-5.1 mmol/L Chloride Level 108 H 98-107 mmol/L Carbon Dioxide Level 19 L 20-31 mmol/L Anion Gap 12 5-15 Blood Urea Nitrogen 18 9-23 mg/dL Creatinine 1.72 H 0.550-1.02 mg/dL Glomerular Filtration Rate Calc 41 >90 mL/min BUN/Creatinine Ratio 10.5 10.0-20.0 Serum Glucose 256 H 74-106 mg/dL Calcium Level 9.9 8.7-10.4 mg/dL Current Medications Medications (Trade) Dose Ordered Sig/Lucie Route Start Time Stop Time Status Last Admin Sodium Chloride 1,000 ml @ 1,000 mls/hr Q1H ONCE IV 12/03/24 14:15 12/03/24 15:14 DC 12/03/24 14:49 Prochlorperazine Edisylate (Compazine Inj) 10 mg ONCE ONCE IV 12/03/24 14:15 12/03/24 14:16 DC 12/03/24 14:49 Pantoprazole Sodium (Protonix) 40 mg ONCE ONCE IV 12/03/24 14:15 12/03/24 14:16 DC 12/03/24 14:49 Ketorolac Tromethamine (Toradol Injection) 30 mg ONCE ONCE IV 12/03/24 14:15 12/03/24 14:16 DC 12/03/24 14:49 IV Hep-Lock was established The patient was given a 1 L bolus of normal saline The patient was given Compazine 10 mg IV push for the nausea and vomiting The patient was given Protonix 40 mg IV push The patient was given ketorolac 30 mg IV push The patient's chemistry panel shows a creatinine of 1.72 and a CO2 of 19 but otherwise within normal limits. The anion gap is within normal limits. The patient's CBC is within normal limits. At this time the patient did receive substance abuse counseling The patient is being discharged on Zofran and Protonix Time of 1ST Reevaluation: 14:55 Reevaluation 1ST: Unchanged Patient Education/Counseling: Diagnosis, Treatment, Prognosis, Need For Follow Up Family Education/Counseling: No Family Present SEPSIS Sepsis Screen Date sepsis recognized/suspect: Dec 03, 2024 Time Sepsis recognized/suspect: 1358 Recent Procedure: No On Antibiotic Therapy: No Respiratory Rate >20: Yes Heart Rate >90: Yes Temp<36 C (96.8 F) or >38.3 C: No SBP <90 or MAP <65 mmHG: No New Acute Mental Status Change: No Is the patient on CPAP, BIPAP,: No Physician Orders Urinalysis (12/03/24 14:13) Heplock Iv (12/03/24 14:13) Test, Urine (12/03/24 14:13) Vital Signs Date Time Temp Pulse Resp B/P (MAP) Pulse Ox O2 Delivery O2 Flow Rate FiO2 12/03/24 14:40 101 12/03/24 14:06 97.7 105 26 199/144 100 97.7 Laboratory Tests Test 12/03/24 14:29 White Blood Count 7.9 10^3/uL (4.4-10.8) Medications Medications Dose Ordered Sig/Lucie Route Start Time Stop Time Status Last Admin Dose Admin Ketorolac Tromethamine 30 mg ONCE ONCE IV 12/03/24 14:15 12/03/24 14:16 DC 12/03/24 14:49 Pantoprazole Sodium 40 mg ONCE ONCE IV 12/03/24 14:15 12/03/24 14:16 DC 12/03/24 14:49 Prochlorperazine Edisylate 10 mg ONCE ONCE IV 12/03/24 14:15 12/03/24 14:16 DC 12/03/24 14:49 Sodium Chloride 1,000 ml @ 1,000 mls/hr Q1H ONCE IV 12/03/24 14:15 12/03/24 15:14 DC 12/03/24 14:49 Departure 1 Departure Time of Disposition: 16:28 Impression: Primary Impression: Cannabinoid hyperemesis syndrome Disposition: 01 HOME / SELF CARE / HOMELESS Condition: Fair e-Prescriptions Pantoprazole Sodium Sesquihydr (Protonix) 40 Mg Tab 40 MG PO DAILY, #30 TAB Prov: RAMAKRISHNA ABBOTT MD 12/03/24 Ondansetron Odt 4MG Tab (ZOFRAN PO) 4 Mg Tb 4 MG PO Q8HP PRN for 6 Days, #18 TAB ODT TAB-DISSOLVE IN MOUTH, THEN SWALLOW Prov: RAMAKRISHNA ABBOTT MD 12/03/24 Discharged With: Self Critical Care Note Critical Care Time?: No Stability Stability form required: No Heart Score Heart Score: Heart Score Response (Comments) Value History N/A 0 EKG N/A 0 Age N/A 0 Risk Factors N/A 0 Troponin N/A 0 Total 0 I personally scribed for RAMAKRISHNA ABBOTT MD ([email or web address]) on 12/03/24 at 14:27. Electronically submitted by Brooke Ortiz ([email or web address]). I personally scribed for RAMAKRISHNA ABBOTT MD ([email or web address]) on 12/03/24 at 14:40. Electronically submitted by Brooke Ortiz ([email or web address]). RAMAKRISHNA ABBOTT MD Dec 03, 2024 14:27
[2024-12-03 14:40] VITALS: PULSE 101
[2024-12-03 14:43] LABS: Hematocrit 37.8 % (36.0-46.0); Hemoglobin 12.9 g/dL (12.2-16.2); Mean Corpuscular Hemoglobin 31.5 pg (28.0-32.0); Mean Corpuscular Volume 92.3 fL (80.0-100.0); Nucleated Red Blood Cells % 0.1 %
[2024-12-03 14:49] LABS: Potassium 4.7 mmol/L (3.5-5.1); Sodium 139 mmol/L (136-145)
[2024-12-03] MEDS: PANTOPRAZOLE 40 MG/10 ML VIAL INJ IV ONE (14:49)
[2024-12-03] MEDS: KETOROLAC TROMETH 30 MG/ML 1ML VIAL IV ONE (14:49)
[2024-12-03] MEDS: PROCHLORPERAZINE EDISYLATE 5 MG/ML 2ML VIAL IV ONE (14:49)
[2024-12-03] MEDS: SODIUM CHLORIDE 0.9% 1,000 ML IV ONE (14:49)
[2024-12-03 14:50] LABS: Anion Gap 12 (5-15); Calcium 9.9 mg/dL (8.7-10.4); Carbon Dioxide 19 mmol/L (20-31); Chloride 108 mmol/L (98-107)
[2024-12-03 14:55] LABS: BUN/Creatinine Ratio 10.5 (10.0-20.0); Blood Urea Nitrogen 18 mg/dL (9-23); Glucose 256 mg/dL (74-106)
[2024-12-03] MEDS ORDERED: PANT40TA2 PO (16:27)
[2024-12-03] MEDS ORDERED: ZOFR4T PO (16:27)
--- NOTE | 2024-12-06 09:34 | ECG ---
[facility] Test Date: 2024-12-03 Test Time: 13:58:29 Pat Name: AMARJIT FISHMAN Department: [facility] ED Patient ID: [facility]-[id number] Room: Gender: F [employer] Psychologist: juan : 1995 Requested By: RAMAKRISHNA ABBOTT Order Number: [id number] Reading MD: Clay Clinton Measurements Intervals Calvin Rate: 101 P: 52 UT: 151 QRS: 42 QRSD: 88 T: 78 QT: 387 QTc: 502 Interpretive Statements Sinus tachycardia Abnormal Q suggests anterior infarct Prolonged QT interval Electronically Signed On 12-08-2024 18:38:39 PDT by Clay Clinton Please click the below link to view image of tracing.
== END 2024-12-03 18:25 | disposition home or self-care (01) ==
LOC: ER 13:56 → EDBD 13:56 → ER 18:25
DX: R11.16 Cannabis hyperemesis syndrome (principal); F12.90 Cannabis use, unspecified, uncomplicated; J45.909 Unspecified asthma, uncomplicated; I10 Essential (primary) hypertension; E11.9 Type 2 diabetes mellitus without complications; Z79.899 Other long term (current) drug therapy; Z79.85 Long-term (current) use of injectable non-insulin antidiabetic drugs
CPT/HCPCS: 36415; 80048; 85025; 93005; 96361; 96374; 96375; 99284; J0780; J1885; J2470; J7030

== ENCOUNTER 2024-12-04 02:54 | Inpatient (IN) | payer MEDICAID ==
[~2024-12-04] VITALS: Ht 175.3 cm; Wt 95.8 kg
[~2024-12-04 02:54] MED LIST changes: +PANT40TA2 PO; +ZOFR4T PO
[2024-12-04] MEDS: SODIUM CHLORIDE 0.9% 1,000 ML IVB ONE (03:15)
[2024-12-04] MEDS: IOHEXOL 300 MG/ML 100ML BOTTLE IJ ONE (03:21)
--- NOTE | 2024-12-04 03:28 | ED.PDOC ---
History of Present Illness HPI Comments 29 y/o obese F presents with mother for c/c of chest and abdominal pain and nausea and vomiting for 2x days. Significant history of asthma, CKF IIIb, C- section, DM, HTN, pancolitis, pancytopenia, and marijuana use. Patient reports on being seen, earlier, at ED for same complaint and was discharged with canna binoid hyperemesis syndrome diagnosis and Protonix and Zofran. Denial of any bloody or bilious vomitus, diarrhea, constipation, fever, chills, or further associated symptoms. Chief Complaint: Abdominal Pain Time Seen by MD: 03:00 Primary Care Provider: kar Reviewed Notes: Nurses Notes, Medications, Allergies Allergies: Coded Allergies: NO KNOWN ALLERGIES (Unverified , 04/24/17) Home Meds Active Scripts Pantoprazole Sodium Sesquihydr (Protonix) 40 Mg Tab, 40 MG PO DAILY, #30 TAB Prov:RAMAKRISHNA ABBOTT MD 12/03/24 Ondansetron Odt 4MG Tab (ZOFRAN PO) 4 Mg Tb, 4 MG PO Q8HP PRN for 6 Days, #18 TAB ODT TAB-DISSOLVE IN MOUTH, THEN SWALLOW Prov:RAMAKRISHNA ABBOTT MD 12/03/24 Amlodipine Besylate (NORVASC TABLET) 5 Mg Tb, 2 TAB PO DAILY, #30 TAB 5 Refills Prov:RADHA PROCTOR NP 10/12/24 Carvedilol (Coreg) 25 Mg Tab, 1 TAB PO BID, #60 TAB 5 Refills Prov:RADHA PROCTOR NP 10/12/24 Valsartan (Valsartan) 80 Mg Tab, 80 MG PO DAILY for 28 Days, #28 TAB Prov:BLAISE DILLON 07/06/24 Hctz (Hydrochlorothiazide) 25 Mg Tab, 25 MG PO DAILY for 28 Days, #28 TAB Prov:BLAISE DILLON 07/06/24 Ergocalciferol (VITAMIN D 07618 UNIT) 50,000 [place], [address] UNIT PO QWEEKLY for 56 Days, #8 CAP 0 Refills Prov:BLAISE DILLON 07/06/24 Atorvastatin Calcium (ATORVASTATIN CALCIUM) 40 Mg Tab, 40 MG PO HS for 28 Days, #28 TAB 0 Refills Prov:BLAISE DILLON RESIDENT 07/06/24 Reported Medications Semaglutide (Ozempic) 4 Mg/3 Ml Inj, 1 MG SC QWEEKLY 10/10/24 Information Source: Patient Mode of Arrival: Wheelchair Severity: Moderate Timing: Hours Duration: Since onset Prehospital treatment: None Past Medical History PAST MEDICAL HISTORY: Asthma, CKF (stage IIIb), DM, HTN Past Medical History (Other): Pancytopenia Pancolitis 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 Family History Family History: No family hx of DM, No family hx of Heart jefferson, No family hx of HTN Social History Smoker: Non-Smoker Alcohol: Denies ETOH Use Drugs: Marijuana Lives In: Home All Other Systems: Reviewed and Negative (Comprehensive review of systems are negative unless stated in HPI) Physical Exam General Appearance: Moderate Distress, Obese HEENT: Normal ENT Inspection, Pharynx Normal, TMs Normal Neck: Full Range of Motion, Non-Tender, Normal, Normal Inspection Respiratory: Chest Non-Tender, Lungs Clear, No Accessory Muscle Use, No Respiratory Distress, Normal Breath Sounds Cardiovascular: No Edema, No JVD, No Murmur, No Gallop, Normal Peripheral Pulses, Regular Rate/Rhythm Breast Exam: Deferred Gastrointestinal: LLQ (tenderness), LUQ (tenderness), No Organomegaly, No Pulsatile Mass, Normal Bowel Sounds, RLQ (tenderness), RUQ (tenderness), Soft, Tenderness (within all four quadrants ) Genitalia: Deferred Pelvic: Deferred Rectal: Deferred Extremities: No calf tenderness, Normal capillary refill, Normal inspection, Normal range of motion, Non-tender, No pedal edema Musculoskeletal : Apperance: Normal Neurologic: Alert, 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 Was a procedure done?: No Differential Dx Considerations may include: Gastritis/PUD, Gastroenteritis, Pancreatitis, UTI, Dehydration, Diabetes/ DKA, Electrolyte Imbalance, Food Poisoning, Bacterial, Viral, uncontrolled DM, HTN urgency, hyperemesis cannabinoid syndrome X-Ray, Labs, Meds, VS Vital Signs Date Time Temp Pulse Resp B/P (MAP) Pulse Ox O2 Delivery O2 Flow Rate FiO2 10/14/25 05:12 134 20 97 Room Air* 0 21 12/04/24 05:12 98.7 120 21 97 98.7 12/04/24 04:31 127 12/04/24 04:30 98.7 120 21 97 98.7 12/04/24 04:27 180/130 12/04/24 04:26 145 24 217/155 12/04/24 02:56 96.8 145 20 216/154 96 96.8 Lab Test 12/04/24 04:45 12/04/24 03:40 Range/Units Troponin I High Sensitivity Pending 3278 *H </=34 ng/L White Blood Count 17.4 #H 4.4-10.8 10^3/uL Red Blood Count 4.82 4.0-5.20 10^6/uL Hemoglobin 15.5 # 12.2-16.2 g/dL Hematocrit 44.8 # 36.0-46.0 % Mean Corpuscular Volume 92.9 80.0-100.0 fL Mean Corpuscular Hemoglobin 32.2 H 28.0-32.0 pg Mean Corpuscular Hemoglobin Concent 34.6 32.0-36.0 g/dL Red Cell Distribution Width 12.5 11.8-14.3 % Platelet Count 478 H 140-450 10^3/uL Mean Platelet Volume 9.1 6.9-10.8 fL Neutrophils (%) (Auto) 85.3 H 37.0-80.0 % Lymphocytes (%) (Auto) 10.1 10.0-50.0 % Monocytes (%) (Auto) 4.2 0.0-12.0 % Eosinophils (%) (Auto) 0.0 0.0-7.0 % Basophils (%) (Auto) 0.4 0.0-2.0 % Neutrophils # (Auto) 14.8 H 1.6-8.6 10 ^3/uL Lymphocytes # (Auto) 1.8 0.4-5.4 10 ^3/uL Monocytes # (Auto) 0.7 0-1.3 10 ^3/uL Eosinophils # (Auto) 0 0-0.8 10 ^3/uL Basophils # (Auto) 0.1 0-0.2 10 ^3/uL Nucleated Red Blood Cells 1.9 % Sodium Level 141 136-145 mmol/L Potassium Level 4.5 3.5-5.1 mmol/L Chloride Level 104 98-107 mmol/L Carbon Dioxide Level 16 L 20-31 mmol/L Anion Gap 21 H 5-15 Blood Urea Nitrogen 19 9-23 mg/dL Creatinine 2.18 H 0.550-1.02 mg/dL Glomerular Filtration Rate Calc 31 >90 mL/min BUN/Creatinine Ratio 8.7 L 10.0-20.0 Serum Glucose 307 H 74-106 mg/dL Calcium Level 10.4 8.7-10.4 mg/dL Total Bilirubin 0.9 0.2-1.0 mg/dL Aspartate Amino Transferase (AST) 26 13-40 U/L Alanine Aminotransferase (ALT) 17 7-40 U/L Alkaline Phosphatase 112 46-116 U/L Total Protein 8.9 H 5.7-8.2 g/dL Albumin 5.2 H 3.2-4.8 g/dL Lipase 108 H 12-53 U/L Current Medications Medications (Trade) Dose Ordered Sig/Lucie Route Start Time Stop Time Status Last Admin Ondansetron HCl (Zofran) 4 mg ONCE ONCE IV 12/04/24 03:15 12/04/24 03:16 DC 12/04/24 04:26 Hydromorphone HCl (Dilaudid Injection) 1 mg ONCE ONCE IV 12/04/24 03:15 12/04/24 03:16 DC 12/04/24 04:26 Sodium Chloride 1,000 ml @ 1,000 mls/hr Q1H ONCE IVB 12/04/24 03:15 12/04/24 04:14 DC 12/04/24 03:15 Hydralazine HCl (Apresoline Injection) 20 mg ONCE ONCE IV 12/04/24 04:15 12/04/24 04:16 DC 12/04/24 04:27 Time of 1ST Reevaluation: 03:30 Reevaluation 1ST: Unchanged Patient Education/Counseling: Diagnosis, Treatment, Need For Follow Up Family Education/Counseling: Diagnosis, Treatment, Need For Follow Up SEPSIS Sepsis Screen Date sepsis recognized/suspect: Dec 04, 2024 Time Sepsis recognized/suspect: 025 Recent Procedure: No On Antibiotic Therapy: No Respiratory Rate >20: No Heart Rate >90: Yes Temp<36 C (96.8 F) or >38.3 C: No SBP <90 or MAP <65 mmHG: No New Acute Mental Status Change: No Is the patient on CPAP, BIPAP,: No Physician Orders Troponin-I Hs (12/04/24 06:00) Urinalysis (12/04/24 03:09) Troponin-I Hs (12/04/24 06:09) Chst Ab Pel Wo Con-No Iv/Oral (12/04/24 03:09) Lactic Acid W/ Reflex Order (12/04/24 05:44) Blood Culture (12/04/24 05:44) Piperacillin-Tazob 3.375gm (Zosyn 3.375g (12/04/24 05:45) Vital Signs Date Time Temp Pulse Resp B/P (MAP) Pulse Ox O2 Delivery O2 Flow Rate FiO2 12/04/24 05:12 134 20 97 Room Air* 0 21 12/04/24 05:12 98.7 120 21 97 98.7 12/04/24 04:31 127 12/04/24 04:30 98.7 120 21 97 98.7 12/04/24 04:27 180/130 12/04/24 04:26 145 24 217/155 12/04/24 02:56 96.8 145 20 216/154 96 96.8 Laboratory Tests Test 12/04/24 03:40 White Blood Count 17.4 10^3/uL (4.4-10.8) #H Medications Medications Dose Ordered Sig/Lucie Route Start Time Stop Time Status Last Admin Dose Admin Hydralazine HCl 20 mg ONCE ONCE IV 12/04/24 04:15 12/04/24 04:16 DC 12/04/24 04:27 Hydromorphone HCl 1 mg ONCE ONCE IV 12/04/24 03:15 12/04/24 03:16 DC 12/04/24 04:26 Ondansetron HCl 4 mg ONCE ONCE IV 12/04/24 03:15 12/04/24 03:16 DC 12/04/24 04:26 Sodium Chloride 1,000 ml @ 1,000 mls/hr Q1H ONCE IVB 12/04/24 03:15 12/04/24 04:14 DC 12/04/24 03:15 Departure 1 Departure Time of Disposition: 05:54 Impression: Primary Impression: Intractable nausea and vomiting Additional Impressions: Acute renal injury Dehydration Pneumomediastinum Disposition: ADMITTED INPATIENT Condition: Guarded Discharged With: Self Comments 29-year-old female with intractable vomiting. Creatinine elevated to 2.18 on lab review. Troponin high 3278. Lipase elevated at 108. White blood cell count elevated 17.4. Patient was given IV fluids and antiemetics and IV Zosyn antibiotics. Patient was given aspirin. CT of the abdomen and pelvis suggests some pneumomediastinum and enteritis changes. Patient will need admission for IV fluids and IV antibiotics and close monitoring and further workup. Critical Care Note Critical Care Time?: No Stability Stability form required: No Heart Score Heart Score: Heart Score Response (Comments) Value History N/A 0 EKG N/A 0 Age N/A 0 Risk Factors N/A 0 Troponin N/A 0 Total 0 I personally scribed for JAMES GARZA MD ([email or web address]) on 12/04/24 at 03:28. Electronically submitted by Santana Rubio [email or web address]). JAMES GARZA MD Dec 04, 2024 03:28
[2024-12-04 04:12] LABS: Hemoglobin 15.5 g/dL (12.2-16.2)
[2024-12-04 04:14] LABS: Alanine Aminotransferase 17 U/L (7-40); Alkaline Phosphatase 112 U/L (46-116); Anion Gap 21 (5-15); BUN/Creatinine Ratio 8.7 (10.0-20.0); Bilirubin, Total 0.9 mg/dL (0.2-1.0); Blood Urea Nitrogen 19 mg/dL (9-23); Chloride 104 mmol/L (98-107); Potassium 4.5 mmol/L (3.5-5.1); Sodium 141 mmol/L (136-145)
[2024-12-04 04:16] LABS: Hematocrit 44.8 % (36.0-46.0); Mean Corpuscular Hemoglobin 32.2 pg (28.0-32.0); Mean Corpuscular Volume 92.9 fL (80.0-100.0); Nucleated Red Blood Cells % 1.9 %
[2024-12-04 04:24] LABS: Albumin 5.2 g/dL (3.2-4.8); Calcium 10.4 mg/dL (8.7-10.4); Carbon Dioxide 16 mmol/L (20-31); Glucose 307 mg/dL (74-106); Lipase 108 U/L (12-53); Total Protein 8.9 g/dL (5.7-8.2)
[2024-12-04] MEDS: ONDANSETRON HCL 4 MG/2 ML VIAL IV ONE (04:26)
[2024-12-04] MEDS: HYDROmorphone HCL 2 MG/ML VL/or syr IV ONE (04:26)
[2024-12-04] MEDS: hydrALAZINE HCL 20 MG/ML VL IV ONE (04:27)
[2024-12-04 05:12] VITALS: PULSE 134; RESP 20; O2SAT 97
--- NOTE | 2024-12-04 05:37 | ECG ---
[facility] Test Date: 2024-12-04 Test Time: 04:31:36 Pat Name: AMARJIT FISHMAN [facility] Patient [facility]: [id number] Room: Gender: F Wet Process Miller Head: ZENA : 1995 Requested By: JAMES GARZA Order Number: [id number] Reading MD: Clay Clinton Measurements Intervals [place] Rate: 127 P: 20 NH: 138 QRS: 48 QRSD: 80 T: 140 QT: 324 QTc: 472 Interpretive Statements Sinus tachycardia Abnormal Q suggests anterior infarct Abnormal T, consider ischemia, lateral leads Borderline ST elevation, lateral leads Electronically Signed On 12-04-2024 15:25:07 PDT by Clay Clinton Please click the below link to view image of tracing.
--- NOTE | 2024-12-04 05:50 | DVH ---
EXAM: CT CHST AB PEL WO CON-NO IV/ORAL History: Severe chest / abd pain. Comparison Study: CT CT AB PEL WO CON-NO ORAL OR IV on DOS: 10/09/24. TECHNIQUE: Multidetector CT of the chest, abdomen and pelvis was performed from lower neck to pubic s ymphysis without the use of intravenous contrast. Coronal and sagittal multiplanar reformats were per formed by the technologist on a separate workstation. Radiation Dose Information: CT Dose: CTDI volume is 12.0 mGy. Dose-length product is 857.4 mGy*cm FINDINGS: Lower neck: Normal thyroid. Lungs: No focal consolidation, suspicious pulmonary nodules or pulmonary masses. Pleura: No pleural effusion or significant pneumothorax. Mediastinum/ Heart/Vascular Structures: There is pneumomediastinum. The heart is normal in size. No pericardial effusion. Normal caliber thoracic aorta and main pulmonary artery. Small focus of ted nary artery calcification in the left anterior descending coronary artery in the right coronary arter y. Lymph Nodes: No adenopathy. Liver: The liver is normal in size. Gallbladder and Biliary Tree: The gallbladder is unremarkable. No biliary ductal dilatation. Spleen: Unremarkable. Pancreas: Unremarkable. Adrenal Glands: Unremarkable. Kidneys: No renal calculi or hydronephrosis. Bladder: Unremarkable. Stomach and bowel: The stomach is unremarkable. No small bowel wall thickening or dilatation. There i s mucosal thickening of the sigmoid colon, versus underdistention. The appendix is visualized and is normal. Peritoneum: No ascites or pneumoperitoneum. Lymphadenopathy: No enlarged lymph nodes. Vasculature: The visualized abdominal aorta is normal in size and caliber. Evaluation of the vascular structures is limited due to lack of intravenous contrast. Pelvic Organs: Unremarkable. Musculoskeletal: No acute osseous abnormality. Soft tissues: Unremarkable. IMPRESSION: 1. Pneumomediastinum. Etiology is unclear. 2. Mucosal thickening of the sigmoid colon, versus underdistention. Correlate for infectious or infl ammatory colitis.
--- NOTE | 2024-12-04 06:13 | DVHHPRES ---
History of Present Illness Resident Creating Document: NATHAN COPELAND History of Present Illness Munir Rosas is a 29-year-old female patient who presents to the ED with chief complaint of incoercible non bloody vomiting associated with chest tightness and dyspnea in variable functional class which started on 12/03/2024 during the morning and persisted during the whole day. Patient initially came for evaluation in the ED, where she was diagnosed with hyperemesis secondary to cannabinoids, and discharged home. Since her pain persisted, she decided to be reevaluated in the ED she presented with hypertensive emergency (NSTEMI and SIENNA), and completed a chest/abdomen/pelvis CT which diagnosed pneumomediastinum and questionable colitis. Denies fever, chills, diarrhea, sick contacts, recent travel, recent endoscopies and syncope. Past medical history: Hypertension, diabetes, CKD, questionable renal artery stenosis (FMD?), suprarenal tumor in evaluation, GERD. Surgical history: C-sections x2 Family history: Non contributory Social history: Lives in [place] with family (NOK mother). Smokes marijuana. Denies current tobacco, alcohol and other drug abuse Allergies: Denies Home medication: Carvedilol, Nifedipine and Amlodipine, Hydralazine, Valsartan, Ozempic, Pantoprazol Patient seen and examined at bedside. Patient admitted to ICU on Nicardipine drip, NPO, on IV antibiotics and hemodynamic monitoring. Past Medical History Per HPI Past Surgical History Per HPI Family History Per HPI Past Social History Per HPI Review of Systems Review of Systems Per HPI Allergies: Coded Allergies: NO KNOWN ALLERGIES (Unverified , 04/24/17) Medications Current Medications Medications Dose Ordered Sig/Lucie Route Start Time Stop Time Status Last Admin Dose Admin Ondansetron HCl 4 mg Q4HP PRN IV 12/04/24 06:15 UNV Nicardipine/ Sodium Chloride 200 ml @ 50 mls/hr Q4H IV 12/04/24 06:15 UNV Piperacillin Sod/ Tazobactam Sod 100 ml @ 25 mls/hr Q8HR IV 12/04/24 14:00 UNV Metoclopramide HCl 5 mg Q6HR IV 12/04/24 12:00 UNV Sodium Chloride 1,000 ml @ 100 mls/hr Q10H IV 12/04/24 06:15 UNV Diagnostic Test (Pha) 1 strip Q6HR 12/04/24 12:00 UNV Insulin Human Regular Q6HR SC 12/04/24 12:00 UNV Dextrose 50 ml UD PRN IV 12/04/24 06:15 UNV Hydromorphone HCl 0.25 mg Q4HPRN PRN IV 12/04/24 06:15 UNV Exam Vital Signs Vital Signs Date Time Temp Pulse Resp B/P (MAP) Pulse Ox O2 Delivery O2 Flow Rate FiO2 12/04/24 05:12 134 20 97 Room Air* 0 21 12/04/24 05:12 98.7 98.7 Exam Patient lying in bed, in mild acute distress General: Lucid, afebrile, mucosae are moist Cardiovascular: Tachycardic S1 and S2. No murmurs, gallops or rubs Respiratory: Normal ventilation mechanics. Clear lung sounds on auscultation Abdomen: Soft, nontender, no organomegaly, normal bowel sounds MSK/skin: Mobilizes 4 limbs. Skin is dry and warm Neurological: Oriented in 3 spheres. No motor no sensitive deficits. Pupils are isocoric and reactive Labs/Xrays Labs Test 12/04/24 04:45 12/04/24 03:40 Range/Units White Blood Count 17.4 #H 4.4-10.8 10^3/uL Red Blood Count 4.82 4.0-5.20 10^6/uL Hemoglobin 15.5 # 12.2-16.2 g/dL Hematocrit 44.8 # 36.0-46.0 % Mean Corpuscular Volume 92.9 80.0-100.0 fL Mean Corpuscular Hemoglobin 32.2 H 28.0-32.0 pg Mean Corpuscular Hemoglobin Concent 34.6 32.0-36.0 g/dL Red Cell Distribution Width 12.5 11.8-14.3 % Platelet Count 478 H 140-450 10^3/uL Mean Platelet Volume 9.1 6.9-10.8 fL Neutrophils (%) (Auto) 85.3 H 37.0-80.0 % Lymphocytes (%) (Auto) 10.1 10.0-50.0 % Monocytes (%) (Auto) 4.2 0.0-12.0 % Eosinophils (%) (Auto) 0.0 0.0-7.0 % Basophils (%) (Auto) 0.4 0.0-2.0 % Neutrophils # (Auto) 14.8 H 1.6-8.6 10 ^3/uL Lymphocytes # (Auto) 1.8 0.4-5.4 10 ^3/uL Monocytes # (Auto) 0.7 0-1.3 10 ^3/uL Eosinophils # (Auto) 0 0-0.8 10 ^3/uL Basophils # (Auto) 0.1 0-0.2 10 ^3/uL Nucleated Red Blood Cells 1.9 % Sodium Level 141 136-145 mmol/L Potassium Level 4.5 3.5-5.1 mmol/L Chloride Level 104 98-107 mmol/L Carbon Dioxide Level 16 L 20-31 mmol/L Anion Gap 21 H 5-15 Blood Urea Nitrogen 19 9-23 mg/dL Creatinine 2.18 H 0.550-1.02 mg/dL Glomerular Filtration Rate Calc 31 >90 mL/min BUN/Creatinine Ratio 8.7 L 10.0-20.0 Serum Glucose 307 H 74-106 mg/dL Calcium Level 10.4 8.7-10.4 mg/dL Total Bilirubin 0.9 0.2-1.0 mg/dL Aspartate Amino Transferase (AST) 26 13-40 U/L Alanine Aminotransferase (ALT) 17 7-40 U/L Alkaline Phosphatase 112 46-116 U/L Total Protein 8.9 H 5.7-8.2 g/dL Albumin 5.2 H 3.2-4.8 g/dL Lipase 108 H 12-53 U/L SEPSIS Sepsis Screen Date sepsis recognized/suspect: Dec 04, 2024 Time Sepsis recognized/suspect: 524 Recent Procedure: No On Antibiotic Therapy: No Respiratory Rate >20: Yes Heart Rate >90: Yes Temp<36 C (96.8 F) or >38.3 C: No SBP <90 or MAP <65 mmHG: No New Acute Mental Status Change: No Is the patient on CPAP, BIPAP,: No Physician Orders Troponin-I Hs (12/04/24 06:00) Urinalysis (12/04/24 03:09) Troponin-I Hs (12/04/24 06:09) Chst Ab Pel Wo Con-No Iv/Oral (12/04/24 03:09) Lactic Acid W/ Reflex Order (12/04/24 05:44) Blood Culture (12/04/24 05:44) Piperacillin-Tazob 3.375gm (Zosyn 3.375g (12/04/24 05:45) Electrocardigram (12/04/24 06:01) Electrocardigram (12/04/24 07:01) Electrocardigram (12/04/24 09:01) Admit (12/04/24 06:02) Code Status (12/04/24 06:02) Ondansetron Hcl (Zofran) (12/04/24 06:15) Npo (Nothing By Mouth) Diet (12/04/24 Breakfast) Echo 2d Mode Cardiac Dop (12/04/24 06:02) Oxygen By Nasal Cannula (12/04/24 06:02) Stat Ekg For Chest Pain (12/04/24 06:02) Notify Of Changes From Base (12/04/24 06:02) Processing Associate For 24 Hours (12/04/24 06:02) Emergency Dysrhythmia Protocol (12/04/24 06:02) Rhythm Strips Once Every Shift (12/04/24 06:02) Nicardipine 20 Mg/200 Ml (Cardene Iv) (12/04/24 06:15) Piperacillin-Tazob 3.375gm (Zosyn 3.375g (12/04/24 06:15) Piperacillin-Tazob 3.375gm (Zosyn 3.375g (12/04/24 14:00) Metoclopramide Injection (Reglan Injecti (12/04/24 12:00) Sodium Chloride 0.9% (12/04/24 06:15) Glucose Blood (Accu-Chek Comfort Curve T (12/04/24 12:00) Insulin R (Human) (Insulin R) (12/04/24 12:00) Dextrose 50% Syringe (12/04/24 06:15) Vitamin D, 25-Hydroxy (12/04/24 06:02) Vitamin B12 (12/04/24 06:02) Urinalysis (12/04/24 06:02) Thyroid Stimulating Hormone (12/04/24 06:02) PTPTT (12/04/24 06:02) Phosphorus (12/04/24 06:02) Magnesium (12/04/24 06:02) Lipid Panel (12/04/24 06:02) Lactic Acid W/ Reflex Order (12/04/24 06:02) Lipase (12/04/24 06:02) Hemoglobin A1c (12/04/24 06:02) Drug Screen (12/04/24 06:02) Comprehensive Metabolic Panel (12/04/24 06:02) Complete Blood Count (12/04/24 06:02) C-Reactive Protein (12/04/24 06:02) Ammonia (12/04/24 06:02) Hydromorphone Injection (Dilaudid Inject (12/04/24 06:15) Vital Signs Date Time Temp Pulse Resp B/P (MAP) Pulse Ox O2 Delivery O2 Flow Rate FiO2 12/04/24 05:12 134 20 97 Room Air* 0 21 12/04/24 05:12 98.7 120 21 97 98.7 12/04/24 04:31 127 12/04/24 04:30 98.7 120 21 97 98.7 12/04/24 04:27 180/130 12/04/24 04:26 145 24 217/155 12/04/24 02:56 96.8 145 20 216/154 96 96.8 Laboratory Tests Test 12/04/24 03:40 White Blood Count 17.4 10^3/uL (4.4-10.8) #H Medications Medications Dose Ordered Sig/Lucie Route Start Time Stop Time Status Last Admin Dose Admin Hydralazine HCl 20 mg ONCE ONCE IV 12/04/24 04:15 12/04/24 04:16 DC 12/04/24 04:27 20 MG Hydromorphone HCl 1 mg ONCE ONCE IV 12/04/24 03:15 12/04/24 03:16 DC 12/04/24 04:26 1 MG Ondansetron HCl 4 mg ONCE ONCE IV 12/04/24 03:15 12/04/24 03:16 DC 12/04/24 04:26 4 MG Sodium Chloride 1,000 ml @ 1,000 mls/hr Q1H ONCE IVB 12/04/24 03:15 12/04/24 04:14 DC 12/04/24 03:15 1,000 MLS/HR Assessment/Plan Assessment/Plan Sepsis secondary to pneumomediastinum 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 Consulted GI and surgery specialists Ordered esophagram Obtained pancultures (blood, urine and sputum) Evaluate parenteral feedings (PICC line vs central line placement) Hypertensive emergency NSTEMI probable type II SIENNA hemodynamically mediated (VMN) on CKD Questionable renovascular hypertension (FMD?) Completed EKG which shows sinus tachycardia with no ST elevation (lateral repolarization abnormalities). Up-trending troponin. Unlikely type I NSTEMI, since patient has low pre-test (29 year old female), and presents secondary causes (increased afterload and pneumomediastinum) On Nicardipine drip. Hold off on Aspirin and Atorvastatin due to esophageal perforation. Avoid PO medication Evaluate need for Heparin drip, hold off at the moment to evaluate need of surgery. If symptoms persists and troponin keeps up-trending after optimizing loading conditions and resolving pneumomediastinum, evaluate consulting cardiology. Consulted Nephrology Evaluate placing PICC line if nephrology clears Eventually patient will benefit from work up for Hypertension Diabetes non insulin requiring - Controlled (Hemoglobin A1C 5.1%) Avoid Ozempic due to intractable nausea and vomiting On nicardipine drip. Resume home medication once patient can tolerate PO diet Suprarenal tumor - under evaluation Rule out secondary causes of hypertension Per patient, she was diagnosed with a suprarenal tumor (no evidence on images available in EMR) All past work up only showed mildly diminished ACTH. Rest of work up negative or inconclusive (includes Aldosterone, cortisol, metanephrines, TSH, autoimmune panel and UDS). 24 hour metanephrines incomplete since total urine volume missing. Likely cause of hypertension is renovascular (two arterial renal duplex US completed that are contradictory). If patient's renal function improve, evaluate completing angiography. Goals of care discussed with patient for over 18 minutes: Full code status Discussed plan with Dr Husain, patient, mother and nurses: Patient admitted to ICU, on Nicardipine drip, NPO, IV fluids, IV antibiotics (Zosyn and Micafungin), protonix IV. Consulted GI, nephrology and surgery. Evaluate consulting cardiology if troponin continues up-trending and symptoms persists despite optimizing afterload and resolving pneumomediastinum. Patient has poor prognosis. Critical care time spent including discussion with nursing and family, excluding procedures: 79 minutes Plan discussed with: Patient, Other (Nurses and mother) My Orders Orders - NATHAN COPELAND RESIDENT Procedure Category Date Status Time Admit ADMIT 12/04/24 Transmitted 06:02 Code Status CODE 12/04/24 Transmitted 06:02 Ondansetron Hcl PHA 12/04/24 Logged (Zofran) 06:15 Npo (Nothing By DIET 12/04/24 Transmitted Mouth) Diet Breakfast Echo 2d Mode Cardiac US 12/04/24 Logged DOP 06:02 Oxygen By Nasal RT 12/04/24 Transmitted Cannula 06:02 Stat Ekg For Chest [facility] 12/04/24 In Process Pain 06:02 Notify Of Changes [facility] 12/04/24 In Process From Base 06:02 Processing Associate For [facility] 12/04/24 In Process 24 Hours 06:02 Emergency Dysrhythmia [facility] 12/04/24 In Process Protocol 06:02 Rhythm Strips Once [facility] 12/04/24 In Process Every Shift 06:02 Nicardipine 20 Mg/200 PHA 12/04/24 Logged Ml (Cardene Iv) 06:15 Piperacillin-Tazob PHA 12/04/24 Logged 3.375gm (Zosyn 3.375g 06:15 Piperacillin-Tazob PHA 12/04/24 Logged 3.375gm (Zosyn 3.375g 14:00 Metoclopramide PHA 12/04/24 Logged Injection (Reglan 12:00 Sodium Chloride 0.9% PHA 12/04/24 Logged 06:15 Glucose Blood PHA 12/04/24 Logged (Accu-Chek Comfort 12:00 Insulin R (Human) PHA 12/04/24 Logged (Insulin R) 12:00 Dextrose 50% Syringe PHA 12/04/24 Logged 06:15 Vitamin D, 25-Hydroxy LAB 12/04/24 Logged 06:02 Vitamin B12 LAB 12/04/24 Logged 06:02 Urinalysis LAB 12/04/24 Logged 06:02 Thyroid Stimulating LAB 12/04/24 Logged Hormone 06:02 PTPTT LAB 12/04/24 Logged 06:02 Phosphorus LAB 12/04/24 Logged 06:02 Magnesium LAB 12/04/24 Logged 06:02 Lipid Panel LAB 12/04/24 Logged 06:02 Lactic Acid W/ Reflex LAB 12/04/24 Logged Order 06:02 Lipase LAB 12/04/24 Logged 06:02 Hemoglobin A1c LAB 12/04/24 Logged 06:02 Drug Screen LAB 12/04/24 Logged 06:02 Comprehensive LAB 12/04/24 Logged Metabolic Panel 06:02 Complete Blood Count LAB 12/04/24 Logged 06:02 C-Reactive Protein LAB 12/04/24 Logged 06:02 Ammonia LAB 12/04/24 Logged 06:02 Hydromorphone PHA 12/04/24 Transmitted Injection (Dilaudid 06:15 Date of Service: Dec 04, 2024 Billing Provider: DELFINA CESAR MD Common Visit Codes: [id number] INP/OBS CARE (HIGH) Secondary Visit Codes: [id number] CARE PLAN 30 MINUTES NATHAN COPELAND RESIDENT Dec 04, 2024 06:13
[2024-12-04] MEDS ORDERED: HYDROmorphone HCL 2 MG/ML VL/or syr IV PRN (06:15)
[2024-12-04] MEDS ORDERED: PIPERACILLIN-TAZOB 3.375GM 100 ML IV ONE ×2 (06:15→06:30)
[2024-12-04] MEDS ORDERED: DEXTROSE (50%) 50ML SYRG IV PRN ×2 (06:15→10:15)
[2024-12-04] MEDS ORDERED: ONDANSETRON HCL 4 MG/2 ML VIAL IV PRN (06:15)
[2024-12-04 06:31] LABS: Base Excess -6.6 mmol/L (-2.0-3.0)
[2024-12-04 07:30] VITALS: PULSE 134; RESP 17; O2SAT 97
[2024-12-04 07:43] LABS: INR 1.08 (0.9-1.15); Partial Thromboplastin Time 26.8 SEC (24.5-34.5); Prothrombin Time 11.4 sec (9.3-11.8)
[2024-12-04 07:44] LABS: Alanine Aminotransferase 16 U/L (7-40); Albumin 4.4 g/dL (3.2-4.8); Alkaline Phosphatase 93 U/L (46-116); Anion Gap 16 (5-15); BUN/Creatinine Ratio 9.0 (10.0-20.0); Blood Urea Nitrogen 19 mg/dL (9-23); Calcium 9.3 mg/dL (8.7-10.4); Magnesium 1.8 mg/dL (1.6-2.6); Potassium 4.0 mmol/L (3.5-5.1); Sodium 140 mmol/L (136-145); Total Protein 7.5 g/dL (5.7-8.2); Triglycerides 148 mg/dL (< 150)
[2024-12-04 07:45] LABS: Bilirubin, Total 0.5 mg/dL (0.2-1.0); HDL Cholesterol 42 mg/dL (40-59)
[2024-12-04 07:46] LABS: Carbon Dioxide 15 mmol/L (20-31); Chloride 109 mmol/L (98-107); Cholesterol 225 mg/dL (< 200); Glucose 197 mg/dL (74-106)
[2024-12-04] MEDS: SODIUM CHLORIDE 0.9% 1,000 ML IV SCH ×2 (08:00→10:15)
[2024-12-04] MEDS: PIPERACILLIN-TAZOB 3.375GM 100 ML IV ONE (08:10)
[2024-12-04] MEDS: PIPERACILLIN-TAZOB 3.375GM 100 ML IV SCH (08:11)
[2024-12-04 09:26] LABS: Lipase 78 U/L (12-53)
[2024-12-04 09:56] LABS: Urine Protein, UAD 3+ (Negative)
[2024-12-04] MEDS ORDERED: PANTOPRAZOLE 40 MG/10 ML VIAL INJ IV SCH ×3 (10:00→22:00)
[2024-12-04] MEDS ORDERED: MICAFUNGIN SODIUM 100 MG in SODIUM CHL 0.9% 100 ML IV SCH (10:00)
[2024-12-04 10:06] LABS: Cannabinoid Screen, Urine Pos (NEGATIVE); Opiate Scree,Urine Neg (NEGATIVE)
[2024-12-04 10:07] LABS: Amphetamine Screen, Urine Neg (NEGATIVE); Barbiturate Scree,Urine Neg (NEGATIVE); Benzodiazephine Screen, Urine Neg (NEGATIVE); Cocaine Screen, Urine Neg (NEGATIVE); Phencyclidine Screen, Urine Neg (NEGATIVE)
[2024-12-04] MEDS: ONDANSETRON HCL 4 MG/2 ML VIAL IV PRN (10:31)
[2024-12-04] MEDS: GASTROGRAFIN 120 ML SOL ONE (10:37)
[2024-12-04] MEDS: HYDROmorphone HCL 2 MG/ML VL/or syr IV PRN (10:44)
[2024-12-04] MEDS ORDERED: PANTOPRAZOLE 40 MG/10 ML VIAL INJ IV ONE (10:45)
--- NOTE | 2024-12-04 11:13 | ECG ---
[facility] Test Date: 2024-12-04 Test Time: 10:39:52 Pat Name: AMARJIT FISHMAN Department: [facility] ED Patient ID: [facility]-[id number] Room: [address] [place] [address] Gender: F Home Health Aid: kaitlin : 1995 Requested By: NATHAN COPELAND Order Number: [id number] Reading MD: Clay Clinton Measurements Intervals [place] Rate: 149 P: 14 WA: 129 QRS: 60 QRSD: 78 T: 133 QT: 269 QTc: 424 Interpretive Statements Sinus tachycardia Abnormal Q suggests anterior infarct Abnormal T, consider ischemia, lateral leads ST elevation, consider anterolateral injury Electronically Signed On 12-04-2024 15:25:22 PDT by Clay Clinton Please click the below link to view image of tracing.
--- NOTE | 2024-12-04 11:13 | ECG ---
[facility] Test Date: 2024-12-04 Test Time: 08:33:52 Pat Name: AMARJIT FISHMAN Department: [facility] ED Patient ID: [id number] Room: [address] [place] [address] Gender: F Satellite Manager: LOUIE : 1995 Requested By: RAMAKRISHNA ABBOTT Order Number: [id number] Reading MD: Clay Clinton Measurements Intervals [place] Rate: 136 P: 11 NE: 121 QRS: 52 QRSD: 82 T: 144 QT: 295 QTc: 444 Interpretive Statements Sinus tachycardia Abnormal Q suggests anterior infarct Abnormal T, consider ischemia, lateral leads Borderline ST elevation, lateral leads Electronically Signed On 12-04-2024 15:25:15 PDT by Clay Clinton Please click the below link to view image of tracing.
[2024-12-04] MEDS: PANTOPRAZOLE 40 MG/10 ML VIAL INJ IV ONE (11:14)
[2024-12-04] MEDS: SODIUM CHLORIDE 0.9% 500 ML IV ONE (11:51)
[2024-12-04] MEDS: VANCOMYCIN 1.5GM/250ML 250 ML IV ONE (11:59)
[2024-12-04] MEDS ORDERED: InsuLIN REG 1unit/0.01ml Soln (100units/ml) SC SCH (12:00)
[2024-12-04] MEDS ORDERED: VANCOMYCIN PER PHARMACY 0 MG IV SCH (12:00)
[2024-12-04] MEDS: METOCLOPRAMIDE HCL 5MG/ml INJ 2ml VIAL IV SCH (12:00)
[2024-12-04] MEDS ORDERED: ACCU-CHEK COMFORT CURVE STRIP VI SCH (12:00)
[2024-12-04] MEDS ORDERED: METOCLOPRAMIDE HCL 5MG/ml INJ 2ml VIAL IV SCH (12:00)
[2024-12-04] MEDS: InsuLIN REG 1unit/0.01ml Soln (100units/ml) SC SCH (12:05)
[2024-12-04] MEDS: ACCU-CHEK COMFORT CURVE STRIP VI SCH (12:05)
--- NOTE | 2024-12-04 13:00 | DVH ---
XY ESOPHAGUS GASTROGRAFIN SWALLOW, HISTORY: Pneumomediastinum COMPARISON: None PROCEDURE: A boot and shoe laborer radiograph was obtained prior to the procedure. Technique: Gastrograffin were administered orally, and radiographs were obtained under intermittent f luoroscopic observation. Number of Images:4 Total fluoroscopic time was 31 seconds. Dose area prod 314.97 Ref air Kerma(mGy)14.1 FINDINGS: The boot and shoe laborer film demonstrates no abnormality. The esophagus was normal in caliber with no stricture, filling defect or wall irregularity demonstrat ed. Normal esophageal peristalsis was observed. IMPRESSION: 1. Unremarkable esophagram. 2. No contrast leak
[2024-12-04 13:12] LABS: Hematocrit 41.2 % (36.0-46.0); Hemoglobin 14.0 g/dL (12.2-16.2); Mean Corpuscular Hemoglobin 32.0 pg (28.0-32.0); Mean Corpuscular Volume 94.5 fL (80.0-100.0); Nucleated Red Blood Cells % 0.1 %
[2024-12-04 13:21] LABS: Potassium 3.8 mmol/L (3.5-5.1); Sodium 141 mmol/L (136-145)
[2024-12-04 13:22] LABS: Anion Gap 14 (5-15); Calcium 9.0 mg/dL (8.7-10.4)
[2024-12-04 13:27] LABS: BUN/Creatinine Ratio 7.8 (10.0-20.0); Blood Urea Nitrogen 19 mg/dL (9-23)
[2024-12-04 13:28] LABS: Carbon Dioxide 18 mmol/L (20-31); Chloride 109 mmol/L (98-107); Glucose 244 mg/dL (74-106)
--- NOTE | 2024-12-04 13:34 | DVHINCON2 ---
GI Consult Consult Note GI consult note Date of Consultation: 12/04/2024 Chief Complaint: Pneumomediastinum Referring Physician: Dr. Rai H&P: 29-year-old female admitted with complains of nonbloody vomiting associated with chest tightness and dyspnea. Patient denies hematemesis, diarrhea or constipation. No fevers or chills. CT chest abdomen and pelvis diagnosed pneumomediastinum and questionable colitis Past Medical History: Hypertension, diabetes, CKD, questionable renal artery stenosis (FMD?), suprarenal tumor in evaluation, GERD. Past Surgical History: x2 Social History: NO smoking, drinking ETOH + marijuana Family History: Noncontributory Review of Systems: Constitutional: no fever, chill, weight loss HEENT: no eye pain, no hearing loss, no oral lesion, no scleral icterus Heart: no chest pain, no chest pressure Lung: no cough, no dyspnea with exertion Abdomen: see HPI Physical exam: General: NAD, AAOX3 Chest: lung sims clear to auscultation Heart: RRR Abdomen: non-distended, no tenderness to palpation, +BS Labs: Labs Test 12/04/24 12:55 12/04/24 11:56 12/04/24 10:11 12/04/24 08:39 Range/Units White Blood Count 12.8 #H 4.4-10.8 10^3/uL Red Blood Count 4.36 4.0-5.20 10^6/uL Hemoglobin 14.0 12.2-16.2 g/dL Hematocrit 41.2 36.0-46.0 % Mean Corpuscular Volume 94.5 80.0-100.0 fL Mean Corpuscular Hemoglobin 32.0 28.0-32.0 pg Mean Corpuscular Hemoglobin Concent 33.9 32.0-36.0 g/dL Red Cell Distribution Width 12.8 11.8-14.3 % Platelet Count 332 140-450 10^3/uL Mean Platelet Volume 8.5 6.9-10.8 fL Neutrophils (%) (Auto) 80.4 H 37.0-80.0 % Lymphocytes (%) (Auto) 13.2 10.0-50.0 % Monocytes (%) (Auto) 5.8 0.0-12.0 % Eosinophils (%) (Auto) 0.1 0.0-7.0 % Basophils (%) (Auto) 0.5 0.0-2.0 % Neutrophils # (Auto) 10.3 H 1.6-8.6 10 ^3/uL Lymphocytes # (Auto) 1.7 0.4-5.4 10 ^3/uL Monocytes # (Auto) 0.7 0-1.3 10 ^3/uL Eosinophils # (Auto) 0 0-0.8 10 ^3/uL Basophils # (Auto) 0.1 0-0.2 10 ^3/uL Nucleated Red Blood Cells 0.1 % POC Glucose 261 H 70-106 mg/dl Lactic Acid Level 1.3 0.4-2.0 mmol/L Ammonia < 10 L 11-32 umol/L Urine Color Yellow Yellow Urine Clarity Turbid H Clear Urine pH 6.0 5.0-9.0 Urine Specific [place] 1.024 1.001-1.035 Urine Protein 3+ H Negative Urine Ketones 1+ H Negative Urine Blood 3+ H Negative /uL Urine Nitrite Negative Negative Urine Bilirubin Negative Negative Urine Urobilinogen Normal Negative mg/dL Urine Leukocyte Esterase Trace Negative /uL Urine RBC 1060 0 - 4 /hpf Urine Microscopic WBC 31 H 0-5 /HPF Urine Squamous Epithelial Cells Few <5 /hpf Urine Bacteria None seen None Seen /hpf Urine Mucus Few None Seen Urine Glucose 1+ H Normal mg/dL Urine Test Negative Negative Urine Opiates Screen Neg NEGATIVE Urine Fentanyl Screen Neg NEGATIVE Urine Barbiturates Screen Neg NEGATIVE Urine Phencyclidine Screen Neg NEGATIVE Urine Amphetamines Screen Neg NEGATIVE Urine Benzodiazepines Screen Neg NEGATIVE Urine Cocaine Screen Neg NEGATIVE Urine Cannabinoids Screen Pos NEGATIVE Test 12/04/24 07:00 12/04/24 06:25 Range/Units Prothrombin Time 11.4 9.3-11.8 sec Prothrombin Time INR 1.08 0.9-1.15 Activated Partial Thromboplast Time 26.8 24.5-34.5 SEC Hemoglobin A1c 5.1 <5.7 % A1C Phosphorus Level 2.7 2.4-5.1 mg/dL Magnesium Level 1.8 1.6-2.6 mg/dL Total Bilirubin 0.5 0.2-1.0 mg/dL Aspartate Amino Transferase (AST) 31 13-40 U/L Alanine Aminotransferase (ALT) 16 7-40 U/L Alkaline Phosphatase 93 46-116 U/L Troponin I High Sensitivity 5085 *H </=34 ng/L C-Reactive Protein High Sensitivity 0.13 <1.0 mg/dL Total Protein 7.5 5.7-8.2 g/dL Albumin 4.4 3.2-4.8 g/dL Triglycerides Level 148 < 150 mg/dL Cholesterol Level 225 H < 200 mg/dL LDL Cholesterol 169 H < 100 mg/dL HDL Cholesterol 42 40-59 mg/dL Lipase 78 H 12-53 U/L Vitamin B12 Level 631 211-911 pg/mL Vitamin D 25-Hydroxy 21.3 L 30.0-100 ng/mL Beta-Hydroxybutyric Acid 1.049 H < 0.4 mmol/L Thyroid Stimulating Hormone (TSH) 1.62 0.55-4.78 uIU/mL Blood Gas Specimen Type Arterial Blood Gas Sample Site Right radial Blood Gas Patient Temperature 37.0 Arterial Blood Date Drawn [id number] Arterial Blood pH 7.450 7.350-7.450 Arterial Blood Partial Pressure CO2 22.3 L 32.0-45.0 mmHg Arterial Blood Partial Pressure O2 94.0 83.0-108.0 mmHg Arterial Blood HCO3 15.2 L 21.0-28.0 mmol/L Arterial Blood Oxygen Saturation 97.4 94.0-98.0 % Arterial Blood Base Excess -6.6 L -2.0-3.0 mmol/L Arterial Blood Oxyhemoglobin 96.2 94.0-98.0 % Arterial Blood Carboxyhemoglobin 0.6 0.5-1.5 % Arterial Blood Methemoglobin 0.6 0.0-1.5 % Gaudencio Test Yes Blood Gas Total Hemoglobin 14.50 12.0-16.0 g/dL Blood Gas Modality Room air FiO2 % 21.0 Imaging: CT chest abdomen and pelvis IMPRESSION: 1. Pneumomediastinum. Etiology is unclear. 2. Mucosal thickening of the sigmoid colon, versus underdistention. Correlate for infectious or inflammatory colitis. Gastrografin swallow IMPRESSION: 1. Unremarkable esophagram. 2. No contrast leak Assessment: Pneumomediastinum Sepsis Nausea and vomiting History of cannabinoid use History of Ozempic use Plan: Discussed with Dr. Carrillo IV Protonix IV antibiotics Strict NPO Higher level of care recommended We will continue to monitor patient Discussed plan with patient family at bedside and RN Thank you for this consult Date of Service: Dec 04, 2024 Billing Provider: CHRIS MEYER Common Visit Codes: CONSULT ONLY Consultation Codes: [id number] CONSULT <60MIN CHRIS MEYER Dec 04, 2024 13:34
--- NOTE | 2024-12-04 13:53 | DVHINCON2 ---
Date Seen: Dec 04, 2024 Referring Physician MD Fredy resident Reason for Consultation NSTEMI History of Present Illness This is a 29-year-old female patient who presents to emergency room with chief complaint of abdominal pain, nausea, vomiting, and chest pain. The patient was recently seen at this facility on 12/03/2024 in the ER, was diagnosed with cannabinoid hyperemesis syndrome and sent home. The patient comes back today with the same complaints. She describes the chest pain as unprovoked, constant, burning in nature, substernal and nonradiating. Associated symptoms include shortness of breath, nausea, and vomiting. Cardiology has been consulted at this time for elevated troponin level. Initial twelve lead electrocardiogram reveals sinus tachycardia with nonspecific T-wave inversion to lateral leads (leads I and aVL). Initial troponin level of 3278ng/L with up trend and current peak level at 5085ng/L. Significant past medical history includes hypertension, dyslipidemia, chronic kidney disease, type 2 diabetes mellitus, and marijuana use. Past Medical History Past medical history reviewed. No other significant than mentioned above. Past Surgical History Family History: Diabetes mellitus (DM) G8 BROTHER FH: HTN (hypertension) G8 MOTHER Family History Family history reviewed. Social History Patient admits to marijuana use, denies other illicit drugs Denies alcohol use Denies tobacco use Allergies: Coded Allergies: NO KNOWN ALLERGIES (Unverified , 04/24/17) Home Meds Active Scripts Pantoprazole Sodium Sesquihydr (Protonix) 40 Mg Tab, 40 MG PO DAILY, #30 TAB Prov:RAMAKRISHNA ABBOTT MD 12/03/24 Ondansetron Odt 4MG Tab (ZOFRAN PO) 4 Mg Tb, 4 MG PO Q8HP PRN for 6 Days, #18 TAB ODT TAB-DISSOLVE IN MOUTH, THEN SWALLOW Prov:RAMAKRISHNA ABBOTT MD 12/03/24 Amlodipine Besylate (NORVASC TABLET) 5 Mg Tb, 2 TAB PO DAILY, #30 TAB 5 Refills Prov:RADHA PROCTOR NP 10/12/24 Carvedilol (Coreg) 25 Mg Tab, 1 TAB PO BID, #60 TAB 5 Refills Prov:RADHA PROCTOR NP 10/12/24 Valsartan (Valsartan) 80 Mg Tab, 80 MG PO DAILY for 28 Days, #28 TAB Prov:[facility]ISE [facility] 07/06/24 Hctz (Hydrochlorothiazide) 25 Mg Tab, 25 MG PO DAILY for 28 Days, #28 TAB [facility]/24 Ergocalciferol (VITAMIN D 77017 UNIT) 50,000 [place], [address] UNIT PO QWEEKLY for 56 Days, #8 CAP 0 Refills [facility] 07/06/24 Atorvastatin Calcium (ATORVASTATIN CALCIUM) 40 Mg Tab, 40 MG PO HS for 28 Days, #28 TAB 0 Refills Prov[facility] 07/06/24 Reported Medications Semaglutide (Ozempic) 4 Mg/3 Ml Inj, 1 MG SC QWEEKLY 10/10/24 Home Meds Home medications reviewed. Current Medications Current Medications Medications (Trade) Dose Ordered Sig/Lucie Route PRN Reason Start Time Stop Time Status Last Admin Ondansetron HCl (Zofran) 4 mg Q4HP PRN IV NAUSEA / VOMITING 12/04/24 06:15 12/04/24 10:11 DC Nicardipine/ Sodium Chloride 200 ml @ 50 mls/hr Q4H IV 12/04/24 06:15 12/04/24 08:13 DC Piperacillin Sod/ Tazobactam Sod 100 ml @ 25 mls/hr Q8HR IV 12/04/24 14:00 12/04/24 07:52 DC Metoclopramide HCl (Reglan Injection) 5 mg Q6HR IV 12/04/24 12:00 12/04/24 10:11 DC Sodium Chloride 1,000 ml @ 100 mls/hr Q10H IV 12/04/24 06:15 12/04/24 10:11 DC 12/04/24 08:00 Diagnostic Test (Pha) (Accu-Chek Comfort Curve T) 1 strip Q6HR 12/04/24 12:00 12/04/24 10:12 DC Insulin Human Regular (InsuLIN R) Q6HR SC 12/04/24 12:00 12/04/24 10:12 DC Dextrose 50 ml UD PRN IV Blood Sugar LESS THAN 60 12/04/24 06:15 12/04/24 10:12 DC Hydromorphone HCl (Dilaudid Injection) 0.25 mg Q4HPRN PRN IV SEVERE PAIN (7-10 PAIN SCALE) 12/04/24 06:15 12/04/24 10:12 DC Pantoprazole Sodium (Protonix) 40 mg BID IV 12/04/24 10:00 12/04/24 10:12 DC Piperacillin Sod/ Tazobactam Sod 100 ml @ 25 mls/hr Q8H IV 12/04/24 08:00 12/04/24 08:11 Nicardipine/ Sodium Chloride 200 ml @ 50 mls/hr Q4H IV 12/04/24 08:15 12/04/24 08:25 Micafungin Sodium 100 mg/Sodium Chloride 100 ml @ 100 mls/hr DAILY IV 12/04/24 10:00 12/04/24 10:13 DC Ondansetron HCl (Zofran) 4 mg Q4HP PRN IV NAUSEA / VOMITING 12/04/24 10:15 12/04/24 10:31 Metoclopramide HCl (Reglan Injection) 5 mg Q6HR IV 12/04/24 12:00 12/04/24 12:00 Sodium Chloride 1,000 ml @ 100 mls/hr Q10H IV 12/04/24 10:15 12/04/24 10:15 Diagnostic Test (Pha) (Accu-Chek Comfort Curve T) 1 strip Q6HR 12/04/24 12:00 12/04/24 12:05 Insulin Human Regular (InsuLIN R) Q6HR SC 12/04/24 12:00 12/04/24 12:05 Dextrose 50 ml UD PRN IV Blood Sugar LESS THAN 60 12/04/24 10:15 Hydromorphone HCl (Dilaudid Injection) 0.25 mg Q4HPRN PRN IV SEVERE PAIN (7-10 PAIN SCALE) 12/04/24 10:15 12/04/24 10:44 Pantoprazole Sodium (Protonix) 40 mg BID IV 12/04/24 22:00 12/04/24 10:24 DC Micafungin Sodium 100 mg/Sodium Chloride 100 ml @ 100 mls/hr DAILY IV 12/05/24 10:00 12/04/24 11:28 DC Pantoprazole Sodium (Protonix) 40 mg BID IV 12/04/24 22:00 Cancel Pantoprazole Sodium (Protonix) 40 mg BID IV 12/04/24 22:00 Vancomycin HCl 250 ml @ 250 mls/hr DAILY IV 12/05/24 10:00 12/04/24 11:48 DC Vancomycin HCl 0 ml @ 0 mls/hr UD IV 12/04/24 12:00 Review of Systems Constitutional: No symptom reported Ears, Nose, & Throat: No symptom reported Eyes: No symptom reported Neurological: No symptoms reported Pulmonary/Respiratory: No symptoms reported Cardiovascular: Chest pain Gastrointestinal: Abdominal pain, nausea and vomiting Genitourinary: No symptom reported Musculoskeletal: No symptom reported Skin: No symptom reported Psychiatric: No symptom reported Endocrine: No symptom reported Hematologic/Lymphatic: No symptom reported Vital Signs Vital Signs Date Time Temp Pulse Resp B/P (MAP) Pulse Ox O2 Delivery O2 Flow Rate FiO2 12/04/24 12:15 125 18 151/99 (116) 100 12/04/24 07:30 97.8 97.8 12/04/24 07:30 Room Air* 0 21 Physical Exam General Appearance: Cooperative. Well-developed. Well-nourished. No acute distress. Pulmonary/Respiratory: Clear, bilateral breaths sounds. Cardiovascular/Chest: Regular rate and rhythm. Peripheral Pulses: 2+ Radial (R). 2+ Radial (L). 2+ Pedal (R). 2+ Pedal (L) Abdominal Exam: Normal bowel sounds. Ankle Exam: Negative ankle edema Lower extremities: Negative lower extremity edema Neuro/Mental Status: A/OX4, coherent. Thoughts/Psych: Normal thought pattern. Appropriate mood and affect. Good judgment and insight. Appearance: No acute distress. Skin Exam: Normal inspection. Normal color. Warm and dry. Labs/Diagnostic Data Labs Test 12/04/24 12:55 12/04/24 11:56 12/04/24 10:11 12/04/24 08:39 Range/Units White Blood Count 12.8 #H 4.4-10.8 10^3/uL Red Blood Count 4.36 4.0-5.20 10^6/uL Hemoglobin 14.0 12.2-16.2 g/dL Hematocrit 41.2 36.0-46.0 % Mean Corpuscular Volume 94.5 80.0-100.0 fL Mean Corpuscular Hemoglobin 32.0 28.0-32.0 pg Mean Corpuscular Hemoglobin Concent 33.9 32.0-36.0 g/dL Red Cell Distribution Width 12.8 11.8-14.3 % Platelet Count 332 140-450 10^3/uL Mean Platelet Volume 8.5 6.9-10.8 fL Neutrophils (%) (Auto) 80.4 H 37.0-80.0 % Lymphocytes (%) (Auto) 13.2 10.0-50.0 % Monocytes (%) (Auto) 5.8 0.0-12.0 % Eosinophils (%) (Auto) 0.1 0.0-7.0 % Basophils (%) (Auto) 0.5 0.0-2.0 % Neutrophils # (Auto) 10.3 H 1.6-8.6 10 ^3/uL Lymphocytes # (Auto) 1.7 0.4-5.4 10 ^3/uL Monocytes # (Auto) 0.7 0-1.3 10 ^3/uL Eosinophils # (Auto) 0 0-0.8 10 ^3/uL Basophils # (Auto) 0.1 0-0.2 10 ^3/uL Nucleated Red Blood Cells 0.1 % Sodium Level 141 136-145 mmol/L Potassium Level 3.8 3.5-5.1 mmol/L Chloride Level 109 H 98-107 mmol/L Carbon Dioxide Level 18 L 20-31 mmol/L Anion Gap 14 5-15 Blood Urea Nitrogen 19 9-23 mg/dL Creatinine 2.44 H 0.550-1.02 mg/dL Glomerular Filtration Rate Calc 27 >90 mL/min BUN/Creatinine Ratio 7.8 L 10.0-20.0 Serum Glucose 244 H 74-106 mg/dL Calcium Level 9.0 8.7-10.4 mg/dL POC Glucose 261 H 70-106 mg/dl Lactic Acid Level 1.3 0.4-2.0 mmol/L Ammonia < 10 L 11-32 umol/L Urine Color Yellow Yellow Urine Clarity Turbid H Clear Urine pH 6.0 5.0-9.0 Urine Specific [place] 1.024 1.001-1.035 Urine Protein 3+ H Negative Urine Ketones 1+ H Negative Urine Blood 3+ H Negative /uL Urine Nitrite Negative Negative Urine Bilirubin Negative Negative Urine Urobilinogen Normal Negative mg/dL Urine Leukocyte Esterase Trace Negative /uL Urine RBC 1060 0 - 4 /hpf Urine Microscopic WBC 31 H 0-5 /HPF Urine Squamous Epithelial Cells Few <5 /hpf Urine Bacteria None seen None Seen /hpf Urine Mucus Few None Seen Urine Glucose 1+ H Normal mg/dL Urine Test Negative Negative Urine Opiates Screen Neg NEGATIVE Urine Fentanyl Screen Neg NEGATIVE Urine Barbiturates Screen Neg NEGATIVE Urine Phencyclidine Screen Neg NEGATIVE Urine Amphetamines Screen Neg NEGATIVE Urine Benzodiazepines Screen Neg NEGATIVE Urine Cocaine Screen Neg NEGATIVE Urine Cannabinoids Screen Pos NEGATIVE Test 12/04/24 07:00 12/04/24 06:25 Range/Units Prothrombin Time 11.4 9.3-11.8 sec Prothrombin Time INR 1.08 0.9-1.15 Activated Partial Thromboplast Time 26.8 24.5-34.5 SEC Hemoglobin A1c 5.1 <5.7 % A1C Phosphorus Level 2.7 2.4-5.1 mg/dL Magnesium Level 1.8 1.6-2.6 mg/dL Total Bilirubin 0.5 0.2-1.0 mg/dL Aspartate Amino Transferase (AST) 31 13-40 U/L Alanine Aminotransferase (ALT) 16 7-40 U/L Alkaline Phosphatase 93 46-116 U/L Troponin I High Sensitivity 5085 *H </=34 ng/L C-Reactive Protein High Sensitivity 0.13 <1.0 mg/dL Total Protein 7.5 5.7-8.2 g/dL Albumin 4.4 3.2-4.8 g/dL Triglycerides Level 148 < 150 mg/dL Cholesterol Level 225 H < 200 mg/dL LDL Cholesterol 169 H < 100 mg/dL HDL Cholesterol 42 40-59 mg/dL Lipase 78 H 12-53 U/L Vitamin B12 Level 631 211-911 pg/mL Vitamin D 25-Hydroxy 21.3 L 30.0-100 ng/mL Beta-Hydroxybutyric Acid 1.049 H < 0.4 mmol/L Thyroid Stimulating Hormone (TSH) 1.62 0.55-4.78 uIU/mL Blood Gas Specimen Type Arterial Blood Gas Sample Site Right radial Blood Gas Patient Temperature 37.0 Arterial Blood Date Drawn [id number] Arterial Blood pH 7.450 7.350-7.450 Arterial Blood Partial Pressure CO2 22.3 L 32.0-45.0 mmHg Arterial Blood Partial Pressure O2 94.0 83.0-108.0 mmHg Arterial Blood HCO3 15.2 L 21.0-28.0 mmol/L Arterial Blood Oxygen Saturation 97.4 94.0-98.0 % Arterial Blood Base Excess -6.6 L -2.0-3.0 mmol/L Arterial Blood Oxyhemoglobin 96.2 94.0-98.0 % Arterial Blood Carboxyhemoglobin 0.6 0.5-1.5 % Arterial Blood Methemoglobin 0.6 0.0-1.5 % Gaudencio Test Yes Blood Gas Total Hemoglobin 14.50 12.0-16.0 g/dL Blood Gas Modality Room air FiO2 % 21.0 Assessment NSTEMI Hypertensive urgency Dyslipidemia Pneumomediastinum Type 2 diabetes mellitus Chronic kidney disease Marijuana use Plan/Recommendation We will continue with the following plan/recommendations (Dr. Saenz): Case discussed with . EKG, labs, and imaging all reviewed with MD. We will recommend for stat transthoracic echocardiogram to evaluate cardiac function and assess for any abnormalities. Preliminary transthoracic echocardiogram images reviewed by commutator inspector and shows wall motion abnormality. Given clinical presentation, elevated troponin level, transthoracic echocardiogram and twelve lead electrocardiogram changes, we will recommend for the patient undergo a coronary angiogram with left heart catheterization. Patient will be started on heparin drip and be given aspirin-------this has been cleared by GI MD per primary care team. Continue with blood pressure control. Continue with close cardiac surveillance and notify cardiology team immediately for any ECG changes. The procedure was discussed with the patient in full detail including risks and benefits. Risks include but are not limited to bleeding, contrast-induced nephropathy, coronary dissection, stroke, and even . The patient understands the procedure. The patient was requesting some time to discuss the procedure with her family. After approximately one hour, the patient has made a final decision to refuse the procedure. This SUPERVISOR REWORK went back to patient bedside and discussed the risks of not undergoing a coronary angiogram. The patient and her spouse at bedside state that they do not want the patient to undergo the procedure and risk worsening renal function. It was discussed with the patient and her spouse that there is high risk, even including , if she decides not to undergo the coronary angiogram. The patient verbalized understanding and is adamantly refusing coronary angiogram with left heart catheterization. Bedside RN's Anand at bedside during this discussion. Patient educated to notify cardiology team immediately if she decides to change her mind to undergo procedure. Thank you for allowing us to care for this patient. Please call with any questions or concerns. Critical care time spent: 44 minutes This medical document was created using an electronic medical record system with voice recognition software and computerized dictation system. Although this document has been carefully reviewed, there might still be some phonetic and typographical errors. Occasional wrong-word or ``sound-alike substitutions may have occurred due to the inherent limitations of voice recognition software. These areas are purely typographical due to imperfections of the software programs and do not reflect any compromise in the patient's medical care. Please read the chart carefully and recognize, using context, where these substitutions have occurred. Plan discussed with: Patient, Other (Patient's mother at bedside) NYHA Physical activity limitations: NA Date of Service: Dec 04, 2024 Billing Provider: JUDAH VILLAFUERTE Cardiology Common Codes: 59624-[id number] INP/OBS CARE (High) Cardiology Consultation Codes: [id number] CONSULT <45MIN JUDAH VILLAFUERTE Dec 04, 2024 13:53
[2024-12-04] MEDS: METOPROLOL TARTRATE 1MG/1ML-5ML VIAL IV ONE (13:55)
[2024-12-04] MEDS ORDERED: PIPERACILLIN-TAZOB 3.375GM 100 ML IV SCH (14:00)
--- NOTE | 2024-12-04 14:11 | DVHPNRES ---
Progress Note Date Seen: Dec 04, 2024 Resident Creating Document: MARCUS WALTER RESIDENT Medical Necessity Reason Pt with a Central, PICC or Fol: No Subjective Review of Systems This is a 29-year-old female came to ER with a complaint of nausea vomiting and chest discomfort. As per patient, nausea and vomiting yesterday morning and more than 6 episodes of vomiting with out hematemesis. Approximately 30 minutes after vomiting, patient started left-sided chest discomfort which is burning in nature, 10/10 intensity, aggravated on breathing , no relieving factors, localized and no radiation. Patient also having right flank discomfort at the same type. Denies any history of sick contact, trauma, fall or MVA recently. Patient having similar symptoms and need hospitalization before and recent admission due to DKA need ICU status on October 15. Day before admission, Patient discharged from ER diagnosed with hyperemesis secondary to cannabis induced hyperemesis and discharged home. Around 4 a.m. 12/04/2024, patient experienced chest discomfort and presented to ER accompanied with mother. In ER patient having hypertensive emergency and started nicardipine drip. Patient blood pressure systolic< 150, nicardipine drip stopped around 11:15 am on 12/04/2024. Past medical history: Hypertension, diabetes, CKD, questionable renal artery stenosis (FMD?), suprarenal tumor in evaluation, GERD. Surgical history: C-sections x2 Family history: Non contributory Social history: Lives in [place] with family (NOK mother). Smokes marijuana. Denies current tobacco, alcohol and other drug abuse Allergies: DeniesPCP: Carli Mishra Home medication: Carvedilol, Nifedipine and Amlodipine, Hydralazine, Valsartan, Ozempic, Pantoprazol 12/04: Patient seen and evaluated in bedside. Gastrografin study showed no esophageal leaking. Cardiology,surgery, GI on board. Hold to transfer higher level of care on the basis of Gastrografin test. Objective vital signs Vital Sign Date Time Temp Pulse Resp B/P (MAP) Pulse Ox O2 Delivery O2 Flow Rate FiO2 12/04/24 12:15 125 18 151/99 (116) 100 12/04/24 07:30 97.8 97.8 12/04/24 07:30 Room Air* 0 21 medications Current Medications Medications Dose Ordered Sig/Lucie Route Start Time Stop Time Status Last Admin Dose Admin Piperacillin Sod/ Tazobactam Sod 100 ml @ 25 mls/hr Q8H IV 12/04/24 08:00 12/04/24 08:11 25 MLS/HR Nicardipine/ Sodium Chloride 200 ml @ 50 mls/hr Q4H IV 12/04/24 08:15 12/04/24 08:25 50 MLS/HR Ondansetron HCl 4 mg Q4HP PRN IV 12/04/24 10:15 12/04/24 10:31 4 MG Metoclopramide HCl 5 mg Q6HR IV 12/04/24 12:00 12/04/24 12:00 5 MG Sodium Chloride 1,000 ml @ 100 mls/hr Q10H IV 12/04/24 10:15 12/04/24 10:15 100 MLS/HR Diagnostic Test (Pha) 1 strip Q6HR 12/04/24 12:00 12/04/24 12:05 1 STRIP Insulin Human Regular Q6HR SC 12/04/24 12:00 12/04/24 12:05 6 UNITS Dextrose 50 ml UD PRN IV 12/04/24 10:15 Hydromorphone HCl 0.25 mg Q4HPRN PRN IV 12/04/24 10:15 12/04/24 10:44 0.25 MG Pantoprazole Sodium 40 mg BID IV 12/04/24 22:00 Cancel Pantoprazole Sodium 40 mg BID IV 12/04/24 22:00 Vancomycin HCl 0 ml @ 0 mls/hr UD IV 12/04/24 12:00 Examination Patient lying in bed, in mild acute distress General: Lucid, afebrile, mucosae are moist Cardiovascular: Tachycardic S1 and S2. No murmurs, gallops or rubs Respiratory: Normal ventilation mechanics. Clear lung sounds on auscultation Abdomen: Soft, nontender, no organomegaly, normal bowel sounds MSK/skin: Mobilizes 4 limbs. Skin is dry and warm Neurological: Oriented in 3 spheres. No motor no sensitive deficits. Pupils are isocoric and reactive laboratory and microbiology Laboratory Tests 12/04/24 12:55 Test 12/04/24 12:55 Range/Units Serum Glucose 244 H 74-106 mg/dL Problem List/Assessment/Plan Problem List/Assessment/Plan This is a 29-year-old female came to ER with a complaint of nausea vomiting and chest discomfort. As per patient, nausea and vomiting yesterday morning and more than 6 episodes of vomiting with out hematemesis. Approximately 30 minutes after vomiting, patient started left-sided chest discomfort which is burning in nature, 10/10 intensity, aggravated on breathing , no relieving factors, localized and no radiation. Patient also having right flank discomfort at the same type. Denies any history of sick contact, trauma, fall or MVA recently. Patient having similar symptoms and need hospitalization before and recent admission due to DKA need ICU status on October 15. Day before admission, Patient discharged from ER diagnosed with hyperemesis secondary to cannabis induced hyperemesis and discharged home. Around 4 a.m. 12/04/2024, patient experienced chest discomfort and presented to ER accompanied with mother. In ER patient having hypertensive emergency and started nicardipine drip. Patient blood pressure systolic< 150, nicardipine drip stopped around 11:15 am on 12/04/2024. NEUROLOGY Patient AO x4 No focal weakness CARDIOVASCULAR: ? type I NSTEMI Hypertensive emergency Essential hypertension * EKG which shows sinus tachycardia with no ST elevation (lateral repolarization abnormalities). * Echo on 07/06/2024 shows EF 60% with severe left ventricular concentric hypertrophy. * Troponin 3278> 3561> 5085 * Plan: s/p Nicardipine drip, Hold off on Aspirin and Atorvastatin due to esophageal perforation. 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 Cardiology recommended angiogram. PULMONARY: Sepsis secondary to pneumomediastinum * Esophagogram: The esophagus was normal in caliber with no stricture, or wall irregularity demonstrated normal esophageal peristalsis. No contrast leak. * Plan; Consulted GI and surgery, cardiology consult. * Completed chest/abdomen/pelvis CT which shows pneumomediastinum and questionable colitis. * Currently NPO, on IV pantoprazol, IV antibiotics -Zosyn , IV fluids. * Plan: Obtained pancultures (blood, urine and sputum), follow-up with repeat CT chest/x-ray GASTROINTESTINAL: Questionable Boerhaave syndrome (cannabinoid hyperemesis ) Possible colitis Acute pancreatitis Cannabis induced hyperemesis * Lipase level 108> 78 * Completed chest/abdomen/pelvis CT which shows pneumomediastinum and questionable colitis * Consulted GI recommended stick NPO, IV Protonix and surgery recommended transfer higher level of care. * Esophagram showed no leaking from esophagus-hold transfer, monitor patient closely. * Plan: Currently NPO, on IV pantoprazol, IV antibiotics-Zosyn, IV fluids. GENITOURINARY: SIENNA on CKD Questionable renovascular hypertension (FMD?) * Nephrology consulted * Avoid nephrotoxic drugs * Plan: IVF, BNP HEMATOLOGY: Leukocytosis likely due to sepsis/stress Plan: CBC METABOLIC: Diabetes mellitus type 2 Vitamin-D deficiency Hyperparathyroidism * Avoid Ozempic due to intractable nausea and vomiting * Beta hydroxybutyrate acid 1.049 * Hemoglobin A1c 5.1, AG-16 on admission * Plan: ISS, monitor blood sugar INFECTIOUS DISEASE: Sepsis secondary to pneumomediastinum Colitis/acute pancreatitis * Plan: Continue Zosyn, CBC daily MUSCULOSKELETAL/SKIN * No skin erosion or ulcer noted SUBSTANCE USE DISORDER * UDS showed positive for cannabis * Plan: More than 13 minute spent counseling substance abuse. DIET: NPO DVT prophylax: Heparin GI prophylaxis: Protonix Bowel regimen: None Code status: Full code LINES/DRAINS/ACCESS: IV access: None Drips: s/p nicardipine drip Gibbs catheter: None DISPOSITION: ICU Patient's status discussed with patient and mother in bedside. Critical care time spent more than 89 minutes, including patient care, chart review, and updating the family. Excluding any procedures Case discussed with Dr. Hall Plan discussed with: Patient, Other (Nurse,, mother) My Orders My Orders Orders - MARCUS WALTER Procedure Category Date Status Time * Cardiology Consult CONS 12/04/24 Transmitted 11:06 * Pipe Machine Operator CONS 12/04/24 Transmitted Consult Npo (Nothing By DIET 12/04/24 Transmitted Mouth) Diet Lunch Vancomycin Per PHA 12/04/24 In Process Pharmacy 12:00 Date of Service: Dec 04, 2024 Billing Provider: SHANT HALL MD Common Visit Codes: [id number] CARE 30-74 MIN, [id number] CARE-EACH +30MIN MARCUS WALTER Dec 04, 2024 14:10 SHANT HALL MD Dec 05, 2024 14:06
[2024-12-04] MEDS: HEPARIN SODIUM (PORCINE) 5000 UNITS/ML 1ML VIAL IV ONE (16:54)
[2024-12-04] MEDS: HEPARIN DRIP/D5W 100UNITS/ML 250 ML IV SCH (16:55)
--- NOTE | 2024-12-04 17:11 | CONS ---
Pharmacy Clinical Information: HEPARIN PER RX PROTOCOL SPOKE TO ELBA Madrigal REGARDING new heparin drip order CURRENT aPTT: 26.8 on 12/04/2024 at 0700 BOLUS: 4000 units ivp x1 Initial heparin drip rate: 1000 units/hr Date and time new dose started: 12/04/2024 at 16:55 Next aPTT: 11/28/2024 at 23:00 ELBA Madrigal READ BACK initial heparin drip rate: 1000 UNITS/HR DEEPA Casillas Dec 04, 2024 17:11
[2024-12-04 17:20] LABS: Hematocrit 38.5 % (36.0-46.0); Hemoglobin 12.8 g/dL (12.2-16.2); Mean Corpuscular Hemoglobin 31.5 pg (28.0-32.0); Mean Corpuscular Volume 94.8 fL (80.0-100.0); Nucleated Red Blood Cells % 0.1 %
[2024-12-04] MEDS: HEPARIN IN NS 1000Units/500mL 1,500 ML ONE (17:22)
[2024-12-04] MEDS: IODIXANOL 320MG/ML 100ML BTL IV ONE (17:22)
--- NOTE | 2024-12-04 17:42 | DVHCONRES ---
Date Seen: Dec 04, 2024 Resident Creating Document: RHONDA BINGHAM RESIDENT Referring Physician resident MIN Reason for Consultation CKD History of Present Illness This is a 29-year-old female came to ER with a complaint of nausea vomiting and chest discomfort. As per patient, nausea and vomiting yesterday morning and more than 6 episodes of vomiting with out hematemesis. Approximately 30 minutes after vomiting, patient started left-sided chest discomfort which is burning in nature, 10/10 intensity, aggravated on breathing not try any medication on nothing relieved, localized and no radiation. Patient also having right flank discomfort and the same type. Denies any history of sick contact, trauma, fall or MVA recently. Patient having similar hospitalization before and recent admission due to DKA need ICU status on October 15. Patient discharged from ER diagnosed with hyperemesis secondary to cannabis induced hyperemesis and discharged home. Around 4 a.m. 12/04/2024, patient experienced chest discomfort and presented to ER accompanied with mother. In ER patient shows, tachycardia and hypertension and started nicardipine drip. Patient Was seen and examined on the bedside. she is alert oriented x3. mentioned mild chest discomfort and abdominal pain. EKG revealed T-wave inversion in lateral leads and troponin was markedly elevated, cardiology recommended left heart catheterization today. Past Medical History Hypertension, diabetes, CKD, questionable renal artery stenosis (FMD?) Past Surgical History x2 Family History: Diabetes mellitus (DM) G8 BROTHER FH: HTN (hypertension) G8 MOTHER Allergies: Coded Allergies: NO KNOWN ALLERGIES (Unverified , 04/24/17) Home Meds Active Scripts Pantoprazole Sodium Sesquihydr (Protonix) 40 Mg Tab, 40 MG PO DAILY, #30 TAB Prov:RAMAKRISHNA ABBOTT MD 12/03/24 Ondansetron Odt 4MG Tab (ZOFRAN PO) 4 Mg Tb, 4 MG PO Q8HP PRN for 6 Days, #18 TAB ODT TAB-DISSOLVE IN MOUTH, THEN SWALLOW Prov:RAMAKRISHNA ABBOTT MD 12/03/24 Amlodipine Besylate (NORVASC TABLET) 5 Mg Tb, 2 TAB PO DAILY, #30 TAB 5 Refills Prov:RADHA PROCTOR NP 10/12/24 Carvedilol (Coreg) 25 Mg Tab, 1 TAB PO BID, #60 TAB 5 Refills Prov:RADHA RPOCTOR [employer] 10/12/24 Valsartan (Valsartan) 80 Mg Tab, 80 MG PO DAILY for 28 Days, #28 TAB Prov:BLAISE BOWDEN [facility] 07/06/24 Hctz (Hydrochlorothiazide) 25 Mg Tab, 25 MG PO DAILY for 28 Days, #28 TAB [facility] 07/06/24 Ergocalciferol (VITAMIN D 31205 UNIT) 50,000 [place], [address] UNIT PO QWEEKLY for 56 Days, #8 CAP 0 Refills Prov:BLAISE DILLON [facility] 07/06/24 Atorvastatin Calcium (ATORVASTATIN CALCIUM) 40 Mg Tab, 40 MG PO HS for 28 Days, #28 TAB 0 Refills Prov:BLAISE BOWDEN [facility] 07/06/24 Reported Medications Semaglutide (Ozempic) 4 Mg/3 Ml Inj, 1 MG SC QWEEKLY 10/10/24 Current Medications Current Medications Medications (Trade) Dose Ordered Sig/Lucie Route PRN Reason Start Time Stop Time Status Last Admin Ondansetron HCl (Zofran) 4 mg Q4HP PRN IV NAUSEA / VOMITING 12/04/24 06:15 12/04/24 10:11 DC Nicardipine/ Sodium Chloride 200 ml @ 50 mls/hr Q4H IV 12/04/24 06:15 12/04/24 08:13 DC Piperacillin Sod/ Tazobactam Sod 100 ml @ 25 mls/hr Q8HR IV 12/04/24 14:00 12/04/24 07:52 DC Metoclopramide HCl (Reglan Injection) 5 mg Q6HR IV 12/04/24 12:00 12/04/24 10:11 DC Sodium Chloride 1,000 ml @ 100 mls/hr Q10H IV 12/04/24 06:15 12/04/24 10:11 DC 12/04/24 08:00 Diagnostic Test (Pha) (Accu-Chek Comfort Curve T) 1 strip Q6HR 12/04/24 12:00 12/04/24 10:12 DC Insulin Human Regular (InsuLIN R) Q6HR SC 12/04/24 12:00 12/04/24 10:12 DC Dextrose 50 ml UD PRN IV Blood Sugar LESS THAN 60 10/14/25 06:15 12/04/24 10:12 DC Hydromorphone HCl (Dilaudid Injection) 0.25 mg Q4HPRN PRN IV SEVERE PAIN (7-10 PAIN SCALE) 12/04/24 06:15 12/04/24 10:12 DC Pantoprazole Sodium (Protonix) 40 mg BID IV 12/04/24 10:00 12/04/24 10:12 DC Piperacillin Sod/ Tazobactam Sod 100 ml @ 25 mls/hr Q8H IV 12/04/24 08:00 12/04/24 17:01 Nicardipine/ Sodium Chloride 200 ml @ 50 mls/hr Q4H IV 12/04/24 08:15 12/04/24 08:25 Micafungin Sodium 100 mg/Sodium Chloride 100 ml @ 100 mls/hr DAILY IV 12/04/24 10:00 12/04/24 10:13 DC Ondansetron HCl (Zofran) 4 mg Q4HP PRN IV NAUSEA / VOMITING 12/04/24 10:15 12/04/24 10:31 Metoclopramide HCl (Reglan Injection) 5 mg Q6HR IV 12/04/24 12:00 12/04/24 12:00 Sodium Chloride 1,000 ml @ 100 mls/hr Q10H IV 12/04/24 10:15 12/04/24 10:15 Diagnostic Test (Pha) (Accu-Chek Comfort Curve T) 1 strip Q6HR 12/04/24 12:00 12/04/24 12:05 Insulin Human Regular (InsuLIN R) Q6HR SC 12/04/24 12:00 12/04/24 12:05 Dextrose 50 ml UD PRN IV Blood Sugar LESS THAN 60 12/04/24 10:15 Hydromorphone HCl (Dilaudid Injection) 0.25 mg Q4HPRN PRN IV SEVERE PAIN (7-10 PAIN SCALE) 12/04/24 10:15 12/04/24 10:44 Pantoprazole Sodium (Protonix) 40 mg BID IV 12/04/24 22:00 12/04/24 10:24 DC Micafungin Sodium 100 mg/Sodium Chloride 100 ml @ 100 mls/hr DAILY IV 12/05/24 10:00 12/04/24 11:28 DC Pantoprazole Sodium (Protonix) 40 mg BID IV 12/04/24 22:00 Cancel Pantoprazole Sodium (Protonix) 40 mg BID IV 12/04/24 22:00 Vancomycin HCl 250 ml @ 250 mls/hr DAILY IV 12/05/24 10:00 12/04/24 11:48 DC Vancomycin HCl 0 ml @ 0 mls/hr UD IV 12/04/24 12:00 12/04/24 14:44 DC Heparin Sodium/ Dextrose 250 ml @ 10 mls/hr Q24H IV 12/04/24 16:30 12/04/24 16:55 Review of Systems Constitutional: No: Fever, Chills, Sweats, Weakness, Malaise, Other Eyes: No: Pain, Vision change, Conjunctivae inflammation, Eyelid inflammation, Other, Redness ENT: No: Ear pain, Ear discharge, Nose pain, Nose discharge, Nose congestion, Mouth pain, Mouth swelling, Throat pain, Throat swelling, Other Respiratory: Shortness of breath, improving No: Cough, Dry,Wheezing, Hemoptysis, Pleuritic Pain, Sputum, Wheezing, Other Cardiovascular: Chest Pain, NO Palpitations, Orthopnea, Paroxysmal Noc. Dyspnea, Edema, Lt Headedness, Other Gastrointestinal: Nausea, Vomiting, Abdominal Pain, No Diarrhea, Constipation, Melena, Hematochezia, Other Musculoskeletal: No: other, neck pain, shoulder pain, arm pain, back pain, hand pain, leg pain, foot pain Neurological:; No: Weakness, Numbness, Incoordination, Change in speech, Confusion, Seizures Vital Signs Vital Signs Date Time Temp Pulse Resp B/P (MAP) Pulse Ox O2 Delivery O2 Flow Rate FiO2 12/04/24 16:00 81 12/04/24 14:45 22 150/107 (121) 12/04/24 14:30 100 12/04/24 07:30 97.8 97.8 12/04/24 07:30 Room Air* 0 21 Physical Exam Physical examination: General Appearance: Alert, Oriented X3, Cooperative, No acute distress HEENT: Atraumatic, PERRLA, EOMI, Mucous membrane moist/pink Respiratory: Clear to auscultation, Normal air movement Cardiovascular: Regular rate, Normal S1, Normal S2, No murmurs, no chest wall tenderness Abdominal: Normal bowel sounds, Soft, No tenderness, No hepatospenomegaly, No masses Extremities: No clubbing, No cyanosis, No edema, Normal pulses, No tenderness/swelling Skin: No rashes, No breakdown, No significant lesion Neuro: Normal gait, Normal speech, Strength at 5/5 X4 ext, Normal tone, Sensation intact, Cranial nerves 3-12 NL, Reflexes 2+ Psych/Mental Status: Mental status NL, Mood NL Labs/Diagnostic Data Labs Test 12/04/24 17:12 12/04/24 12:55 12/04/24 11:56 12/04/24 10:11 Range/Units Eosinophils (%) (Auto) 0.1 0.0-7.0 % Eosinophils # (Auto) 0 0-0.8 10 ^3/uL Basophils # (Auto) 0.1 0-0.2 10 ^3/uL Nucleated Red Blood Cells 0.1 % Sodium Level 141 136-145 mmol/L Potassium Level 3.8 3.5-5.1 mmol/L Chloride Level 109 H 98-107 mmol/L Carbon Dioxide Level 18 L 20-31 mmol/L Anion Gap 14 5-15 Blood Urea Nitrogen 19 9-23 mg/dL Creatinine 2.44 H 0.550-1.02 mg/dL Glomerular Filtration Rate Calc 27 >90 mL/min BUN/Creatinine Ratio 7.8 L 10.0-20.0 Serum Glucose 244 H 74-106 mg/dL Calcium Level 9.0 8.7-10.4 mg/dL Parathyroid Hormone (Intact) 173.6 H 18.4-80.1 pg/mL POC Glucose 261 H 70-106 mg/dl Lactic Acid Level 1.3 0.4-2.0 mmol/L Ammonia < 10 L 11-32 umol/L Test 12/04/24 08:39 12/04/24 07:00 12/04/24 06:25 Range/Units Urine Color Yellow Yellow Urine Clarity Turbid H Clear Urine pH 6.0 5.0-9.0 Urine Specific [place] 1.024 1.001-1.035 Urine Protein 3+ H Negative Urine Ketones 1+ H Negative Urine Blood 3+ H Negative /uL Urine Nitrite Negative Negative Urine Bilirubin Negative Negative Urine Urobilinogen Normal Negative mg/dL Urine Leukocyte Esterase Trace Negative /uL Urine RBC 1060 0 - 4 /hpf Urine Microscopic WBC 31 H 0-5 /HPF Urine Squamous Epithelial Cells Few <5 /hpf Urine Bacteria None seen None Seen /hpf Urine Mucus Few None Seen Urine Glucose 1+ H Normal mg/dL Urine Test Negative Negative Urine Opiates Screen Neg NEGATIVE Urine Fentanyl Screen Neg NEGATIVE Urine Barbiturates Screen Neg NEGATIVE Urine Phencyclidine Screen Neg NEGATIVE Urine Amphetamines Screen Neg NEGATIVE Urine Benzodiazepines Screen Neg NEGATIVE Urine Cocaine Screen Neg NEGATIVE Urine Cannabinoids Screen Pos NEGATIVE Hemoglobin A1c 5.1 <5.7 % A1C Phosphorus Level 2.7 2.4-5.1 mg/dL Magnesium Level 1.8 1.6-2.6 mg/dL Total Bilirubin 0.5 0.2-1.0 mg/dL Aspartate Amino Transferase (AST) 31 13-40 U/L Alanine Aminotransferase (ALT) 16 7-40 U/L Alkaline Phosphatase 93 46-116 U/L Troponin I High Sensitivity 5085 *H </=34 ng/L C-Reactive Protein High Sensitivity 0.13 <1.0 mg/dL Total Protein 7.5 5.7-8.2 g/dL Albumin 4.4 3.2-4.8 g/dL Triglycerides Level 148 < 150 mg/dL Cholesterol Level 225 H < 200 mg/dL LDL Cholesterol 169 H < 100 mg/dL HDL Cholesterol 42 40-59 mg/dL Lipase 78 H 12-53 U/L Vitamin B12 Level 631 211-911 pg/mL Vitamin D 25-Hydroxy 21.3 L 30.0-100 ng/mL Beta-Hydroxybutyric Acid 1.049 H < 0.4 mmol/L Thyroid Stimulating Hormone (TSH) 1.62 0.55-4.78 uIU/mL Blood Gas Specimen Type Arterial Blood Gas Sample Site Right radial Blood Gas Patient Temperature 37.0 Arterial Blood Date Drawn [id number] Arterial Blood pH 7.450 7.350-7.450 Arterial Blood Partial Pressure CO2 22.3 L 32.0-45.0 mmHg Arterial Blood Partial Pressure O2 94.0 83.0-108.0 mmHg Arterial Blood HCO3 15.2 L 21.0-28.0 mmol/L Arterial Blood Oxygen Saturation 97.4 94.0-98.0 % Arterial Blood Base Excess -6.6 L -2.0-3.0 mmol/L Arterial Blood Oxyhemoglobin 96.2 94.0-98.0 % Arterial Blood Carboxyhemoglobin 0.6 0.5-1.5 % Arterial Blood Methemoglobin 0.6 0.0-1.5 % Gaudencio Test Yes Blood Gas Total Hemoglobin 14.50 12.0-16.0 g/dL Blood Gas Modality Room air FiO2 % 21.0 Assessment Assessment and plan: # SIENNA superimposed on CKD likely prerenal, hemodynamically mediated # Hypertensive emergency # Vitamin-D deficiency # Secondary hyperparathyroidism due to CKD # Possible NSTEMI type 1 # Acute colitis # Sepsis due to above Plan: - Ordered urine sodium, creatinine to calculate FENA - scheduled for left heart catheterization today - continue IV normal saline at 100 mL/hours to prevent contrast induced nephropathy - continue carvedilol 6.25 b.i.d., hydrochlorothiazide 25 mg daily, amlodipine 5 mg daily to optimize control blood pressure - continue IV antibiotics and other management as per primary - appreciate cardiology consultation - strict I&O - avoid nephrotoxic medication - monitor BMP Thank you so much for the opportunity to consult on your patient. Nephro team will follow the patient. In case of any questions or concerns please feel free to reach out. Plan discussed with . The patient and caregiver team agreed to the plan. Addendum Patient seen and examined, plan discussed with resident. Agree with above, we will follow closely Plan discussed with: Patient, Other (RN) RHONDA BINGHAM RESIDENT Dec 04, 2024 17:41 EVON ROUSE MD Dec 05, 2024 17:26
[2024-12-04 17:54] LABS: INR 1.12 (0.9-1.15); Prothrombin Time 11.7 sec (9.3-11.8)
[2024-12-04] MEDS: CARVEDILOL 3.125 MG TAB PO ONE (18:19)
[2024-12-04 18:40] LABS: Partial Thromboplastin Time > 139.0 SEC (24.5-34.5)
[2024-12-04 19:00] VITALS: O2SAT 100
[2024-12-04] MEDS: PANTOPRAZOLE 40 MG/10 ML VIAL INJ IV SCH (22:28)
[2024-12-04] MEDS: CARVEDILOL 3.125 MG TAB PO SCH (22:30)
[2024-12-04 22:40] LABS: Protein, Urine 942.4 mg/dL (1-14)
[2024-12-05] VITALS (8 sets, daily range): BP systolic 130–165; BP diastolic 81–155; PULSE 100–115; RESP 16–20; TEMP 97.6–98.3; O2SAT 99–100
--- NOTE | 2024-12-05 01:28 | DVHINCON2 ---
Date Seen: Dec 04, 2024 Referring Physician MD Fredy resident Reason for Consultation NSTEMI History of Present Illness This is a 29-year-old female with a past medical history of hypertension, dyslipidemia, chronic kidney disease, type 2 diabetes mellitus, and marijuana use who presents to emergency room with chief complaint of abdominal pain, nausea, vomiting, and chest pain. The patient was recently seen here at [facility] on 12/03/2024 in the ER, was diagnosed with cannabinoid hyperemesis syndrome and sent home. The patient comes back today with the same complaints. She describes the chest pain as unprovoked, constant, burning in nature, substernal and nonradiating. Associated symptoms include shortness or breath, nausea, and vomiting. Initial twelve lead electrocardiogram reveals sinus tachycardia with nonspecific T-wave inversion to lateral leads (leads I and aVL). [place] trop[place] 3278ng/L with up trend and current peak level at 5085ng/L. CT Chest/ABD/PEL showed pneumomediastinum. Etiology is unclear. Mucosal thickening of the sigmoid colon, versus underdistention. Cardiology has been consulted at this time for elevated troponin level. Past Medical History Past medical history reviewed. No other significant than mentioned above. Past Surgical History Family History: Diabetes mellitus (DM) G8 BROTHER FH: HTN (hypertension) G8 MOTHER Allergies: Coded Allergies: NO KNOWN ALLERGIES (Unverified , 04/24/17) Home Meds Active Scripts Pantoprazole Sodium Sesquihydr (Protonix) 40 Mg Tab, 40 MG PO DAILY, #30 TAB Prov:RAMAKRISHNA ABBOTT MD 12/03/24 Ondansetron Odt 4MG Tab (ZOFRAN PO) 4 Mg Tb, 4 MG PO Q8HP PRN for 6 Days, #18 TAB ODT TAB-DISSOLVE IN MOUTH, THEN SWALLOW Prov:RAMAKRISHNA ABBOTT MD 12/03/24 Amlodipine Besylate (NORVASC TABLET) 5 Mg Tb, 2 TAB PO DAILY, #30 TAB 5 Refills Prov:RADHA PROCTOR NP 10/12/24 Carvedilol (Coreg) 25 Mg Tab, 1 TAB PO BID, #60 TAB 5 Refills Prov:RADHA PROCTOR NP 10/12/24 Valsartan (Valsartan) 80 Mg Tab, 80 MG PO DAILY for 28 Days, #28 TAB Prov:FRANCISCO DILLONEZEQUIEL [facility] 07/06/24 Hctz (Hydrochlorothiazide) 25 Mg Tab, 25 MG PO DAILY for 28 Days, #28 TAB [facility] Ergocalciferol (VITAMIN D 33710 UNIT) 50,000 [place], [address] UNIT PO QWEEKLY for 56 Days, #8 CAP 0 Refills Prov:BLAISE BOWDEN [facility] 07/06/24 Atorvastatin Calcium (ATORVASTATIN CALCIUM) 40 Mg Tab, 40 MG PO HS for 28 Days, #28 TAB 0 Refills [facility] 07/06/24 Reported Medications Semaglutide (Ozempic) 4 Mg/3 Ml Inj, 1 MG SC QWEEKLY 10/10/24 Current Medications Current Medications Medications (Trade) Dose Ordered Sig/Lucie Route PRN Reason Start Time Stop Time Status Last Admin Ondansetron HCl (Zofran) 4 mg Q4HP PRN IV NAUSEA / VOMITING 12/04/24 06:15 12/04/24 10:11 DC Nicardipine/ Sodium Chloride 200 ml @ 50 mls/hr Q4H IV 12/04/24 06:15 12/04/24 08:13 DC Piperacillin Sod/ Tazobactam Sod 100 ml @ 25 mls/hr Q8HR IV 12/04/24 14:00 12/04/24 07:52 DC Metoclopramide HCl (Reglan Injection) 5 mg Q6HR IV 12/04/24 12:00 12/04/24 10:11 DC Sodium Chloride 1,000 ml @ 100 mls/hr Q10H IV 12/04/24 06:15 12/04/24 10:11 DC 12/04/24 08:00 Diagnostic Test (Pha) (Accu-Chek Comfort Curve T) 1 strip Q6HR 12/04/24 12:00 12/04/24 10:12 DC Insulin Human Regular (InsuLIN R) Q6HR SC 12/04/24 12:00 12/04/24 10:12 DC Dextrose 50 ml UD PRN IV Blood Sugar LESS THAN 60 12/04/24 06:15 12/04/24 10:12 DC Hydromorphone HCl (Dilaudid Injection) 0.25 mg Q4HPRN PRN IV SEVERE PAIN (7-10 PAIN SCALE) 12/04/24 06:15 12/04/24 10:12 DC Pantoprazole Sodium (Protonix) 40 mg BID IV 12/04/24 10:00 12/04/24 10:12 DC Piperacillin Sod/ Tazobactam Sod 100 ml @ 25 mls/hr Q8H IV 12/04/24 08:00 12/04/24 08:11 Nicardipine/ Sodium Chloride 200 ml @ 50 mls/hr Q4H IV 12/04/24 08:15 12/04/24 08:25 Micafungin Sodium 100 mg/Sodium Chloride 100 ml @ 100 mls/hr DAILY IV 12/04/24 10:00 12/04/24 10:13 DC Ondansetron HCl (Zofran) 4 mg Q4HP PRN IV NAUSEA / VOMITING 12/04/24 10:15 12/04/24 10:31 Metoclopramide HCl (Reglan Injection) 5 mg Q6HR IV 12/04/24 12:00 12/04/24 12:00 Sodium Chloride 1,000 ml @ 100 mls/hr Q10H IV 12/04/24 10:15 12/04/24 10:15 Diagnostic Test (Pha) (Accu-Chek Comfort Curve T) 1 strip Q6HR 12/04/24 12:00 12/04/24 12:05 Insulin Human Regular (InsuLIN R) Q6HR SC 12/04/24 12:00 12/04/24 12:05 Dextrose 50 ml UD PRN IV Blood Sugar LESS THAN 60 12/04/24 10:15 Hydromorphone HCl (Dilaudid Injection) 0.25 mg Q4HPRN PRN IV SEVERE PAIN (7-10 PAIN SCALE) 12/04/24 10:15 12/04/24 10:44 Pantoprazole Sodium (Protonix) 40 mg BID IV 12/04/24 22:00 12/04/24 10:24 DC Micafungin Sodium 100 mg/Sodium Chloride 100 ml @ 100 mls/hr DAILY IV 12/05/24 10:00 12/04/24 11:28 DC Pantoprazole Sodium (Protonix) 40 mg BID IV 12/04/24 22:00 Cancel Pantoprazole Sodium (Protonix) 40 mg BID IV 12/04/24 22:00 Vancomycin HCl 250 ml @ 250 mls/hr DAILY IV 12/05/24 10:00 12/04/24 11:48 DC Vancomycin HCl 0 ml @ 0 mls/hr UD IV 12/04/24 12:00 12/04/24 14:44 DC Review of Systems Constitutional: No symptom reported Ears, Nose, & Throat: No symptom reported Eyes: No symptom reported Neurological: No symptoms reported Pulmonary/Respiratory: No symptoms reported Cardiovascular: Chest pain Gastrointestinal: Abdominal pain, nausea and vomiting Genitourinary: No symptom reported Musculoskeletal: No symptom reported Skin: No symptom reported Psychiatric: No symptom reported Endocrine: No symptom reported Hematologic/Lymphatic: No symptom reported Vital Signs Vital Signs Date Time Temp Pulse Resp B/P (MAP) Pulse Ox O2 Delivery O2 Flow Rate FiO2 12/04/24 14:45 118 22 150/107 (121) 12/04/24 14:30 100 12/04/24 07:30 97.8 97.8 12/04/24 07:30 Room Air* 0 21 Physical Exam GENERAL: Alert and oriented x 3. No acute distress. EYES: PERRL, EOMI. Anicteric. HENT: Moist mucous membranes. LUNGS: Clear to auscultation bilaterally. CARDIOVASCULAR: Regular rate and rhythm. ABDOMEN: Soft, nontender and nondistended. EXTREMITIES: No edema. NEUROLOGIC: No focal neurological deficits. SKIN: Warm, dry. Labs/Diagnostic Data Labs Test 12/04/24 12:55 12/04/24 11:56 12/04/24 10:11 12/04/24 08:39 Range/Units White Blood Count 12.8 #H 4.4-10.8 10^3/uL Red Blood Count 4.36 4.0-5.20 10^6/uL Hemoglobin 14.0 12.2-16.2 g/dL Hematocrit 41.2 36.0-46.0 % Mean Corpuscular Volume 94.5 80.0-100.0 fL Mean Corpuscular Hemoglobin 32.0 28.0-32.0 pg Mean Corpuscular Hemoglobin Concent 33.9 32.0-36.0 g/dL Red Cell Distribution Width 12.8 11.8-14.3 % Platelet Count 332 140-450 10^3/uL Mean Platelet Volume 8.5 6.9-10.8 fL Neutrophils (%) (Auto) 80.4 H 37.0-80.0 % Lymphocytes (%) (Auto) 13.2 10.0-50.0 % Monocytes (%) (Auto) 5.8 0.0-12.0 % Eosinophils (%) (Auto) 0.1 0.0-7.0 % Basophils (%) (Auto) 0.5 0.0-2.0 % Neutrophils # (Auto) 10.3 H 1.6-8.6 10 ^3/uL Lymphocytes # (Auto) 1.7 0.4-5.4 10 ^3/uL Monocytes # (Auto) 0.7 0-1.3 10 ^3/uL Eosinophils # (Auto) 0 0-0.8 10 ^3/uL Basophils # (Auto) 0.1 0-0.2 10 ^3/uL Nucleated Red Blood Cells 0.1 % Sodium Level 141 136-145 mmol/L Potassium Level 3.8 3.5-5.1 mmol/L Chloride Level 109 H 98-107 mmol/L Carbon Dioxide Level 18 L 20-31 mmol/L Anion Gap 14 5-15 Blood Urea Nitrogen 19 9-23 mg/dL Creatinine 2.44 H 0.550-1.02 mg/dL Glomerular Filtration Rate Calc 27 >90 mL/min BUN/Creatinine Ratio 7.8 L 10.0-20.0 Serum Glucose 244 H 74-106 mg/dL Calcium Level 9.0 8.7-10.4 mg/dL Parathyroid Hormone (Intact) 173.6 H 18.4-80.1 pg/mL POC Glucose 261 H 70-106 mg/dl Lactic Acid Level 1.3 0.4-2.0 mmol/L Ammonia < 10 L 11-32 umol/L Urine Color Yellow Yellow Urine Clarity Turbid H Clear Urine pH 6.0 5.0-9.0 Urine Specific [place] 1.024 1.001-1.035 Urine Protein 3+ H Negative Urine Ketones 1+ H Negative Urine Blood 3+ H Negative /uL Urine Nitrite Negative Negative Urine Bilirubin Negative Negative Urine Urobilinogen Normal Negative mg/dL Urine Leukocyte Esterase Trace Negative /uL Urine RBC 1060 0 - 4 /hpf Urine Microscopic WBC 31 H 0-5 /HPF Urine Squamous Epithelial Cells Few <5 /hpf Urine Bacteria None seen None Seen /hpf Urine Mucus Few None Seen Urine Glucose 1+ H Normal mg/dL Urine Test Negative Negative Urine Opiates Screen Neg NEGATIVE Urine Fentanyl Screen Neg NEGATIVE Urine Barbiturates Screen Neg NEGATIVE Urine Phencyclidine Screen Neg NEGATIVE Urine Amphetamines Screen Neg NEGATIVE Urine Benzodiazepines Screen Neg NEGATIVE Urine Cocaine Screen Neg NEGATIVE Urine Cannabinoids Screen Pos NEGATIVE Test 12/04/24 07:00 12/04/24 06:25 Range/Units Prothrombin Time 11.4 9.3-11.8 sec Prothrombin Time INR 1.08 0.9-1.15 Activated Partial Thromboplast Time 26.8 24.5-34.5 SEC Hemoglobin A1c 5.1 <5.7 % A1C Phosphorus Level 2.7 2.4-5.1 mg/dL Magnesium Level 1.8 1.6-2.6 mg/dL Total Bilirubin 0.5 0.2-1.0 mg/dL Aspartate Amino Transferase (AST) 31 13-40 U/L Alanine Aminotransferase (ALT) 16 7-40 U/L Alkaline Phosphatase 93 46-116 U/L Troponin I High Sensitivity 5085 *H </=34 ng/L C-Reactive Protein High Sensitivity 0.13 <1.0 mg/dL Total Protein 7.5 5.7-8.2 g/dL Albumin 4.4 3.2-4.8 g/dL Triglycerides Level 148 < 150 mg/dL Cholesterol Level 225 H < 200 mg/dL LDL Cholesterol 169 H < 100 mg/dL HDL Cholesterol 42 40-59 mg/dL Lipase 78 H 12-53 U/L Vitamin B12 Level 631 211-911 pg/mL Vitamin D 25-Hydroxy 21.3 L 30.0-100 ng/mL Beta-Hydroxybutyric Acid 1.049 H < 0.4 mmol/L Thyroid Stimulating Hormone (TSH) 1.62 0.55-4.78 uIU/mL Blood Gas Specimen Type Arterial Blood Gas Sample Site Right radial Blood Gas Patient Temperature 37.0 Arterial Blood Date Drawn [id number] Arterial Blood pH 7.450 7.350-7.450 Arterial Blood Partial Pressure CO2 22.3 L 32.0-45.0 mmHg Arterial Blood Partial Pressure O2 94.0 83.0-108.0 mmHg Arterial Blood HCO3 15.2 L 21.0-28.0 mmol/L Arterial Blood Oxygen Saturation 97.4 94.0-98.0 % Arterial Blood Base Excess -6.6 L -2.0-3.0 mmol/L Arterial Blood Oxyhemoglobin 96.2 94.0-98.0 % Arterial Blood Carboxyhemoglobin 0.6 0.5-1.5 % Arterial Blood Methemoglobin 0.6 0.0-1.5 % Gaudencio Test Yes Blood Gas Total Hemoglobin 14.50 12.0-16.0 g/dL Blood Gas Modality Room air FiO2 % 21.0 Assessment NSTEMI. Hypertensive urgency. Dyslipidemia. Pneumomediastinum. Type 2 diabetes mellitus. Chronic kidney disease. Marijuana use. Plan/Recommendation I agree with your ongoing assessment and care of plan. Patient has been seen by Jaky Shoemaker NP on my behalf, her and I discussed the plan with the patient. We will recommend for stat transthoracic echocardiogram to evaluate cardiac function and assess for any abnormalities. Preliminary transthoracic echocardiogram images reviewed by boilermaker assembly and erection and shows wall motion abnormality. Given clinical presentation, elevated troponin level, transthoracic echocardiogram and twelve lead electrocardiogram changes, we will recommend for the patient undergo a coronary angiogram with left heart catheterization. The procedure was discussed with the patient in full detail including risks and benefits. Risks include but are not limited to bleeding, contrast-induced nephropathy, coronary dissection, stroke, and even . The patient understands the procedure. The patient would like some time to consider undergoing the procedure and states she wants to speak with her family first. The patient will be tentatively scheduled to undergo coronary angiogram on 12/04/2024 once patient has made a final decision. In the meantime, the patient will be started on heparin drip and be given aspirin-------this has been cleared by GI per primary care team. Continue with blood pressure control. Continue with close cardiac surveillance and notify cardiology team immediately for any ECG changes. Additional plan as per the hospital course. Plan discussed with: Patient NYHA Physical activity limitations: NA Date of Service: Dec 04, 2024 Billing Provider: ANABELLE ZAMARRIPA MD Cardiology Common Codes: 25193-YAVIJVN INP/OBS CARE (High) Cardiology Consultation Codes: [id number] CONSULT <45MIN ANABELLE ZAMARRIPA MD Dec 04, 2024 15:28
[2024-12-05 01:32] LABS: INR 1.08 (0.9-1.15); Partial Thromboplastin Time 50.4 SEC (24.5-34.5); Prothrombin Time 11.4 sec (9.3-11.8)
[2024-12-05 08:15] LABS: Hematocrit 36.6 % (36.0-46.0); Hemoglobin 12.4 g/dL (12.2-16.2); Mean Corpuscular Hemoglobin 31.9 pg (28.0-32.0); Mean Corpuscular Volume 94.0 fL (80.0-100.0); Nucleated Red Blood Cells % 0.1 %
[2024-12-05 08:25] LABS: Anion Gap 13 (5-15); Chloride 107 mmol/L (98-107); Potassium 4.0 mmol/L (3.5-5.1); Sodium 138 mmol/L (136-145)
[2024-12-05 08:31] LABS: BUN/Creatinine Ratio 7.1 (10.0-20.0); Blood Urea Nitrogen 17 mg/dL (9-23)
[2024-12-05 08:32] LABS: Calcium 8.6 mg/dL (8.7-10.4); Carbon Dioxide 18 mmol/L (20-31); Glucose 165 mg/dL (74-106)
[2024-12-05 08:41] LABS: INR 1.03 (0.9-1.15); Partial Thromboplastin Time 40.1 SEC (24.5-34.5); Prothrombin Time 10.9 sec (9.3-11.8)
--- NOTE | 2024-12-05 09:05 | CONS ---
Pharmacy Clinical Information: HEPARIN DRIP, ACS PROTOCOL @0710 APTT 40.1 - NO BOLUS, INCREASE HEPARIN DRIP RATE TO 1200 UNITS/HR NEXT APTT DRAW SCHEDULED @1500 PER RX PROTOCOL CONFIRMED AND READ BACK WITH RN NICK LARACO [facility] RESIDENT Dec 05, 2024 09:05
[2024-12-05] MEDS: HEPARIN DRIP/D5W 100UNITS/ML 250 ML IV SCH (09:16)
--- NOTE | 2024-12-05 09:37 | DVHPNRES ---
Progress Note Date Seen: Dec 05, 2024 Resident Creating Document: MARCUS WALTER RESIDENT Medical Necessity Reason Pt with a Central, PICC or Fol: No Subjective Review of Systems This is a 29-year-old female came to ER with a complaint of nausea vomiting and chest discomfort. As per patient, nausea and vomiting yesterday morning and more than 6 episodes of vomiting with out hematemesis. Approximately 30 minutes after vomiting, patient started left-sided chest discomfort which is burning in nature, 10/10 intensity, aggravated on breathing , no relieving factors, localized and no radiation. Patient also having right flank discomfort at the same type. Denies any history of sick contact, trauma, fall or MVA recently. Patient having similar symptoms and need hospitalization before and recent admission due to DKA need ICU status on October 15. Day before admission, Patient discharged from ER diagnosed with hyperemesis secondary to cannabis induced hyperemesis and discharged home. Around 4 a.m. 12/04/2024, patient experienced chest discomfort and presented to ER accompanied with mother. In ER patient having hypertensive emergency and started nicardipine drip. Patient blood pressure systolic< 150, nicardipine drip stopped around 11:15 am on 12/04/2024. Past medical history: Hypertension, diabetes, CKD, questionable renal artery stenosis (FMD?), suprarenal tumor in evaluation, GERD. Surgical history: C-sections x2 Family history: Non contributory Social history: Lives in [place] with family (NOK mother). Smokes marijuana. Denies current tobacco, alcohol and other drug abuse Allergies: DeniesPCP: Carli Mishra Home medication: Carvedilol, Nifedipine and Amlodipine, Hydralazine, Valsartan, Ozempic, Pantoprazol 12/04: Patient seen and evaluated in bedside. Gastrografin study showed no esophageal leaking. Cardiology,surgery, GI on board. Hold to transfer higher level of care on the basis of Gastrografin test. 12/05: Seen and evaluated in bedside. Patient refused angiogram on 12/04/2024. Discussed disadvantages of refusal of care including heart failure, MD even . Patient verbally understood whatever discussed. Objective vital signs Vital Sign Date Time Temp Pulse Resp B/P (MAP) Pulse Ox O2 Delivery O2 Flow Rate FiO2 12/05/24 08:07 140/99 12/05/24 08:07 105 12/05/24 07:45 97.9 17 100 97.9 12/04/24 19:00 Room Air* 0 21 Total Intake and Output 12/04/24 12/04/24 12/05/24 15:00 23:00 07:00 Intake Total 1450.000 ml 560 ml Balance 1450.000 ml 560 ml medications Current Medications Medications Dose Ordered Sig/Lucie Route Start Time Stop Time Status Last Admin Dose Admin Piperacillin Sod/ Tazobactam Sod 100 ml @ 25 mls/hr Q8H IV 12/04/24 08:00 12/05/24 08:06 25 MLS/HR Ondansetron HCl 4 mg Q4HP PRN IV 12/04/24 10:12/04/24 10:31 4 MG Metoclopramide HCl 5 mg Q6HR IV 12/04/24 12:00 12/05/24 05:46 5 MG Sodium Chloride 1,000 ml @ 100 mls/hr Q10H IV 12/04/24 10:15 12/05/24 06:01 100 MLS/HR Diagnostic Test (Pha) 1 strip Q6HR 12/04/24 12:00 12/05/24 05:49 1 STRIP Insulin Human Regular Q6HR SC 12/04/24 12:00 12/04/24 12:05 6 UNITS Dextrose 50 ml UD PRN IV 12/04/24 10:15 Hydromorphone HCl 0.25 mg Q4HPRN PRN IV 12/04/24 10:12/04/24 10:44 0.25 MG Pantoprazole Sodium 40 mg BID IV 12/04/24 22:00 Cancel Pantoprazole Sodium 40 mg BID IV 12/04/24 22:00 12/05/24 08:07 40 MG Carvedilol 6.25 mg Q12HR PO 12/04/24 22:00 12/05/24 08:07 6.25 MG Amlodipine Besylate 5 mg DAILY PO 12/05/24 10:00 12/05/24 08:07 5 MG Hydrochlorothiazide 25 mg DAILY PO 12/05/24 10:00 Heparin Sodium/ Dextrose 250 ml @ 12 mls/hr [id number] IV 12/05/24 09:15 12/05/24 09:16 12 MLS/HR Examination Patient lying in bed, not in acute distress General: Lucid, afebrile, mucosae are moist Cardiovascular: Tachycardic S1 and S2. No murmurs, gallops or rubs Respiratory: Normal ventilation mechanics. Clear lung sounds on auscultation Abdomen: Soft, nontender, no organomegaly, normal bowel sounds MSK/skin: Mobilizes 4 limbs. Skin is dry and warm Neurological: Oriented in 3 spheres. No motor no sensitive deficits. laboratory and microbiology Laboratory Tests 12/05/24 07:10 Test 12/05/24 07:10 Range/Units Serum Glucose 165 H 74-106 mg/dL Microbiology Date/Time Source Procedure Growth Status 12/04/24 07:00 Blood Blood Culture - Preliminary NO GROWTH AFTER 24 HOURS OF INCUBATION. Resulted Problem List/Assessment/Plan Problem List/Assessment/Plan This is a 29-year-old female came to ER with a complaint of nausea vomiting and chest discomfort. As per patient, nausea and vomiting yesterday morning and more than 6 episodes of vomiting with out hematemesis. Approximately 30 minutes after vomiting, patient started left-sided chest discomfort which is burning in nature, 10/10 intensity, aggravated on breathing , no relieving factors, localized and no radiation. Patient also having right flank discomfort at the same type. Denies any history of sick contact, trauma, fall or MVA recently. Patient having similar symptoms and need hospitalization before and recent admission due to DKA need ICU status on October 15. Day before admission, Patient discharged from ER diagnosed with hyperemesis secondary to cannabis induced hyperemesis and discharged home. Around 4 a.m. 12/04/2024, patient experienced chest discomfort and presented to ER accompanied with mother. In ER patient having hypertensive emergency and started nicardipine drip. Patient blood pressure systolic< 150, nicardipine drip stopped around 11:15 am on 12/04/2024. NEUROLOGY Patient AO x4 No focal weakness CARDIOVASCULAR: Unlikely type I NSTEMI Hypertensive emergency Essential hypertension Dyslipidemia * EKG which shows sinus tachycardia with no ST elevation (lateral repolarization abnormalities). * Echo on 07/06/2024 shows EF 60% with severe left ventricular concentric hypertrophy. * Troponin 3278> 3561> 5085 * Plan: s/p Nicardipine drip, Hold off on Aspirin and Atorvastatin due to esophageal perforation. Continue Heparin drip, Cardiology recommended angiogram but patient refused. Started carvedilol and amlodipine. PULMONARY: Sepsis secondary to pneumomediastinum * Esophagogram: The esophagus was normal in caliber with no stricture, or wall irregularity demonstrated normal esophageal peristalsis. No contrast leak. * Plan; Consulted GI and surgery, cardiology consult appreciated. * Completed chest/abdomen/pelvis CT which shows pneumomediastinum and questionable colitis.. * Plan: Discontinue NPO and started clear liquid diet, on IV pantoprazol, IV antibiotics GASTROINTESTINAL: Questionable Boerhaave syndrome (cannabinoid hyperemesis vs Ozempic use) Possible colitis Acute pancreatitis Cannabis induced hyperemesis History of cholelithiasis/gallbladder sludge * Lipase level 108> 78 * Completed chest/abdomen/pelvis CT which shows pneumomediastinum and questionable colitis * Ultrasound abdomen on 11/04/2024-cholelithiasis/sludge without cholecystitis. * Consulted GI and surgery(over the phone) consult appreciated * Esophagram showed no leaking from esophagus. * Plan: Clear liquid and monitor patient closely. GENITOURINARY: SIENNA superimposed on CKD likely prerenal, hemodynamically mediated Secondary hyperparathyroidism due to CKD ?Renovascular hypertension (FMD/OMAR?) H/o left adrenal nodule * Ultrasound renal artery on 07/04/2024-elevated velocity in right renal artery may represent right renal artery stenosis. * Ultrasound kidney 10/12/2024-bilateral renal disease. * CT abdomen pelvis on 10/09/2024-1.1 cm left adrenal nodule , unchanged from 05/18/2024. * Nephrology consult appreciated * Avoid nephrotoxic drugs * Plan: IVF, BNP, follow-up outpatient Nephrology after discharge. HEMATOLOGY: * Leukocytosis likely due to sepsis/stress * Plan: CBC METABOLIC: Diabetes mellitus type 2 Vitamin-D deficiency Hyperparathyroidism * Avoid Ozempic due to intractable nausea and vomiting * Beta hydroxybutyrate acid 1.049 * Hemoglobin A1c 5.1, AG-16>14>13 * Plan: ISS, monitor blood sugar INFECTIOUS DISEASE: Sepsis secondary to pneumomediastinum Colitis/acute pancreatitis * Preliminary blood culture x2 negative * Plan: Continue Zosyn. MUSCULOSKELETAL/SKIN * No skin erosion or ulcer noted SUBSTANCE USE DISORDER * UDS showed positive for cannabis * Plan: More than 17 minute spent counseling substance abuse. DIET: Clear liquid diet DVT prophylax: Heparin GI prophylaxis: Protonix Bowel regimen: None Code status: Full code LINES/DRAINS/ACCESS: IV access: None Drips: s/p nicardipine drip Gibbs catheter: None DISPOSITION: Downgrade to telemetry. Patient's status discussed with patient and mother in bed side. critical care time 47 mins Case discussed with Dr. Hall Plan discussed with: Patient, Other (Nurse, called mother but unable to reach.) My Orders My Orders Orders - MARCUS WALTER Procedure Category Date Status Time * Cardiology Consult CONS 12/04/24 Transmitted 11:06 Clear Liq Diet DIET 12/05/24 Verified Lunch Date of Service: Dec 05, 2024 Billing Provider: SHANT HALL MD Common Visit Codes: [id number] CARE 30-74 MIN MARCUS WALTER Dec 05, 2024 09:37 SHANT HALL MD Dec 06, 2024 11:10
[2024-12-05] MEDS ORDERED: MICAFUNGIN SODIUM 100 MG in SODIUM CHL 0.9% 100 ML IV SCH (10:00)
[2024-12-05] MEDS ORDERED: VANCOMYCIN 1GM/250ML KIT 250 ML IV SCH (10:00)
--- NOTE | 2024-12-05 10:30 | DVHSR ---
APPROVED REPORT EXAM: Two-dimensional and M-mode echocardiogram with Doppler and color Doppler. Blood Pressure: 153/103 mmHg INDICATION NSTEMI RISK FACTORS Height: 69, Weight: 220 DIMENSIONS LVDd3.5 (3.8-5.7cm)LA (2D) (1.9-4.0cm)Aortic Root3.1 (2.0-3.7cm) LVDs2.6 (2.5-4.0cm)LA (MM) (1.9-4.0cm)Aortic Cusp Exc1.6 (1.5-2.0cm) EF (%) 55.0 (55-70%)Rt. Atrium (1.9-4.0cm)Asc. Aorta cm Mitral Valve MitralMitral Stenosis E wave0.98m/sMV Mean GR.mmHg E/A ratio0.02D MVAcm2 Aortic Valve Aortic ValveAortic Stenosis V10.88m/Margo Mean GR.4mmHg V21.27m/Margo Peak GR.6mmHg LVOT Diameter2.0 (1.8-2.4cm)Doppler AVA2.18cm2 Pulmonic Valve V20.96m/s Conclusion MODERATE DEGREE HYPOKINESIS OF APICAL AND ANTERIOR WALL OF LV STUDY INDICATED OCCLUSION OF LAD CORONARY MODERATE DEGREE LVH AND MILD LV DIASTOLIC DYSFUNCTION LV EF IS 50% NORMAL VALVES NO EFFUSION
--- NOTE | 2024-12-05 13:29 | DVHPN2 ---
Progress Note Date Seen: Dec 05, 2024 Resident Creating Document: RHONDA BINGHAM RESIDENT Medical Necessity Reason Pt with a Central, PICC or Fol: No Subjective Review of Systems Patient Was seen and examined on the bedside. she is alert oriented x3. mentioned feeling better and no active complaint this time. EKG revealed T-wave inversion in lateral leads and troponin was markedly elevated, cardiology recommended left heart catheterization today the patient refused the procedure and right now on IV heparin drip. Objective vital signs Vital Sign Date Time Temp Pulse Resp B/P (MAP) Pulse Ox O2 Delivery O2 Flow Rate FiO2 12/05/24 12:52 97.9 103 18 157/110 (126) 100 97.9 12/04/24 19:00 Room Air* 0 21 Total Intake and Output 12/04/24 12/04/24 12/05/24 15:00 23:00 07:00 Intake Total 1450.000 ml 560 ml Balance 1450.000 ml 560 ml medications Current Medications Medications Dose Ordered Sig/Lucie Route Start Time Stop Time Status Last Admin Dose Admin Piperacillin Sod/ Tazobactam Sod 100 ml @ 25 mls/hr Q8H IV 12/04/24 08:00 12/05/24 08:06 25 MLS/HR Ondansetron HCl 4 mg Q4HP PRN IV 12/04/24 10:12/04/24 10:31 4 MG Metoclopramide HCl 5 mg Q6HR IV 12/04/24 12:00 12/05/24 05:46 5 MG Sodium Chloride 1,000 ml @ 100 mls/hr Q10H IV 12/04/24:12/05/24 06:01 100 MLS/HR Diagnostic Test (Pha) 1 strip Q6HR 12/04/24 12:00 12/05/24 12:00 1 STRIP Insulin Human Regular Q6HR SC 12/04/24 12:00 12/04/24 12:05 6 UNITS Dextrose 50 ml UD PRN IV 12/04/24 10:15 Hydromorphone HCl 0.25 mg Q4HPRN PRN IV 12/04/24 10:12/04/24 10:44 0.25 MG Pantoprazole Sodium 40 mg BID IV 12/04/24 22:00 Cancel Pantoprazole Sodium 40 mg BID IV 12/04/24 22:00 12/05/24 08:07 40 MG Carvedilol 6.25 mg Q12HR PO 12/04/24 22:00 12/05/24 08:07 6.25 MG Amlodipine Besylate 5 mg DAILY PO 12/05/24 10:00 12/05/24 08:07 5 MG Hydrochlorothiazide 25 mg DAILY PO 12/05/24 10:00 Heparin Sodium/ Dextrose 250 ml @ 12 mls/hr [id number] IV 12/05/24 09:15 12/05/24 09:16 12 MLS/HR Atorvastatin Calcium 40 mg HS PO 12/05/24 22:00 Examination Physical examination: General Appearance: Alert, Oriented X3, Cooperative, No acute distress HEENT: Atraumatic, PERRLA, EOMI, Mucous membrane moist/pink Respiratory: Clear to auscultation, Normal air movement Cardiovascular: Regular rate, Normal S1, Normal S2, No murmurs, no chest wall tenderness Abdominal: Normal bowel sounds, Soft, No tenderness, No hepatospenomegaly, No masses Extremities: No clubbing, No cyanosis, No edema, Normal pulses, No tenderness/swelling Skin: No rashes, No breakdown, No significant lesion Neuro: Normal gait, Normal speech, Strength at 5/5 X4 ext, Normal tone, Sensation intact, Cranial nerves 3-12 NL, Reflexes 2+ Psych/Mental Status: Mental status NL, Mood NL laboratory and microbiology Laboratory Tests 12/05/24 07:10 Test 12/05/24 07:10 Range/Units Serum Glucose 165 H 74-106 mg/dL Microbiology Date/Time Source Procedure Growth Status 12/04/24 07:00 Blood Blood Culture - Preliminary NO GROWTH AFTER 24 HOURS OF INCUBATION. Resulted Labs and/or images reviewed: Labs reviewed by me, Image(s) reviewed by me Problem List/Assessment/Plan Problem List/Assessment/Plan Assessment and plan: # SIENNA superimposed on CKD likely prerenal, hemodynamically mediated # Hypertensive emergency # Vitamin-D deficiency # Secondary hyperparathyroidism due to CKD # Possible NSTEMI type 1 # Acute colitis # Sepsis due to above Plan: - FENa is 0.1% - continue IV normal saline at 100 mL/hours. - continue carvedilol 6.25 b.i.d., hydrochlorothiazide 25 mg daily, amlodipine 5 mg daily to optimize control blood pressure - continue IV antibiotics and other management as per primary - appreciate cardiology consultation - strict I&O - avoid nephrotoxic medication - monitor BMP Thank you so much for the opportunity to consult on your patient. Nephro team will follow the patient. In case of any questions or concerns please feel free to reach out. Plan discussed with . The patient and caregiver team agreed to the plan. Addendum Patient seen and examined, plan discussed with resident. Agree with above, we will follow closely dc ivf as she refused cath increase amlodipine to 10mg add spironolactone Plan discussed with: Patient, Other (MOM, RN) My Orders My Orders Orders - RHONDA BINGHAM Procedure Category Date Status Time Carvedilol Tablet PHA 12/04/24 In Process (Coreg Tablet) 22:00 Amlodipine Tablet PHA 12/05/24 In Process (Norvasc Tablet) 10:00 Hydrochlorothiazide PHA 12/05/24 In Process Tablet (Hydrochlorot 10:00 Strict I & O ADELIA 12/04/24 In Process 17:38 RHONDA BINGHAM Dec 05, 2024 13:29 EVON ROUSE MD Dec 05, 2024 17:26
--- NOTE | 2024-12-05 13:37 | DVHPN2 ---
Subjective Patient admits to feeling better No abdominal pain No nausea or vomiting Changes from previous H/P or p: No Changes Objective Vitals Vital Signs Date Time Temp Pulse Resp B/P (MAP) Pulse Ox O2 Delivery O2 Flow Rate FiO2 12/05/24 12:52 97.9 103 18 157/110 (126) 100 97.9 12/04/24 19:00 Room Air* 0 21 Intake/Output Intake and Output 12/05/24 07:00 Intake Total 2010.000 ml Balance 2009.000 ml Intake IV Total 2009.000 ml Exam General: NAD, AAOX3 Chest: lung sims clear to auscultation Heart: RRR Abdomen: non-distended, no tenderness to palpation, +BS Medications Current Medications Medications Dose Ordered Sig/Lucie Route Start Time Stop Time Status Last Admin Dose Admin Piperacillin Sod/ Tazobactam Sod 100 ml @ 25 mls/hr Q8H IV 12/04/24 08:00 12/05/24 08:06 25 MLS/HR Ondansetron HCl 4 mg Q4HP PRN IV 12/04/24 10:15 12/04/24 10:31 4 MG Metoclopramide HCl 5 mg Q6HR IV 12/04/24 12:00 12/05/24 05:46 5 MG Sodium Chloride 1,000 ml @ 100 mls/hr Q10H IV 12/04/24 10:15 12/05/24 06:01 100 MLS/HR Diagnostic Test (Pha) 1 strip Q6HR 12/04/24 12:00 12/05/24 12:00 1 STRIP Insulin Human Regular Q6HR SC 12/04/24 12:00 12/04/24 12:05 6 UNITS Dextrose 50 ml UD PRN IV 12/04/24 10:15 Hydromorphone HCl 0.25 mg Q4HPRN PRN IV 12/04/24 10:15 12/04/24 10:44 0.25 MG Pantoprazole Sodium 40 mg BID IV 12/04/24 22:00 Cancel Pantoprazole Sodium 40 mg BID IV 12/04/24 22:00 12/05/24 08:07 40 MG Carvedilol 6.25 mg Q12HR PO 12/04/24 22:00 12/05/24 08:07 6.25 MG Amlodipine Besylate 5 mg DAILY PO 12/05/24 10:00 12/05/24 08:07 5 MG Hydrochlorothiazide 25 mg DAILY PO 12/05/24 10:00 Heparin Sodium/ Dextrose 250 ml @ 12 mls/hr [id number] IV 12/05/24 09:15 12/05/24 09:16 12 MLS/HR Atorvastatin Calcium 40 mg HS PO 12/05/24 22:00 Laboratory Results Laboratory Tests 12/05/24 07:10 Chemistry Test 12/05/24 07:10 Calcium Level 8.6 mg/dL (8.7-10.4) L Coagulation Test 12/04/24 17:12 12/05/24 00:48 12/05/24 07:10 Prothrombin Time 11.7 sec (9.3-11.8) 11.4 sec (9.3-11.8) 10.9 sec (9.3-11.8) Prothrombin Time INR 1.12 (0.9-1.15) 1.08 (0.9-1.15) 1.03 (0.9-1.15) Activated Partial Thromboplast Time > 139.0 SEC (24.5-34.5) *H 50.4 SEC (24.5-34.5) H 40.1 SEC (24.5-34.5) H Urinalysis Test 12/04/24 08:39 Urine Color Yellow (Yellow) Urine Clarity Turbid (Clear) H Urine pH 6.0 (5.0-9.0) Urine Specific Badger 1.024 (1.001-1.035) Urine Protein 3+ (Negative) H Urine Ketones 1+ (Negative) H Urine Blood 3+ /uL (Negative) H Urine Nitrite Negative (Negative) Urine Bilirubin Negative (Negative) Urine Urobilinogen Normal mg/dL (Negative) Urine Leukocyte Esterase Trace /uL (Negative) Urine RBC 1060 /hpf (0 - 4) Urine Microscopic WBC 31 /HPF (0-5) H Urine Squamous Epithelial Cells Few /hpf (<5) Urine Bacteria None seen /hpf (None Seen) Urine Mucus Few (None Seen) Urine Creatinine 237.18 mg/dL (30.0-125.0) H Urine Protein/Creatinine Ratio 3.97 Urine Sodium 32 mmol/L (40-220) L Urine Glucose 1+ mg/dL (Normal) H Urine Total Protein 942.4 mg/dL (1-14) H Urine Test Negative (Negative) Microbiology Microbiology Date/Time Source Procedure Growth Status 12/04/24 07:00 Blood Blood Culture - Preliminary NO GROWTH AFTER 24 HOURS OF INCUBATION. Resulted Assessment/Plan Assessment/Plan Pneumomediastinum Sepsis Nausea and vomiting improving History of cannabinoid use History of Ozempic use Possible colitis Pancreatitis Plan Discussed with Dr. Carrillo Ice chips advance to clear liquids if tolerated Monitor lab Supportive care recommended We will continue to monitor patient Plan discussed with: Patient, Other (RN) Date of Service: Dec 05, 2024 Billing Provider: CHRIS MEYER Common Visit Codes: [id number] INP/OBS CARE(HIGH) CHRIS MEYER Dec 05, 2024 13:37
[2024-12-05] MEDS: hydroCHLOROthiazide 25 MG TAB PO SCH (15:29)
[2024-12-05 16:10] LABS: INR 1.03 (0.9-1.15); Partial Thromboplastin Time 51.1 SEC (24.5-34.5); Prothrombin Time 10.9 sec (9.3-11.8)
--- NOTE | 2024-12-05 21:24 | DVHPN2 ---
Progress Note - Dictate Date Seen: Dec 05, 2024 Medical Necessity Reason Pt with a Central, PICC or Fol: No Subjective Patient was seen and evaluated in follow-up. Patient refused angiogram yesterday. Discussed disadvantages of refusal of care including heart failure, MS even . Patient is also refusing LHC procedure. Patient's family members are present at bedside. CO2 18, BODY AND FRAME TECHNICIAN 2.40, CA 8.6. Gastrografin study is unremarkable. vital signs Vital Sign Date Time Temp Pulse Resp B/P (MAP) Pulse Ox O2 Delivery O2 Flow Rate FiO2 12/05/24 12:52 97.9 103 18 157/110 (126) 100 97.9 12/04/24 19:00 Room Air* 0 21 Total Intake and Output 12/04/24 12/04/24 12/05/24 15:00 23:00 07:00 Intake Total 1450.000 ml 560 ml Balance 1450.000 ml 560 ml medications Current Medications Medications Dose Ordered Sig/Lucie Route Start Time Stop Time Status Last Admin Dose Admin Piperacillin Sod/ Tazobactam Sod 100 ml @ 25 mls/hr Q8H IV 12/04/24 08:00 12/05/24 08:06 25 MLS/HR Ondansetron HCl 4 mg Q4HP PRN IV 12/04/24 10:12/04/24 10:31 4 MG Metoclopramide HCl 5 mg Q6HR IV 12/04/24 12:00 12/05/24 05:46 5 MG Sodium Chloride 1,000 ml @ 100 mls/hr Q10H IV 12/04/24 10:12/05/24 06:01 100 MLS/HR Diagnostic Test (Pha) 1 strip Q6HR 12/04/24 12:00 12/05/24 12:00 1 STRIP Insulin Human Regular Q6HR SC 12/04/24 12:00 12/04/24 12:05 6 UNITS Dextrose 50 ml UD PRN IV 12/04/24 10:15 Hydromorphone HCl 0.25 mg Q4HPRN PRN IV 12/04/24 10:12/04/24 10:44 0.25 MG Pantoprazole Sodium 40 mg BID IV 12/04/24 22:00 Cancel Pantoprazole Sodium 40 mg BID IV 12/04/24 22:00 12/05/24 08:07 40 MG Carvedilol 6.25 mg Q12HR PO 12/04/24 22:00 12/05/24 08:07 6.25 MG Amlodipine Besylate 5 mg DAILY PO 12/05/24 10:00 12/05/24 08:07 5 MG Hydrochlorothiazide 25 mg DAILY PO 12/05/24 10:00 Heparin Sodium/ Dextrose 250 ml @ 12 mls/hr [id number] IV 12/05/24 09:15 12/05/24 09:16 12 MLS/HR Atorvastatin Calcium 40 mg HS PO 12/05/24 22:00 objective GENERAL: Alert and oriented x 3. No acute distress. EYES: PERRL, EOMI. Anicteric. HENT: Moist mucous membranes. LUNGS: Clear to auscultation bilaterally. CARDIOVASCULAR: Regular rate and rhythm. ABDOMEN: Soft, nontender and nondistended. EXTREMITIES: No edema. NEUROLOGIC: No focal neurological deficits. SKIN: Warm, dry. laboratory and microbiology Laboratory Tests 12/05/24 07:10 Test 12/05/24 07:10 Range/Units Serum Glucose 165 H 74-106 mg/dL Problem List NSTEMI. Hypertensive urgency. Dyslipidemia. Pneumomediastinum. Type 2 diabetes mellitus. Chronic kidney disease. Marijuana use. Assessment/Plan Continued all current supportive medical care. Amlodipine,Coreg. Heparin drip per protocol. GI prophylactics. IV antibiotics as ordered. Additional plan as per the hospital course. Plan discussed with: Patient ANABELLE ZAMARRIPA MD Dec 05, 2024 14:21
[2024-12-05] MEDS: ATORVASTATIN 20 MG TAB PO SCH (21:30)
[2024-12-05 21:42] LABS: INR 1.02 (0.9-1.15); Partial Thromboplastin Time 37.3 SEC (24.5-34.5); Prothrombin Time 10.8 sec (9.3-11.8)
[2024-12-05] MEDS ORDERED: HEPARIN DRIP/D5W 100UNITS/ML 250 ML IV SCH (22:00)
--- NOTE | 2024-12-05 22:10 | CONS ---
Pharmacy Clinical Information: HEPARIN PER [facility] PROTOCOL: APTT result of 37.3 received from draw on 12/05 @2109. Increase rate 200 units per hour. New rate is 1400 units per hour (14ml/hr). Orders read back and confirmed with ELBA Munoz @2920. Next APTT scheduled for 0400. BESSY PEMBERTON PHARMACIST Dec 05, 2024 22:10
[2024-12-06] VITALS (13 sets, daily range): BP systolic 121–181; BP diastolic 80–124; PULSE 99–118; RESP 12–18; TEMP 97.8–98.9; O2SAT 97–100
[2024-12-06 04:17] LABS: Hematocrit 32.2 % (36.0-46.0); Hemoglobin 11.3 g/dL (12.2-16.2); Mean Corpuscular Hemoglobin 32.2 pg (28.0-32.0); Mean Corpuscular Volume 91.5 fL (80.0-100.0); Nucleated Red Blood Cells % 0.0 %
[2024-12-06 04:26] LABS: Sodium 138 mmol/L (136-145)
[2024-12-06 04:27] LABS: Anion Gap 9 (5-15); Carbon Dioxide 21 mmol/L (20-31)
[2024-12-06 04:30] LABS: Calcium 8.6 mg/dL (8.7-10.4); Chloride 108 mmol/L (98-107); Potassium 3.4 mmol/L (3.5-5.1)
[2024-12-06 04:32] LABS: BUN/Creatinine Ratio 8.1 (10.0-20.0); Blood Urea Nitrogen 15 mg/dL (9-23)
[2024-12-06 04:39] LABS: Glucose 116 mg/dL (74-106)
[2024-12-06 04:41] LABS: INR 1.04 (0.9-1.15); Prothrombin Time 11.0 sec (9.3-11.8)
[2024-12-06 05:03] LABS: Partial Thromboplastin Time 77.1 SEC (24.5-34.5)
[2024-12-06] MEDS: HEPARIN DRIP/D5W 100UNITS/ML 250 ML IV SCH ×2 (05:44→15:27)
--- NOTE | 2024-12-06 08:50 | DVH ---
Procedure: CT CHEST WITHOUT CONTRAST Reason for study/Clinical History: H/O Pneumomediastinum. compare previous ct chest . Comparison Study: CT chest abdomen pelvis 12/04/2024 TECHNIQUE: Multidetector CT of the chest was performed from the lung apices to the upper abdomen with out the use of intravenous contract. Axial, coronal and sagittal multiplanar reformats were performed . Radiation Dose Information: CT Dose: CTDI volume is 17.27 mGy. Dose-length product is 591.26 mGy*cm The dose indicators for CT are the volume Computed Tomography (CT) Dose Index (CTDIvol) and the Dose Length Product (DLP), and are measured in units of mGy and mGy-cm, respectively. These indicators are not patient dose, but values generated from the CT scanner acquisition factors. The report includes radiation exposure data for exposures received during this examination. FINDINGS: Significantly decreased pneumomediastinum with minimal residual in the anterior and trace residual in the posterior mediastinum. No fluid collection. Lungs: No focal consolidation. No suspicious pulmonary nodule. Heart/Vascular Structures: Normal heart size. Unchanged small anterior pericardial effusion. Scattere d multivessel coronary vascular calcifications . Lymph Nodes: No adenopathy Pleura: No pleural effusion or significant pneumothorax. Musculoskeletal: No acute osseous abnormality. Soft tissues: Normal. Upper abdomen: Limited portions of the upper abdomen are unremarkable. IMPRESSION: 1. Significantly decreased pneumomediastinum , as above. 2. No fluid collection in the mediastinum . 3. Scattered coronary vascular calcifications . Radiation optimization: All CT scans at this facility use at least one of these dose optimization ling hniques: automated exposure control mA and/or kV adjustment per patient size (includes targeted exam s where dose is matched to clinical indication) or iterative reconstruction.
--- NOTE | 2024-12-06 08:50 | DVHPNRES ---
Progress Note Date Seen: Dec 06, 2024 Resident Creating Document: MARCUS WALTER RESIDENT Medical Necessity Reason Pt with a Central, PICC or Fol: No Subjective Review of Systems This is a 29-year-old female came to ER with a complaint of nausea vomiting and chest discomfort. As per patient, nausea and vomiting yesterday morning and more than 6 episodes of vomiting with out hematemesis. Approximately 30 minutes after vomiting, patient started left-sided chest discomfort which is burning in nature, 10/10 intensity, aggravated on breathing , no relieving factors, localized and no radiation. Patient also having right flank discomfort at the same type. Denies any history of sick contact, trauma, fall or MVA recently. Patient having similar symptoms and need hospitalization before and recent admission due to DKA need ICU status on October 15. Day before admission, Patient discharged from ER diagnosed with hyperemesis secondary to cannabis induced hyperemesis and discharged home. Around 4 a.m. 12/04/2024, patient experienced chest discomfort and presented to ER accompanied with mother. In ER patient having hypertensive emergency and started nicardipine drip. Patient blood pressure systolic< 150, nicardipine drip stopped around 11:15 am on 12/04/2024. Past medical history: Hypertension, diabetes, CKD, questionable renal artery stenosis (FMD?), suprarenal tumor in evaluation, GERD. Surgical history: C-sections x2 Family history: Non contributory Social history: Lives in [place] with family (NOK mother). Smokes marijuana. Denies current tobacco, alcohol and other drug abuse Cardiology: Prosper Vital ([phone]) Allergies: DeniesPCP: Carli Mishra Home medication: Carvedilol, Nifedipine and Amlodipine, Hydralazine, Valsartan, Ozempic, Pantoprazol 12/04: Patient seen and evaluated in bedside. Gastrografin study showed no esophageal leaking. Cardiology,surgery, GI on board. Hold to transfer higher level of care on the basis of Gastrografin test. 12/05: Seen and evaluated in bedside. Patient refused angiogram on 12/04/2024. Discussed disadvantages of refusal of medical management including heart failure, KS even . Patient verbally understood whatever discussed. 12/06: Evaluated in bedside with RN(Jamee). Patient still refusing angiogram for CAD eval. Continue heparin drip as per Dr. Saenz. Patient again refused angiogram. Pt wish to talk her Nephrology and will back decision. Objective vital signs Vital Sign Date Time Temp Pulse Resp B/P (MAP) Pulse Ox O2 Delivery O2 Flow Rate FiO2 12/06/24 05:00 97.8 101 18 161/114 (130) 100 97.8 12/05/24 20:00 Room Air* 0 21 Total Intake and Output 12/05/24 12/05/24 12/06/24 15:00 23:00 07:00 Intake Total 124 ml 0 ml Output Total 0 ml Balance 124 ml 0 ml medications Current Medications Medications Dose Ordered Sig/Lucie Route Start Time Stop Time Status Last Admin Dose Admin Piperacillin Sod/ Tazobactam Sod 100 ml @ 25 mls/hr Q8H IV 12/04/24 08:00 12/06/24 00:02 25 MLS/HR Ondansetron HCl 4 mg Q4HP PRN IV 12/04/24 10:15 12/04/24 10:31 4 MG Metoclopramide HCl 5 mg Q6HR IV 12/04/24 12:00 12/06/24 05:34 5 MG Diagnostic Test (Pha) 1 strip Q6HR 12/04/24 12:00 12/06/24 06:00 1 STRIP Insulin Human Regular Q6HR SC 12/04/24 12:00 12/06/24 06:10 2 UNITS Dextrose 50 ml UD PRN IV 12/04/24 10:15 Hydromorphone HCl 0.25 mg Q4HPRN PRN IV 12/04/24 10:15 12/04/24 10:44 0.25 MG Pantoprazole Sodium 40 mg BID IV 12/04/24 22:00 Cancel Pantoprazole Sodium 40 mg BID IV 12/04/24 22:00 12/05/24 21:34 40 MG Hydrochlorothiazide 25 mg DAILY PO 12/05/24 10:00 12/05/24 15:29 25 MG Atorvastatin Calcium 40 mg HS PO 12/05/24 22:00 12/05/24 21:30 40 MG Amlodipine Besylate 10 mg DAILY PO 12/06/24 10:00 Spironolactone 25 mg DAILY PO 12/06/24 10:00 Heparin Sodium/ Dextrose 250 ml @ 12 mls/hr [id number] IV 12/06/24 05:30 12/06/24 05:44 12 MLS/HR Aspirin 81 mg DAILY PO 12/06/24 10:00 UNV Carvedilol 12.5 mg Q12HR PO 12/06/24 08:15 UNV Examination Objective vital signs Vital Sign Date Time Temp Pulse Resp B/P (MAP) Pulse Ox O2 Delivery O2 Flow Rate FiO2 12/05/24 08:07 140/99 12/05/24 08:07 105 12/05/24 07:45 97.9 17 100 97.9 12/04/24 19:00 Room Air* 0 21 Total Intake and Output 12/04/24 12/04/24 12/05/24 15:00 23:00 07:00 Intake Total 1450.000 ml 560 ml Balance 1450.000 ml 560 ml medications Current Medications Medications Dose Ordered Sig/Lucie Route Start Time Stop Time Status Last Admin Dose Admin Piperacillin Sod/ Tazobactam Sod 100 ml @ 25 mls/hr Q8H IV 12/04/24 08:00 12/05/24 08:06 25 MLS/HR Ondansetron HCl 4 mg Q4HP PRN IV 12/04/24 10:15 12/04/24 10:31 4 MG Metoclopramide HCl 5 mg Q6HR IV 12/04/24 12:00 12/05/24 05:46 5 MG Sodium Chloride 1,000 ml @ 100 mls/hr Q10H IV 12/04/24 10:15 12/05/24 06:01 100 MLS/HR Diagnostic Test (Pha) 1 strip Q6HR 12/04/24 12:00 12/05/24 05:49 1 STRIP Insulin Human Regular Q6HR SC 12/04/24 12:00 12/04/24 12:05 6 UNITS Dextrose 50 ml UD PRN IV 12/04/24 10:15 Hydromorphone HCl 0.25 mg Q4HPRN PRN IV 12/04/24 10:15 12/04/24 10:44 0.25 MG Pantoprazole Sodium 40 mg BID IV 12/04/24 22:00 Cancel Pantoprazole Sodium 40 mg BID IV 12/04/24 22:00 12/05/24 08:07 40 MG Carvedilol 6.25 mg Q12HR PO 12/04/24 22:00 12/05/24 08:07 6.25 MG Amlodipine Besylate 5 mg DAILY PO 12/05/24 10:00 12/05/24 08:07 5 MG Hydrochlorothiazide 25 mg DAILY PO 12/05/24 10:00 Heparin Sodium/ Dextrose 250 ml @ 12 mls/hr [id number] IV 12/05/24 09:15 12/05/24 09:16 12 MLS/HR Patient lying in bed, not in acute distress General: Lucid, afebrile, mucosae are moist Cardiovascular: Tachycardic S1 and S2. No murmurs, gallops or rubs Respiratory: Normal ventilation mechanics. Clear lung sounds on auscultation Abdomen: Soft, nontender, no organomegaly, normal bowel sounds MSK/skin: Mobilizes 4 limbs. Skin is dry and warm Neurological: Oriented in 3 spheres. No motor no sensitive deficits. laboratory and microbiology Laboratory Tests 12/06/24 04:00 Test 12/06/24 04:00 Range/Units Serum Glucose 116 H 74-106 mg/dL Microbiology Date/Time Source Procedure Growth Status 12/04/24 08:39 Voided Urine Urine Culture - Final Complete 12/04/24 07:00 Blood Blood Culture - Preliminary NO GROWTH AFTER 48 HOURS OF INCUBATION. Resulted Problem List/Assessment/Plan Problem List/Assessment/Plan This is a 29-year-old female came to ER with a complaint of nausea vomiting and chest discomfort. As per patient, nausea and vomiting yesterday morning and more than 6 episodes of vomiting with out hematemesis. Approximately 30 minutes after vomiting, patient started left-sided chest discomfort which is burning in nature, 10/10 intensity, aggravated on breathing , no relieving factors, localized and no radiation. Patient also having right flank discomfort at the same type. Denies any history of sick contact, trauma, fall or MVA recently. Patient having similar symptoms and need hospitalization before and recent admission due to DKA need ICU status on October 15. Day before admission, Patient discharged from ER diagnosed with hyperemesis secondary to cannabis induced hyperemesis and discharged home. Around 4 a.m. 12/04/2024, patient experienced chest discomfort and presented to ER accompanied with mother. In ER patient having hypertensive emergency and started nicardipine drip. Patient blood pressure systolic< 150, nicardipine drip stopped around 11:15 am on 12/04/2024. NEUROLOGY Patient AO x4 No focal weakness CARDIOVASCULAR: Likely type I NSTEMI Hypertensive emergency Essential hypertension Dyslipidemia * EKG which shows sinus tachycardia with no ST elevation (lateral repolarization abnormalities). * Echo on 07/06/2024 shows EF 60% with severe left ventricular concentric hypertrophy. * Troponin 3278> 3561> 5085 * Plan: s/p Nicardipine drip, continue Aspirin, Atorvastatin, carvedilol, amlodipine and hydralazine . Continue Heparin drip, Cardiology recommended angiogram but patient refused. As per Cardiology transferred patient higher level of care but patient refused. PULMONARY: Sepsis secondary to pneumomediastinum * Esophagogram: The esophagus was normal in caliber with no stricture, or wall irregularity demonstrated normal esophageal peristalsis. No contrast leak. * Plan; Consulted GI and surgery, cardiology consult appreciated. * Completed chest/abdomen/pelvis CT which shows pneumomediastinum and questionable colitis.. * Plan: clear liquid diet, pantoprazol, IV antibiotics GASTROINTESTINAL: Questionable Boerhaave syndrome (cannabinoid hyperemesis vs Ozempic use) Possible colitis Acute pancreatitis Cannabis induced hyperemesis * Lipase level 108> 78 * Completed chest/abdomen/pelvis CT which shows pneumomediastinum and questionable colitis-on admission * Consulted GI and surgery(over the phone) consult appreciated * Ordered esophagram showed no leaking from esophagus. * Plan: Clear liquid and monitor patient closely. GENITOURINARY: SIENNA superimposed on CKD likely prerenal, hemodynamically mediated Secondary hyperparathyroidism due to CKD Questionable renovascular hypertension (FMD?) * Ultrasound renal artery on 07/04/2024-elevated velocity in right renal artery may represent right renal artery stenosis. * Ultrasound kidney 10/12/2024-bilateral renal disease. * CT abdomen pelvis on 10/09/2024-1.1 cm left adrenal nodule , unchanged from 05/18/2024. * Nephrology consult appreciated * Avoid nephrotoxic drugs * Plan: IVF, BNP HEMATOLOGY: * Leukocytosis likely due to sepsis/stress * Plan: CBC METABOLIC: Diabetes mellitus type 2 Vitamin-D deficiency Hyperparathyroidism * Avoid Ozempic due to intractable nausea and vomiting * Beta hydroxybutyrate acid 1.049 * Hemoglobin A1c 5.1 * AG-16>14>13 * Plan: ISS, monitor blood sugar INFECTIOUS DISEASE: Sepsis secondary to pneumomediastinum Colitis/acute pancreatitis * Preliminary blood culture x2 negative * Plan: Continue Zosyn. MUSCULOSKELETAL/SKIN * No skin erosion or ulcer noted SUBSTANCE USE DISORDER * UDS showed positive for cannabis * Plan: More than 13 minute spent counseling substance abuse. REFUSAL MEDICAL MANAGEMENT Patient, AO x4, refused angiogram for cardiac eval. Discussed side effect and patient verbally understands vertebral discussed. Noncompliance with medical management. Obesity, BMI 31.2 LIFESTYLE MODIFICATION DIET: Clear liquid diet DVT prophylax: Heparin GI prophylaxis: Protonix Bowel regimen: None Code status: Full code-advanced care discussion 17 minutes. LINES/DRAINS/ACCESS: IV access: None Drips: s/p nicardipine drip Gibbs catheter: None DISPOSITION: Downgrade to telemetry. Patient's status discussed with patient and mother More than 43 minutes, including patient care. Case discussed with Dr. Hall Plan discussed with: Patient, Other (Nurse) My Orders My Orders Orders - MARCUS WALTER Procedure Category Date Status Time Clear Liq Diet DIET 12/05/24 Transmitted Lunch Atorvastatin (Lipitor) PHA 12/05/24 In Process 22:[address] 12/06/24 Taken 07:49 Aspirin Tablet PHA 12/06/24 Logged 10:00 Carvedilol Tablet PHA 12/06/24 Logged (Coreg Tablet) 08:15 Date of Service: Dec 06, 2024 Billing Provider: SHANT HALL MD Common Visit Codes: [id number] INP/OBS CARE(HIGH) Secondary Visit Codes: [id number] CARE PLAN 30 MINUTES MARCUS WALTER Dec 06, 2024 08:50 SHANT HALL MD Dec 08, 2024 11:05
[2024-12-06] MEDS: SPIRONOLACTONE 25 MG TAB PO SCH (09:07)
[2024-12-06] MEDS: CARVEDILOL 3.125 MG TAB PO SCH (09:09)
[2024-12-06] MEDS: POTASSIUM EFFERVESENT TAB 25 MEQ PO ONE (11:58)
[2024-12-06 12:34] LABS: INR 1.0 (0.9-1.15); Partial Thromboplastin Time 49.8 SEC (24.5-34.5); Prothrombin Time 10.6 sec (9.3-11.8)
--- NOTE | 2024-12-06 14:46 | DVHPN2 ---
Subjective Patient admits to feeling better No abdominal pain No nausea or vomiting Tolerating a soft mechanical diet Changes from previous H/P or p: No Changes Objective Vitals Vital Signs Date Time Temp Pulse Resp B/P (MAP) Pulse Ox O2 Delivery O2 Flow Rate FiO2 12/06/24 13:00 98.0 105 18 180/124 (142) 97 98.0 12/06/24 08:00 Room Air* 0 21 Intake/Output Intake and Output 12/06/24 07:00 Intake Total 124 ml Output Total 0 ml Balance 124 ml Intake Oral 0 ml IV Total 124 ml Output Urine Total 0 ml # Voids 4 # Bowel Movements 1 Exam General: NAD, AAOX3 Chest: lung sims clear to auscultation Heart: RRR Abdomen: non-distended, no tenderness to palpation, +BS Medications Current Medications Medications Dose Ordered Sig/Lucie Route Start Time Stop Time Status Last Admin Dose Admin Ondansetron HCl 4 mg Q4HP PRN IV 12/04/24 10:15 12/04/24 10:31 4 MG Metoclopramide HCl 5 mg Q6HR IV 12/04/24 12:00 12/06/24 11:58 5 MG Diagnostic Test (Pha) 1 strip Q6HR 12/04/24 12:00 12/06/24 12:00 1 STRIP Insulin Human Regular Q6HR SC 12/04/24 12:00 12/06/24 12:00 2 UNITS Dextrose 50 ml UD PRN IV 12/04/24 10:15 Hydromorphone HCl 0.25 mg Q4HPRN PRN IV 12/04/24 10:12/04/24 10:44 0.25 MG Pantoprazole Sodium 40 mg BID IV 12/04/24 22:00 Cancel Pantoprazole Sodium 40 mg BID IV 12/04/24 22:00 12/06/24 09:05 40 MG Hydrochlorothiazide 25 mg DAILY PO 12/05/24 10:00 12/06/24 09:07 25 MG Atorvastatin Calcium 40 mg HS PO 12/05/24 22:00 12/05/24 21:30 40 MG Amlodipine Besylate 10 mg DAILY PO 12/06/24 10:00 12/06/24 09:06 10 MG Spironolactone 25 mg DAILY PO 12/06/24 10:00 12/06/24 09:07 25 MG Aspirin 81 mg DAILY PO 12/06/24 10:00 12/06/24 09:06 81 MG Carvedilol 12.5 mg Q12HR PO 12/06/24 08:15 12/06/24 09:09 12.5 MG Clonidine HCl 0.1 mg BID PO 12/06/24 22:00 Heparin Sodium/ Dextrose 250 ml @ 12 mls/hr [id number] IV 12/06/24 11:45 Laboratory Results Laboratory Tests 12/06/24 04:00 Chemistry Test 12/06/24 04:00 Calcium Level 8.6 mg/dL (8.7-10.4) L Coagulation Test 12/05/24 15:27 12/05/24 21:09 12/06/24 04:00 12/06/24 11:57 Prothrombin Time 10.9 sec (9.3-11.8) 10.8 sec (9.3-11.8) 11.0 sec (9.3-11.8) 10.6 sec (9.3-11.8) Prothrombin Time INR 1.03 (0.9-1.15) 1.02 (0.9-1.15) 1.04 (0.9-1.15) 1.00 (0.9-1.15) Activated Partial Thromboplast Time 51.1 SEC (24.5-34.5) H 37.3 SEC (24.5-34.5) H 77.1 SEC (24.5-34.5) *H 49.8 SEC (24.5-34.5) H Urinalysis Test 12/04/24 08:39 Urine Color Yellow (Yellow) Urine Clarity Turbid (Clear) H Urine pH 6.0 (5.0-9.0) Urine Specific Locke 1.024 (1.001-1.035) Urine Protein 3+ (Negative) H Urine Ketones 1+ (Negative) H Urine Blood 3+ /uL (Negative) H Urine Nitrite Negative (Negative) Urine Bilirubin Negative (Negative) Urine Urobilinogen Normal mg/dL (Negative) Urine Leukocyte Esterase Trace /uL (Negative) Urine RBC 1060 /hpf (0 - 4) Urine Microscopic WBC 31 /HPF (0-5) H Urine Squamous Epithelial Cells Few /hpf (<5) Urine Bacteria None seen /hpf (None Seen) Urine Mucus Few (None Seen) Urine Creatinine 237.18 mg/dL (30.0-125.0) H Urine Protein/Creatinine Ratio 3.97 Urine Sodium 32 mmol/L (40-220) L Urine Glucose 1+ mg/dL (Normal) H Urine Total Protein 942.4 mg/dL (1-14) H Urine Test Negative (Negative) Microbiology Microbiology Date/Time Source Procedure Growth Status 12/04/24 08:39 Voided Urine Urine Culture - Final Complete 12/04/24 07:00 Blood Blood Culture - Preliminary NO GROWTH AFTER 48 HOURS OF INCUBATION. Resulted Assessment/Plan Assessment/Plan Pneumomediastinum Sepsis Nausea and vomiting improving History of cannabinoid use History of Ozempic use Possible colitis Pancreatitis Plan Discussed with Dr. Carrillo Mechanical soft diet tolerating Monitor lab Patient is cleared for discharge from GI point of view Recommend Zofran and Protonix Outpatient GI follow-up in 3-4 weeks Plan discussed with: Patient, Other (Family at bedside and RN) Date of Service: Dec 06, 2024 Billing Provider: CHRIS MEYER Common Visit Codes: [id number] INP/OBS CARE(HIGH) CHRIS MEYER Dec 06, 2024 14:46
[2024-12-06] MEDS: VERAPAMIL 2.5MG/ML INJ 2ML VIAL IV ONE (17:54)
[2024-12-06] MEDS: ANGIOMAX 250 MG VIAL IV ONE (17:54)
[2024-12-06] MEDS: HEPARIN SODIUM (PORCINE) 5000 UNITS/ML 1ML VIAL ONE (17:54)
[2024-12-06] MEDS: fentaNYL CITRATE 100 MCG/2 ML VL ONE (17:55)
[2024-12-06] MEDS: MIDAZOLAM HCL 2MG/2ML 2ml VIAL (1mg/ml) ONE (17:55)
[2024-12-06] MEDS: SODIUM CHL 0.9% 50 ML ONE (17:55)
[2024-12-06] MEDS: LIDOCAINE 2%HCL (LOCAL ANESTH.) INJ 20ML MDV ONE (17:56)
--- NOTE | 2024-12-06 18:10 | DVHPN2 ---
Progress Note Date Seen: Dec 06, 2024 Resident Creating Document: RHONDA BINGHAM RESIDENT Medical Necessity Reason Pt with a Central, PICC or Fol: No Subjective Review of Systems Patient Was seen and examined on the bedside. she is alert oriented x3. mentioned feeling better and no active complaint this time. EKG revealed T-wave inversion in lateral leads and troponin was markedly elevated. Went to pipelines laborer for left heart catheterization today. Objective vital signs Vital Sign Date Time Temp Pulse Resp B/P (MAP) Pulse Ox O2 Delivery O2 Flow Rate FiO2 12/06/24 13:00 98.0 105 18 180/124 (142) 97 98.0 12/06/24 08:00 Room Air* 0 21 Total Intake and Output 12/05/24 12/05/24 12/06/24 15:00 23:00 07:00 Intake Total 124 ml 0 ml Output Total 0 ml Balance 124 ml 0 ml medications Current Medications Medications Dose Ordered Sig/Lucie Route Start Time Stop Time Status Last Admin Dose Admin Ondansetron HCl 4 mg Q4HP PRN IV 12/04/24 10:12/04/24 10:31 4 MG Metoclopramide HCl 5 mg Q6HR IV 12/04/24 12:00 12/06/24 11:58 5 MG Diagnostic Test (Pha) 1 strip Q6HR 12/04/24 12:00 12/06/24 12:00 1 STRIP Insulin Human Regular Q6HR SC 12/04/24 12:00 12/06/24 12:00 2 UNITS Dextrose 50 ml UD PRN IV 12/04/24 10:15 Hydromorphone HCl 0.25 mg Q4HPRN PRN IV 12/04/24 10:12/04/24 10:44 0.25 MG Pantoprazole Sodium 40 mg BID IV 12/04/24 22:00 Cancel Pantoprazole Sodium 40 mg BID IV 12/04/24 22:00 12/06/24 09:05 40 MG Hydrochlorothiazide 25 mg DAILY PO 12/05/24 10:00 12/06/24 09:07 25 MG Atorvastatin Calcium 40 mg HS PO 12/05/24 22:00 12/05/24 21:30 40 MG Amlodipine Besylate 10 mg DAILY PO 12/06/24 10:00 12/06/24 09:06 10 MG Spironolactone 25 mg DAILY PO 12/06/24 10:00 12/06/24 09:07 25 MG Aspirin 81 mg DAILY PO 12/06/24 10:00 12/06/24 09:06 81 MG Carvedilol 12.5 mg Q12HR PO 12/06/24 08:15 12/06/24 09:09 12.5 MG Clonidine HCl 0.1 mg BID PO 12/06/24 22:00 Heparin Sodium/ Dextrose 250 ml @ 12 mls/hr [id number] IV 12/06/24 11:45 12/06/24 15:27 12 MLS/HR Examination Physical examination: General Appearance: Alert, Oriented X3, Cooperative, No acute distress HEENT: Atraumatic, PERRLA, EOMI, Mucous membrane moist/pink Respiratory: Clear to auscultation, Normal air movement Cardiovascular: Regular rate, Normal S1, Normal S2, No murmurs, no chest wall tenderness Abdominal: Normal bowel sounds, Soft, No tenderness, No hepatospenomegaly, No masses Extremities: No clubbing, No cyanosis, No edema, Normal pulses, No tenderness/swelling Skin: No rashes, No breakdown, No significant lesion Neuro: Normal gait, Normal speech, Strength at 5/5 X4 ext, Normal tone, Sensation intact, Cranial nerves 3-12 NL, Reflexes 2+ Psych/Mental Status: Mental status NL, Mood NL laboratory and microbiology Laboratory Tests 12/06/24 04:00 Test 12/06/24 04:00 Range/Units Serum Glucose 116 H 74-106 mg/dL Microbiology Date/Time Source Procedure Growth Status 12/04/24 08:39 Voided Urine Urine Culture - Final Complete 12/04/24 07:00 Blood Blood Culture - Preliminary NO GROWTH AFTER 48 HOURS OF INCUBATION. Resulted Labs and/or images reviewed: Labs reviewed by me, Image(s) reviewed by me Problem List/Assessment/Plan Problem List/Assessment/Plan Assessment and plan: # SIENNA superimposed on CKD likely prerenal, hemodynamically mediated # Hypertensive emergency # Vitamin-D deficiency # Secondary hyperparathyroidism due to CKD # Possible NSTEMI type 1 # Acute colitis # Sepsis due to above Plan: - Improving kidney function - FENa is 0.1% - moderate risk for contrast induced nephropathy - continue IV normal saline at 100 mL/hours at least 6 to 12 hours post cardiac catheterization to prevent contrast induced nephropathy - continue carvedilol 6.25 b.i.d., hydrochlorothiazide 25 mg daily, amlodipine 10 mg , - continue IV antibiotics and other management as per primary - appreciate cardiology consultation - strict I&O - avoid nephrotoxic medication - monitor BMP Thank you so much for the opportunity to consult on your patient. Nephro team will follow the patient. In case of any questions or concerns please feel free to reach out. Plan discussed with . The patient and caregiver team agreed to the plan. Addendum Patient seen and examined, plan discussed with resident. Agree with above, we will follow closely Plan for cardiac catheterization noted Ordered NS IV 100 cc/hour continue for 24 hours at least Holding spironolactone for now resume 24 hours after cardiac catheterization In the meantime added hydralazine and isosorbide for blood pressure control clonidine as p.r.n. Plan discussed with: Patient, Other RHONDA BINGHAM Dec 06, 2024 18:10 EVON ROUSE MD Dec 06, 2024 21:40
[2024-12-06] MEDS: EPTIFIBATIDE INJ (2MG/ML) 10ML VIAL IV ONE (19:00)
[2024-12-06] MEDS: TICAGRELOR 90 MG TAB ONE (19:36)
[2024-12-06] MEDS ORDERED: hydrALAZINE HCL 20 MG/ML VL IV PRN (20:15)
[2024-12-06] MEDS: hydrALAZINE HCL 20 MG/ML VL ONE (20:23)
--- NOTE | 2024-12-06 20:43 | DVHOP ---
TECHNIQUES PERFORMED: * Emergency case. * Ultrasound of the right radial. DESCRIPTION OF PROCEDURE: We have cleaned the right radial area. Ultrasound was done. Under ultrasound guidance, 6-Albanian arterial line has been placed in the right radial artery. The patient got cocktail of 100 mcg of nitroglycerin, 2.5 mg of verapamil and 2000 units of heparin IV push was given. Subsequently, TIG catheter 5-Albanian 4.0 was passed and the right coronary angio done. With the help of similar catheter, left heart cath also had been done. With the help of the JL3.0, 6-Albanian guiding catheter, the left coronary angiography also has been done. IMPRESSION: * Normal left main. * The left anterior descending artery at the proximal one-third region has underlying 85% eccentric narrowing. There is a diffuse disease noted in the mid and distal region of the left anterior descending artery. * Circumflex artery also has diffuse disease noted, but no significant stenosis. * The right coronary artery is a large dominant artery, the posterolateral branch has 50% narrowing at the proximal one-third region. PLAN OF ACTION: As follows: At this time, the patient is advised to undergo angioplasty and stenting of the left anterior descending artery. Please also note that the patient was advised to have the cardiac cath done few days ago, but every day she refused and now she understands and accepts these very well. Luis Saenz MD MP/ROC/LÓPEZ TID: [id number] RECEIPT: [id number] [id number]
[2024-12-06] MEDS: SODIUM CHLORIDE 0.9% 1,000 ML IV SCH (21:30)
[2024-12-06] MEDS: ISOSORBIDE MONONITRATE ER 60 MG TAB PO ONE (21:45)
--- NOTE | 2024-12-06 21:49 | DVHOP ---
TECHNIQUE PERFORMED: * Ultrasound-guided insertion of 6-Norwegian arterial line in right radial artery. * Emergency case. * Left coronary artery angiography. * Mechanical thrombectomy of the left anterior descending artery with [place] catheter. * Balloon angioplasty of the proximal region of the left anterior descending artery with 3.0 x 12 mm in length semi-compliant balloon. * Stenting and angioplasty of left anterior descending artery in the proximal region with 3.0 x 18 mm length Richard [place] stent of [place]. * The intravascular ultrasound of the left main, also of the left anterior descending artery stented region. * Balloon angioplasty of the proximal region of the left anterior descending artery with 3.5 x 15 mm length noncompliant balloon and mid artery size 3.41 mm in size. * Intracoronary administration of the Integrilin 20 mg bolus. INDICATIONS: The indication for the patient has underlying eccentric stenosis of the left anterior descending artery in the proximal region, acute anterior myocardial infarction. DESCRIPTION OF PROCEDURE: The risks and benefits all have been explained to patient, understood and accepted very well. The patient's right radial area thoroughly cleaned with soap and Betadine. A 6-Norwegian arterial line was placed. We have put JL3.0 6-Norwegian guiding catheter. Then, we would Whisper wire MS. After giving IV Angiomax subsequently, we did [place] catheter. Subsequently, we put balloon, 3.0 x 12 mm length balloon. Balloon angioplasty was done in the proximal region of the left anterior descending artery. Subsequently, we put a stent 3.0 x 18 mm length and the stent was fully deployed but did not cover the region of the diagonal branch. Subsequently, now we put a stent 3.0 x 18. Stent was fully deployed, a total of 15 atmosphere. Stent size was increased to 3.25 mm in size by taking the balloon up to 15 atmosphere and 17 atmosphere. Balloon had been deflated. Balloon had been discontinued. Subsequently, we did intravascular ultrasound. We found some gap between stent and media, so now we put 3.5 x 15 mm length noncompliant balloon into the proximal, mid and distal region and the stent size was increased to 3.41 mm in size. Procedure went well. Balloon deflated and had been discontinued. Angiography was done. Result was satisfactory. Intracoronary Integrilin 20 mg bolus also had been given and the balloon, wire, catheter all had been discontinued. CONCLUSION: * Prior to performing the procedure #1, the left anterior descending artery prior to performing the procedure was 85% blocked, eccentric stenosis of diagonal artery arising at the same region. * Post procedure, ARLIN grade 3 flow and there is no spasm, dissection, or thrombosis and procedure went well. Luis Saenz MD MP/COLLIN/LÓPEZ TID: [id number] RECEIPT: [id number] [facility]
[2024-12-06] MEDS: TICAGRELOR 90 MG TAB PO SCH (21:59)
[2024-12-06] MEDS: ATORVASTATIN 20 MG TAB PO SCH (21:59)
--- NOTE | 2024-12-06 22:27 | DVHPN2 ---
Progress Note - Dictate Date Seen: Dec 06, 2024 Medical Necessity Reason Pt with a Central, PICC or Fol: No Subjective Patient was seen and evaluated in follow up. K 3.4, SHELL MOLD BONDER 1.68, CA 8.6. CT Chest shows significantly decreased pneumomediastinum , as above. No fluid collection in the mediastinum and scattered coronary vascular calcifications. Patient underwent right coronary angio, left heart cath, left coronary artery angiography, mechanical thrombectomy of the left anterior descending artery, balloon angioplasty of the proximal region of the left anterior descending artery, stenting and angioplasty of left anterior descending artery in the proximal region, balloon angioplasty of the proximal region of the left anterior descending artery, intracoronary administration of the Integrilin 20 mg bolus. Telemetry reviewed. vital signs Vital Sign Date Time Temp Pulse Resp B/P (MAP) Pulse Ox O2 Delivery O2 Flow Rate FiO2 12/06/24 09:09 104 153/114 12/06/24 09:00 98.2 16 100 98.2 12/06/24 08:00 Room Air* 0 21 Total Intake and Output 12/05/24 12/05/24 12/06/24 15:00 23:00 07:00 Intake Total 124 ml 0 ml Output Total 0 ml Balance 124 ml 0 ml medications Current Medications Medications Dose Ordered Sig/Lucie Route Start Time Stop Time Status Last Admin Dose Admin Ondansetron HCl 4 mg Q4HP PRN IV 12/04/24 10:12/04/24 10:31 4 MG Metoclopramide HCl 5 mg Q6HR IV 12/04/24 12:00 12/06/24 11:58 5 MG Diagnostic Test (Pha) 1 strip Q6HR 12/04/24 12:00 12/06/24 12:00 1 STRIP Insulin Human Regular Q6HR SC 12/04/24 12:00 12/06/24 12:00 2 UNITS Dextrose 50 ml UD PRN IV 12/04/24 10:15 Hydromorphone HCl 0.25 mg Q4HPRN PRN IV 12/04/24 10:12/04/24 10:44 0.25 MG Pantoprazole Sodium 40 mg BID IV 12/04/24 22:00 Cancel Pantoprazole Sodium 40 mg BID IV 12/04/24 22:00 12/06/24 09:05 40 MG Hydrochlorothiazide 25 mg DAILY PO 12/05/24 10:00 12/06/24 09:07 25 MG Atorvastatin Calcium 40 mg HS PO 12/05/24 22:00 12/05/24 21:30 40 MG Amlodipine Besylate 10 mg DAILY PO 12/06/24 10:00 12/06/24 09:06 10 MG Spironolactone 25 mg DAILY PO 12/06/24 10:00 12/06/24 09:07 25 MG Aspirin 81 mg DAILY PO 12/06/24 10:00 12/06/24 09:06 81 MG Carvedilol 12.5 mg Q12HR PO 12/06/24 08:15 12/06/24 09:09 12.5 MG Clonidine HCl 0.1 mg BID PO 12/06/24 22:00 Heparin Sodium/ Dextrose 250 ml @ 12 mls/hr [id number] IV 12/06/24 11:45 objective GENERAL: Alert and oriented x 3. No acute distress. EYES: PERRL, EOMI. Anicteric. HENT: Moist mucous membranes. LUNGS: Clear to auscultation bilaterally. CARDIOVASCULAR: Regular rate and rhythm. ABDOMEN: Soft, nontender and nondistended. EXTREMITIES: No edema. NEUROLOGIC: No focal neurological deficits. SKIN: Warm, dry. laboratory and microbiology Laboratory Tests 12/06/24 04:00 Test 12/06/24 04:00 Range/Units Serum Glucose 116 H 74-106 mg/dL Problem List NSTEMI. Hypertensive urgency. Dyslipidemia. Pneumomediastinum. Type 2 diabetes mellitus. Chronic kidney disease. Marijuana use. Assessment/Plan Continued all current supportive medical care. Amlodipine, Coreg, Clonidine, Hydralazine. Aspirin, Lipitor, Brilinta. IV Hydralazine for SBP >150. GI prophylactics. Additional plan as per the hospital course. Plan discussed with: Patient ANABELLE ZAMARRIPA MD Dec 06, 2024 12:38
[2024-12-07 01:00] VITALS: BP 115/77; PULSE 103; RESP 16; TEMP 97.7; O2SAT 100
[2024-12-07 05:00] VITALS: BP 122/75; PULSE 111; RESP 18; TEMP 97.9; O2SAT 100
[2024-12-07 07:33] LABS: Hematocrit 32.6 % (36.0-46.0); Hemoglobin 11.5 g/dL (12.2-16.2); Mean Corpuscular Hemoglobin 32.5 pg (28.0-32.0); Mean Corpuscular Volume 92.0 fL (80.0-100.0); Nucleated Red Blood Cells % 0.1 %
[2024-12-07 07:40] LABS: Anion Gap 14 (5-15); Chloride 105 mmol/L (98-107); Sodium 139 mmol/L (136-145)
[2024-12-07 07:46] LABS: BUN/Creatinine Ratio 7.0 (10.0-20.0); Blood Urea Nitrogen 14 mg/dL (9-23); Glucose 103 mg/dL (74-106)
[2024-12-07 07:47] LABS: Carbon Dioxide 20 mmol/L (20-31); Potassium 3.3 mmol/L (3.5-5.1)
[2024-12-07 07:53] LABS: Calcium 8.5 mg/dL (8.7-10.4)
[2024-12-07 08:00] VITALS: PULSE 111
[2024-12-07 09:00] VITALS: BP 135/94; PULSE 108; RESP 16; TEMP 97.5; O2SAT 100
[2024-12-07] MEDS: POTASSIUM CHL 20 Meq TABLET PO ONE (09:09)
[2024-12-07] MEDS: ISOSORBIDE MONONITRATE ER 60 MG TAB PO SCH (09:12)
--- NOTE | 2024-12-07 12:03 | DVHDSRES ---
Discharge Summary Date of Admission Resident Creating Document: MARCUS WALTER RESIDENT Dec 04, 2024 at 06:02 Date of Discharge: Dec 07, 2024 Labs/Diagnostic Data: Laboratory Results Test 12/07/24 11:37 12/07/24 06:36 12/06/24 11:57 12/04/24 12:55 POC Glucose 98 mg/dl (70-106) White Blood Count 5.5 10^3/uL (4.4-10.8) Red Blood Count 3.54 10^6/uL (4.0-5.20) Hemoglobin 11.5 g/dL (12.2-16.2) Hematocrit 32.6 % (36.0-46.0) Mean Corpuscular Volume 92.0 fL (80.0-100.0) Mean Corpuscular Hemoglobin 32.5 pg (28.0-32.0) Mean Corpuscular Hemoglobin Concent 35.3 g/dL (32.0-36.0) Red Cell Distribution Width 12.3 % (11.8-14.3) Platelet Count 245 10^3/uL (140-450) Mean Platelet Volume 8.5 fL (6.9-10.8) Neutrophils (%) (Auto) 60.0 % (37.0-80.0) Lymphocytes (%) (Auto) 30.2 % (10.0-50.0) Monocytes (%) (Auto) 7.6 % (0.0-12.0) Eosinophils (%) (Auto) 1.7 % (0.0-7.0) Basophils (%) (Auto) 0.5 % (0.0-2.0) Neutrophils # (Auto) 3.3 10 ^3/uL (1.6-8.6) Lymphocytes # (Auto) 1.7 10 ^3/uL (0.4-5.4) Monocytes # (Auto) 0.4 10 ^3/uL (0-1.3) Eosinophils # (Auto) 0.1 10 ^3/uL (0-0.8) Basophils # (Auto) 0 10 ^3/uL (0-0.2) Nucleated Red Blood Cells 0.1 % Sodium Level 139 mmol/L (136-145) Potassium Level 3.3 mmol/L (3.5-5.1) Chloride Level 105 mmol/L (98-107) Carbon Dioxide Level 20 mmol/L (20-31) Anion Gap 14 (5-15) Blood Urea Nitrogen 14 mg/dL (9-23) Creatinine 2.00 mg/dL (0.550-1.02) Glomerular Filtration Rate Calc 34 mL/min (>90) BUN/Creatinine Ratio 7.0 (10.0-20.0) Serum Glucose 103 mg/dL (74-106) Calcium Level 8.5 mg/dL (8.7-10.4) Prothrombin Time 10.6 sec (9.3-11.8) Prothrombin Time INR 1.00 (0.9-1.15) Activated Partial Thromboplast Time 49.8 SEC (24.5-34.5) Parathyroid Hormone (Intact) 173.6 pg/mL (18.4-80.1) Test 12/04/24 10:11 12/04/24 08:39 12/04/24 07:00 12/04/24 06:25 Lactic Acid Level 1.3 mmol/L (0.4-2.0) Ammonia < 10 umol/L (11-32) Urine Color Yellow (Yellow) Urine Clarity Turbid (Clear) Urine pH 6.0 (5.0-9.0) Urine Specific [place] 1.024 (1.001-1.035) Urine Protein 3+ (Negative) Urine Ketones 1+ (Negative) Urine Blood 3+ /uL (Negative) Urine Nitrite Negative (Negative) Urine Bilirubin Negative (Negative) Urine Urobilinogen Normal mg/dL (Negative) Urine Leukocyte Esterase Trace /uL (Negative) Urine RBC 1060 /hpf (0 - 4) Urine Microscopic WBC 31 /HPF (0-5) Urine Squamous Epithelial Cells Few /hpf (<5) Urine Bacteria None seen /hpf (None Seen) Urine Mucus Few (None Seen) Urine Creatinine 237.18 mg/dL (30.0-125.0) Urine Protein/Creatinine Ratio 3.97 Urine Sodium 32 mmol/L (40-220) Urine Glucose 1+ mg/dL (Normal) Urine Total Protein 942.4 mg/dL (1-14) Urine Test Negative (Negative) Urine Opiates Screen Neg (NEGATIVE) Urine Fentanyl Screen Neg (NEGATIVE) Urine Barbiturates Screen Neg (NEGATIVE) Urine Phencyclidine Screen Neg (NEGATIVE) Urine Amphetamines Screen Neg (NEGATIVE) Urine Benzodiazepines Screen Neg (NEGATIVE) Urine Cocaine Screen Neg (NEGATIVE) Urine Cannabinoids Screen Pos (NEGATIVE) Hemoglobin A1c 5.1 % A1C (<5.7) Phosphorus Level 2.7 mg/dL (2.4-5.1) Magnesium Level 1.8 mg/dL (1.6-2.6) Total Bilirubin 0.5 mg/dL (0.2-1.0) Aspartate Amino Transferase (AST) 31 U/L (13-40) Alanine Aminotransferase (ALT) 16 U/L (7-40) Alkaline Phosphatase 93 U/L (46-116) Troponin I High Sensitivity 5085 ng/L (</=34) C-Reactive Protein High Sensitivity 0.13 mg/dL (<1.0) Total Protein 7.5 g/dL (5.7-8.2) Albumin 4.4 g/dL (3.2-4.8) Triglycerides Level 148 mg/dL (< 150) Cholesterol Level 225 mg/dL (< 200) LDL Cholesterol 169 mg/dL (< 100) HDL Cholesterol 42 mg/dL (40-59) Lipase 78 U/L (12-53) Vitamin B12 Level 631 pg/mL (211-911) Vitamin D 25-Hydroxy 21.3 ng/mL (30.0-100) Beta-Hydroxybutyric Acid 1.049 mmol/L (< 0.4) Thyroid Stimulating Hormone (TSH) 1.62 uIU/mL (0.55-4.78) Blood Gas Specimen Type Arterial Blood Gas Sample Site Right radial Blood Gas Patient Temperature 37.0 Arterial Blood Date Drawn [id number] Arterial Blood pH 7.450 (7.350-7.450) Arterial Blood Partial Pressure CO2 22.3 mmHg (32.0-45.0) Arterial Blood Partial Pressure O2 94.0 mmHg (83.0-108.0) Arterial Blood HCO3 15.2 mmol/L (21.0-28.0) Arterial Blood Oxygen Saturation 97.4 % (94.0-98.0) Arterial Blood Base Excess -6.6 mmol/L (-2.0-3.0) Arterial Blood Oxyhemoglobin 96.2 % (94.0-98.0) Arterial Blood Carboxyhemoglobin 0.6 % (0.5-1.5) Arterial Blood Methemoglobin 0.6 % (0.0-1.5) Gaudencio Test Yes Blood Gas Total Hemoglobin 14.50 g/dL (12.0-16.0) Blood Gas Modality Room air FiO2 % 21.0 Other Laboratory Tests 12/07/24 06:36 Brief Hx & Hospital Course: History of present illness : This is a 29-year-old female came to ER with a complaint of nausea vomiting and chest discomfort. As per patient, nausea and vomiting yesterday morning and more than 6 episodes of vomiting with out hematemesis. Approximately 30 minutes after vomiting, patient started left- sided chest discomfort which is burning in nature, 10/10 intensity, aggravated on breathing , no relieving factors, localized and no radiation. Patient also having right flank discomfort at the same type. Denies any history of sick contact, trauma, fall or MVA recently. Patient having similar symptoms and need hospitalization before and recent admission due to DKA need ICU status on October 15. Day before admission, Patient discharged from ER diagnosed with hyperemesis secondary to cannabis induced hyperemesis and discharged home. Around 4 a.m. 12/04/2024, patient experienced chest discomfort and presented to ER accompanied with mother. In ER patient having hypertensive emergency and started nicardipine drip. Patient blood pressure systolic< 150, nicardipine drip stopped around 11:15 am on 12/04/2024. Past medical history: Hypertension, diabetes, CKD, questionable renal artery stenosis (FMD?), suprarenal tumor in evaluation, GERD. Surgical history: C-sections x2 Family history: Non contributory Social history: Lives in [place] with family (NOK mother). Smokes marijuana. Denies current tobacco, alcohol and other drug abuse Cardiology: [facility] ([phone]) Allergies: DeniesPCP: [facility] course: Patient admitted chest pain due to NSTMI. On admission, EKG showed sinus tachycardia with no ST elevation (lateral repolarization abnormalities).Echo on 07/06/2024 shows EF 60% with severe left ventricular concentric hypertrophy and Troponin 3278> 3561> 5085. cardiology consulted and recommended angiogram but patient refused initially and started heparin drip. Extensive discussion with family member and patient by medical and nephrology team patient finally agreed for the procedure. Discussed side effects of noncompliant with medical management. Angiogram done on 12/06/2024 showed the left anterior descending artery prior to performing the procedure was 85% blocked, eccentric stenosis of diagonal artery arising at the same region- Mechanical thrombectomy of the left anterior descending artery with Mcintosh catheter,Balloon angioplasty of the proximal region of the left anterior descending,Stenting and angioplasty of left anterior descending artery. Patient educated to continue dual antiplatelet therapy and follow-up with Cardiology. During admission,CT chest/abdomen/pelvis which shows pneumomediastinum and questionable colitis. Kept patient NPO and started conservative treatment.Esophagogram: The esophagus was normal in caliber with no stricture, or wall irregularity demonstrated normal esophageal peristalsis. No contrast leak. GI consulted recommended start feeding and advanced diet as tolerated. patient able to tolerate diet well and denies any abdominal pain, nausea, vomiting, fever or any other acute distress. Patient h/o CKD stage III, follow-up with outpatient Nephrology. Ultrasound kidney 10/12/2024-bilateral renal disease.Ultrasound renal artery on 07/04/2024- elevated velocity in right renal artery may represent right renal artery stenosis.CT abdomen pelvis on 10/09/2024-1.1 cm left adrenal nodule , unchanged from 05/18/2024. started home medication gradually, patient recommended follow- up with Nephrology within 1 week after discharge. patient also advised abstinence from cannabis use counseling done. Patient is hemodynamically stable for discharge. The patient has received maximum benefits from inpatient treatment. Time was given to answer patient questions and concerns in Layman terms. patient verbalized understanding and agree with treatment and follow-up. Patient was recommended to return to the ED if she experiences any worsening symptoms such as, but not limited to current symptoms. Continue current home medication. Follow-up with outpatient discharge Clinic within 1 weeks on Tuesday morning and follow up with PCP within week, nephrology, cardiology follow-up within 2 after discharge . Patient educated and advised to resume home medication. Physical examination Constitutional: No: Fever, Chills, Sweats, Weakness, Malaise, Other Eyes: No: Pain, Vision change, Conjunctivae inflammation, Eyelid inflammation, Other, Redness ENT: No: Ear pain, Ear discharge, Nose pain, Nose discharge, Nose congestion, Mouth pain, Mouth swelling, Throat pain, Throat swelling, Other Respiratory: Shortness of breath; No: Cough, Dry, SOB with excertion, Wheezing, Hemoptysis, Pleuritic Pain, Sputum, Wheezing, Other Cardiovascular: No: Chest Pain, Palpitations, Orthopnea, Paroxysmal Noc. Dyspnea, Edema, Lt Headedness, Other Gastrointestinal: No: Nausea, Vomiting, Abdominal Pain, Diarrhea, Constipation, Melena, Hematochezia, Other Genitourinary: No Dysuria, No Frequency, No Incontinence, No Hematuria, No Retention, No Other Musculoskeletal: No: other, neck pain, shoulder pain, arm pain, back pain, hand pain, leg pain, foot pain Skin: No: Rash, Lesions, Jaundice, Bruising, Other Neurological: No: Weakness, Numbness, Incoordination, Change in speech, Confusion, Seizures, Other Case discussed with patient, mother, nurse and Dr. Mckinney. More than 37 minute spent for total encounter. Condition at Discharge: Stable Final Diagnosis/Problems List Type I NSTEMI S/P 1 STENT PLACEMENT LAD ON 12/07/2024 Hypertensive emergency Sepsis secondary to pneumomediastinum Questionable Boerhaave syndrome (cannabinoid hyperemesis) Possible colitis Acute pancreatitis Cannabis induced hyperemesis SIENNA superimposed on CKD likely prerenal, hemodynamically mediated Secondary hyperparathyroidism due to CKD Questionable renovascular hypertension (FMD? renal artery stenosis) Essential hypertension Dyslipidemia Diabetes mellitus type 2 Vitamin-D deficiency Hyperparathyroidism Colitis/acute pancreatitis SUBSTANCE USE DISORDER Obesity Discharge Disposition: Home Discharge Instruct/Medications Diet: Cardiac 2g Na,low cholest Activity: No Restrictions, As Tolerated Follow Up/Referral: PCP OUT PATIENT CLINIC TUESDAY MORNING CARDIOLOGY NEPHROLOGY Scheduled Amlodipine Besylate (Norvasc Tablet), 2 TAB PO DAILY Aspirin (Aspir-81), 81 MG PO DAILY Atorvastatin Calcium (Atorvastatin Calcium), 40 MG PO HS Atorvastatin Calcium (Atorvastatin Calcium), 80 MG PO DAILY Carvedilol (Coreg), 1 TAB PO BID Carvedilol (Carvedilol), 25 MG PO BID Clonidine Hydrochloride (Clonidine Hcl), 1 TAB PO BID, (Reported) Clopidogrel Bisulfate (Plavix), 75 MG PO DAILY Ergocalciferol (Vitamin D 99985 Unit), 50,000 UNIT PO QWEEKLY Hctz (Hydrochlorothiazide), 25 MG PO DAILY Hydroxyzine HCl (Hydroxyzine Hydrochloride), 25 MG PO DAILY Nifedipine (Nifedipine Er), 1 TAB PO DAILY, (Reported) Nifedipine (Nifedipine Er), 90 MG PO DAILY Pantoprazole Sodium Sesquihydr (Protonix), 40 MG PO DAILY Semaglutide (Ozempic), 1 MG SC QWEEKLY, (Reported) Valsartan (Valsartan), 1 TAB PO DAILY, (Reported) Valsartan (Diovan), 320 MG PO DAILY Discharge Statement: "Patient was advised to return to the ER or call 911 if any headaches, dizziness, shortness of breath, chest pain, abdominal pain, bleeding, fevers, or worsening of medical condition. Patient was counseled about treatment plan, medications, possible side effects, patientverbalized understanding. All questions were answered to the best of my ability. This discharge took greater then 30 minutes in planning, reviewing documentation, counseling the patient, and discussing with other team members." ASSESSMENT ASSESSMENT Assessment NSTEMI s/p 1 stent placement on 12/06/2024 MARCUS WALTER RESIDENT Dec 07, 2024 12:03
[2024-12-07] MEDS ORDERED: CARV25TA55 PO (12:10)
[2024-12-07] MEDS ORDERED: ATOR40TA52 PO (12:10)
[2024-12-07] MEDS ORDERED: ASPI1TAB20 PO (12:10)
[2024-12-07] MEDS ORDERED: HYDR-4924 PO (12:10)
[2024-12-07] MEDS ORDERED: CLOP75TA28 PO (12:10)
[2024-12-07] MEDS ORDERED: NIFE90TA75 PO (12:10)
[2024-12-07] MEDS ORDERED: VALS320T PO (12:10)
[2024-12-07 12:28] VITALS: BP 135/94; PULSE 108; RESP 16; TEMP 97.5; O2SAT 100
[2024-12-07 13:17] VITALS: BP 130/87; PULSE 105; RESP 17; TEMP 98.5; O2SAT 100
--- NOTE | 2024-12-07 20:21 | DVHPN2 ---
Progress Note - Dictate Date Seen: Dec 07, 2024 Medical Necessity Reason Pt with a Central, PICC or Fol: No Subjective Patient was seen and evaluated in follow up. Patient has no new complaints at this time. Patient denies any cardiac symptoms. Patient is cardiac stable for discharge. Telemetry reviewed. vital signs Vital Sign Date Time Temp Pulse Resp B/P (MAP) Pulse Ox O2 Delivery O2 Flow Rate FiO2 12/07/24 12:28 97.5 108 16 100 12/07/24 11:52 130/87 12/07/24 08:00 Room Air* 0 21 Total Intake and Output 12/06/24 12/06/24 12/07/24 15:00 23:00 07:00 Intake Total 48 ml 300 ml 275 ml Balance 48 ml 300 ml 275 ml medications Current Medications Medications Dose Ordered Sig/Lucie Route Start Time Stop Time Status Last Admin Dose Admin Ondansetron HCl 4 mg Q4HP PRN IV 12/04/24 10:15 12/04/24 10:31 4 MG Metoclopramide HCl 5 mg Q6HR IV 12/04/24 12:00 12/07/24 11:52 5 MG Diagnostic Test (Pha) 1 strip Q6HR 12/04/24 12:00 12/07/24 11:40 1 STRIP Insulin Human Regular Q6HR SC 12/04/24 12:00 12/06/24 12:00 2 UNITS Dextrose 50 ml UD PRN IV 12/04/24 10:15 Hydromorphone HCl 0.25 mg Q4HPRN PRN IV 12/04/24 10:15 12/07/24 01:06 0.25 MG Pantoprazole Sodium 40 mg BID IV 12/04/24 22:00 Cancel Pantoprazole Sodium 40 mg BID IV 12/04/24 22:00 12/07/24 09:09 40 MG Hydrochlorothiazide 25 mg DAILY PO 12/05/24 10:00 12/07/24 09:11 25 MG Amlodipine Besylate 10 mg DAILY PO 12/06/24 10:00 12/07/24 09:11 10 MG Aspirin 81 mg DAILY PO 12/06/24 10:00 12/07/24 09:09 81 MG Carvedilol 12.5 mg Q12HR PO 12/06/24 08:15 12/07/24 09:11 12.5 MG Ticagrelor 90 mg BID PO 12/06/24 22:00 12/07/24 09:10 90 MG Atorvastatin Calcium 80 mg HS PO 12/06/24 22:00 12/06/24 21:59 80 MG Hydralazine HCl 10 mg Q2HP PRN IV 12/06/24 20:15 Sodium Chloride 1,000 ml @ 100 mls/hr Q10H IV 12/06/24 21:30 12/07/24 07:30 100 MLS/HR Clonidine HCl 0.1 mg Q6HP PRN PO 12/06/24 21:45 Hydralazine HCl 25 mg Q6HR PO 12/07/24 00:00 12/07/24 11:52 25 MG Isosorbide Mononitrate 30 mg DAILY PO 12/07/24 10:00 12/07/24 09:12 30 MG objective GENERAL: Alert and oriented x 3. No acute distress. EYES: PERRL, EOMI. Anicteric. HENT: Moist mucous membranes. LUNGS: Clear to auscultation bilaterally. CARDIOVASCULAR: Regular rate and rhythm. ABDOMEN: Soft, nontender and nondistended. EXTREMITIES: No edema. NEUROLOGIC: No focal neurological deficits. SKIN: Warm, dry. laboratory and microbiology Laboratory Tests 12/07/24 06:36 Test 12/07/24 06:36 Range/Units Serum Glucose 103 74-106 mg/dL Problem List NSTEMI. Hypertensive urgency. Dyslipidemia. Pneumomediastinum. Type 2 diabetes mellitus. Chronic kidney disease. Marijuana use. Assessment/Plan Continued all current supportive medical care. Amlodipine, Coreg, Hydralazine. Aspirin, Brilinta. IV Hydralazine for SBP >150. GI prophylactics. Additional plan as per the hospital course. Plan discussed with: Patient ANABELLE ZAMARRIPA MD Dec 07, 2024 12:47
== END 2024-12-07 13:16 | disposition home or self-care (01) | DRG 710 ==
LOC: ER 02:54 → OVERFLOW 06:02 → ER 06:10 → TELE-WESTW 12-05 16:55
PROVIDERS: ADMIT Internal Medicine Pulmonary Disease; ATTEND Internal Medicine Pulmonary Disease
PROC: 4A023N7 Measurement of Cardiac Sampling and Pressure, Left Heart, Percutaneous Approach (ICD-10-PCS; principal; 2024-12-06)
PROC: B211YZZ Fluoroscopy of Multiple Coronary Arteries using Other Contrast (ICD-10-PCS; 2024-12-06)
PROC: 027035Z Dilation of Coronary Artery, One Artery with Two Drug-eluting Intraluminal Devices, Percutaneous Approach (ICD-10-PCS; 2024-12-06)
PROC: B240ZZ3 Ultrasonography of Single Coronary Artery, Intravascular (ICD-10-PCS; 2024-12-06)
PROC: 3E063PZ Introduction of Platelet Inhibitor into Central Artery, Percutaneous Approach (ICD-10-PCS; 2024-12-06)
DX: A41.9 Sepsis, unspecified organism (principal); N17.0 Acute kidney failure with tubular necrosis; I21.4 Non-ST elevation (NSTEMI) myocardial infarction; K85.90 Acute pancreatitis without necrosis or infection, unspecified; J98.2 Interstitial emphysema; I16.1 Hypertensive emergency; E78.5 Hyperlipidemia, unspecified; N18.9 Chronic kidney disease, unspecified; K52.9 Noninfective gastroenteritis and colitis, unspecified; E11.22 Type 2 diabetes mellitus with diabetic chronic kidney disease; E55.9 Vitamin D deficiency, unspecified; I12.9 Hypertensive chronic kidney disease with stage 1 through stage 4 chronic kidney disease, or unspecified chronic kidney disease; I25.10 Atherosclerotic heart disease of native coronary artery without angina pectoris; J45.909 Unspecified asthma, uncomplicated; N25.81 Secondary hyperparathyroidism of renal origin; Z82.49 Family history of ischemic heart disease and other diseases of the circulatory system; Z83.3 Family history of diabetes mellitus
CPT/HCPCS: 36415; 36600; 71250; 74176; 74220; 80048; 80053; 80061; 80307; 81001; 81025; 82010; 82140; 82306; 82570; 82607; 82805; 82962; 83036; 83605; 83690; 83735; 83970; 84100; 84156; 84300; 84443; 84484; 85025; 85610; 85730; 86141; 87040; 87086; 92941; 92978; 93005; 93306; 93458; 96365; 96375; 99152; G0378; J1815; J2248; J2250; J2405; J2470; J2543; Q9967

== ENCOUNTER 2025-01-01 16:33 | Inpatient (IN) | payer MEDICAID ==
[~2025-01-01] VITALS: Ht 170.2 cm; Wt 90.9 kg
[~2025-01-01 16:33] MED LIST changes: -AML5T PO; +ASPI1TAB20 PO; +CARV25TA55 PO; +CLOP75TA28 PO; +HYDR-4924 PO; -VALS1TAB57 PO; +VALS320T PO; -ZOFR4T PO
--- NOTE | 2025-01-01 16:47 | ED.PDOC ---
GI ASSESSMENT HPI Comments 29 y/ F, BIBA, with PMHx of CKF, HTN, DM and CAD (recent stent), cannabinoid hyperemesis presents to the ED for CC of abdominal pain, nausea, vomiting over the past day. Also reporting some shortness of breath which she states has been ongoing for days. Does not know she has a history of heart failure. Denies any urinary symptoms. Has not been able to take any of her medications over the past day. Does not want to answer more questions due to her discomfort. Chief Complaint: Abdominal Pain Time Seen by MD: 16:50 Primary Care Provider: kar Reviewed Notes: Nurses Notes, City Editor Notes, Medications, Allergies Allergies: Coded Allergies: NO KNOWN ALLERGIES (Unverified , 04/24/17) Home Meds Active Scripts Nifedipine (Nifedipine Er) 90 Mg Tab, 90 MG PO DAILY for 30 Days, #30 TAB 3 Refills Prov:SPENCER LUI RESDIENT 12/07/24 Valsartan (Diovan) 320 Mg Tab, 320 MG PO DAILY for 30 Days, #30 TAB 3 Refills Prov:SPENCER LUI RESDIENT 12/07/24 Hydroxyzine HCl (Hydroxyzine Hydrochloride) 25 Mg Tab, 25 MG PO DAILY for 30 Days, #30 TAB 3 Refills Prov:SPENCER LUI RESDIENT 12/07/24 Carvedilol (Carvedilol) 25 Mg Tab, 25 MG PO BID for 30 Days, #60 TAB 3 Refills Prov:SPENCER LUI RESDIENT 12/07/24 Atorvastatin Calcium (ATORVASTATIN CALCIUM) 40 Mg Tab, 80 MG PO DAILY for 30 Days, #60 TAB 3 Refills Prov:SPENCER LUI RESDIENT 12/07/24 Clopidogrel Bisulfate (Plavix) 75 Mg Tab, 75 MG PO DAILY for 30 Days, #30 TAB 3 Refills Prov:SPENCER LUI RESDIENT 12/07/24 Aspirin (Aspir-81) 81 Mg Tab, 81 MG PO DAILY for 30 Days, #30 TAB 3 Refills Prov:SPENCER LUI RESDIENT 12/07/24 Pantoprazole Sodium Sesquihydr (Protonix) 40 Mg Tab, 40 MG PO DAILY, #30 TAB Prov:RAMAKRISHNA ABBOTT MD 12/03/24 Carvedilol (Coreg) 25 Mg Tab, 1 TAB PO BID, #60 TAB 5 Refills Prov:RADHA PROCTOR NP 10/12/24 Hctz (Hydrochlorothiazide) 25 Mg Tab, 25 MG PO DAILY for 28 Days, #28 TAB Prov:BLAISE DILLON 07/06/24 Ergocalciferol (VITAMIN D 42073 UNIT) 50,000 [place], [address] UNIT PO QWEEKLY for 56 Days, #8 CAP 0 Refills Prov:BLAISE DILLON 07/06/24 Reported Medications Nifedipine (Nifedipine Er) 90 Mg Tab, 1 TAB PO DAILY for 90 Days, #90 12/05/24 Valsartan (Valsartan) 320 Mg Tab, 1 TAB PO DAILY for 90 Days, #90 12/05/24 Clonidine Hydrochloride (Clonidine Hcl) 0.1 Mg Tab, 1 TAB PO BID for 60 Days, #120 12/05/24 Semaglutide (Ozempic) 4 Mg/3 Ml Inj, 1 MG SC QWEEKLY for 28 Days, #3 10/10/24 Information Source: Patient, Emergency Med Personnel Mode of Arrival: EMS Timing: Minutes Duration: Since onset Prehospital treatment: None Vomitus: Watery Stool: Normal Severity: Moderate Recent: None Recent Hx of: None Pain Location: Diffuse Modifying Factors: Nothing Associated sign and symptoms: Nausea, Vomiting, Abdominal Pain Past Medical History PAST MEDICAL HISTORY: Asthma, CAD, CKF, DM, HTN Surgical History: MANAGER DIALYSIS History: Denies all MANAGER DIALYSIS Hx Family History Family History: No family hx of DM, No family hx of Heart jefferson, No family hx of HTN Social History Smoker: Non-Smoker Alcohol: Denies ETOH Use Drugs: Marijuana Lives In: Home Constitutional: denies: chills, diaphoresis, fatigue, fever, malaise, sweats, weakness, others EENTM: denies: blurred vision, double vision, ear bleeding, ear discharge, ear drainage, ear pain, ear ringing, eye pain, eye redness, hearing loss, mouth pa in, mouth swelling, nasal discharge, nose bleeding, nose congestion, nose pain, photophobia, tearing, throat pain, throat swelling, voice changes, others Respiratory: denies: cough, hemoptysis, orthopnea, SOB at rest, shortness of breath, SOB with excertion, stridor, wheezing, others Cardiovascular: denies: chest pain, dizzy spells, diaphoresis, Dyspnea on exertion, edema, irregular heart beat, left arm pain, lightheadedness, palpitations, PND, syncope, others Gastrointestinal: reports: abdominal pain, nausea, vomiting; denies: abdomen distended, blood streaked bowels, constipated, diarrhea, dysphagia, difficulty swallowing, hematemesis, melena, poor appetite, poor fluid intake, rectal bleeding, rectal pain, others Genitourinary: denies: abnormal vagina bleeding, burning, dyspareunia, dysuria, flank pain, frequency, hematuria, incontinence, pain, , vagina discharge, urgency, others Neurological: denies: dizziness, fainting, headache, left sided numbness, left sided weakness, numbness, paresthesia, pre-existing deficit, right sided numbness, right sided weakness, seizure, speech problems, tingling, tremors, weakness, others Musculoskeletal: denies: back pain, gout, joint pain, joint swelling, muscle pain, muscle stiffness, neck pain, others Integumetry: denies: bruises, change in color, change in hair/nails, dryness, laceration, lesions, lumps, rash, wounds, others Allergic/Immunocompromised: denies: Difficulty Healing, Frequent Infections, Hives, Itching, others Hematologic/Lymphatic: denies: anemia, blood clots, easy bleeding, easy bruising, swollen glands, others Endocrine: denies: excessive hunger, excessive sweating, excessive thirst, excessive urination, flushing, intolerance to cold, intolerance to heat, unexplained weight gain, unexplained weight loss, others Psychiatric: denies: anxiety, bipolar disorder, depression, hopeless, panic disorder, schizophrenia, sleepless, suicidal, others All Other Systems: Reviewed and Negative Physical Exam General Appearance: None, Normal HEENT: Normal ENT Inspection Neck: Full Range of Motion, Non-Tender, Normal, Normal Inspection Respiratory: Chest Non-Tender, Lungs Clear, No Respiratory Distress, Normal Breath Sounds, Other (Hyperventilating) Cardiovascular: No Edema, No JVD, No Murmur, No Gallop, Normal Peripheral Pulses, Tachycardia Breast Exam: Deferred Gastrointestinal: No Organomegaly, Non Tender, No Pulsatile Mass, Normal Bowel Sounds, Soft, Other (Patient actively retching) Genitalia: Deferred Pelvic: Deferred Rectal: Deferred Extremities: No calf tenderness, Normal capillary refill, Normal inspection, Normal range of motion, Non-tender, No pedal edema Musculoskeletal : Apperance: Normal Neurologic: Alert, principal trainer II-XII nml as Tested, No Motor Deficits, Normal Affect, Normal Mood, No Sensory Deficits Cerebellar Function: Normal Reflexes: Normal Skin: Dry, Normal Color, Warm Lymphatic: No Adenopathy EKG EKG : Pulse Rate (adult): 111 [place]: Normal Cardiac Rhythm: NSR Block: None ST: Old Comments +TWI in aVL, V4-6 Was a procedure done? Was a procedure done?: No GI differential Dx Differential Diagnosis: Gastritis/PUD, Gastroenteritis, Drug toxicity, Bacterial, Viral X-Ray, Labs, Meds, VS Vital Signs Date Time Temp Pulse Resp B/P (MAP) Pulse Ox O2 Delivery O2 Flow Rate FiO2 01/01/25 19:34 111 01/01/25 19:30 98.3 93 11 227/139 (168) 100 98.3 01/01/25 19:25 100 17 99 Room Air* 0 21 01/01/25 18:16 102 10 194/107 (136) 100 01/01/25 18:04 106 194/101 01/01/25 17:11 112 226/141 01/01/25 16:59 98.0 93 17 234/126 (162) 99 98.0 01/01/25 16:59 93 17 99 Room Air* 0 21 01/01/25 16:40 97.7 107 20 229/108 100 97.7 Lab Test 01/01/25 19:28 01/01/25 17:00 01/01/25 16:51 Range/Units Troponin I High Sensitivity 14 14 </=34 ng/L White Blood Count 7.2 4.4-10.8 10^3/uL Red Blood Count 4.00 4.0-5.20 10^6/uL Hemoglobin 12.8 12.2-16.2 g/dL Hematocrit 37.3 36.0-46.0 % Mean Corpuscular Volume 93.1 80.0-100.0 fL Mean Corpuscular Hemoglobin 31.9 28.0-32.0 pg Mean Corpuscular Hemoglobin Concent 34.3 32.0-36.0 g/dL Red Cell Distribution Width 12.9 11.8-14.3 % Platelet Count 309 140-450 10^3/uL Mean Platelet Volume 8.9 6.9-10.8 fL Neutrophils (%) (Auto) 75.4 37.0-80.0 % Lymphocytes (%) (Auto) 18.6 10.0-50.0 % Monocytes (%) (Auto) 4.7 0.0-12.0 % Eosinophils (%) (Auto) 0.7 0.0-7.0 % Basophils (%) (Auto) 0.6 0.0-2.0 % Neutrophils # (Auto) 5.4 1.6-8.6 10 ^3/uL Lymphocytes # (Auto) 1.3 0.4-5.4 10 ^3/uL Monocytes # (Auto) 0.3 0-1.3 10 ^3/uL Eosinophils # (Auto) 0.1 0-0.8 10 ^3/uL Basophils # (Auto) 0 0-0.2 10 ^3/uL Nucleated Red Blood Cells 0.1 % Sodium Level 138 136-145 mmol/L Potassium Level 5.5 H 3.5-5.1 mmol/L Chloride Level 105 98-107 mmol/L Carbon Dioxide Level 17 L 20-31 mmol/L Anion Gap 16 H 5-15 Blood Urea Nitrogen 18 9-23 mg/dL Creatinine 1.83 H 0.550-1.02 mg/dL Glomerular Filtration Rate Calc 38 >90 mL/min BUN/Creatinine Ratio 9.8 L 10.0-20.0 Serum Glucose 213 H 74-106 mg/dL Calcium Level 9.8 8.7-10.4 mg/dL Total Bilirubin 0.7 0.2-1.0 mg/dL Aspartate Amino Transferase (AST) 13 13-40 U/L Alanine Aminotransferase (ALT) 11 7-40 U/L Alkaline Phosphatase 94 46-116 U/L B-Type Natriuretic Peptide 247.36 0-100 pg/mL Total Protein 7.7 5.7-8.2 g/dL Albumin 4.6 3.2-4.8 g/dL Lipase 62 H 12-53 U/L Beta HCG, Quantitative 0.7 L 1.5-4.2 mIU/mL POC Glucose 215 H 70-106 mg/dl Current Medications Medications (Trade) Dose Ordered Sig/Lucie Route Start Time Stop Time Status Last Admin Famotidine (Pepcid Injection) 20 mg ONCE ONCE IV 01/01/25 17:00 01/01/25 17:01 DC 01/01/25 17:11 Sodium Chloride 1,000 ml @ 1,000 mls/hr Q1H ONCE IV 01/01/25 17:00 01/01/25 17:59 DC 01/01/25 17:11 Labetalol HCl (Labetalol HCl) 20 mg ONCE ONCE IV 01/01/25 17:00 01/01/25 17:01 DC 01/01/25 17:11 Metoclopramide HCl (Reglan Injection) 10 mg ONCE ONCE IV 01/01/25 17:00 01/01/25 17:01 DC 01/01/25 17:11 Labetalol HCl (Labetalol HCl) 20 mg ONCE ONCE IV 01/01/25 19:00 01/01/25 19:01 DC 01/01/25 19:42 Pantoprazole Sodium (Protonix) 40 mg ONCE ONCE IV 01/01/25 19:15 01/01/25 19:16 DC 01/01/25 19:41 Ondansetron HCl (Zofran) 4 mg ONCE ONCE IV 01/01/25 19:15 01/01/25 19:16 DC 01/01/25 19:42 [place] [id number] Ph: [phone] DIAGNOSTIC IMAGING Diagnostic Imaging Report : [id number] Signed PATIENT: AMARJIT FISHMAN ACCT: [id number] UNIT: [id number] : 1995 LOC: ER ROOM / BED: / AGE / SEX: 29 / F ADM STATUS: REG ER SERVICE 1653 ORDERING PHYSICIAN: JESSICA JAEGER MD PROCEDURE(s): CXR1 - CHEST XRAY 1 VIEW REASON: chest pain, nausea/vomiting ORDER NUMBER(s): [id number], ACCESSION NUMBER(s): [id number] CHEST RADIOGRAPH Indication: chest pain, nausea/vomiting Technique: Single frontal view of the chest was obtained Comparison: XY CHEST PORTABLE on DOS: 08/30/24, XY CHEST XRAY 1 VIEW on DOS: 07/04/24, XY CHEST PORTABLE on DOS: 05/18/24 FINDINGS: Lines and Tubes: None Lungs: No focal consolidation. Pleura: No effusion. No pneumothorax. Cardiomediastinal contours: Unremarkable Bones: No acute osseous abnormality. IMPRESSION: No acute cardiopulmonary disease. ATED BY: LIZ TURNER DO DICTATED DATE/TIME: 01/01/251851 SIGNED BY: LIZ TURNER DO SIGNED DATE/TIME: 01/01/251851 CC: Time of 1ST Reevaluation: 17:20 Reevaluation 1ST: Unchanged Time of 2ND Reevaluation: 20:00 Reevaluation 2ND: Improved Patient Education/Counseling: Diagnosis, Treatment Family Education/Counseling: No Family Present SEPSIS Sepsis Screen Physician Orders Electrocardigram (01/01/25 17:51) Electrocardigram (01/01/25 19:51) Chest Xray 1 View (01/01/25 16:53) Vital Signs Date Time Temp Pulse Resp B/P (MAP) Pulse Ox O2 Delivery O2 Flow Rate FiO2 01/01/25 19:34 111 01/01/25 19:30 98.3 93 11 227/139 (168) 100 98.3 01/01/25 19:25 100 17 99 Room Air* 0 21 01/01/25 18:16 102 10 194/107 (136) 100 01/01/25 18:04 106 194/101 01/01/25 17:11 112 226/141 01/01/25 16:59 98.0 93 17 234/126 (162) 99 98.0 01/01/25 16:59 93 17 99 Room Air* 0 21 01/01/25 16:40 97.7 107 20 229/108 100 97.7 Laboratory Tests Test 01/01/25 17:00 White Blood Count 7.2 10^3/uL (4.4-10.8) Medications Medications Dose Ordered Sig/Lucie Route Start Time Stop Time Status Last Admin Dose Admin Famotidine 20 mg ONCE ONCE IV 01/01/25 17:00 01/01/25 17:01 DC 01/01/25 17:11 Labetalol HCl 20 mg ONCE ONCE IV 01/01/25 17:00 01/01/25 17:01 DC 01/01/25 17:11 Labetalol HCl 20 mg ONCE ONCE IV 01/01/25 19:00 01/01/25 19:01 DC 01/01/25 19:42 Metoclopramide HCl 10 mg ONCE ONCE IV 01/01/25 17:00 01/01/25 17:01 DC 01/01/25 17:11 Ondansetron HCl 4 mg ONCE ONCE IV 01/01/25 19:15 01/01/25 19:16 DC 01/01/25 19:42 Pantoprazole Sodium 40 mg ONCE ONCE IV 01/01/25 19:15 01/01/25 19:16 DC 01/01/25 19:41 Sodium Chloride 1,000 ml @ 1,000 mls/hr Q1H ONCE IV 01/01/25 17:00 01/01/25 17:59 DC 01/01/25 17:11 Departure 1 Departure Time of Disposition: 20:00 (29 y/ F, BIBA, with PMHx of CKF, HTN, DM and CAD (recent stent), cannabinoid hyperemesis presents to the ED for CC of abdominal pain, nausea, vomiting over the past day. Patient arrives with critically elevated blood pressure, likely because she has been unable to hold anything down over the past day including her blood pressure medications and likely due to discomfort. Patient also has a longstanding history of uncontrolled hypertension. Patient with history of marijuana hyperemesis, given the diffuse abdominal pain, nausea, vomiting over the past day seems likely consistent with recurrence of such. Today her urine drug screen is positive for marijuana once again. A CBC was performed which is within normal limits. Metabolic panel with no evidence of any acute electrolyte abnormalities or acute kidney insufficiency. Patient was reporting some shortness of breath, given uncontrolled hypertension consider possible new onset heart failure, BNP within normal limits today. Patient with recent coronary artery disease, stent placement, today's troponins are within normal limits. Patient's symptoms were treated with 1 L of normal saline IV fluid bolus, given IV Reglan, IV Zofran, IV Protonix and IV Pepcid. CT of the abdomen and pelvis shows no evidence of any acute intra-abdominal process. Patient also given a couple rounds of IV labetalol for her uncontrolled hypertension. Labs with no evidence of any acute end-organ damage today. Patient will be admitted for further management of her abdominal pain, vomiting and for further blood pressure management.) Impression: Primary Impression: Abdominal pain Additional Impressions: Nausea and vomiting Hypertensive crisis Disposition: ADMITTED INPATIENT Admit to: Tele Condition: Serious Critical Care Note Critical Care Time?: Yes (45 min-critical care time only) Critical care comment: Patient with uncontrolled hypertension requiring numerous rounds of IV antihypertensives. Stability Stability form required: No Heart Score Heart Score: Heart Score Response (Comments) Value History N/A 0 EKG N/A 0 Age N/A 0 Risk Factors N/A 0 Troponin N/A 0 Total 0 I personally scribed for JESSICA JAEGER MD (Havsjo Delikatesser) on 01/01/25 at 16:47. Electronically submitted by Violeta Morales ([place]). I personally scribed for JESSICA JAEGER MD ([email or web address]) on 01/01/25 at 16:54. Electronically submitted by Violeta Morales ([place]). I personally scribed for JESSICA JAEGER MD (Havsjo Delikatesser) on 01/01/25 at 19:42. Electronically submitted by Violeta Morales ([place]). JESSICA JAEGER MD Jan 01, 2025 16:47
[2025-01-01 16:59] VITALS: PULSE 93; RESP 17; O2SAT 99
[2025-01-01] MEDS: FAMOTIDINE (10MG/ML) 2ML VL IV ONE (17:11)
[2025-01-01] MEDS: SODIUM CHLORIDE 0.9% 1,000 ML IV ONE (17:11)
[2025-01-01] MEDS: METOCLOPRAMIDE HCL 5MG/ml INJ 2ml VIAL IV ONE (17:11)
[2025-01-01] MEDS: LABETALOL HCL 20 MG/4 ML VL IV ONE ×2 (17:11→19:42)
[2025-01-01 17:42] LABS: Alanine Aminotransferase 11 U/L (7-40); Albumin 4.6 g/dL (3.2-4.8); Alkaline Phosphatase 94 U/L (46-116); Anion Gap 16 (5-15); BUN/Creatinine Ratio 9.8 (10.0-20.0); Blood Urea Nitrogen 18 mg/dL (9-23); Calcium 9.8 mg/dL (8.7-10.4); Chloride 105 mmol/L (98-107); Sodium 138 mmol/L (136-145); Total Protein 7.7 g/dL (5.7-8.2)
[2025-01-01 17:43] LABS: Bilirubin, Total 0.7 mg/dL (0.2-1.0); Hematocrit 37.3 % (36.0-46.0); Hemoglobin 12.8 g/dL (12.2-16.2); Mean Corpuscular Hemoglobin 31.9 pg (28.0-32.0); Mean Corpuscular Volume 93.1 fL (80.0-100.0); Nucleated Red Blood Cells % 0.1 %
[2025-01-01 18:03] LABS: Carbon Dioxide 17 mmol/L (20-31); Glucose 213 mg/dL (74-106); Lipase 62 U/L (12-53); Potassium 5.5 mmol/L (3.5-5.1)
--- NOTE | 2025-01-01 18:54 | DVH ---
CHEST RADIOGRAPH Indication: chest pain, nausea/vomiting Technique: Single frontal view of the chest was obtained Comparison: XY CHEST PORTABLE on DOS: 08/30/24, XY CHEST XRAY 1 VIEW on DOS: 07/04/24, XY CHEST PORTABLE on DOS: 05/18/24 FINDINGS: Lines and Tubes: None Lungs: No focal consolidation. Pleura: No effusion. No pneumothorax. Cardiomediastinal contours: Unremarkable Bones: No acute osseous abnormality. IMPRESSION: No acute cardiopulmonary disease.
[2025-01-01 19:25] VITALS: PULSE 100; RESP 17; O2SAT 99
--- NOTE | 2025-01-01 19:36 | ECG ---
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
[2025-01-01] MEDS: PANTOPRAZOLE 40 MG/10 ML VIAL INJ IV ONE (19:41)
[2025-01-01] MEDS: ONDANSETRON HCL 4 MG/2 ML VIAL IV ONE (19:42)
[2025-01-01] MEDS ORDERED: ACETAMINOPHEN 325 MG TAB PO PRN (19:45)
[2025-01-01] MEDS ORDERED: DEXTROSE (50%) 50ML SYRG IV PRN (19:45)
[2025-01-01] MEDS ORDERED: HYDROcodone-ACET 5/325MG TAB PO PRN (19:45)
--- NOTE | 2025-01-01 20:28 | DVH ---
COMPUTERIZED TOMOGRAPHY ABDOMEN AND PELVIS WITHOUT CONTRAST REASON FOR EXAM: Abdominal pain COMPARISON: CT CHST AB PEL WO CON-NO IV/ORAL on DOS: 12/04/24, CT CT AB PEL WO CON-NO ORAL OR IV on DOS: 10/09/24, CT CT AB PEL WO CON-NO ORAL OR IV on DOS: 08/30/24, US ABDOMEN LIMITED on DOS: 07/03/24, US PELVIC on DOS: 05/19/24 TECHNIQUE: Spiral scans were acquired from the diaphragm to the symphysis pubis without intravenous contrast administration. 2-D coronal and sagittal reformatted images were provided. Radiation optimization: All CT scans at this facility use at least one of these dose optimization techniques: Automated exposure control mA and/or kV adjustment per patient size (includes targeted exams where dose is matched to clinical indication) or iterative reconstruction. RADIATION DOSE: CTDI: 21 mGy DLP: 1142 mGy-cm FINDINGS: The visualized lung bases are grossly clear. There is no pleural effusion. There is no pericardial effusion. The spleen is nonenlarged. The liver is normal in size and contour. Evaluation is degraded by motion artifact. Evaluation of the abdominal organs is suboptimal in the absence of intravenous contrast. Evaluation is further degraded by streak artifact from the patient's arms. No calcified gallstone is identified. Unenhanced appearance of the pancreas is grossly unremarkable. The adrenal glands are within normal limits. The kidneys are similar in size. There is no hydronephrosis of either kidney. The urinary bladder is grossly unremarkable. The uterus and ovaries are within normal limits. There is trace free fluid in the dependent pelvis, likely physiologic. The colonic stool burden is small. The visualized portion of the appendix is normal. There is no pathologic distention of the small bowel. There is no abdominal aortic aneurysm. No pathologic lymphadenopathy is identified by size criteria. No acute osseous abnormality is identified. IMPRESSION: Evaluation is degraded by motion artifact. No significant abnormality identified in the abdomen or pelvis within the limitations of this study.
[2025-01-01] MEDS: hydrALAZINE HCL 20 MG/ML VL IV PRN (20:54)
--- NOTE | 2025-01-01 21:49 | DVHHP2 ---
History of Present Illness Reason for Visit: Nausea History of Present Illness 29-year-old female presents for evaluation of nausea and vomiting. Patient reports a one day history of diffuse abdominal pain with associated nausea and vomiting. She also reports having a headache. On arrival to the emergency department patient's blood pressure is in the 200s. Patient reports being compliant with her medications for hypertension. Denies chest pain or shortness for breath. Past Medical History CAD, asthma, chronic kidney disease, diabetes mellitus, hypertension Past Surgical History Family History Noncontributory Smoke: No ALCOHOL: none Drugs: Marijuana Lives: with Family Review of Systems Review of Systems Review of systems are currently negative otherwise addressed in HPI. Allergies: Coded Allergies: NO KNOWN ALLERGIES (Unverified , 04/24/17) Medications Current Medications Medications Dose Ordered Sig/Lucie Route Start Time Stop Time Status Last Admin Dose Admin Atorvastatin Calcium 40 mg HS PO 01/01/25 22:00 Carvedilol 25 mg Q12HR PO 01/01/25 22:00 Clonidine HCl 0.1 mg BID PO 01/01/25 22:00 Clopidogrel Bisulfate 75 mg DAILY PO 01/02/25 10:00 Nifedipine 90 mg DAILY PO 01/02/25 10:00 Diagnostic Test (Pha) 1 strip Q6HR 01/02/25 00:00 Insulin Human Regular Q6HR SC 01/02/25 00:00 Dextrose 50 ml UD PRN IV 01/01/25 19:45 Acetaminophen/ Hydrocodone Bitart 1 tab Q4HP PRN PO 01/01/25 19:45 Ondansetron HCl 4 mg Q4HP PRN IV 01/01/25 19:45 Acetaminophen 650 mg Q6HP PRN PO 01/01/25 19:45 Hydralazine HCl 10 mg Q6HP PRN IV 01/01/25 20:45 01/01/25 20:54 10 MG Exam Vital Signs Vital Signs Date Time Temp Pulse Resp B/P (MAP) Pulse Ox O2 Delivery O2 Flow Rate FiO2 01/01/25 21:24 122 18 200/123 (148) 100 01/01/25 19:30 98.3 98.3 01/01/25 19:25 Room Air* 0 21 Exam Gen: 29-year-old female in mild distress. Skin: Warm, dry, normal color and texture, no rash. HEENT: Normocephalic atraumatic, mucous membranes moist and pink. Neck: Cervical and supraclavicular nodes normal without enlargement, trachea is midline, thyroid gland is normal without masses. Pulmonary: Clear to auscultation and percussion bilaterally. Cardiac: Regular rate and rhythm. No murmur Abdomen: Soft, nontender, nondistended, bowel sounds present all 4 quadrants, no guarding, no rigidity, no organomegaly. Extremities: No cyanosis, clubbing, no edema Neuro: Cranial nerves II through XII grossly intact, normal affect and speech, no focal motor deficits. Labs/Xrays ORDERING PHYSICIAN: NATHAN COPELAND RESIDENT PROCEDURE(s): [facility]ID[facility] - ECHO 2D MODE CARDIAC DOP REASON: NSTEMI ORDER NUMBER(s): [id number], ACCESSION NUMBER(s): [id number] APPROVED REPORT EXAM: Two-dimensional and M-mode echocardiogram with Doppler and color Doppler. Blood Pressure: 153/103 mmHg INDICATION NSTEMI RISK FACTORS Height: 69, Weight: 220 DIMENSIONS LVDd 3.5 (3.8-5.7cm) LA (2D) (1.9-4.0cm) Aortic Root 3.1 (2.0- 3.7cm) LVDs 2.6 (2.5-4.0cm) LA (MM) (1.9-4.0cm) Aortic Cusp Exc 1.6 (1.5- 2.0cm) EF (%) 55.0 (55-70%) Rt. Atrium (1.9-4.0cm) Asc. Aorta cm Mitral Valve Mitral Mitral Stenosis E wave 0.98m/s MV Mean GR. mmHg E/A ratio 0.0 2D MVA cm2 Aortic Valve Aortic Valve Aortic Stenosis V1 0.88m/s AO Mean GR. 4mmHg V2 1.27m/s AO Peak GR. 6mmHg LVOT Diameter 2.0 (1.8-2.4cm) Doppler CITLALY 2.18cm2 Pulmonic Valve V2 0.96m/s Conclusion MODERATE DEGREE HYPOKINESIS OF APICAL AND ANTERIOR WALL OF LV STUDY INDICATED OCCLUSION OF LAD CORONARY MODERATE DEGREE LVH AND MILD LV DIASTOLIC DYSFUNCTION LV EF IS 50% NORMAL VALVES NO EFFUSION SIGNED BY: ANABELLE ZAMARRIPA MD ORDERING PHYSICIAN: SHANT VILLANUEVA PROCEDURE(s): ABPL - CT AB PEL WO CON-NO ORAL OR IV REASON: Abdominal pain ORDER NUMBER(s): [id number], ACCESSION NUMBER(s): [id number] COMPUTERIZED TOMOGRAPHY ABDOMEN AND PELVIS WITHOUT CONTRAST REASON FOR EXAM: Abdominal pain COMPARISON: CT [facility] AB PEL WO CON-NO IV/ORAL on DOS: 12/04/24, CT CT AB PEL WO CON-NO ORAL OR IV on DOS: 10/09/24, CT CT AB PEL WO CON-NO ORAL OR IV on DOS: 08/30/24, US ABDOMEN LIMITED on DOS: 07/03/24, US PELVIC on DOS: 05/19/24 TECHNIQUE: Spiral scans were acquired from the diaphragm to the symphysis pubis without intravenous contrast administration. 2-D coronal and sagittal reformatted images were provided. Radiation optimization: All CT scans at this facility use at least one of these dose optimization techniques: Automated exposure control mA and/or kV adjustment per patient size (includes targeted exams where dose is matched to clinical indication) or iterative reconstruction. RADIATION DOSE: CTDI: 21 mGy DLP: 1142 mGy-cm FINDINGS: The visualized lung bases are grossly clear. There is no pleural effusion. There is no pericardial effusion. The spleen is nonenlarged. The liver is normal in size and contour. Evaluation is degraded by motion artifact. Evaluation of the abdominal organs is suboptimal in the absence of intravenous contrast. Evaluation is further degraded by streak artifact from the patient's arms. No calcified gallstone is identified. Unenhanced appearance of the pancreas is grossly unremarkable. The adrenal glands are within normal limits. The kidneys are similar in size. There is no hydronephrosis of either kidney. The urinary bladder is grossly unremarkable. The uterus and ovaries are within normal limits. There is trace free fluid in the dependent pelvis, likely physiologic. The colonic stool burden is small. The visualized portion of the appendix is normal. There is no pathologic distention of the small bowel. There is no abdominal aortic aneurysm. No pathologic lymphadenopathy is identified by size criteria. No acute osseous abnormality is identified. IMPRESSION: Evaluation is degraded by motion artifact. No significant abnormality identified in the abdomen or pelvis within the limitations of this study. Labs Test 01/01/25 21:15 01/01/25 19:28 01/01/25 17:00 01/01/25 16:51 Range/Units Troponin I High Sensitivity 14 </=34 ng/L White Blood Count 7.2 4.4-10.8 10^3/uL Red Blood Count 4.00 4.0-5.20 10^6/uL Hemoglobin 12.8 12.2-16.2 g/dL Hematocrit 37.3 36.0-46.0 % Mean Corpuscular Volume 93.1 80.0-100.0 fL Mean Corpuscular Hemoglobin 31.9 28.0-32.0 pg Mean Corpuscular Hemoglobin Concent 34.3 32.0-36.0 g/dL Red Cell Distribution Width 12.9 11.8-14.3 % Platelet Count 309 140-450 10^3/uL Mean Platelet Volume 8.9 6.9-10.8 fL Neutrophils (%) (Auto) 75.4 37.0-80.0 % Lymphocytes (%) (Auto) 18.6 10.0-50.0 % Monocytes (%) (Auto) 4.7 0.0-12.0 % Eosinophils (%) (Auto) 0.7 0.0-7.0 % Basophils (%) (Auto) 0.6 0.0-2.0 % Neutrophils # (Auto) 5.4 1.6-8.6 10 ^3/uL Lymphocytes # (Auto) 1.3 0.4-5.4 10 ^3/uL Monocytes # (Auto) 0.3 0-1.3 10 ^3/uL Eosinophils # (Auto) 0.1 0-0.8 10 ^3/uL Basophils # (Auto) 0 0-0.2 10 ^3/uL Nucleated Red Blood Cells 0.1 % Sodium Level 138 136-145 mmol/L Potassium Level 5.5 H 3.5-5.1 mmol/L Chloride Level 105 98-107 mmol/L Carbon Dioxide Level 17 L 20-31 mmol/L Anion Gap 16 H 5-15 Blood Urea Nitrogen 18 9-23 mg/dL Creatinine 1.83 H 0.550-1.02 mg/dL Glomerular Filtration Rate Calc 38 >90 mL/min BUN/Creatinine Ratio 9.8 L 10.0-20.0 Serum Glucose 213 H 74-106 mg/dL Calcium Level 9.8 8.7-10.4 mg/dL Total Bilirubin 0.7 0.2-1.0 mg/dL Aspartate Amino Transferase (AST) 13 13-40 U/L Alanine Aminotransferase (ALT) 11 7-40 U/L Alkaline Phosphatase 94 46-116 U/L B-Type Natriuretic Peptide 247.36 0-100 pg/mL Total Protein 7.7 5.7-8.2 g/dL Albumin 4.6 3.2-4.8 g/dL Lipase 62 H 12-53 U/L Beta HCG, Quantitative 0.7 L 1.5-4.2 mIU/mL POC Glucose 215 H 70-106 mg/dl SEPSIS Sepsis Screen Date sepsis recognized/suspect: Jan 01, 2025 Time Sepsis recognized/suspect: 1924 Recent Procedure: No On Antibiotic Therapy: No Respiratory Rate >20: No Heart Rate >90: Yes Temp<36 C (96.8 F) or >38.3 C: No SBP <90 or MAP <65 mmHG: No New Acute Mental Status Change: No Is the patient on CPAP, BIPAP,: No Physician Orders Urinalysis (01/01/25 16:46) Drug Screen (01/01/25 16:50) Electrocardigram (01/01/25 17:51) Electrocardigram (01/01/25 19:51) Chest Xray 1 View (01/01/25 16:53) Ct Ab Pel Wo Con-No Oral Or Iv (01/01/25 19:36) Atorvastatin (Lipitor) (01/01/25 22:00) Carvedilol Tablet (Coreg Tablet) (01/01/25 22:00) Clonidine Hcl Tablet (Catapres Tablet) (01/01/25 22:00) Clopidogrel Bisulfate (Plavix) (01/02/25 10:00) Nifedipine Er (Procardia Xl (Time-Releas (01/02/25 10:00) Basic Metabolic Panel (01/02/25 04:00) Glucose Blood (Accu-Chek Comfort Curve T (01/02/25 00:00) Insulin R (Human) (Insulin R) (01/02/25 00:00) Dextrose 50% Syringe (01/01/25 19:45) Admit (01/01/25 19:36) Hydrocodone-Acet 5/325mg Tab ([place]ckinney 5/32 (01/01/25 19:45) Ondansetron Hcl (Zofran) (01/01/25 19:45) Complete Blood Count (01/02/25 04:00) Comprehensive Metabolic Panel (01/02/25 04:00) Condition: Stable (01/01/25 19:36) Acetaminophen Tablet (Tylenol Tablet) (01/01/25 19:45) Clear Liq Diet (01/02/25 Breakfast) Bedrest With Bathroom Privileg (01/01/25 19:36) Hydralazine Injection (Apresoline Inject (01/01/25 20:45) Troponin-I Hs (01/01/25 21:41) Diltiazem Drip Cardizem (01/01/25 21:45) Diltiazem 125mg/125ml (01/01/25 21:45) Transfer Orders (01/01/25 21:41) Diltiazem Load (01/01/25 21:45) Vital Signs Date Time Temp Pulse Resp B/P (MAP) Pulse Ox O2 Delivery O2 Flow Rate FiO2 01/01/25 21:24 122 18 200/123 (148) 100 01/01/25 20:54 218/141 01/01/25 20:36 101 231/131 01/01/25 19:42 100 235/135 01/01/25 19:34 111 01/01/25 19:30 98.3 93 11 227/139 (168) 100 98.3 01/01/25 19:25 100 17 99 Room Air* 0 01/01/25 18:16 102 10 194/107 (136) 100 01/01/25 18:04 106 194/101 01/01/25 17:11 112 226/141 01/01/25 16:59 98.0 93 17 234/126 (162) 99 98.0 01/01/25 16:59 93 17 99 Room Air* 0 01/01/25 16:40 97.7 107 20 229/108 100 97.7 Laboratory Tests Test 01/01/25 17:00 White Blood Count 7.2 10^3/uL (4.4-10.8) Medications Medications Dose Ordered Sig/Lucie Route Start Time Stop Time Status Last Admin Dose Admin Famotidine 20 mg ONCE ONCE IV 01/01/25 17:00 01/01/25 17:01 MD 01/01/25 17:11 20 MG Hydralazine HCl 10 mg Q6HP PRN IV 01/01/25 20:45 01/01/25 20:54 10 MG Labetalol HCl 20 mg ONCE ONCE IV 01/01/25 17:00 01/01/25 17:01 DC 01/01/25 17:11 20 MG Labetalol HCl 20 mg ONCE ONCE IV 01/01/25 19:00 01/01/25 19:01 MD 01/01/25 19:42 20 MG Metoclopramide HCl 10 mg ONCE ONCE IV 01/01/25 17:00 01/01/25 17:01 MD 01/01/25 17:11 10 MG Ondansetron HCl 4 mg ONCE ONCE IV 01/01/25 19:15 01/01/25 19:16 MD 01/01/25 19:42 4 MG Pantoprazole Sodium 40 mg ONCE ONCE IV 01/01/25 19:15 01/01/25 19:16 MD 01/01/25 19:41 40 MG Sodium Chloride 1,000 ml @ 1,000 mls/hr Q1H ONCE IV 01/01/25 17:00 01/01/25 17:59 DC 01/01/25 17:11 1,000 MLS/HR Assessment/Plan Assessment/Plan Assessment Hypertensive urgency Intractable nausea and vomiting Morbid obesity Plan Admit the patient to ICU to the hospitalist Continue diltiazem drip Resume home medications Continue treatment per orders. Plan discussed with: Patient My Orders Orders - SHANT VILLANUEVA AGACNP Procedure Category Date Status Time Ct Ab Pel Wo Con-No CT 01/01/25 Resulted Oral Or Iv 19:36 Atorvastatin (Lipitor) PHA 01/01/25 In Process 22:00 Carvedilol Tablet PHA 01/01/25 In Process (Coreg Tablet) 22:00 Clonidine Hcl Tablet PHA 01/01/25 In Process (Catapres Tablet) 22:00 Clopidogrel Bisulfate PHA 01/02/25 In Process (Plavix) 10:00 Nifedipine Er PHA 01/02/25 In Process (Procardia Xl 10:00 Basic Metabolic Panel LAB 01/02/25 Verified 04:00 Glucose Blood PHA 01/02/25 In Process (Accu-Chek Comfort 00:00 Insulin R (Human) PHA 01/02/25 In Process (Insulin R) 00:00 Dextrose 50% Syringe PHA 01/01/25 In Process 19:45 Admit ADMIT 01/01/25 Transmitted 19:36 Hydrocodone-Acet PHA 01/01/25 In Process 5/325mg Tab (Mckinney 19:45 Ondansetron Hcl PHA 01/01/25 In Process (Zofran) 19:45 Complete Blood Count LAB 01/02/25 Verified 04:00 Comprehensive LAB 01/02/25 Verified Metabolic Panel 04:00 Condition: Stable ADELIA 01/01/25 In Process 19:36 Acetaminophen Tablet PHA 01/01/25 In Process (Tylenol Tablet) 19:45 Clear Liq Diet DIET 01/02/25 Transmitted Breakfast Bedrest With Bathroom ADELIA 01/01/25 In Process Privileg 19:36 Hydralazine Injection PHA 01/01/25 In Process (Apresoline Inject 20:45 Troponin-I Hs LAB 01/01/25 Transmitted 21:41 Diltiazem Drip PHA 01/01/25 Transmitted Cardizem 21:45 Diltiazem 125mg/125ml PHA 01/01/25 Transmitted 21:45 Transfer Orders XFER 01/01/25 Transmitted 21:41 Diltiazem Load PHA 01/01/25 Transmitted 21:45 Date of Service: Jan 01, 2025 Billing Provider: SHANT VILLANUEVA Common Visit Codes: [id number] CARE 30-74 MIN SHANT VILLANUEVA Jan 01, 2025 21:49
[2025-01-01 21:55] LABS: Urine Protein, UAD 3+ (Negative)
[2025-01-01 21:56] LABS: Amphetamine Screen, Urine Neg (NEGATIVE); Barbiturate Scree,Urine Neg (NEGATIVE); Cannabinoid Screen, Urine Pos (NEGATIVE); Cocaine Screen, Urine Neg (NEGATIVE); Opiate Scree,Urine Neg (NEGATIVE); Phencyclidine Screen, Urine Neg (NEGATIVE)
[2025-01-01] MEDS: dilTIAZem 25 MG/5 ML VIAL IV ONE (22:00)
[2025-01-01] MEDS: CARVEDILOL 12.5 MG TAB PO SCH (22:00)
[2025-01-01] MEDS: ATORVASTATIN 20 MG TAB PO SCH (22:00)
[2025-01-01 22:20] LABS: Benzodiazephine Screen, Urine Neg (NEGATIVE)
[2025-01-01] MEDS: ONDANSETRON HCL 4 MG/2 ML VIAL IV PRN (23:42)
[2025-01-02] VITALS (84 sets, daily range): BP systolic 95–203; BP diastolic 50–132; PULSE 102–137; RESP 11–36; TEMP 97.5–99.4; O2SAT 96–100
[2025-01-02] MEDS: ACCU-CHEK COMFORT CURVE STRIP VI SCH
[2025-01-02] MEDS: SODIUM ZIRCONIUM CYCL 10 GM PAK PO ONE (00:09)
[2025-01-02] MEDS: METOCLOPRAMIDE HCL 5MG/ml INJ 2ml VIAL IV ONE (01:56)
[2025-01-02] MEDS: LABETALOL HCL 20 MG/4 ML VL IV ONE (01:56)
[2025-01-02] MEDS: InsuLIN REG 1unit/0.01ml Soln (100units/ml) SC SCH (02:19)
[2025-01-02] MEDS: DEXMEDETOMIDINE HCL IN D5W 100 ML IV SCH (04:15)
[2025-01-02] MEDS: MORPHINE SULFATE 4 MG/ML SYR/VIAL IV PRN (04:25)
[2025-01-02] MEDS: dilTIAZem 25 MG/5 ML VIAL IV ONE (05:38)
[2025-01-02 07:11] LABS: Hematocrit 35.2 % (36.0-46.0); Hemoglobin 12.2 g/dL (12.2-16.2); Mean Corpuscular Hemoglobin 32.1 pg (28.0-32.0); Mean Corpuscular Volume 92.6 fL (80.0-100.0); Nucleated Red Blood Cells % 0.2 %
[2025-01-02 07:35] LABS: Alanine Aminotransferase 11 U/L (7-40); Albumin 4.5 g/dL (3.2-4.8); Alkaline Phosphatase 91 U/L (46-116); Anion Gap 14 (5-15); BUN/Creatinine Ratio 9.6 (10.0-20.0); Bilirubin, Total 0.6 mg/dL (0.2-1.0); Blood Urea Nitrogen 20 mg/dL (9-23); Calcium 9.2 mg/dL (8.7-10.4); Chloride 105 mmol/L (98-107); Potassium 4.7 mmol/L (3.5-5.1); Sodium 138 mmol/L (136-145); Total Protein 7.5 g/dL (5.7-8.2)
[2025-01-02 07:37] LABS: Carbon Dioxide 19 mmol/L (20-31); Glucose 198 mg/dL (74-106)
[2025-01-02 08:01] LABS: Triglycerides 117.0 mg/dL (< 150)
[2025-01-02 08:03] LABS: HDL Cholesterol 48.0 mg/dL (40-59)
[2025-01-02 08:06] LABS: Cholesterol 253.0 mg/dL (< 200); Magnesium 1.6 mg/dL (1.6-2.6)
--- NOTE | 2025-01-02 09:39 | DVHINCON2 ---
Date Seen: Jan 02, 2025 Referring Physician SIMON Singer Reason for Consultation Abnormal ECG History of Present Illness This is a 29-year-old female who presented to the emergency room via EMS with a chief complaint of nausea, vomiting, and uncontrolled blood pressure for one day. The patient reports she found her systolic blood pressure in the 220s mmHg with associated N/V prompting her to seek further medical attention. Upon arrival to the emergency room she was found to be hypertensive and tachycardic for which she was initiated on a nicardipine and diltiazem drip with latter being then discontinued. She also had an episode of chest pain last night with an associated SBP in the 200s mmHg. At time of assessment she denied any symptoms including N/V, chest pain, SOB, dizziness, palpitations or any other complains. States she is compliant with her antihypertensive therapy at home including clonidine, HCTZ, losartan potassium, and nifedipine. Follows up in the outpatient setting with primary loss prevention operations manager Dr. Vital and primary oxygen plant operator Dr. Calderón. Significant medical history includes coronary artery disease undergoing a recent PCI including balloon angioplasty with stent placement of the LAD x2 DICK on ASA/Plavix/statin, recent pneumomediastinum, resistant hypertension, dyslipidemia, chronic kidney disease stage IIIb, secondary hyperparathyroidism, cannabinoid use, and obesity. Past Medical History Past medical history reviewed. No other significant than mentioned above. Past Surgical History PCI with balloon angioplasty and stent placement of the LAD x2 DICK (11/2024) C-sections x2 Family History: Diabetes mellitus (DM) G8 BROTHER FH: HTN (hypertension) G8 MOTHER Family History Family history reviewed. Not significant for CV disease. Social History Denies the use of alcohol or tobacco use. Admits to cannabinoid use. Allergies: Coded Allergies: NO KNOWN ALLERGIES (Unverified , 04/24/17) Home Meds Active Scripts Nifedipine (Nifedipine Er) 90 Mg Tab, 90 MG PO DAILY for 30 Days, #30 TAB 3 Refills Prov:SPENCER LUI RESDIENT 12/07/24 Valsartan (Diovan) 320 Mg Tab, 320 MG PO DAILY for 30 Days, #30 TAB 3 Refills Prov:HEWADMALHECYNDYD RESDIENT 12/07/24 Hydroxyzine HCl (Hydroxyzine Hydrochloride) 25 Mg Tab, 25 MG PO DAILY for 30 Days, #30 TAB 3 Refills Prov:SPENCER LUI RESDIENT 12/07/24 Carvedilol (Carvedilol) 25 Mg Tab, 25 MG PO BID for 30 Days, #60 TAB 3 Refills Prov:SPENCER LUI RESDIENT 12/07/24 Atorvastatin Calcium (ATORVASTATIN CALCIUM) 40 Mg Tab, 80 MG PO DAILY for 30 Days, #60 TAB 3 [facility] [place] [facility] REYESNJNola RESDIENT 12/07/24 Clopidogrel Bisulfate (Plavix) 75 Mg Tab, 75 MG PO DAILY for 30 Days, #30 TAB 3 Refills Prov:[facility] REYESN[facility]Nola RESDIENT 12/07/24 Aspirin (Aspir-81) 81 Mg Tab, 81 MG PO DAILY for 30 Days, #30 TAB 3 Refills Prov:SPENCER LUI RESDIENT 12/07/24 Pantoprazole Sodium Sesquihydr (Protonix) 40 Mg Tab, 40 MG PO DAILY, #30 TAB Prov:RAMAKRISHNA ABBOTT MD 12/03/24 Carvedilol (Coreg) 25 Mg Tab, 1 TAB PO BID, #60 TAB 5 Refills Prov:RADHA PROCTOR NP 10/12/24 Hctz (Hydrochlorothiazide) 25 Mg Tab, 25 MG PO DAILY for 28 Days, #28 TAB Prov:BLAISE DILLON RESIDENT 07/06/24 Ergocalciferol (VITAMIN D 43199 UNIT) 50,000 [place], [address] UNIT PO QWEEKLY for 56 Days, #8 CAP 0 Refills Prov:BLAISE DILLON RESIDENT 07/06/24 Reported Medications Nifedipine (Nifedipine Er) 90 Mg Tab, 1 TAB PO DAILY for 90 Days, #90 12/05/24 Valsartan (Valsartan) 320 Mg Tab, 1 TAB PO DAILY for 90 Days, #90 12/05/24 Clonidine Hydrochloride (Clonidine Hcl) 0.1 Mg Tab, 1 TAB PO BID for 60 Days, #120 12/05/24 Semaglutide (Ozempic) 4 Mg/3 Ml Inj, 1 MG SC QWEEKLY for 28 Days, #3 10/10/24 Home Meds Home medications reviewed. Current Medications Current Medications Medications (Trade) Dose Ordered Sig/Lucie Route PRN Reason Start Time Stop Time Status Last Admin Atorvastatin Calcium (Lipitor) 40 mg HS PO 01/01/25 22:00 Carvedilol (Coreg Tablet) 25 mg Q12HR PO 01/01/25 22:00 Clonidine HCl (Catapres Tablet) 0.1 mg BID PO 01/01/25 22:00 Clopidogrel Bisulfate (Plavix) 75 mg DAILY PO 01/02/25 10:00 Nifedipine (Procardia Xl (Time-Release)) 90 mg DAILY PO 01/02/25 10:00 Hydralazine HCl (Apresoline Tablet) 10 mg Q6HP PRN PO SBP>150 01/01/25 19:45 01/01/25 20:39 DC Diagnostic Test (Pha) (Accu-Chek Comfort Curve T) 1 strip Q6HR 01/02/25 00:00 01/02/25 06:28 Insulin Human Regular (InsuLIN R) Q6HR SC 01/02/25 00:00 01/02/25 06:23 Dextrose 50 ml UD PRN IV Blood Sugar LESS THAN 60 01/01/25 19:45 Acetaminophen/ Hydrocodone Bitart ([place] 5/325MG Tab) 1 tab Q4HP PRN PO MODERATE PAIN (4-6 PAIN SCALE) 01/01/25 19:45 Ondansetron HCl (Zofran) 4 mg Q4HP PRN IV NAUSEA / VOMITING 01/01/25 19:45 01/01/25 23:42 Acetaminophen (Tylenol Tablet) 650 mg Q6HP PRN PO PAIN SCALE 1-3 OR TEMP>100.4 01/01/25 19:45 Hydralazine HCl (Apresoline Injection) 10 mg Q6HP PRN IV SBP>150 01/01/25 20:45 01/02/25 00:08 Diltiazem HCl 125 ml @ 5 mls/hr Q24H IV 01/01/25 21:45 01/01/25 22:07 Diltiazem HCl 100 ml @ 5 mls/hr Q20H IV 01/01/25 21:45 UNV Nicardipine/ Sodium Chloride 200 ml @ 50 mls/hr Q4H IV 01/02/25 02:00 01/02/25 07:42 Morphine Sulfate 2 mg Q30MP PRN IV FOR CHEST PAIN 01/02/25 02:00 01/02/25 05:40 Review of Systems Constitutional: No symptom reported Ears, Nose, & Throat: No symptom reported Eyes: No symptom reported Neurological: No symptoms reported Pulmonary/Respiratory: No symptom reported Cardiovascular: Chest pain Gastrointestinal: N/V Genitourinary: No symptom reported Musculoskeletal: No symptom reported Skin: No symptom reported Psychiatric: No symptom reported Endocrine: No symptom reported Hemotologic/Lymphatic: No symptom reported Vital Signs Vital Signs Date Time Temp Pulse Resp B/P (MAP) Pulse Ox O2 Delivery O2 Flow Rate FiO2 01/02/25 07:42 159/89 01/02/25 06:45 118 18 100 01/02/25 06:00 Nasal Cannula* 2 28 01/02/25 04:00 97.5 97.5 Physical Exam General Appearance: Cooperative. Well developed. Obese. Facial edema present. In no acute distress Head Exam: Normal inspection Neck Exam: Normal inspection. Non-tender. Normal alignment Pulmonary/Respiratory: Chest non-tender. Clear bilateral breath sounds Cardiovascular/Chest: Regular rate and rhythm. S1, S2. Sinus tachycardia with T-wave inversion to lateral leads. No murmurs. No JVD. Peripheral Pulses: 2+ Radial (R). 2+ Radial (L). 2+ Pedal (R). 2+ Pedal (L) Abdominal Exam: Normal bowel sounds. Soft. Nontender. No hepatospenomegaly. No masses Ankle Exam: Negative ankle edema Lower extremities: Negative lower extremity edema Neuro/Mental Status: A&O x4. Coherent Thoughts/Psych: Normal thought pattern. Appropriate mood and affect. Good judgement and insight Appearance: In no acute distress Skin Exam: Normal inspection. Normal color. Warm. Dry Labs/Diagnostic Data Labs Test 01/02/25 09:26 01/02/25 06:58 01/02/25 06:04 01/01/25 21:15 Range/Units White Blood Count 10.1 # 4.4-10.8 10^3/uL Red Blood Count 3.80 L 4.0-5.20 10^6/uL Hemoglobin 12.2 12.2-16.2 g/dL Hematocrit 35.2 L 36.0-46.0 % Mean Corpuscular Volume 92.6 80.0-100.0 fL Mean Corpuscular Hemoglobin 32.1 H 28.0-32.0 pg Mean Corpuscular Hemoglobin Concent 34.6 32.0-36.0 g/dL Red Cell Distribution Width 12.9 11.8-14.3 % Platelet Count 274 140-450 10^3/uL Mean Platelet Volume 8.3 6.9-10.8 fL Neutrophils (%) (Auto) 82.3 H 37.0-80.0 % Lymphocytes (%) (Auto) 11.0 10.0-50.0 % Monocytes (%) (Auto) 6.0 0.0-12.0 % Eosinophils (%) (Auto) 0.0 0.0-7.0 % Basophils (%) (Auto) 0.7 0.0-2.0 % Neutrophils # (Auto) 8.3 1.6-8.6 10 ^3/uL Lymphocytes # (Auto) 1.1 0.4-5.4 10 ^3/uL Monocytes # (Auto) 0.6 0-1.3 10 ^3/uL Eosinophils # (Auto) 0 0-0.8 10 ^3/uL Basophils # (Auto) 0.1 0-0.2 10 ^3/uL Nucleated Red Blood Cells 0.2 % Sodium Level 138 136-145 mmol/L Potassium Level 4.7 3.5-5.1 mmol/L Chloride Level 105 98-107 mmol/L Carbon Dioxide Level 19 L 20-31 mmol/L Anion Gap 14 5-15 Blood Urea Nitrogen 20 9-23 mg/dL Creatinine 2.09 H 0.550-1.02 mg/dL Glomerular Filtration Rate Calc 32 >90 mL/min BUN/Creatinine Ratio 9.6 L 10.0-20.0 Serum Glucose 198 H 74-106 mg/dL Calcium Level 9.2 8.7-10.4 mg/dL Magnesium Level 1.6 1.6-2.6 mg/dL Total Bilirubin 0.6 0.2-1.0 mg/dL Aspartate Amino Transferase (AST) 13 13-40 U/L Alanine Aminotransferase (ALT) 11 7-40 U/L Alkaline Phosphatase 91 46-116 U/L Total Protein 7.5 5.7-8.2 g/dL Albumin 4.5 3.2-4.8 g/dL Triglycerides Level 117 < 150 mg/dL Cholesterol Level 253 H < 200 mg/dL LDL Cholesterol 186 H < 100 mg/dL HDL Cholesterol 48 40-59 mg/dL Thyroid Stimulating Hormone (TSH) 1.11 0.55-4.78 uIU/mL POC Glucose 211 H 70-106 mg/dl Urine Color Light-yellow Yellow Urine Clarity Clear Clear Urine pH 6.5 5.0-9.0 Urine Specific [place] 1.013 1.001-1.035 Urine Protein 3+ H Negative Urine Ketones 1+ H Negative Urine Blood 1+ H Negative /uL Urine Nitrite Negative Negative Urine Bilirubin Negative Negative Urine Urobilinogen Normal Negative mg/dL Urine Leukocyte Esterase Negative Negative /uL Urine RBC 3 0 - 4 /hpf Urine Microscopic WBC 1 0-5 /HPF Urine Squamous Epithelial Cells Few <5 /hpf Urine Bacteria Few H None Seen /hpf Urine Glucose 3+ H Normal mg/dL Urine Opiates Screen Neg NEGATIVE Urine Fentanyl Screen Neg NEGATIVE Urine Barbiturates Screen Neg NEGATIVE Urine Phencyclidine Screen Neg NEGATIVE Urine Amphetamines Screen Neg NEGATIVE Urine Benzodiazepines Screen Neg NEGATIVE Urine Cocaine Screen Neg NEGATIVE Urine Cannabinoids Screen Pos NEGATIVE Test 01/01/25 17:00 Range/Units B-Type Natriuretic Peptide 247.36 0-100 pg/mL Lipase 62 H 12-53 U/L Beta HCG, Quantitative 0.7 L 1.5-4.2 mIU/mL Assessment Hypertensive crisis Coronary artery disease with recent PCI with balloon angioplasty and stent placement of the LAD x2 DICK (on ASA/Plavix/statin) Dyslipidemia SIENNA on CKD stage IIIb Cannabinoid use Obesity Plan/Recommendation (Dr. Clinton) * Echocardiogram from 12/05/2024 revealed LVEF at 50% with normal valves, moderate degree hypokinesis of apical and anterior wall of LV, moderate degree LVH and mild LV diastolic dysfunction * Twelve lead electrocardiogram x2 revealed a sinus tachycardia rhythm with T- wave inversion to lateral leads as well as leads V2, V3, and V4 (these changes are similar from those on previous admission on 11/2024) * Portable chest x-ray, no acute cardiopulmonary disease * Serial troponin levels are negative Plan: Case discussed with Dr. Clinton. We will obtain a limited transthoracic echocardiogram to reassess LV function. In-Stent restenosis/thrombosis next suspected at this time. Continue dual antiplatelet therapy and lipid lowering agent given recent PCI. Continue aggressive blood pressure management with nicardipine drip in addition to oral morning antihypertensive therapy and titrate off drip as tolerated. Obtain a renal artery duplex to rule out stenosis. Obtain metanephrines/normetanephrine values. Continue with nephrology consultation given SIENNA on CKD. Replete electrolytes as necessary. DVT/VTE prophylaxis. Further orders per clinical course. Thank you for allowing us to participate in this patient's care. Please call if you have any questions or concerns. Critical care time: 45 min. This medical document was created using an electronic medical record system with voice recognition software and computerized dictation system. Although this document has been carefully reviewed, there might still be some phonetic and typographical errors. Occasional wrong-word or ``sound-alike substitutions may have occurred due to the inherent limitations of voice recognition software. These areas are purely typographical due to imperfections of the software programs and do not reflect any compromise in the patient's medical care. Please read the chart carefully and recognize, using context, where these substitutions have occurred. Plan discussed with: Patient, Other NYHA Physical activity limitations: NA Date of Service: Jan 02, 2025 Billing Provider: CASANDRA CORTEZ Cardiology Common Codes: 56143-ZMUOCVUP CARE 30-74 MIN CASANDRA CORTEZ Jan 02, 2025 09:39
--- NOTE | 2025-01-02 09:45 | ECG ---
[facility] Test Date: 2025-01-02 Test Time: 00:55:24 Pat Name: AMARJIT FISHMAN Department: icu Room: 0273 Gender: F Athletic Coordinator: : 1995 Requested By: CASANDRA CORTEZ Order Number: [id number] Reading MD: Clay Clinton Measurements Intervals [place] Rate: 116 P: 24 FL: 160 QRS: 59 QRSD: 85 T: 131 QT: 360 QTc: 501 Interpretive Statements Sinus tachycardia Abnormal Q suggests anterior infarct Abnrm T, consider ischemia, anterolateral lds Prolonged QT interval Electronically Signed On 01-04-2025 15:32:49 PST by Clay Clinton Please click the below link to view image of tracing.
--- NOTE | 2025-01-02 09:58 | DVH ---
ULTRASOUND RENAL CLINICAL INDICATION: Hypertensive urgency rule out stenosis TECHNIQUE: Real-time sonographic, duplex, and color Doppler images of the kidneys were obtained. FINDINGS: The right kidney measures 11 cm and is normal in size. The right renal echogenicity, contour and cortical thickness are within normal limits. no hydronephrosis, large masses or perinephric fluid is seen. The left kidney measures 11 cm and is normal in size. The left renal echogenicity, contour, and cortical thickness are within normal limits. no hydronephrosis, large masses or perinephric fluid is seen. Resistive indices within normal limits. Velocities within normal limits IMPRESSION: Normal examination. [<reference, normal RI <.7>]
[2025-01-02] MEDS: CLOPIDOGREL BISULFATE 75 MG TAB PO SCH (11:14)
[2025-01-02] MEDS: ENOXAPARIN SOD 40 MG/0.4 ML SYRINGE SC SCH (11:20)
[2025-01-02] MEDS: MAGNESIUM SULFATE 1GM/100ML 100 ML IV ONE (11:40)
--- NOTE | 2025-01-02 13:29 | DVHCONRES ---
Date Seen: Jan 02, 2025 Resident Creating Document: SHIVANIGALINDOYOSVANYNAY RESDILEYLA History of Present Illness This is a 29-year-old female with past medical history includes coronary artery disease undergoing a recent PCI including balloon angioplasty with stent placement of the LAD x2 DICK on ASA/Plavix/statin, recent pneumomediastinum, resistant hypertension, dyslipidemia, chronic kidney disease stage IIIb, secondary hyperparathyroidism, cannabinoid use, and obesity. who presented to the emergency room via EMS with a chief complaint of nausea, vomiting, and uncontrolled blood pressure for one day. The patient reports she found her systolic blood pressure in the 220s mmHg with associated N/V prompting her to seek further medical attention. Upon arrival to the emergency room she was found to be hypertensive and tachycardic for which she was initiated on a nicardipine and diltiazem drip with latter being then discontinued. She also had an episode of chest pain last night with an associated SBP in the 200s mmHg. At time of assessment she denied any symptoms including N/V, chest pain, SOB, dizziness, palpitations or any other complains. States she is compliant with her antihypertensive therapy at home including clonidine, HCTZ, losartan potassium, and nifedipine. Follows up in the outpatient setting with primary pipe stem aligner Dr. Vital and primary auto design checker Dr. Calderón. Family History: Diabetes mellitus (DM) G8 BROTHER FH: HTN (hypertension) G8 MOTHER Allergies: Coded Allergies: NO KNOWN ALLERGIES (Unverified , 04/24/17) Home Meds Active Scripts Nifedipine (Nifedipine Er) 90 Mg Tab, 90 MG PO DAILY for 30 Days, #30 TAB 3 Refills Prov:SPENCER LUI RESDIENT 12/07/24 Valsartan (Diovan) 320 Mg Tab, 320 MG PO DAILY for 30 Days, #30 TAB 3 Refills Prov:SANIAYOSVANYNAY RESDIENT 12/07/24 Hydroxyzine HCl (Hydroxyzine Hydrochloride) 25 Mg Tab, 25 MG PO DAILY for 30 Days, #30 TAB 3 Refills Prov:SPENCER LUI RESDIENT 12/07/24 Carvedilol (Carvedilol) 25 Mg Tab, 25 MG PO BID for 30 Days, #60 TAB 3 Refills Prov:SPENCER LUI RESDIENT 12/07/24 Atorvastatin Calcium (ATORVASTATIN CALCIUM) 40 Mg Tab, 80 MG PO DAILY for 30 Days, #60 TAB 3 Refills Prov:SHIVANIBRANDENSPENCER REYES RESDIENT 12/07/24 Clopidogrel Bisulfate (Plavix) 75 Mg Tab, 75 MG PO DAILY for 30 Days, #30 TAB 3 Refills Prov:SPENCER LUI RESDIENT 12/07/24 Aspirin (Aspir-81) 81 Mg Tab, 81 MG PO DAILY for 30 Days, #30 TAB 3 Refills Prov:SPENCER LUI RESDIENT 12/07/24 Pantoprazole Sodium Sesquihydr (Protonix) 40 Mg Tab, 40 MG PO DAILY, #30 TAB Prov:RAMAKRISHNA ABBOTT MD 12/03/24 Carvedilol (Coreg) 25 Mg Tab, 1 TAB PO BID, #60 TAB 5 Refills Prov:RADHA PROCTOR NP 10/12/24 Hctz (Hydrochlorothiazide) 25 Mg Tab, 25 MG PO DAILY for 28 Days, #28 TAB Prov:BLAISE DILLON 07/06/24 Ergocalciferol (VITAMIN D 34838 UNIT) 50,000 [place], [address] UNIT PO QWEEKLY for 56 Days, #8 CAP 0 Refills Prov:BLAISE DILLON RESIDENT 07/06/24 Reported Medications Nifedipine (Nifedipine Er) 90 Mg Tab, 1 TAB PO DAILY for 90 Days, #90 12/05/24 Valsartan (Valsartan) 320 Mg Tab, 1 TAB PO DAILY for 90 Days, #90 12/05/24 Clonidine Hydrochloride (Clonidine Hcl) 0.1 Mg Tab, 1 TAB PO BID for 60 Days, #120 12/05/24 Semaglutide (Ozempic) 4 Mg/3 Ml Inj, 1 MG SC QWEEKLY for 28 Days, #3 10/10/24 Current Medications Current Medications Medications (Trade) Dose Ordered Sig/Lucie Route PRN Reason Start Time Stop Time Status Last Admin Atorvastatin Calcium (Lipitor) 40 mg HS PO 01/01/25 22:00 Carvedilol (Coreg Tablet) 25 mg Q12HR PO 01/01/25 22:00 01/02/25 11:15 Clonidine HCl (Catapres Tablet) 0.1 mg BID PO 01/01/25 22:00 01/02/25 11:16 Clopidogrel Bisulfate (Plavix) 75 mg DAILY PO 01/02/25 10:00 01/02/25 11:14 Nifedipine (Procardia Xl (Time-Release)) 90 mg DAILY PO 01/02/25 10:00 01/02/25 11:19 Hydralazine HCl (Apresoline Tablet) 10 mg Q6HP PRN PO SBP>150 01/01/25 19:45 01/01/25 20:39 DC Diagnostic Test (Pha) (Accu-Chek Comfort Curve T) 1 strip Q6HR 01/02/25 00:00 01/02/25 12:00 Insulin Human Regular (InsuLIN R) Q6HR SC 01/02/25 00:00 01/02/25 06:23 Dextrose 50 ml UD PRN IV Blood Sugar LESS THAN 60 01/01/25 19:45 Acetaminophen/ Hydrocodone Bitart ([employer] 5/325MG Tab) 1 tab Q4HP PRN PO MODERATE PAIN (4-6 PAIN SCALE) 01/01/25 19:45 Ondansetron HCl (Zofran) 4 mg Q4HP PRN IV NAUSEA / VOMITING 01/01/25 19:45 01/02/25 11:42 Acetaminophen (Tylenol Tablet) 650 mg Q6HP PRN PO PAIN SCALE 1-3 OR TEMP>100.4 01/01/25 19:45 Hydralazine HCl (Apresoline Injection) 10 mg Q6HP PRN IV SBP>150 01/01/25 20:45 01/02/25 00:08 Diltiazem HCl 125 ml @ 5 mls/hr Q24H IV 01/01/25 21:45 01/02/25 09:40 DC 01/01/25 22:07 Diltiazem HCl 100 ml @ 5 mls/hr Q20H IV 01/01/25 21:45 UNV Nicardipine/ Sodium Chloride 200 ml @ 50 mls/hr Q4H IV 01/02/25 02:00 01/02/25 11:41 Morphine Sulfate 2 mg Q30MP PRN IV FOR CHEST PAIN 01/02/25 02:00 01/02/25 05:40 Aspirin 81 mg DAILY PO 01/02/25 10:00 01/02/25 11:14 Enoxaparin Sodium (Lovenox) 40 mg DAILY SC 01/02/25 10:00 01/02/25 11:20 Review of Systems Patient seen and examined at the bedside. Patient is feeling better since admission and does not have any active complaint at the moment. Vital Signs Vital Signs Date Time Temp Pulse Resp B/P (MAP) Pulse Ox O2 Delivery O2 Flow Rate FiO2 01/02/25 12:33 133/74 01/02/25 12:15 109 01/02/25 06:45 18 100 01/02/25 06:00 Nasal Cannula* 2 28 01/02/25 04:00 97.5 97.5 Physical Exam General Appearance: Alert, Oriented X3, Cooperative, No acute distress HEENT: Atraumatic, PERRLA, EOMI, Mucous membrane moist/pink Respiratory: Clear to auscultation, Normal air movement Cardiovascular: Regular rate, Normal S1, Normal S2, No murmurs, no chest wall tenderness Abdominal: Normal bowel sounds, Soft, No tenderness, No hepatospenomegaly, No masses Extremities: No clubbing, No cyanosis, No edema, Normal pulses, No tenderness/swelling Skin: No rashes, No breakdown, No significant lesion Neuro: Normal gait, Normal speech, Strength at 5/5 X4 ext, Normal tone, Sensat ion intact, Cranial nerves 3-12 NL, Reflexes 2+ Psych/Mental Status: Mental status NL, Mood NL Labs/Diagnostic Data Labs Test 01/02/25 12:55 01/02/25 12:09 01/02/25 09:26 01/02/25 06:58 Range/Units POC Glucose 114 H 70-106 mg/dl White Blood Count 10.1 # 4.4-10.8 10^3/uL Red Blood Count 3.80 L 4.0-5.20 10^6/uL Hemoglobin 12.2 12.2-16.2 g/dL Hematocrit 35.2 L 36.0-46.0 % Mean Corpuscular Volume 92.6 80.0-100.0 fL Mean Corpuscular Hemoglobin 32.1 H 28.0-32.0 pg Mean Corpuscular Hemoglobin Concent 34.6 32.0-36.0 g/dL Red Cell Distribution Width 12.9 11.8-14.3 % Platelet Count 274 140-450 10^3/uL Mean Platelet Volume 8.3 6.9-10.8 fL Neutrophils (%) (Auto) 82.3 H 37.0-80.0 % Lymphocytes (%) (Auto) 11.0 10.0-50.0 % Monocytes (%) (Auto) 6.0 0.0-12.0 % Eosinophils (%) (Auto) 0.0 0.0-7.0 % Basophils (%) (Auto) 0.7 0.0-2.0 % Neutrophils # (Auto) 8.3 1.6-8.6 10 ^3/uL Lymphocytes # (Auto) 1.1 0.4-5.4 10 ^3/uL Monocytes # (Auto) 0.6 0-1.3 10 ^3/uL Eosinophils # (Auto) 0 0-0.8 10 ^3/uL Basophils # (Auto) 0.1 0-0.2 10 ^3/uL Nucleated Red Blood Cells 0.2 % Sodium Level 138 136-145 mmol/L Potassium Level 4.7 3.5-5.1 mmol/L Chloride Level 105 98-107 mmol/L Carbon Dioxide Level 19 L 20-31 mmol/L Anion Gap 14 5-15 Blood Urea Nitrogen 20 9-23 mg/dL Creatinine 2.09 H 0.550-1.02 mg/dL Glomerular Filtration Rate Calc 32 >90 mL/min BUN/Creatinine Ratio 9.6 L 10.0-20.0 Serum Glucose 198 H 74-106 mg/dL Calcium Level 9.2 8.7-10.4 mg/dL Magnesium Level 1.6 1.6-2.6 mg/dL Total Bilirubin 0.6 0.2-1.0 mg/dL Aspartate Amino Transferase (AST) 13 13-40 U/L Alanine Aminotransferase (ALT) 11 7-40 U/L Alkaline Phosphatase 91 46-116 U/L Total Protein 7.5 5.7-8.2 g/dL Albumin 4.5 3.2-4.8 g/dL Triglycerides Level 117 < 150 mg/dL Cholesterol Level 253 H < 200 mg/dL LDL Cholesterol 186 H < 100 mg/dL HDL Cholesterol 48 40-59 mg/dL Thyroid Stimulating Hormone (TSH) 1.11 0.55-4.78 uIU/mL Test 01/01/25 21:15 01/01/25 17:00 Range/Units Urine Color Light-yellow Yellow Urine Clarity Clear Clear Urine pH 6.5 5.0-9.0 Urine Specific [place] 1.013 1.001-1.035 Urine Protein 3+ H Negative Urine Ketones 1+ H Negative Urine Blood 1+ H Negative /uL Urine Nitrite Negative Negative Urine Bilirubin Negative Negative Urine Urobilinogen Normal Negative mg/dL Urine Leukocyte Esterase Negative Negative /uL Urine RBC 3 0 - 4 /hpf Urine Microscopic WBC 1 0-5 /HPF Urine Squamous Epithelial Cells Few <5 /hpf Urine Bacteria Few H None Seen /hpf Urine Glucose 3+ H Normal mg/dL Urine Opiates Screen Neg NEGATIVE Urine Fentanyl Screen Neg NEGATIVE Urine Barbiturates Screen Neg NEGATIVE Urine Phencyclidine Screen Neg NEGATIVE Urine Amphetamines Screen Neg NEGATIVE Urine Benzodiazepines Screen Neg NEGATIVE Urine Cocaine Screen Neg NEGATIVE Urine Cannabinoids Screen Pos NEGATIVE B-Type Natriuretic Peptide 247.36 0-100 pg/mL Lipase 62 H 12-53 U/L Beta HCG, Quantitative 0.7 L 1.5-4.2 mIU/mL Assessment This is a 29-year-old female with past medical history includes coronary artery disease undergoing a recent PCI including balloon angioplasty with stent placement of the LAD x2 DICK on ASA/Plavix/statin, recent pneumomediastinum, resistant hypertension, dyslipidemia, chronic kidney disease stage IIIb, secondary hyperparathyroidism, cannabinoid use, and obesity came to the hospital due to nausea, vomiting and high blood pressure record at home. Nephrology consulted due to raised creatinine. SIENNA, on CKD 3B, due to hypertensive emergency Hypertensive emergency Hyperkalemia, improved History of coronary artery disease, status post PCI Dyslipidemia Diabetes type 2 Obesity Plan/recommendation: (Dr. Rouse) * Taper down nicardipine drip * Continue carvedilol, nifedipine and clonidine * Started hydrochlorothiazide 25 mg daily * Avoid nephrotoxic drugs * We will follow up with the patient Thank you for giving us the opportunity to take care of your patient. Please call back if you have any questions/concerns. Plan discussed with: Patient, Other (RN) SPENCER LUI Jan 02, 2025 13:29 EVON ROUSE MD Jan 02, 2025 17:28
--- NOTE | 2025-01-02 14:41 | DVHPN2 ---
Subjective Denies any symptoms Reviewed: Care Plan, H&P, Labs, Medications Changes from previous H/P or p: No Changes General: Per HPI Objective Vitals Vital Signs Date Time Temp Pulse Resp B/P (MAP) Pulse Ox O2 Delivery O2 Flow Rate FiO2 01/02/25 13:30 133/82 01/02/25 12:15 109 01/02/25 08:00 21 100 Nasal Cannula* 2 28 01/02/25 04:00 97.5 97.5 Intake/Output Intake and Output 01/02/25 07:00 Intake Total 2014 ml Balance 2014 ml Intake Oral 250 ml IV Total 1765 ml # Voids 3 General Appearance: Alert, Oriented X3, Cooperative, mild distress HEENT: Atraumatic, PERRLA Cardiovascular: Normal S1, Normal S2 Abdomen: Normal bowel sounds, Soft, No tenderness, No hepatospenomegaly Genitourinary: No Apparent Abnormalities Musculoskeletal: Normal sensory function Neuro: Normal gait, Normal speech Skin: Dry, Intact Psych/Mental Status: Mental status NL, Mood NL Medications Current Medications Medications Dose Ordered Sig/Lucie Route Start Time Stop Time Status Last Admin Dose Admin Atorvastatin Calcium 40 mg HS PO 01/01/25 22:00 Carvedilol 25 mg Q12HR PO 01/01/25 22:00 01/02/25 11:15 25 MG Clonidine HCl 0.1 mg BID PO 01/01/25 22:00 01/02/25 11:16 0.1 MG Clopidogrel Bisulfate 75 mg DAILY PO 01/02/25 10:00 01/02/25 11:14 75 MG Nifedipine 90 mg DAILY PO 01/02/25 10:00 01/02/25 11:19 90 MG Diagnostic Test (Pha) 1 strip Q6HR 01/02/25 00:00 01/02/25 12:00 1 STRIP Insulin Human Regular Q6HR SC 01/02/25 00:00 01/02/25 06:23 4 UNITS Dextrose 50 ml UD PRN IV 01/01/25 19:45 Acetaminophen/ Hydrocodone Bitart 1 tab Q4HP PRN PO 01/01/25 19:45 Ondansetron HCl 4 mg Q4HP PRN IV 01/01/25 19:45 01/02/25 11:42 4 MG Acetaminophen 650 mg Q6HP PRN PO 01/01/25 19:45 Hydralazine HCl 10 mg Q6HP PRN IV 01/01/25 20:45 01/02/25 00:08 10 MG Diltiazem HCl 100 ml @ 5 mls/hr Q20H IV 01/01/25 21:45 UNV Nicardipine/ Sodium Chloride 200 ml @ 50 mls/hr Q4H IV 01/02/25 02:00 01/02/25 11:41 150 MLS/HR Morphine Sulfate 2 mg Q30MP PRN IV 01/02/25 02:00 01/02/25 05:40 2 MG Aspirin 81 mg DAILY PO 01/02/25 10:00 01/02/25 11:14 81 MG Enoxaparin Sodium 40 mg DAILY SC 01/02/25 10:00 01/02/25 11:20 40 MG Hydrochlorothiazide 25 mg DAILY PO 01/03/25 10:00 Laboratory Results Laboratory Tests 01/02/25 06:58 Chemistry Test 01/01/25 17:00 01/02/25 06:58 01/02/25 12:55 Albumin 4.6 g/dL (3.2-4.8) 4.5 g/dL (3.2-4.8) Calcium Level 9.8 mg/dL (8.7-10.4) 9.2 mg/dL (8.7-10.4) Total Protein 7.7 g/dL (5.7-8.2) 7.5 g/dL (5.7-8.2) Magnesium Level 1.6 mg/dL (1.6-2.6) Phosphorus Level 3.9 mg/dL (2.4-5.1) Lipid panel Test 01/01/25 17:00 01/02/25 06:58 Lipase 62 U/L (12-53) H Cholesterol Level 253 mg/dL (< 200) H HDL Cholesterol 48 mg/dL (40-59) Triglycerides Level 117 mg/dL (< 150) Cardiac Markers Test 01/01/25 17:00 B-Type Natriuretic Peptide 247.36 pg/mL (0-100) LFT Test 01/01/25 17:00 01/02/25 06:58 Alanine Aminotransferase (ALT) 11 U/L (7-40) 11 U/L (7-40) Alkaline Phosphatase 94 U/L (46-116) 91 U/L (46-116) Aspartate Amino Transferase (AST) 13 U/L (13-40) 13 U/L (13-40) Total Bilirubin 0.7 mg/dL (0.2-1.0) 0.6 mg/dL (0.2-1.0) HgA1c, TSH Test 01/02/25 06:58 Thyroid Stimulating Hormone (TSH) 1.11 uIU/mL (0.55-4.78) Urinalysis Test 01/01/25 21:15 Urine Color Light-yellow (Yellow) Urine Clarity Clear (Clear) Urine pH 6.5 (5.0-9.0) Urine Specific [place] 1.013 (1.001-1.035) Urine Protein 3+ (Negative) H Urine Ketones 1+ (Negative) H Urine Blood 1+ /uL (Negative) H Urine Nitrite Negative (Negative) Urine Bilirubin Negative (Negative) Urine Urobilinogen Normal mg/dL (Negative) Urine Leukocyte Esterase Negative /uL (Negative) Urine RBC 3 /hpf (0 - 4) Urine Microscopic WBC 1 /HPF (0-5) Urine Squamous Epithelial Cells Few /hpf (<5) Urine Bacteria Few /hpf (None Seen) H Urine Glucose 3+ mg/dL (Normal) H Microbiology Microbiology Date/Time Source Procedure Growth Status 01/02/25 01:30 Nose MRSA Screen - Final Complete Labs and/or images reviewed: Labs reviewed by me, Image(s) reviewed by me Assessment/Plan Assessment/Plan Impression: -hypertensive crisis -acute on chronic renal failure with ATN -coronary artery disease with recent stent placement -obesity class one -dyslipidemia -history of cannabinoid induced hyperemesis Plan: -advanced to cardiac diet -cardiology consultation: Recommendations reviewed -continue dual antiplatelet therapy -nephrology consultation: Recommendations reviewed. Antihypertensives altered -weaned off nicardipine drip -repeat labs: BMP in a.m.. Check LDH, HEIDI, ESR, CRP, lupus panel Critical care time spent with patient discussing and formulating plan of care: 40 minutes. This does not include time spent performing procedures. This medical document was created using an electronic medical record system with [employer] system. Although this document has been carefully reviewed, there may still be some phonetic and typographical errors. These areas are purely typographical due to imperfections of the software programs, and do not reflect any compromise in the patient's medical care. Plan discussed with: Patient, Other (RN) My Orders Orders - RADHA PROCTOR NP Procedure Category Date Status Time Lactate Dehydrogenase LAB 01/02/25 Transmitted 14:27 Erythrocyte LAB 01/02/25 Transmitted Sedimentation Rate 14:27 C-Reactive Protein LAB 01/02/25 Transmitted 14:27 Heidi; Comprehensive LAB 01/02/25 Verified Panel 14:27 Lupus Heidi LAB 01/02/25 Verified Comprehensive Panel 14:27 Cardiac DIET 01/02/25 Verified Diet-2gna,Lofat,Lochol Dinner Date of Service: Jan 02, 2025 Billing Provider: RADHA PROCTOR NP Common Visit Codes: [id number] CARE 30-74 MIN RADHA PROCTOR NP Jan 02, 2025 14:41
[2025-01-02] MEDS: hydroCHLOROthiazide 25 MG TAB PO ONE (16:49)
[2025-01-03] VITALS (36 sets, daily range): BP systolic 101–162; BP diastolic 52–110; PULSE 96–110; RESP 10–26; TEMP 98.6–99.3; O2SAT 95–100
[2025-01-03 04:57] LABS: Hematocrit 32.4 % (36.0-46.0); Hemoglobin 10.7 g/dL (12.2-16.2); Mean Corpuscular Hemoglobin 32.5 pg (28.0-32.0); Mean Corpuscular Volume 98.3 fL (80.0-100.0); Nucleated Red Blood Cells % 0.0 %
[2025-01-03 05:18] LABS: Alanine Aminotransferase 10 U/L (7-40); Albumin 3.7 g/dL (3.2-4.8); Alkaline Phosphatase 77 U/L (46-116); Anion Gap 12 (5-15); BUN/Creatinine Ratio 10.9 (10.0-20.0); Bilirubin, Total 0.6 mg/dL (0.2-1.0); Magnesium 1.8 mg/dL (1.6-2.6); Potassium 4.1 mmol/L (3.5-5.1); Sodium 139 mmol/L (136-145); Total Protein 6.0 g/dL (5.7-8.2)
[2025-01-03 05:38] LABS: Blood Urea Nitrogen 27 mg/dL (9-23); Calcium 8.5 mg/dL (8.7-10.4); Carbon Dioxide 19 mmol/L (20-31); Chloride 108 mmol/L (98-107); Glucose 113 mg/dL (74-106)
--- NOTE | 2025-01-03 09:35 | DVHPN2 ---
Subjective Denies any symptoms Reviewed: Care Plan, H&P, Labs, Medications Changes from previous H/P or p: No Changes General: Per HPI Objective Vitals Vital Signs Date Time Temp Pulse Resp B/P (MAP) Pulse Ox O2 Delivery O2 Flow Rate FiO2 01/03/25 06:45 99 21 134/90 (105) 99 01/03/25 06:00 Room Air* 0 21 01/03/25 04:00 99.3 99.3 Intake/Output Intake and Output 01/03/25 07:00 Intake Total 3315 ml Output Total 300 ml Balance 3015 ml Intake Oral 2190 ml IV Total 1125 ml Output Urine Total 300 ml General Appearance: Alert, Oriented X3, Cooperative HEENT: Atraumatic, PERRLA Cardiovascular: Normal S1, Normal S2 Abdomen: Normal bowel sounds, Soft, No tenderness, No hepatospenomegaly Genitourinary: No Apparent Abnormalities Musculoskeletal: Normal sensory function Neuro: Normal gait, Normal speech Skin: Dry, Intact Psych/Mental Status: Mental status NL, Mood NL Medications Current Medications Medications Dose Ordered Sig/Lucie Route Start Time Stop Time Status Last Admin Dose Admin Atorvastatin Calcium 40 mg HS PO 01/01/25 22:00 01/02/25 22:06 40 MG Carvedilol 25 mg Q12HR PO 01/01/25 22:00 01/02/25 22:06 25 MG Clonidine HCl 0.1 mg BID PO 01/01/25 22:00 01/02/25 22:06 0.1 MG Clopidogrel Bisulfate 75 mg DAILY PO 01/02/25 10:00 01/02/25 11:14 75 MG Nifedipine 90 mg DAILY PO 01/02/25 10:00 01/02/25 11:19 90 MG Diagnostic Test (Pha) 1 strip Q6HR 01/02/25 00:00 01/03/25 05:38 1 STRIP Insulin Human Regular Q6HR SC 01/02/25 00:00 01/02/25 06:23 4 UNITS Dextrose 50 ml UD PRN IV 01/01/25 19:45 Acetaminophen/ Hydrocodone Bitart 1 tab Q4HP PRN PO 01/01/25 19:45 Ondansetron HCl 4 mg Q4HP PRN IV 01/01/25 19:45 01/02/25 11:42 4 MG Acetaminophen 650 mg Q6HP PRN PO 01/01/25 19:45 Hydralazine HCl 10 mg Q6HP PRN IV 01/01/25 20:45 01/02/25 00:08 10 MG Diltiazem HCl 100 ml @ 5 mls/hr Q20H IV 01/01/25 21:45 UNV Nicardipine/ Sodium Chloride 200 ml @ 50 mls/hr Q4H IV 01/02/25 02:00 01/02/25 11:41 150 MLS/HR Morphine Sulfate 2 mg Q30MP PRN IV 01/02/25 02:00 01/02/25 05:40 2 MG Aspirin 81 mg DAILY PO 01/02/25 10:00 01/02/25 11:14 81 MG Enoxaparin Sodium 40 mg DAILY SC 01/02/25 10:00 01/02/25 11:20 40 MG Hydrochlorothiazide 25 mg DAILY PO 01/03/25 10:00 Laboratory Results Laboratory Tests 01/03/25 04:25 Chemistry Test 01/02/25 12:55 01/03/25 04:25 Phosphorus Level 3.9 mg/dL (2.4-5.1) Albumin 3.7 g/dL (3.2-4.8) Calcium Level 8.5 mg/dL (8.7-10.4) L Magnesium Level 1.8 mg/dL (1.6-2.6) Total Protein 6.0 g/dL (5.7-8.2) LFT Test 01/03/25 04:25 Alanine Aminotransferase (ALT) 10 U/L (7-40) Alkaline Phosphatase 77 U/L (46-116) Aspartate Amino Transferase (AST) 11 U/L (13-40) L Total Bilirubin 0.6 mg/dL (0.2-1.0) Urinalysis Test 01/01/25 21:15 Urine Color Light-yellow (Yellow) Urine Clarity Clear (Clear) Urine pH 6.5 (5.0-9.0) Urine Specific [place] 1.013 (1.001-1.035) Urine Protein 3+ (Negative) H Urine Ketones 1+ (Negative) H Urine Blood 1+ /uL (Negative) H Urine Nitrite Negative (Negative) Urine Bilirubin Negative (Negative) Urine Urobilinogen Normal mg/dL (Negative) Urine Leukocyte Esterase Negative /uL (Negative) Urine RBC 3 /hpf (0 - 4) Urine Microscopic WBC 1 /HPF (0-5) Urine Squamous Epithelial Cells Few /hpf (<5) Urine Bacteria Few /hpf (None Seen) H Urine Glucose 3+ mg/dL (Normal) H Microbiology Microbiology Date/Time Source Procedure Growth Status 01/02/25 01:30 Nose MRSA Screen - Final Complete Labs and/or images reviewed: Labs reviewed by me, Image(s) reviewed by me Assessment/Plan Assessment/Plan Impression: -hypertensive crisis -acute on chronic renal failure with ATN -coronary artery disease with recent stent placement -obesity class one -dyslipidemia -history of cannabinoid induced hyperemesis Plan: Events: No events overnight. Patient off of nicardipine drip. Renal function slightly worsening -advanced to cardiac diet -cardiology consultation: Recommendations reviewed -continue dual antiplatelet therapy -nephrology consultation: Recommendations reviewed. Antihypertensives altered -transfer to telemetry floor Total time spent with patient discussing and formulating plan of care: 35 minutes. This medical document was created using an electronic medical record system with [employer] dictation system. Although this document has been carefully reviewed, there may still be some phonetic and typographical errors. These areas are purely typographical due to imperfections of the software programs, and do not reflect any compromise in the patient's medical care. Plan discussed with: Patient, Other (RN) My Orders Orders - RADHA PROCTOR NP Procedure Category Date Status Time Heidi; Comprehensive LAB 01/02/25 In Process Panel 14:27 Cardiac DIET 01/02/25 Transmitted Diet-2gna,Lofat,Lochol Dinner Date of Service: Jan 03, 2025 Billing Provider: RADHA PROCTOR NP Common Visit Codes: [id number] INP/OBS CARE(HIGH) RADHA PROCTOR NP Jan 03, 2025 09:35
[2025-01-03] MEDS ORDERED: hydroCHLOROthiazide 25 MG TAB PO SCH (10:00)
--- NOTE | 2025-01-03 11:43 | DVHPN2 ---
Consult Progress Note Date Seen: Jan 03, 2025 Subjective Review of Systems: CVS:Normal, RESPIRATORY:Normal, NEURO:Normal Other Systems: Denies any cardiac symptoms Objective vital signs Vital Sign Date Time Temp Pulse Resp B/P (MAP) Pulse Ox O2 Delivery O2 Flow Rate FiO2 01/03/25 11:00 101 14 155/110 (125) 99 01/03/25 10:00 Room Air* 0 21 01/03/25 08:45 98.8 98.8 Total Intake and Output 01/02/25 01/02/25 01/03/25 15:00 23:00 07:00 Intake Total 1340 ml 1525 ml 450 ml Output Total 300 ml Balance 1340 ml 1525 ml 150 ml medications Current Medications Medications Dose Ordered Sig/Lucie Route Start Time Stop Time Status Last Admin Dose Admin Atorvastatin Calcium 40 mg HS PO 01/01/25 22:00 01/02/25 22:06 40 MG Carvedilol 25 mg Q12HR PO 01/01/25 22:00 01/03/25 09:57 25 MG Clonidine HCl 0.1 mg BID PO 01/01/25 22:00 01/03/25 09:59 0.1 MG Clopidogrel Bisulfate 75 mg DAILY PO 01/02/25 10:00 01/03/25 09:58 75 MG Nifedipine 90 mg DAILY PO 01/02/25 10:00 01/03/25 10:31 90 MG Diagnostic Test (Pha) 1 strip Q6HR 01/02/25 00:00 01/03/25 05:38 1 STRIP Insulin Human Regular Q6HR SC 01/02/25 00:00 01/02/25 06:23 4 UNITS Dextrose 50 ml UD PRN IV 01/01/25 19:45 Acetaminophen/ Hydrocodone Bitart 1 tab Q4HP PRN PO 01/01/25 19:45 Ondansetron HCl 4 mg Q4HP PRN IV 01/01/25 19:45 01/02/25 11:42 4 MG Acetaminophen 650 mg Q6HP PRN PO 01/01/25 19:45 Hydralazine HCl 10 mg Q6HP PRN IV 01/01/25 20:45 01/02/25 00:08 10 MG Diltiazem HCl 100 ml @ 5 mls/hr Q20H IV 01/01/25 21:45 UNV Morphine Sulfate 2 mg Q30MP PRN IV 01/02/25 02:00 01/02/25 05:40 2 MG Aspirin 81 mg DAILY PO 01/02/25 10:00 01/03/25 09:56 81 MG Enoxaparin Sodium 40 mg DAILY SC 01/02/25 10:00 01/03/25 09:55 40 MG Sodium Chloride 1,000 ml @ 100 mls/hr Q10H IV 01/03/25 10:00 Examination: LUNGS:Normal, CVS:Normal (NSR. Off nicardipine drip), NEURO:Normal laboratory and microbiology Laboratory Tests 01/03/25 04:25 Test 01/03/25 04:25 Range/Units Serum Glucose 113 H 74-106 mg/dL Problem List/Assessment/Plan Problem List/Assessment/Plan Hypertensive crisis Coronary artery disease with recent PCI with balloon angioplasty and stent placement of the LAD x2 DICK (on ASA/Plavix/statin) Dyslipidemia SIENNA on CKD stage IIIb Cannabinoid use Obesity Plan/Recommendation (Dr. Clinton) * Echocardiogram from 12/05/2024 revealed LVEF at 50% with normal valves, moderate degree hypokinesis of apical and anterior wall of LV, moderate degree LVH and mild LV diastolic dysfunction * Twelve lead electrocardiogram x2 revealed a sinus tachycardia rhythm with T- wave inversion to lateral leads as well as leads V2, V3, and V4 (these changes are similar from those on previous admission on 11/2024) * Portable chest x-ray, no acute cardiopulmonary disease * Serial troponin levels are negative Plan: Continue dual antiplatelet therapy and lipid lowering agent given recent PCI. Continue aggressive blood pressure management. Replete electrolytes as necessary. DVT/VTE prophylaxis. Follow-up with primary principal product manager in the outpatient setting as scheduled. There is no further cardiac work-up indicated at this time. Kindly call with any questions or concerns. Thank you for allowing us to participate in this patient's care. Critical care time: 30 min. This medical document was created using an electronic medical record system with voice recognition software and computerized dictation system. Although this document has been carefully reviewed, there might still be some phonetic and typographical errors. Occasional wrong-word or ``sound-alike substitutions may have occurred due to the inherent limitations of voice recognition software. These areas are purely typographical due to imperfections of the software programs and do not reflect any compromise in the patient's medical care. Please read the chart carefully and recognize, using context, where these substitutions have occurred. Plan discussed with: Patient, Other Date of Service: Jan 03, 2025 Billing Provider: CASANDRA CORTEZ Cardiology Common Codes: [id number] INP/OBS CARE(Mod) CASANDRA CORTEZ Jan 03, 2025 11:43
[2025-01-03] MEDS: SODIUM CHLORIDE 0.9% 1,000 ML IV SCH (12:07)
--- NOTE | 2025-01-03 13:23 | DVHPN2 ---
Progress Note Date Seen: Jan 03, 2025 Resident Creating Document: SPENCER LUI RESDIENT Medical Necessity Reason Pt with a Central, PICC or Fol: No Subjective Review of Systems Patient seen and examined at the bedside. Patient is feeling better since admission. Objective vital signs Vital Sign Date Time Temp Pulse Resp B/P (MAP) Pulse Ox O2 Delivery O2 Flow Rate FiO2 01/03/25 12:00 15 100 Room Air* 0 21 01/03/25 12:00 98.6 98 142/97 (112) 98.6 Total Intake and Output 01/02/25 01/02/25 01/03/25 15:00 23:00 07:00 Intake Total 1340 ml 1525 ml 450 ml Output Total 300 ml Balance 1340 ml 1525 ml 150 ml medications Current Medications Medications Dose Ordered Sig/Lucie Route Start Time Stop Time Status Last Admin Dose Admin Atorvastatin Calcium 40 mg HS PO 01/01/25 22:00 01/02/25 22:06 40 MG Carvedilol 25 mg Q12HR PO 01/01/25 22:00 01/03/25 09:57 25 MG Clonidine HCl 0.1 mg BID PO 01/01/25 22:00 01/03/25 09:59 0.1 MG Clopidogrel Bisulfate 75 mg DAILY PO 01/02/25 10:00 01/03/25 09:58 75 MG Nifedipine 90 mg DAILY PO 01/02/25 10:00 01/03/25 10:31 90 MG Diagnostic Test (Pha) 1 strip Q6HR 01/02/25 00:00 01/03/25 12:08 1 STRIP Insulin Human Regular Q6HR SC 01/02/25 00:00 01/02/25 06:23 4 UNITS Dextrose 50 ml UD PRN IV 01/01/25 19:45 Acetaminophen/ Hydrocodone Bitart 1 tab Q4HP PRN PO 01/01/25 19:45 Ondansetron HCl 4 mg Q4HP PRN IV 01/01/25 19:45 01/02/25 11:42 4 MG Acetaminophen 650 mg Q6HP PRN PO 01/01/25 19:45 Hydralazine HCl 10 mg Q6HP PRN IV 01/01/25 20:45 01/02/25 00:08 10 MG Diltiazem HCl 100 ml @ 5 mls/hr Q20H IV 01/01/25 21:45 UNV Morphine Sulfate 2 mg Q30MP PRN IV 01/02/25 02:00 01/02/25 05:40 2 MG Aspirin 81 mg DAILY PO 01/02/25 10:00 01/03/25 09:56 81 MG Enoxaparin Sodium 40 mg DAILY SC 01/02/25 10:00 01/03/25 09:55 40 MG Sodium Chloride 1,000 ml @ 100 mls/hr Q10H IV 01/03/25 10:00 01/03/25 12:07 100 MLS/HR Examination General Appearance: Alert, Oriented X3, Cooperative, No acute distress HEENT: Atraumatic, PERRLA, EOMI, Mucous membrane moist/pink Respiratory: Clear to auscultation, Normal air movement Cardiovascular: Regular rate, Normal S1, Normal S2, No murmurs, no chest wall tenderness Abdominal: Normal bowel sounds, Soft, No tenderness, No hepatospenomegaly, No masses Extremities: No clubbing, No cyanosis, No edema, Normal pulses, No tenderness/swelling Skin: No rashes, No breakdown, No significant lesion Neuro: Normal gait, Normal speech, Strength at 5/5 X4 ext, Normal tone, Sensation intact, Cranial nerves 3-12 NL, Reflexes 2+ Psych/Mental Status: Mental status NL, Mood NL laboratory and microbiology Laboratory Tests 01/03/25 04:25 Test 01/03/25 04:25 Range/Units Serum Glucose 113 H 74-106 mg/dL Microbiology Date/Time Source Procedure Growth Status 01/02/25 01:30 Nose MRSA Screen - Final Complete Labs and/or images reviewed: Labs reviewed by me, Image(s) reviewed by me Problem List/Assessment/Plan Problem List/Assessment/Plan This is a 29-year-old female with past medical history includes coronary artery disease undergoing a recent PCI including balloon angioplasty with stent placement of the LAD x2 DICK on ASA/Plavix/statin, recent pneumomediastinum, resistant hypertension, dyslipidemia, chronic kidney disease stage IIIb, secondary hyperparathyroidism, cannabinoid use, and obesity came to the hospital due to nausea, vomiting and high blood pressure record at home. Nephrology consulted due to raised creatinine. SIENNA, on CKD 3B, due to hypertensive emergency Hypertensive emergency Hyperkalemia, improved History of coronary artery disease, status post PCI Dyslipidemia Diabetes type 2 Obesity Plan/recommendation: (Dr. Rouse) * Blood pressure has improved, discontinue nicardipine drip * Discontinue hydrochlorothiazide, IV NS at 100 mL/hours, 1 L * Supplement vitamin-D, Na HC03 650 mg b.i.d. * Continue carvedilol, nifedipine and clonidine * Avoid nephrotoxic drugs * We will follow up with the patient Thank you for giving us the opportunity to take care of your patient. Please call back if you have any questions/concerns. Addendum Patient seen and examined, plan discussed with resident. Agree with above, we will follow closely Plan discussed with: Patient, Other (Mother and RN) SPENCER LUI Jan 03, 2025 13:22 EVON ROUSE MD Jan 03, 2025 17:35
[2025-01-03 14:07] LABS: Anti-Centromere B Antibody <0.2 AI (0.0-0.9); Anti-Jo-1 Antibody <0.2 AI (0.0-0.9); Anti-dsDNA Antibody <1 IU/mL (0-9); Antichromatin Antibody <0.2 AI (0.0-0.9); Antiscleroderma-70 Antibody <0.2 AI (0.0-0.9); Sjogren's Anti-SS-A Antibody <0.2 AI (0.0-0.9); Sjogren's Anti-SS-B Antibody <0.2 AI (0.0-0.9)
[2025-01-03] MEDS: ERGOCALCIFEROL 50,000 UNIT(1.25MG) CAP PO SCH (14:34)
[2025-01-03] MEDS: SODIUM BICARBONATE 650 MG TAB PO ONE (14:34)
[2025-01-03] MEDS ORDERED: SODIUM BICARBONATE 650 MG TAB PO SCH (22:00)
--- NOTE | 2025-01-04 14:28 | DVHSR ---
APPROVED REPORT EXAM: Two-dimensional and M-mode echocardiogram with Doppler and color Doppler. Blood Pressure: 159/89 mmHg INDICATION Hypertension RISK FACTORS Height: 5'7", Weight: 200 Mitral Valve Mitral Mitral Stenosis E/A ratio 0.0 2D MVA cm2 Conclusion Technically good study. Limited acoustic windows. Normal chamber sizes. Valves are normal. EF is 60% with normal RV function. Dopplers normal. No pericardial effusion masses or vegetations.
== END 2025-01-03 18:30 | disposition left against medical advice (07) | DRG 194 ==
LOC: EDBD 16:33 → ER 16:33 → OVERFLOW 19:36 → ICU WEST 23:57 → WEST WING 01-03 13:33
PROVIDERS: ADMIT Nurse Practitioner Acute Care; ATTEND Nurse Practitioner Acute Care
DX: I13.0 Hypertensive heart and chronic kidney disease with heart failure and stage 1 through stage 4 chronic kidney disease, or unspecified chronic kidney disease (principal); N17.0 Acute kidney failure with tubular necrosis; I50.33 Acute on chronic diastolic (congestive) heart failure; E11.22 Type 2 diabetes mellitus with diabetic chronic kidney disease; E66.01 Morbid (severe) obesity due to excess calories; N18.32 Chronic kidney disease, stage 3b; J45.909 Unspecified asthma, uncomplicated; I12.9 Hypertensive chronic kidney disease with stage 1 through stage 4 chronic kidney disease, or unspecified chronic kidney disease; E87.5 Hyperkalemia; I16.9 Hypertensive crisis, unspecified; I25.10 Atherosclerotic heart disease of native coronary artery without angina pectoris; E78.5 Hyperlipidemia, unspecified; E66.811 Obesity, class 1; Z68.31 Body mass index [BMI] 31.0-31.9, adult; Z95.5 Presence of coronary angioplasty implant and graft; Z82.49 Family history of ischemic heart disease and other diseases of the circulatory system; Z83.3 Family history of diabetes mellitus
CPT/HCPCS: 36415; 71045; 74176; 80053; 80061; 80307; 81001; 82088; 82306; 82962; 83516; 83615; 83690; 83735; 83835; 83880; 84100; 84244; 84443; 84484; 84702; 85025; 85652; 86141; 86225; 86235; 87081; 93005; 93306; 93976; 96361; 96374; 96375; 99291; G0378; J1815; J2405; J2470; J3490

== ENCOUNTER 2025-02-12 09:20 | Inpatient (IN) | payer MEDICAID ==
[~2025-02-12] VITALS: Ht 167.6 cm; Wt 95.9 kg
--- NOTE | 2025-02-12 10:24 | ED.PDOC ---
History of Present Illness HPI Comments 29-year-old female JOANNA with prior medical history of diabetes, mi : Surgical history of cardiac stent placed last month and a chief complaint of body pain. Patient reports on having had body pain since 0200 this morning which prompted her to call 911. When EMS arrived on scene the patient had hyperglycemia of BS- 299 and hypertension of BP-216/118. Denies any other symptoms at this time. Denies chills, fever, N/V/D, SOB, CP. No other associated symptoms, modifiers, recent injuries or sick contacts present at this time. Chief Complaint: Body Pain Time Seen by MD: 10:22 Primary Care Provider: kar Reviewed Notes: Nurses Notes, Radiology Receptionist Notes, Medications, Allergies Allergies: Coded Allergies: NO KNOWN ALLERGIES (Unverified , 04/24/17) Home Meds Active Scripts Nifedipine (Nifedipine Er) 90 Mg Tab, 90 MG PO DAILY for 30 Days, #30 TAB 3 Refills Prov:SPENCER LUI RESDIENT 12/07/24 Valsartan (Diovan) 320 Mg Tab, 320 MG PO DAILY for 30 Days, #30 TAB 3 Refills Prov:SPENCER LUI RESDIENT 12/07/24 Hydroxyzine HCl (Hydroxyzine Hydrochloride) 25 Mg Tab, 25 MG PO DAILY for 30 Days, #30 TAB 3 Refills Prov:SPENCER LUI RESDIENT 12/07/24 Carvedilol (Carvedilol) 25 Mg Tab, 25 MG PO BID for 30 Days, #60 TAB 3 Refills Prov:SPENCER LUI RESDIENT 12/07/24 Atorvastatin Calcium (ATORVASTATIN CALCIUM) 40 Mg Tab, 80 MG PO DAILY for 30 Days, #60 TAB 3 Refills Prov:SPENCER LUI RESDIENT 12/07/24 Clopidogrel Bisulfate (Plavix) 75 Mg Tab, 75 MG PO DAILY for 30 Days, #30 TAB 3 Refills Prov:SPENCER LUI RESDIENT 12/07/24 Aspirin (Aspir-81) 81 Mg Tab, 81 MG PO DAILY for 30 Days, #30 TAB 3 Refills Prov:SPENCER LUI RESDIENT 12/07/24 Pantoprazole Sodium Sesquihydr (Protonix) 40 Mg Tab, 40 MG PO DAILY, #30 TAB Prov:RAMAKRISHNA ABBOTT MD 12/03/24 Carvedilol (Coreg) 25 Mg Tab, 1 TAB PO BID, #60 TAB 5 Refills Prov:RADHA PROCTOR NP 10/12/24 Hctz (Hydrochlorothiazide) 25 Mg Tab, 25 MG PO DAILY for 28 Days, #28 TAB Prov:BLAISE DILLON 07/06/24 Ergocalciferol (VITAMIN D 19938 UNIT) 50,[address] [place], [address] UNIT PO QWEEKLY for 56 Days, #8 CAP 0 Refills Prov:BLAISE DILLON 07/06/24 Reported Medications Nifedipine (Nifedipine Er) 90 Mg Tab, 1 TAB PO DAILY for 90 Days, #90 12/05/24 Valsartan (Valsartan) 320 Mg Tab, 1 TAB PO DAILY for 90 Days, #90 12/05/24 Clonidine Hydrochloride (Clonidine Hcl) 0.1 Mg Tab, 1 TAB PO BID for 60 Days, #120 12/05/24 Semaglutide (Ozempic) 4 Mg/3 Ml Inj, 1 MG SC QWEEKLY for 28 Days, #3 10/10/24 Information Source: Patient, Emergency Med Personnel Mode of Arrival: EMS Severity: Moderate Timing: Hours Duration: Since onset, Hours Prehospital treatment: None Past Medical History PAST MEDICAL HISTORY: DM, ID Surgical History: PTCA (Cardiac stent placed one month ago) ORTHOTIC/PROSTHETIC CLINICIAN History: Denies all ORTHOTIC/PROSTHETIC CLINICIAN Hx Family History Family History: Reviewed,noncontributory to illness, Unknown Social History Smoker: Non-Smoker Alcohol: Denies ETOH Use Drugs: Marijuana Lives In: Home Constitutional: reports: others (Full body pain); denies: chills, diaphoresis, fatigue, fever, malaise, sweats, weakness EENTM: denies: blurred vision, double vision, ear bleeding, ear discharge, ear drainage, ear pain, ear ringing, eye pain, eye redness, hearing loss, mouth pain, mouth swelling, nasal discharge, nose bleeding, nose congestion, nose pain, photophobia, tearing, throat pain, throat swelling, voice changes, others Respiratory: denies: cough, hemoptysis, orthopnea, SOB at rest, shortness of breath, SOB with excertion, stridor, wheezing, others Cardiovascular: reports: others (Hypertensive); denies: chest pain, dizzy spells, diaphoresis, Dyspnea on exertion, edema, irregular heart beat, left arm pain, lightheadedness, palpitations, PND, syncope Gastrointestinal: denies: abdomen distended, abdominal pain, blood streaked bowels, constipated, diarrhea, dysphagia, difficulty swallowing, hematemesis, melena, nausea, poor appetite, poor fluid intake, rectal bleeding, rectal pain, vomiting, others Genitourinary: denies: abnormal vagina bleeding, burning, dyspareunia, dysuria, flank pain, frequency, hematuria, incontinence, pain, , vagina discharge, urgency, others Neurological: denies: dizziness, fainting, headache, left sided numbness, left sided weakness, numbness, paresthesia, pre-existing deficit, right sided numbness, right sided weakness, seizure, speech problems, tingling, tremors, weakness, others Musculoskeletal: denies: back pain, gout, joint pain, joint swelling, muscle pain, muscle stiffness, neck pain, others Integumetry: denies: bruises, change in color, change in hair/nails, dryness, laceration, lesions, lumps, rash, wounds, others Allergic/Immunocompromised: denies: Difficulty Healing, Frequent Infections, Hives, Itching, others Hematologic/Lymphatic: denies: anemia, blood clots, easy bleeding, easy bruising, swollen glands, others Endocrine: denies: excessive hunger, excessive sweating, excessive thirst, excessive urination, flushing, intolerance to cold, intolerance to heat, unexplained weight gain, unexplained weight loss, others Psychiatric: denies: anxiety, bipolar disorder, depression, hopeless, panic disorder, schizophrenia, sleepless, suicidal, others All Other Systems: Reviewed and Negative Physical Exam General Appearance: Moderate Distress, Normal HEENT: Normal ENT Inspection, Pharynx Normal, TMs Normal Neck: Full Range of Motion, Non-Tender, Normal, Normal Inspection Respiratory: Chest Non-Tender, Lungs Clear, No Accessory Muscle Use, No Respiratory Distress, Normal Breath Sounds Cardiovascular: No Edema, No JVD, No Murmur, No Gallop, Normal Peripheral Pulses, Regular Rate/Rhythm Breast Exam: Deferred Gastrointestinal: No Organomegaly, Non Tender, No Pulsatile Mass, Normal Bowel Sounds, Soft Genitalia: Deferred Pelvic: Deferred Rectal: Deferred Extremities: No calf tenderness, Normal capillary refill, Normal inspection, Normal range of motion, Non-tender, No pedal edema Musculoskeletal : Apperance: Normal Neurologic: Alert, environment artist II-XII nml as Tested, No Motor Deficits, Normal Affect, Normal Mood, No Sensory Deficits Cerebellar Function: NOT DONE Reflexes: NOT DONE Skin: Dry, Normal Color, Warm Peripheral Pulses: 3+ Radial (R), 3+ Radial (L) Lymphatic: No Adenopathy Was a procedure done? Was a procedure done?: No Differential Dx Considerations may include: Electrolyte imbalance X-Ray, Labs, Meds, VS Vital Signs Date Time Temp Pulse Resp B/P (MAP) Pulse Ox O2 Delivery O2 Flow Rate FiO2 02/12/25 11:20 100 190/116 02/12/25 09:38 107 02/12/25 09:29 97.9 116 22 218/136 99 97.9 Lab Test 02/12/25 10:38 Range/Units White Blood Count 8.0 4.4-10.8 10^3/uL Red Blood Count 3.93 L 4.0-5.20 10^6/uL Hemoglobin 12.4 12.2-16.2 g/dL Hematocrit 35.9 L 36.0-46.0 % Mean Corpuscular Volume 91.3 80.0-100.0 fL Mean Corpuscular Hemoglobin 31.6 28.0-32.0 pg Mean Corpuscular Hemoglobin Concent 34.6 32.0-36.0 g/dL Red Cell Distribution Width 12.8 11.8-14.3 % Platelet Count 336 140-450 10^3/uL Mean Platelet Volume 8.2 6.9-10.8 fL Neutrophils (%) (Auto) 81.4 H 37.0-80.0 % Lymphocytes (%) (Auto) 14.6 10.0-50.0 % Monocytes (%) (Auto) 3.0 0.0-12.0 % Eosinophils (%) (Auto) 0.4 0.0-7.0 % Basophils (%) (Auto) 0.6 0.0-2.0 % Neutrophils # (Auto) 6.5 1.6-8.6 10 ^3/uL Lymphocytes # (Auto) 1.2 0.4-5.4 10 ^3/uL Monocytes # (Auto) 0.2 0-1.3 10 ^3/uL Eosinophils # (Auto) 0 0-0.8 10 ^3/uL Basophils # (Auto) 0 0-0.2 10 ^3/uL Nucleated Red Blood Cells 0.1 % Sodium Level 143 136-145 mmol/L Potassium Level 5.0 3.5-5.1 mmol/L Chloride Level 108 H 98-107 mmol/L Carbon Dioxide Level 20 20-31 mmol/L Anion Gap 15 5-15 Blood Urea Nitrogen 31 H 9-23 mg/dL Creatinine 2.28 H 0.550-1.02 mg/dL Glomerular Filtration Rate Calc 29 >90 mL/min BUN/Creatinine Ratio 13.6 10.0-20.0 Serum Glucose 262 H 74-106 mg/dL Lactic Acid Level 3.1 *H 0.4-2.0 mmol/L Calcium Level 10.7 H 8.7-10.4 mg/dL Current Medications Medications (Trade) Dose Ordered Sig/Lucie Route Start Time Stop Time Status Last Admin Labetalol HCl (Labetalol HCl) 10 mg ONCE ONCE IV 02/12/25 10:30 02/12/25 10:31 DC 02/12/25 11:20 Ondansetron HCl (Zofran) 4 mg ONCE ONCE IV 02/12/25 11:30 02/12/25 11:31 DC 02/12/25 11:23 Patient alert. Complaining of abdominal pain. Blood pressure. Answering questions. Was given labetalol. Blood sugar elevated. Establish intravenous access. Was given fluids. WBC within normal limits. Lactic acid elevated. Anaerobic metabolism. No sign of any infection. Continue to monitor. Time of 1ST Reevaluation: 10:50 Reevaluation 1ST: Unchanged Patient Education/Counseling: Diagnosis, Treatment, Prognosis Family Education/Counseling: No Family Present SEPSIS Sepsis Screen Date sepsis recognized/suspect: Feb 12, 2025 Time Sepsis recognized/suspect: 935 Recent Procedure: No On Antibiotic Therapy: No Respiratory Rate >20: Yes Heart Rate >90: Yes Temp<36 C (96.8 F) or >38.3 C: No SBP <90 or MAP <65 mmHG: No New Acute Mental Status Change: No Is the patient on CPAP, BIPAP,: No Physician Orders Electrocardigram (02/12/25 09:43) Blood Culture (02/12/25 10:00) Urinalysis (02/12/25 10:00) Sodium Chloride 0.9% (02/12/25 11:45) Sodium Chloride 0.9% (02/12/25 11:45) Vital Signs Date Time Temp Pulse Resp B/P (MAP) Pulse Ox O2 Delivery O2 Flow Rate FiO2 02/12/25 11:20 100 190/116 02/12/25 09:38 107 02/12/25 09:29 97.9 116 22 218/136 99 97.9 Laboratory Tests Test 02/12/25 10:38 Lactic Acid Level 3.1 mmol/L (0.4-2.0) *H White Blood Count 8.0 10^3/uL (4.4-10.8) Medications Medications Dose Ordered Sig/Lucie Route Start Time Stop Time Status Last Admin Dose Admin Labetalol HCl 10 mg ONCE ONCE IV 02/12/25 10:30 02/12/25 10:31 DC 02/12/25 11:20 Ondansetron HCl 4 mg ONCE ONCE IV 02/12/25 11:30 02/12/25 11:31 DC 02/12/25 11:23 Departure 1 Departure Time of Disposition: 11:49 Impression: Primary Impression: Uncontrolled diabetes mellitus Qualified Codes: E13.65 - Other specified diabetes mellitus with hyperglycemia Additional Impression: Hypertensive emergency Disposition: ADMITTED INPATIENT Admit to: Med Surg Condition: Guarded Critical Care Note Critical Care Time?: Yes (90 min-critical care time only) Stability Stability form required: No Heart Score Heart Score: Heart Score Response (Comments) Value History N/A 0 EKG N/A 0 Age N/A 0 Risk Factors N/A 0 Troponin N/A 0 Total 0 I personally scribed for MICAELA DONAHUE MD ([email or web address]) on 02/12/25 at 10:24. Electronically submitted by Dav Laurent ([email or web address]). MICAELA DONAHUE MD Feb 12, 2025 10:24
[2025-02-12 10:57] LABS: Hematocrit 35.9 % (36.0-46.0); Hemoglobin 12.4 g/dL (12.2-16.2); Mean Corpuscular Hemoglobin 31.6 pg (28.0-32.0); Mean Corpuscular Volume 91.3 fL (80.0-100.0); Nucleated Red Blood Cells % 0.1 %
[2025-02-12 11:00] LABS: Potassium 5.0 mmol/L (3.5-5.1); Sodium 143 mmol/L (136-145)
[2025-02-12 11:01] LABS: Anion Gap 15 (5-15)
[2025-02-12 11:03] LABS: Calcium 10.7 mg/dL (8.7-10.4); Carbon Dioxide 20 mmol/L (20-31); Chloride 108 mmol/L (98-107)
[2025-02-12 11:07] LABS: BUN/Creatinine Ratio 13.6 (10.0-20.0)
[2025-02-12 11:08] LABS: Blood Urea Nitrogen 31 mg/dL (9-23); Glucose 262 mg/dL (74-106)
[2025-02-12 11:17] LABS: Lactic Acid w/Reflex 3.1 mmol/L (0.4-2.0)
[2025-02-12] MEDS: LABETALOL HCL 20 MG/4 ML VL IV ONE (11:20)
[2025-02-12] MEDS: ONDANSETRON HCL 4 MG/2 ML VIAL IV ONE (11:23)
[2025-02-12 11:48] VITALS: PULSE 114; RESP 14; O2SAT 100
[2025-02-12] MEDS: SODIUM CHLORIDE 0.9% 1,000 ML IV ONE ×2 (12:03→12:12)
[2025-02-12] MEDS ORDERED: MORPHINE SULFATE INJ 2 MG/ml SYRG IV PRN ×2 (14:30)
[2025-02-12] MEDS ORDERED: ACETAMINOPHEN 325 MG TAB PO PRN (14:30)
[2025-02-12] MEDS ORDERED: NITROGLYCERIN 0.4 MG SL TAB SL PRN (14:30)
[2025-02-12] MEDS ORDERED: DEXTROSE (50%) 50ML SYRG IV PRN (14:45)
--- NOTE | 2025-02-12 14:45 | DVHHPRES ---
History of Present Illness Resident Creating Document: TALA EDMONDS RESIDENT History of Present Illness Munir presents to the emergency department with chest pain and shortness of breath. The patient has a significant medical history including diabetes, hypertension, kidney failure, and recent cardiac stent placement approximately 2 months ago. The patient began feeling unwell this morning around 2:00 AM and by 8:00 AM was experiencing significant chest pain and difficulty breathing, prompting her family member to call an ambulance. The chest pain is described as occurring in the same location consistently and is constant in nature. The patient has been experiencing recurrent episodes of chest pain and breathing difficulties, leading to multiple recent hospitalizations. The patient takes her medications regularly and has established care with primary physician Tona and associate store leader Dr. Nuno for her kidney disease. She denies any recent flu-like symptoms, cough, fever, or headache. The patient has been vomiting and experiencing nausea since arrival. Her blood pressure is significantly elevated, requiring continuous nicardipine drip Medical History - Hypertension - Diabetes mellitus - Kidney failure - Coronary artery disease with cardiac stent placement approximately 2 months ago - Recurrent hospitalizations for chest pain and shortness of breath Surgical History - Cardiac stent placement approximately 2 months ago - Medications and Supplements - unable TO RECALL Social History - Substance Use: Marijuana use mentioned - lives at home with family Review of Systems General: Negative for fever. HEENT: Negative for headache. Cardiovascular: Positive for chest pain. Respiratory: Positive for shortness of breath. Gastrointestinal: Positive for nausea and vomiting. Review of Systems Allergies: Coded Allergies: NO KNOWN ALLERGIES (Unverified , 04/24/17) Medications Current Medications Medications Dose Ordered Sig/Lucie Route Start Time Stop Time Status Last Admin Dose Admin Nicardipine/ Sodium Chloride 200 ml @ 50 mls/hr Q4H IV 02/12/25 12:15 02/12/25 14:27 50 MLS/HR Sodium Chloride 10 ml Q8HR IV 02/12/25 22:00 UNV Ondansetron HCl 4 mg Q4HP PRN IV 02/12/25 14:30 UNV Enoxaparin Sodium 40 mg DAILY SC 02/13/25 10:00 UNV Acetaminophen 650 mg Q6HP PRN PO 02/12/25 14:30 UNV Morphine Sulfate 2 mg Q4HPRN PRN IV 02/12/25 14:30 UNV Nitroglycerin 0.4 mg Q5MINP PRN SL 02/12/25 14:30 UNV Morphine Sulfate 2 mg Q30M PRN IV 02/12/25 14:30 UNV Exam Vital Signs Vital Signs Date Time Temp Pulse Resp B/P (MAP) Pulse Ox O2 Delivery O2 Flow Rate FiO2 02/12/25 14:38 194/109 02/12/25 14:00 108 17 100 02/12/25 11:48 Room Air* 0 21 02/12/25 11:48 97.7 97.7 Exam Pt is lying on bed General Appearance: Alert, Oriented X3,Cooperative, severe distress HEENT: Atraumatic, Mucous membranes moist/pink Respiratory: Clear to auscultation, Normal air movement, No added sounds Cardiovascular: Regular rate, Normal S1, Normal S2, No murmurs Abdominal: Active bowel sounds, Soft, no distention, no tenderness Extremities: No edema, Normal pulses, No tenderness/swelling Skin: No Significant rash, except past surgical scars Neuro: Normal speech, sensorimotor deficits none Nurse was there as regulated program manager during examination Labs/Xrays Labs Test 02/12/25 13:30 02/12/25 12:55 02/12/25 10:38 Range/Units Lactic Acid Level 3.0 *H 0.4-2.0 mmol/L White Blood Count 8.0 4.4-10.8 10^3/uL Red Blood Count 3.93 L 4.0-5.20 10^6/uL Hemoglobin 12.4 12.2-16.2 g/dL Hematocrit 35.9 L 36.0-46.0 % Mean Corpuscular Volume 91.3 80.0-100.0 fL Mean Corpuscular Hemoglobin 31.6 28.0-32.0 pg Mean Corpuscular Hemoglobin Concent 34.6 32.0-36.0 g/dL Red Cell Distribution Width 12.8 11.8-14.3 % Platelet Count 336 140-450 10^3/uL Mean Platelet Volume 8.2 6.9-10.8 fL Neutrophils (%) (Auto) 81.4 H 37.0-80.0 % Lymphocytes (%) (Auto) 14.6 10.0-50.0 % Monocytes (%) (Auto) 3.0 0.0-12.0 % Eosinophils (%) (Auto) 0.4 0.0-7.0 % Basophils (%) (Auto) 0.6 0.0-2.0 % Neutrophils # (Auto) 6.5 1.6-8.6 10 ^3/uL Lymphocytes # (Auto) 1.2 0.4-5.4 10 ^3/uL Monocytes # (Auto) 0.2 0-1.3 10 ^3/uL Eosinophils # (Auto) 0 0-0.8 10 ^3/uL Basophils # (Auto) 0 0-0.2 10 ^3/uL Nucleated Red Blood Cells 0.1 % Sodium Level 143 136-145 mmol/L Potassium Level 5.0 3.5-5.1 mmol/L Chloride Level 108 H 98-107 mmol/L Carbon Dioxide Level 20 20-31 mmol/L Anion Gap 15 5-15 Blood Urea Nitrogen 31 H 9-23 mg/dL Creatinine 2.28 H 0.550-1.02 mg/dL Glomerular Filtration Rate Calc 29 >90 mL/min BUN/Creatinine Ratio 13.6 10.0-20.0 Serum Glucose 262 H 74-106 mg/dL Calcium Level 10.7 H 8.7-10.4 mg/dL SEPSIS Sepsis Screen Date sepsis recognized/suspect: Feb 12, 2025 Time Sepsis recognized/suspect: 935 Recent Procedure: No On Antibiotic Therapy: No Respiratory Rate >20: Yes Heart Rate >90: Yes Temp<36 C (96.8 F) or >38.3 C: No SBP <90 or MAP <65 mmHG: No New Acute Mental Status Change: No Is the patient on CPAP, BIPAP,: No Physician Orders Electrocardigram (02/12/25 09:43) Blood Culture (02/12/25 10:00) Urinalysis (02/12/25 10:00) Sodium Chloride 0.9% (02/12/25 11:45) Nicardipine 20mg/200ml (Cardene Iv) (02/12/25 12:15) Admit (02/12/25 14:16) Allergies (02/12/25 14:16) Code Status (02/12/25 14:16) 2 Gm Sodium Diet (02/12/25 Dinner) Sodium Chloride Lock (Saline Lock Ns) (02/12/25 22:00) Ondansetron Hcl (Zofran) (02/12/25 14:30) Enoxaparin Sodium (Lovenox) (02/13/25 10:00) Complete Blood Count (02/13/25 04:00) Comprehensive Metabolic Panel (02/13/25 04:00) Cardiac Diet-2gna,Lofat,Lochol (02/12/25 Dinner) Condition: Fair (02/12/25 14:16) Acetaminophen Tablet (Tylenol Tablet) (02/12/25 14:30) Morphine Sulfate Injection (02/12/25 14:30) Nitroglycerin Sublingual (Ntrostat Subli (02/12/25 14:30) Morphine Sulfate Injection (02/12/25 14:30) Oxygen By Nasal Cannula (02/12/25 14:16) Stat Ekg For Chest Pain (02/12/25 14:16) Notify Of Changes From Base (02/12/25 14:16) Glass Cylinder Flanger For 24 Hours (02/12/25 14:16) Emergency Dysrhythmia Protocol (02/12/25 14:16) Rhythm Strips Once Every Shift (02/12/25 14:16) B-Type Natriuretic Peptide (02/12/25 14:16) Covid19 Antigen Hamida (02/12/25 14:16) Drug Screen (02/12/25 14:16) Hepatic Panel (02/12/25 14:16) Magnesium (02/12/25 14:16) PTPTT (02/12/25 14:16) Thyroid Stimulating Hormone (02/12/25 14:16) Chest Portable (02/12/25 14:16) Rapid Influenza A&B (02/12/25 14:16) Test, Urine (02/12/25 14:16) Troponin-I Hs (02/12/25 14:16) Troponin-I Hs (02/12/25 15:16) Troponin-I Hs (02/12/25 17:16) Hemoglobin A1c (02/12/25 14:39) Glucose Blood (Accu-Chek Comfort Curve T (02/12/25 17:00) Mild Sliding Scale (02/12/25 17:00) Dextrose 50% Syringe (02/12/25 14:45) Vital Signs Date Time Temp Pulse Resp B/P (MAP) Pulse Ox O2 Delivery O2 Flow Rate FiO2 02/12/25 14:38 194/109 02/12/25 14:27 211/137 02/12/25 14:00 108 17 215/138 (163) 100 02/12/25 13:00 108 16 223/135 (164) 100 02/12/25 12:27 108 18 205/112 (143) 100 02/12/25 12:12 102 230/129 02/12/25 11:48 114 14 100 Room Air* 0 21 02/12/25 11:48 97.7 114 14 220/124 (156) 100 97.7 02/12/25 11:20 100 190/116 02/12/25 09:38 107 02/12/25 09:29 97.9 116 22 218/136 99 97.9 Laboratory Tests Test 02/12/25 10:38 02/12/25 12:55 Lactic Acid Level 3.1 mmol/L (0.4-2.0) *H 3.0 mmol/L (0.4-2.0) *H White Blood Count 8.0 10^3/uL (4.4-10.8) Medications Medications Dose Ordered Sig/Lucie Route Start Time Stop Time Status Last Admin Dose Admin Labetalol HCl 10 mg ONCE ONCE IV 02/12/25 10:30 02/12/25 10:31 DC 02/12/25 11:20 10 MG Nicardipine/ Sodium Chloride 200 ml @ 50 mls/hr Q4H IV 02/12/25 12:15 02/12/25 14:27 50 MLS/HR Ondansetron HCl 4 mg ONCE ONCE IV 02/12/25 11:30 02/12/25 11:31 DC 02/12/25 11:23 4 MG Sodium Chloride 1,000 ml @ 1,000 mls/hr Q1H ONCE IV 02/12/25 11:45 02/12/25 12:44 DC 02/12/25 12:12 1,000 MLS/HR Assessment/Plan Assessment/Plan Assessment & Plan Munir presents with chest pain and shortness of breath in the setting of multiple comorbidities including diabetes, hypertension, chronic kidney disease, and recent cardiac stent placement 2 months ago. Hypertensive Emergency Chest pain likely from above Rule out ACS Hx of CAD s/p PTCA DLD Obesity class 2 Plan: - Continue antihypertensive nicardipine IV drip for blood pressure control - ICU status and continuously monitor hemodynamics - chest pain protocol - pending troponins - Echocardiogram from 12/05/2024 revealed LVEF at 50% with normal valves, moderate degree hypokinesis of apical and anterior wall of LV, moderate degree LVH and mild LV diastolic dysfunction - EKG - cardiology consult if needed SIENNA likely due to VMN on CKD 3bLikely from hypertensive emergency dehydration Plan: -monitor lab -avoid nephrotoxic agents -IVF Uncontrolled type 2 DM With the hyperglycemia Plan: -Accu-Cheks nd SS - pending HbA1c Severe nausea and vomiting likely from cannabis hyperemesis Plan: - Administer antiemetic medication once IV access obtained - counseled regarding cessation for more than 17 minutes - UDS GI PPX: Protonix VTE ppx: Lovenox Diet: diabetic diet and NPO after midnight Goals of care addressed with the patient for more than 27 minutes: Full code status Case discussed with , patient and nurse Plan discussed with: Patient, Other (MOM and RN) My Orders Orders - TALA EDMONDS RESIDENT Procedure Category Date Status Time Admit ADMIT 02/12/25 Transmitted 14:16 Allergies ADELIA 02/12/25 In Process 14:16 Code Status CODE 02/12/25 Transmitted 14:16 2 Gm Sodium Diet DIET 02/12/25 Transmitted Dinner Sodium Chloride Lock PHA 02/12/25 Logged (Saline Lock Ns) 22:00 Ondansetron Hcl PHA 02/12/25 Logged (Zofran) 14:30 Enoxaparin Sodium PHA 02/13/25 Logged (Lovenox) 10:00 Complete Blood Count LAB 02/13/25 Verified 04:00 Comprehensive LAB 02/13/25 Verified Metabolic Panel 04:00 Cardiac DIET 02/12/25 Transmitted Diet-2gna,Lofat,Lochol Dinner Condition: Fair ADELIA 02/12/25 In Process 14:16 Acetaminophen Tablet PHA 02/12/25 Logged (Tylenol Tablet) 14:30 Morphine Sulfate PHA 02/12/25 Logged Injection 14:30 Nitroglycerin PHA 02/12/25 Logged Sublingual (Ntrostat 14:30 Morphine Sulfate PHA 02/12/25 Logged Injection 14:30 Oxygen By Nasal RT 02/12/25 Transmitted Cannula 14:16 Stat Ekg For Chest ADELIA 02/12/25 In Process Pain 14:16 Notify Md Of Changes ADELIA 02/12/25 In Process From Base 14:16 Glass Cylinder Flanger For ADELIA 02/12/25 In Process 24 Hours 14:16 Emergency Dysrhythmia ADELIA 02/12/25 In Process Protocol 14:16 Rhythm Strips Once [facility] 02/12/25 In Process Every Shift 14:16 B-Type Natriuretic LAB 02/12/25 In Process Peptide 14:16 Covid19 Antigen Hamida LAB 02/12/25 Logged 14:16 Drug Screen LAB 02/12/25 In Process 14:16 Hepatic Panel LAB 02/12/25 In Process 14:16 Magnesium LAB 02/12/25 In Process 14:16 PTPTT LAB 02/12/25 Logged 14:16 Thyroid Stimulating LAB 02/12/25 In Process Hormone 14:16 Chest Portable XY 02/12/25 Logged 14:16 Rapid Influenza A&B LAB 02/12/25 Logged 14:16 Test, Urine LAB 02/12/25 In Process 14:16 Troponin-I Hs LAB 02/12/25 In Process 14:16 Troponin-I Hs LAB 02/12/25 Logged 15:16 Troponin-I Hs LAB 02/12/25 Logged 17:16 Hemoglobin A1c LAB 02/12/25 Transmitted 14:39 Glucose Blood PHA 02/12/25 Transmitted (Accu-Chek Comfort 17:00 Mild Sliding Scale PHA 02/12/25 Transmitted 17:00 Dextrose 50% Syringe PHA 02/12/25 Verified 14:45 Visit Coding STANDARD RES Billing Provider: PATRICIA GARCÍA MD Date of Service if different f: Feb 12, 2025 Common Visit Codes: [id number] INP/OBS CARE (HIGH) Secondary Visit Codes: [id number] CARE PLAN 30 MINUTES TALA EDMONDS RESIDENT Feb 12, 2025 14:45
[2025-02-12 15:07] LABS: Urine Protein, UAD 3+ (Negative)
[2025-02-12 15:08] LABS: Barbiturate Scree,Urine Neg (NEGATIVE); Cocaine Screen, Urine Neg (NEGATIVE); Opiate Scree,Urine Neg (NEGATIVE); Phencyclidine Screen, Urine Neg (NEGATIVE)
[2025-02-12 15:09] LABS: Amphetamine Screen, Urine Neg (NEGATIVE); Benzodiazephine Screen, Urine Neg (NEGATIVE); Cannabinoid Screen, Urine Pos (NEGATIVE)
[2025-02-12] MEDS ORDERED: MORPHINE SULFATE 4 MG/ML SYR/VIAL IV PRN (15:15)
[2025-02-12] MEDS: ONDANSETRON HCL 4 MG/2 ML VIAL IV PRN (15:23)
[2025-02-12] MEDS: PANTOPRAZOLE 40 MG/10 ML VIAL INJ IV SCH (15:23)
--- NOTE | 2025-02-12 15:44 | DVH ---
CHEST RADIOGRAPH REASON FOR EXAM: Shortness of breath COMPARISON: XY CHEST XRAY 1 VIEW on DOS: 01/01/25, CT CHEST WITHOUT CONTRAST on DOS: 12/06/24, XY CHEST TWO VIEWS ROUTINE on DOS: 10/09/24, XY CHEST PORTABLE on DOS: 08/30/24, XY CHEST XRAY 1 VIEW on DOS: 07/04/24 TECHNIQUE: One view of the chest is provided FINDINGS: The cardiomediastinal silhouette is within normal limits for size. There are low inspiratory volumes causing crowding and exaggeration of the pulmonary markings. IMPRESSION: Low inspiratory volumes cause crowding and exaggeration of the pulmonary markings. No radiographic evidence of acute cardiopulmonary process.
[2025-02-12 15:56] LABS: Alanine Aminotransferase 21.0 U/L (7-40); Alkaline Phosphatase 113.0 U/L (46-116); Magnesium 2.0 mg/dL (1.6-2.6)
[2025-02-12 15:57] LABS: Bilirubin, Direct 0.2 mg/dL (<0.3); Bilirubin, Total 0.6 mg/dL (0.2-1.0)
[2025-02-12 16:00] LABS: Albumin 5.5 g/dL (3.2-4.8); Total Protein 8.6 g/dL (5.7-8.2)
[2025-02-12 16:15] LABS: COVID19 ANTIGEN SOFIA FIA NEGATIVE (NEGATIVE)
--- NOTE | 2025-02-12 16:26 | ECG ---
[facility] Test Date: 2025-02-12 Test Time: 09:38:22 Pat Name: AMARJIT FISHMAN Department: [facility] ED Patient ID: [facility]-[id number] Room: 0291T Gender: F Skiver Uppers Or Linings: TIFFANIE : 1995 Requested By: MICAELA DONAHUE Order Number: [id number] Reading MD: Clay Clinton Measurements Intervals [place] Rate: 107 P: 60 W[place]: 158 QRS: 56 QRSD: 88 T: 87 QT: 369 QTc: 493 Interpretive Statements Sinus tachycardia Abnormal Q suggests anterior infarct Borderline prolonged QT interval Electronically Signed On 02-15-2025 10:29:53 PST by Clay Clinton Please click the below link to view image of tracing.
[2025-02-12] MEDS: InsuLIN REG 1unit/0.01ml Soln (100units/ml) SC SCH (17:26)
[2025-02-12] MEDS: ACCU-CHEK COMFORT CURVE STRIP VI SCH (17:26)
[2025-02-12 18:08] VITALS: RESP 23; O2SAT 100
[2025-02-12 19:00] LABS: INR 1.06 (0.9-1.15); Partial Thromboplastin Time 27.4 SEC (24.5-34.5); Prothrombin Time 11.2 sec (9.3-11.8)
[2025-02-12 20:00] VITALS: PULSE 141; RESP 16; O2SAT 100
[2025-02-12] MEDS: LORazepam 2MG/ML-1ML VIAL IV ONE ×2 (20:30→21:54)
[2025-02-12] MEDS: LORazepam 2MG/ML-1ML VIAL ONE (20:33)
[2025-02-12] MEDS: VALSARTAN 80 MG TAB PO ONE (22:56)
[2025-02-12] MEDS: hydroCHLOROthiazide 25 MG TAB PO ONE (22:57)
[2025-02-12] MEDS: SPIRONOLACTONE 25 MG TAB PO ONE (22:58)
[2025-02-12] MEDS: SODIUM CHLOR 0.9% PF (SALINE LOCK) 10ML VIAL/SYR IV SCH (23:01)
[2025-02-12] MEDS ORDERED: NIFEdipine 10 MG CAP PO ONE (23:30)
[2025-02-13] MEDS: CARVEDILOL 12.5 MG TAB PO ONE (00:07)
[2025-02-13] MEDS: LORazepam 2MG/ML-1ML VIAL IV PRN (00:52)
[2025-02-13 06:35] LABS: Hematocrit 33.0 % (36.0-46.0); Hemoglobin 11.4 g/dL (12.2-16.2); Mean Corpuscular Hemoglobin 31.4 pg (28.0-32.0); Mean Corpuscular Volume 91.1 fL (80.0-100.0); Nucleated Red Blood Cells % 0.1 %
[2025-02-13] MEDS: SPIRONOLACTONE 25 MG TAB PO SCH (06:55)
[2025-02-13] MEDS: hydroCHLOROthiazide 25 MG TAB PO SCH (06:55)
[2025-02-13 07:01] LABS: Alanine Aminotransferase 15 U/L (7-40); Albumin 4.2 g/dL (3.2-4.8); Alkaline Phosphatase 90 U/L (46-116); Anion Gap 11 (5-15); BUN/Creatinine Ratio 10.4 (10.0-20.0); Bilirubin, Total 0.5 mg/dL (0.2-1.0); Blood Urea Nitrogen 20 mg/dL (9-23); Calcium 9.0 mg/dL (8.7-10.4); Carbon Dioxide 22 mmol/L (20-31); Chloride 106 mmol/L (98-107); Glucose 113 mg/dL (74-106); Potassium 4.1 mmol/L (3.5-5.1); Sodium 139 mmol/L (136-145); Total Protein 7.2 g/dL (5.7-8.2)
[2025-02-13] MEDS: VALSARTAN 80 MG TAB PO SCH (07:06)
[2025-02-13 07:30] VITALS: PULSE 113; RESP 19; O2SAT 98
[2025-02-13] MEDS: ENOXAPARIN SOD 40 MG/0.4 ML SYRINGE SC SCH (10:33)
--- NOTE | 2025-02-13 14:07 | DVHPN2 ---
Reviewed: H&P Changes from previous H/P or p: No Changes General: Per HPI Objective Vitals Vital Signs Date Time Temp Pulse Resp B/P (MAP) Pulse Ox O2 Delivery O2 Flow Rate FiO2 02/13/25 11:00 98.3 85 15 135/93 (107) 98 98.3 02/13/25 07:30 Room Air* 0 21 Intake/Output Intake and Output 02/13/25 07:00 Intake Total 1569.0 ml Balance 1569.0 ml Intake IV Total 1569.0 ml Exam GEN: Healthy appearing, well-developed, NAD. HEENT: NC/AT; MMM. CV: RRR, no m/r/g. LUNGS: CTAB, no w/r/c. ABD: Soft, NT/ND, NBS, no masses or organomegaly. EXT: skin Warm, well perfused. no rashes. No clubbing, cyanosis, or edema. NEURO: Ambulating with no limitations. No focal deficits. Medications Current Medications Medications Dose Ordered Sig/Lucie Route Start Time Stop Time Status Last Admin Dose Admin Nicardipine/ Sodium Chloride 200 ml @ 50 mls/hr Q4H IV 02/12/25 12:15 02/13/25 01:43 25 MLS/HR Sodium Chloride 10 ml Q8HR IV 02/12/25 22:00 02/13/25 06:15 10 ML Ondansetron HCl 4 mg Q4HP PRN IV 02/12/25 14:30 02/12/25 21:23 4 MG Enoxaparin Sodium 40 mg DAILY SC 02/13/25 10:00 02/13/25 10:33 40 MG Acetaminophen 650 mg Q6HP PRN PO 02/12/25 14:30 Morphine Sulfate 2 mg Q4HPRN PRN IV 02/12/25 14:30 UNV Nitroglycerin 0.4 mg Q5MINP PRN SL 02/12/25 14:30 Morphine Sulfate 2 mg Q30M PRN IV 02/12/25 14:30 Diagnostic Test (Pha) 1 strip ACHS 02/12/25 17:00 02/13/25 12:05 1 STRIP Insulin Human Regular ACHS SC 02/12/25 17:00 02/13/25 12:08 2 UNITS Dextrose 50 ml UD PRN IV 02/12/25 14:45 Pantoprazole Sodium 40 mg DAILY IV 02/12/25 14:45 02/13/25 10:33 40 MG Morphine Sulfate 2 mg Q4HPRN PRN IV 02/12/25 15:15 Lorazepam 0.5 mg Q6HP PRN IV 02/13/25 00:00 02/13/25 00:52 0.5 MG Spironolactone 25 mg DAILY PO 02/13/25 10:00 02/13/25 06:55 25 MG Hydrochlorothiazide 25 mg DAILY PO 02/13/25 10:00 02/13/25 06:55 25 MG Valsartan 320 mg DAILY PO 02/13/25 10:00 02/13/25 07:06 320 MG Laboratory Results Laboratory Tests 02/13/25 05:39 Chemistry Test 02/13/25 05:39 Albumin 4.2 g/dL (3.2-4.8) Calcium Level 9.0 mg/dL (8.7-10.4) Total Protein 7.2 g/dL (5.7-8.2) Coagulation Test 02/12/25 18:21 Prothrombin Time 11.2 sec (9.3-11.8) Prothrombin Time INR 1.06 (0.9-1.15) Activated Partial Thromboplast Time 27.4 SEC (24.5-34.5) LFT Test 02/13/25 05:39 Alanine Aminotransferase (ALT) 15 U/L (7-40) Alkaline Phosphatase 90 U/L (46-116) Aspartate Amino Transferase (AST) 32 U/L (13-40) Total Bilirubin 0.5 mg/dL (0.2-1.0) Urinalysis Test 02/12/25 13:30 Urine Color Light-yellow (Yellow) Urine Clarity Clear (Clear) Urine pH 8.5 (5.0-9.0) Urine Specific [place] 1.012 (1.001-1.035) Urine Protein 3+ (Negative) H Urine Ketones Negative (Negative) Urine Blood Negative /uL (Negative) Urine Nitrite Negative (Negative) Urine Bilirubin Negative (Negative) Urine Urobilinogen Normal mg/dL (Negative) Urine Leukocyte Esterase Negative /uL (Negative) Urine RBC 2 /hpf (0 - 4) Urine Microscopic WBC 1 /HPF (0-5) Urine Squamous Epithelial Cells Few /hpf (<5) Urine Bacteria None seen /hpf (None Seen) Urine Glucose Trace mg/dL (Normal) Urine Test Negative (Negative) Microbiology Microbiology Date/Time Source Procedure Growth Status 02/12/25 11:05 Blood Blood Culture - Preliminary NO GROWTH AFTER 24 HOURS OF INCUBATION. Resulted Labs and/or images reviewed: Labs reviewed by me, Image(s) reviewed by me Assessment/Plan Assessment/Plan 02/13: Patient presented initially with nausea vomiting to ice, none has chest pain. Likely from vomiting. Troponins negative x3,. Patient admitted for hypertensive emergency currently on hydrochlorothiazide 25 daily spironolactone 25 daily valsartan 320 daily, patient as that she takes clonidine and nifedipine at home. She has CKD and sees Nephrology, nephrology since per patient, she has CKD from hypertension. Currently patient has leukocytosis with left shift neutrophilia, tachycardic, tachypneic. Tachypnea has resolved but still tachycardic 110s. Gastroenteritis is possible, lactic acidosis present. We will repeat lactic acid, blood cultures. We will give Xanax in case symptoms from anxiety as she admits, if tachycardia continues we will have to continue admission use antibiotics. Per patient she has history of [place] with stent?, blood pressure now controlled. We will continue expectant management. - we will get lactic acid, blood cultures. Start Unasyn q.8, change spironolactone to Coreg 12.5 b.i.d. (home doses 25 b.i.d., we will up titrate as needed). Patient he has history of terrible noncompliance, possibly this visit also is due to that. Plan discussed with: Patient My Orders Orders - DELFINA CESAR MD Procedure Category Date Status Time Full Liq Diet DIET 02/13/25 Transmitted Lunch Alprazolam Tablet PHA 02/13/25 Logged (Xanax Tablet) 14:15 Blood Culture ELÍAS 02/13/25 Logged 14:01 Lactic Acid W/ Reflex LAB 02/13/25 Logged Order 14:01 Date of Service: Feb 13, 2025 Billing Provider: DELFINA CESAR MD Common Visit Codes: [id number] INP/OBS CARE(HIGH) DELFINA CESAR MD Feb 13, 2025 14:07
[2025-02-13] MEDS ORDERED: MORPHINE SULFATE 4 MG/ML SYR/VIAL IV PRN (14:15)
[2025-02-13] MEDS: ALPRAZolam 0.25 MG TAB PO ONE (14:40)
[2025-02-13 15:12] VITALS: BP 146/92; PULSE 111; RESP 18; O2SAT 94
[2025-02-13] MEDS ORDERED: LACTATED RINGER'S 1,000 ML IV ONE (15:45)
[2025-02-13] MEDS ORDERED: AMPICILLIN & SULBACTAM SODIUM 3 GM in SODIUM CHL 0.9% 100 ML IV SCH (16:00)
[2025-02-13] MEDS ORDERED: CARVEDILOL 12.5 MG TAB PO SCH (22:00)
--- NOTE | 2025-02-19 09:55 | DVHDS2 ---
Discharge Summary Date of Admission Feb 12, 2025 at 14:16 Date of Discharge: Feb 13, 2025 Labs/Diagnostic Data: Laboratory Results Test 02/13/25 14:29 02/13/25 12:02 02/13/25 05:39 02/12/25 20:15 Lactic Acid Level 0.9 mmol/L (0.4-2.0) POC Glucose 140 mg/dl (70-106) White Blood Count 14.3 10^3/uL (4.4-10.8) Red Blood Count 3.62 10^6/uL (4.0-5.20) Hemoglobin 11.4 g/dL (12.2-16.2) Hematocrit 33.0 % (36.0-46.0) Mean Corpuscular Volume 91.1 fL (80.0-100.0) Mean Corpuscular Hemoglobin 31.4 pg (28.0-32.0) Mean Corpuscular Hemoglobin Concent 34.5 g/dL (32.0-36.0) Red Cell Distribution Width 13.0 % (11.8-14.3) Platelet Count 278 10^3/uL (140-450) Mean Platelet Volume 8.5 fL (6.9-10.8) Neutrophils (%) (Auto) 72.3 % (37.0-80.0) Lymphocytes (%) (Auto) 21.6 % (10.0-50.0) Monocytes (%) (Auto) 5.6 % (0.0-12.0) Eosinophils (%) (Auto) 0.3 % (0.0-7.0) Basophils (%) (Auto) 0.2 % (0.0-2.0) Neutrophils # (Auto) 10.3 10 ^3/uL (1.6-8.6) Lymphocytes # (Auto) 3.1 10 ^3/uL (0.4-5.4) Monocytes # (Auto) 0.8 10 ^3/uL (0-1.3) Eosinophils # (Auto) 0 10 ^3/uL (0-0.8) Basophils # (Auto) 0 10 ^3/uL (0-0.2) Nucleated Red Blood Cells 0.1 % Sodium Level 139 mmol/L (136-145) Potassium Level 4.1 mmol/L (3.5-5.1) Chloride Level 106 mmol/L (98-107) Carbon Dioxide Level 22 mmol/L (20-31) Anion Gap 11 (5-15) Blood Urea Nitrogen 20 mg/dL (9-23) Creatinine 1.92 mg/dL (0.550-1.02) Glomerular Filtration Rate Calc 36 mL/min (>90) BUN/Creatinine Ratio 10.4 (10.0-20.0) Serum Glucose 113 mg/dL (74-106) Calcium Level 9.0 mg/dL (8.7-10.4) Total Bilirubin 0.5 mg/dL (0.2-1.0) Aspartate Amino Transferase (AST) 32 U/L (13-40) Alanine Aminotransferase (ALT) 15 U/L (7-40) Alkaline Phosphatase 90 U/L (46-116) Total Protein 7.2 g/dL (5.7-8.2) Albumin 4.2 g/dL (3.2-4.8) Troponin I High Sensitivity 17 ng/L (</=34) Test 02/12/25 18:21 02/12/25 15:14 02/12/25 13:30 02/12/25 10:38 Prothrombin Time 11.2 sec (9.3-11.8) Prothrombin Time INR 1.06 (0.9-1.15) Activated Partial Thromboplast Time 27.4 SEC (24.5-34.5) Influenza Type A Antigen Negative (Negative) Influenza Type B Antigen Negative (Negative) SARS-CoV-2 Antigen (Rapid) Negative (NEGATIVE) Urine Color Light-yellow (Yellow) Urine Clarity Clear (Clear) Urine pH 8.5 (5.0-9.0) Urine Specific [place] 1.012 (1.001-1.035) Urine Protein 3+ (Negative) Urine Ketones Negative (Negative) Urine Blood Negative /uL (Negative) Urine Nitrite Negative (Negative) Urine Bilirubin Negative (Negative) Urine Urobilinogen Normal mg/dL (Negative) Urine Leukocyte Esterase Negative /uL (Negative) Urine RBC 2 /hpf (0 - 4) Urine Microscopic WBC 1 /HPF (0-5) Urine Squamous Epithelial Cells Few /hpf (<5) Urine Bacteria None seen /hpf (None Seen) Urine Glucose Trace mg/dL (Normal) Urine Test Negative (Negative) Urine Opiates Screen Neg (NEGATIVE) Urine Fentanyl Screen Neg (NEGATIVE) Urine Barbiturates Screen Neg (NEGATIVE) Urine Phencyclidine Screen Neg (NEGATIVE) Urine Amphetamines Screen Neg (NEGATIVE) Urine Benzodiazepines Screen Neg (NEGATIVE) Urine Cocaine Screen Neg (NEGATIVE) Urine Cannabinoids Screen Pos (NEGATIVE) Hemoglobin A1c 5.3 % A1C (<5.7) Magnesium Level 2.0 mg/dL (1.6-2.6) Direct Bilirubin 0.2 mg/dL (<0.3) B-Type Natriuretic Peptide 44.51 pg/mL (0-100) Thyroid Stimulating Hormone (TSH) 0.25 uIU/mL (0.55-4.78) Other Laboratory Tests 02/13/25 05:39 Brief Hx & Hospital Course: Munir presents to the emergency department with chest pain and shortness of breath. The patient has a significant medical history including diabetes, hypertension, kidney failure, and recent cardiac stent placement approximately 2 months ago. The patient began feeling unwell this morning around 2:00 AM and by 8:00 AM was experiencing significant chest pain and difficulty breathing, prompting her family member to call an ambulance. The chest pain is described as occurring in the same location consistently and is constant in nature. The patient has been experiencing recurrent episodes of chest pain and breathing difficulties, leading to multiple recent hospitalizations. The patient takes her medications regularly and has established care with primary physician Tona and political consultant Dr. Nuno for her kidney disease. She denies any recent flu-like symptoms, cough, fever, or headache. The patient has been vomiting and experiencing nausea since arrival. Her blood pressure is significantly elevated, requiring continuous nicardipine drip PMHx: Hypertension, Diabetes mellitus, Kidney failure, Coronary artery disease with cardiac stent placement approximately 2 months ago, Recurrent hospitalizations for chest pain and shortness of breath 02/13: Patient presented initially with nausea vomiting to ice, none has chest pain. Likely from vomiting. Troponins negative x3,. Patient admitted for hypertensive emergency currently on hydrochlorothiazide 25 daily spironolactone 25 daily valsartan 320 daily, patient as that she takes clonidine and nifedipine at home. She has CKD and sees Nephrology, nephrology since per patient, she has CKD from hypertension. Currently patient has leukocytosis with left shift neutrophilia, tachycardic, tachypneic. Tachypnea has resolved but still tachycardic 110s. Gastroenteritis is possible, lactic acidosis present. We will repeat lactic acid, blood cultures. We will give Xanax in case symptoms from anxiety as she admits, if tachycardia continues we will have to continue admission use antibiotics. Per patient she has history of [place] with stent?, blood pressure now controlled. We will continue expectant management. - we will get lactic acid, blood cultures. Start Unasyn q.8, change spironolactone to Coreg 12.5 b.i.d. (home doses 25 b.i.d., we will up titrate as needed). Patient he has history of terrible noncompliance, possibly this visit also is due to that. Diagnosis: Hypertensive Emergency Chest pain likely from above SIENNA likely due to VMN on CKD 3bLikely from hypertensive emergency Gastroenteritis, infectious etiology likely Intractable nausea and vomiting Ruled out ACS Uncontrolled type 2 DM With the hyperglycemia cannabis hyperemesis possible Sepsis Lactic acidosis Tachycardia, likely from sepsis Medication noncompliance Hx of CAD s/p PTCA HLD Obesity class 2 dehydration intravascular volume depletion Plan: - Patient left AMA, thus assuming all responsibility and any complications that may arise from having not getting recommended and needed adequate medical care/attention. Complications can include including and/or coma, and any other serious fatal comorbidities. Condition at Discharge: Undetermined Final Diagnosis/Problems List Hypertensive Emergency Chest pain likely from above SIENNA likely due to VMN on CKD 3bLikely from hypertensive emergency Gastroenteritis, infectious etiology likely Intractable nausea and vomiting Ruled out ACS Uncontrolled type 2 DM With the hyperglycemia cannabis hyperemesis possible Sepsis Lactic acidosis Tachycardia, likely from sepsis Medication noncompliance Hx of CAD s/p PTCA HLD Obesity class 2 dehydration intravascular volume depletion Discharge Disposition: AMA Discharge Instruct/Medications Scheduled Aspirin (Aspir-81), 81 MG PO DAILY Atorvastatin Calcium (Atorvastatin Calcium), 80 MG PO DAILY Carvedilol (Coreg), 1 TAB PO BID Carvedilol (Carvedilol), 25 MG PO BID Clonidine Hydrochloride (Clonidine Hcl), 1 TAB PO BID, (Reported) Clopidogrel Bisulfate (Plavix), 75 MG PO DAILY Ergocalciferol (Vitamin D 26857 Unit), 50,000 UNIT PO QWEEKLY Hctz (Hydrochlorothiazide), 25 MG PO DAILY Hydroxyzine HCl (Hydroxyzine Hydrochloride), 25 MG PO DAILY Nifedipine (Nifedipine Er), 1 TAB PO DAILY, (Reported) Nifedipine (Nifedipine Er), 90 MG PO DAILY Pantoprazole Sodium Sesquihydr (Protonix), 40 MG PO DAILY Semaglutide (Ozempic), 1 MG SC QWEEKLY, (Reported) Valsartan (Valsartan), 1 TAB PO DAILY, (Reported) Valsartan (Diovan), 320 MG PO DAILY Discharge Statement: "Patient was advised to return to the ER or call 911 if any headaches, dizziness, shortness of breath, chest pain, abdominal pain, bleeding, fevers, or worsening of medical condition. Patient was counseled about treatment plan, medications, possible side effects, patientverbalized understanding. All questions were answered to the best of my ability. This discharge took greater then 30 minutes in planning, reviewing documentation, counseling the patient, and discussing with other team members." ASSESSMENT ASSESSMENT Assessment Date of Service: Feb 13, 2025 Billing Provider: DELFINA CESAR MD Common Visit Codes: [id number] DISCH DAY >30min DELFINA CESAR MD Feb 19, 2025 09:55
== END 2025-02-13 16:45 | disposition left against medical advice (07) | DRG 720 ==
LOC: ER 09:20 → EDBD 09:20 → OVERFLOW 14:16 → TELE-WESTW 02-13 15:40
PROVIDERS: ADMIT Student in an Organized Health Care Education/Training Program; ATTEND Student in an Organized Health Care Education/Training Program
DX: A41.9 Sepsis, unspecified organism (principal); N17.0 Acute kidney failure with tubular necrosis; I16.1 Hypertensive emergency; E87.20 Acidosis, unspecified; E11.65 Type 2 diabetes mellitus with hyperglycemia; E66.812 Obesity, class 2; N18.32 Chronic kidney disease, stage 3b; Z20.822 Contact with and (suspected) exposure to COVID-19; E86.0 Dehydration; I12.9 Hypertensive chronic kidney disease with stage 1 through stage 4 chronic kidney disease, or unspecified chronic kidney disease; I25.10 Atherosclerotic heart disease of native coronary artery without angina pectoris; E11.22 Type 2 diabetes mellitus with diabetic chronic kidney disease; A09 Infectious gastroenteritis and colitis, unspecified; F41.9 Anxiety disorder, unspecified; Z53.29 Procedure and treatment not carried out because of patient's decision for other reasons; Z95.5 Presence of coronary angioplasty implant and graft; I25.2 Old myocardial infarction; Z91.148 Patient's other noncompliance with medication regimen for other reason; Z68.34 Body mass index [BMI] 34.0-34.9, adult
CPT/HCPCS: 36415; 71045; 80048; 80053; 80076; 80307; 81001; 81025; 82962; 83036; 83605; 83735; 83880; 84443; 84484; 85025; 85610; 85730; 87040; 87426; 87804; 93005; 99291; 99292; G0378; J1815; J2405; J2470